=== PATIENT | male | born 1980 | race African-American/Black ===

== ENCOUNTER 2018-04-04 21:41 | Inpatient (IN) ==
[2018-04-04] MEDS ORDERED: NS 1,000 ML IV ONE (23:47)
[2018-04-05 01:19] LABS: AGAP 11; ALB/GLOB RATIO 0.5; ALBUMIN 2.3 g/dL (3.5-5.0); ALKALINE PHOSPHATASE 102 U/L (32-122); BUN 12 mg/dL (8-22); CALCIUM 8.1 mg/dL (8.8-10.2); CHLORIDE 107 mmol/L (98-107); COSMO 270; CREATININE 0.6 mg/dL (0.7-1.2); ESTIMATED GFR > 60; GLUCOSE 103 mg/dL (70-104); GOT 25 U/L (10-34); GPT 10 U/L (10-44); POTASSIUM 3.4 mmol/L (3.5-5.1); SODIUM 135 mmol/L (136-145); TCO2 17 mmol/L (25-35); TOTAL BILIRUBIN 0.22 mg/dL (0.20-1.00)
[2018-04-05 01:31] LABS: BASO# 0.03 X1000 (0.0-0.2); BASO% 0.3 % (0.0-0.8); EOS# 0.33 X1000 (0.0-0.7); EOS% 3.2 % (0.0-10.0); HEMATOCRIT 21.3 % (42.0-52.0); HEMOGLOBIN 6.7 g/dL (14.0-18.0); LYMPH# 1.33 X1000 (1.2-3.4); LYMPH% 12.9 % (20.5-51.1); MCH 28.8 PG (27-31); MCHC 31.5 g/dL (33-37); MCV 91.4 FL (81-99); MONO# 0.97 X1000 (0.11-0.59); MONO% 9.4 % (1.7-9.3); NEUT# 7.62 X1000 (1.4-6.5); NEUT% 74.2 % (42.2-75.2); PLT 590 X1000 (130-400); RBC 2.33 XMIL (4.7-6.1); RDW 17.2 % (11.5-14.5); WBC 10.28 X1000 (4.8-10.8)
[2018-04-05] MEDS: MORPHINE IV ONE ×2 (02:00→10:20)
[2018-04-05] MEDS ORDERED: NS 1,000 ML IV ONE (02:11)
[2018-04-05] MEDS ORDERED: VANCOMYCIN 1 GM/NS 1 GM/250 ML IVPB IV ONE (02:34)
[2018-04-05] MEDS ORDERED: ZOSYN 3.375 GM in NS 50 ML IV ONE (02:34)
--- NOTE | 2018-04-05 03:16 | PROVIDER DOCUMENTATION ---
This chart was entered by Nicolás Hernandez Scribe, acting as scribe for Michael Coates MD. HPI-General Adult - General Chief Complaint: General Adult Stated Complaint: abd pain Time Seen by Provider: 04/04/18 21:44 Source: patient Allergies/Adverse Reactions: Patient Allergies Allergy/AdvReac Type Severity Reaction Status Date / Time No Known Allergies Allergy Verified 09/12/14 16:15 Home Medications: Home Medication List Medication Instructions Recorded Confirmed Last Taken Type Carisoprodol [Soma] 350 mg PO BID 03/26/12 09/12/14 09/10/14 09:00 History Pregabalin [Lyrica] 200 mg PO TID 03/26/12 09/12/14 09/10/14 09:00 History Zolpidem [Ambien] 10 mg PO QHS 03/26/12 09/12/14 09/10/14 09:00 History Folic Acid 1 mg PO DAILY #0 tablet 10/26/13 09/12/14 09/10/14 09:00 Rx Insulin Glargine [Lantus] 20 units SQ BID 07/15/14 09/12/14 09/10/14 09:00 History Acetaminophen [Tylenol] 325 - 650 mg PO Q4H PRN PRN #0 09/22/14 Unknown Rx tablet Hydrocodone/Acetaminophen [Hartly 10 mg PO Q6H PRN PRN #30 tablet 09/22/14 Unknown Rx 10-325 Tablet] Nitrofurantoin Loíza/Macrocryst 100 mg PO Q12HR #6 capsule 09/22/14 Unknown Rx [Macrobid] - History of Present Illness -Gen Adult Nature of Presenting Problems: Pt is 38 y/o M brought in by EMS saying he spoke with a nurse from [facility]ious [facility]. He reports he was DC 4 days ago there treated with Sepsis. He reports a PICC line in his left arm. 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 He says he mom has been treating his wounds. He says he had a fever 3 days ago. He says he is not feeling well and unable to eat. Location of Pain/Injury: reports: generalized (not feeling well.) Pain Radiation: reports: no radiation Severity: reports: mild Onset/Duration: reports: 2 days ago Timing: reports: still present Context/Activities at Onset: reports: none Modifying Factors: improves with: nothing Associated Symptoms: reports: fever/chills. denies: cough, diarrhea, sinus congestion/drainage, shortness of breath, swelling/mass in abdomen Similar Symptoms Previously?: No Recently seen or treated by another doctor?: No Review of Systems - Adult - REVIEW OF SYSTEMS - ADULT Constitutional: reports: fever. denies: chills Cardiovascular: denies: edema, palpitations Respiratory: denies: cough, shortness of breath, wheezing Gastrointestinal: denies: abdominal pain, nausea, vomiting Genitourinary: denies: dysuria, discharge Musculoskeletal: denies: back pain, neck pain Neurological: denies: dizziness/vertigo, headache/migraines Past History - Adult - PAST MEDICAL HISTORY-ADULT Review of Records: reports: Old Records Reviewed, Nursing Assessment Review, Medications Reviewed Major Childhood Illnesses: reports: denies history Cardiovascular: reports: cardiac disease Respiratory: reports: denies history Gastrointestinal: reports: denies history Obstetrical/Gynecological: Genitourinary: reports: chronic UTI's, other (self caths) Musculoskeletal: reports: arthritis, other (paraplegic since 2005 with some contracturing of legs) Neurological: reports: other (paraplegia) Psychiatric: reports: depression Endocrine/Immune: reports: anemia, Diabetes Other Conditions: reports: denies history - PRIOR SURGERIES/PROCEDURES Surgical/Procedure History: reports: orthopedic (extremity) (knee surgery.), joint replacement (Total knee replacement. ), other (Arthroscopy. ) - IMMUNIZATION STATUS Childhood Immunizations: See Nurse Assessment Flu Vaccine: See Nurse Assessment - FAMILY HISTORY Family History: reviewed, not pertinent - SOCIAL HISTORY Substance Use: none/never Alcohol Use Frequency: never Living Situation: family Physical Exam-General - PHYSICAL EXAM-ADULT Initial Vital Signs Reviewed: Yes - CONSTITUTIONAL General Appearance: appears well, alert, no apparent distress - EYES Eyes: PERRL/EOMI, pink conjunctivae - HEAD, EARS, NOSE, MOUTH & THROAT HENMT: moist mucous membranes, pharynx normal - RESPIRATORY Respiratory: lungs clear, normal breath sounds, no pleuratic chest pain, no respiratory distress, no accessory muscle use - CARDIOVASCULAR Cardiovascular: normal peripheral pulses, tachycardia - MUSCULOSKELETAL Back Exam: normal inspection, no CVA tenderness, no vertebral tenderness Extremity: non-tender, normal gait. negative: normal inspection - SKIN Integumentary: normal color, normal turgor, warm/dry - NEUROLOGIC Neurologic: grossly normal, no motor/sensory deficits - PSYCHIATRIC Psych/Mental Status: normal mood/affect, normal thought content, normal thought process, oriented x 3 Progress - PLAN OF CARE/RESULTS Progress/Plan/Lab Results: Vital Signs - 8 hr 04/04/18 21:37 Temperature 98.1 F Pulse Rate 119 H Respiratory Rate 18 Blood Pressure 94/69 O2 Sat by Pulse Oximetry 96 Pt was recently treated at [facility], they are on diversion, pt to be covered with abx , right now hypotensive but pt reports baseline is 90/60, pt getting fluids and abx now, will admit Result Diagrams: 04/05/18 00:30 04/05/18 00:30 - CONSULTS/PCP/HOSPITALIST Notification #1 *Consult/PCP/Hospitalist*: [facility] Time Discussed: 23:41 Reason/Comments: Transfer Consult Disposition: other (PT was pt at [facility]. Do an infectious work up) Departure - Departure Date of Disposition Decision: 04/05/18 Time of Disposition Decision: 03:15 DIAGNOSIS: Infected decubitus ulcer Qualifiers: Pressure injury stage: stage 2 Qualified Code(s): L89.92 - Pressure ulcer of unspecified site, stage 2; L08.9 - Local infection of the skin and subcutaneous tissue, unspecified Disposition: ADMITTED INPATIENT 09 Certified Medical Emergency: Emergent Condition: Critical Referrals and Follow-Ups: Jennifer Balderas [Primary Care Provider] - - Critical Care Note This patient required my direct & personal management of CC.: No Attestation - Physician/ IBAN Attestation Patient care was provided by Advanced Practice Provider:: No The physician spent face to face time with patient:: Yes Advanced Practice Provider documentation review:: Supervising physician onsite and consulted in the evaluation and care of this patient. The physician did have a face to face encounter with the patient. This chart was documented by the indicated scribe, (Nicolás Hernandez Scribe) and accurately reflects the services I performed and decisions made by me, Michael Coates MD, as attested by the provider's signature.
[2018-04-05] MEDS ORDERED: MAXIPIME 1 GM in NS 50 ML IV SCH (03:30)
[2018-04-05 03:53] LABS: INR 1.22; PROTIME 16.4 Seconds (11.0-16.0)
[2018-04-05 03:54] LABS: PTT 43.8 Seconds (22.3-41.8)
--- NOTE | 2018-04-05 04:21 | HISTORY AND PHYSICAL ---
ADDENDUM Mr. Jose Stewart is a 38-year-old male with chronic hip and sacral decubiti secondary to longstanding paraplegia. He was recently discharged from [facility] about 3 days ago where he stayed for 3 weeks. When he was admitted there, they had plans to do surgical debridement or possible replacement of both of his hips, but fortunately for him he only required IV antibiotics with a drain placed in his left groin. He says he was informed that he had highly drug -resistant pathogens that required multiple antibiotics. They had planned to send him to a retirement to complete his IV antibiotic course, but he said he could manage this at home with his mother. During the course of his stay at home over the last few days, he and his mother had a hard time trying to get his medications right. He spiked a fever this morning and called [facility] and they told him to come to the ER. Plans were made to get him transferred to [facility], but they are currently on diversion. He will be admitted to our facility, resume all his home antibiotics in conjunction with IV supervision. His exam is notable for the drain in his left groin. Did not exam sacral area. He has clubbing in his fingers. He is very pale. His hemoglobin and hematocrit are [address] He is paraplegic. He has dependent 2-plus edema in his lower extremities. Also, the patient will require at least 2 L of fluid. His blood pressure is marginal at best, 70-80 systolic, but he says his baseline is 90 systolic. Other vital signs: Pulse is 123, temperature is 98.1. His respiration rate is 17 with an O2 saturation of 96. cc: Maikol Castillo MD [facility]
[2018-04-05] MEDS ORDERED: VANCOMYCIN IV PER PHARMACY MISC SCH (05:15)
[2018-04-05 05:18] LABS: HEMATOCRIT 20.8 % (42.0-52.0); HEMOGLOBIN 6.5 g/dL (14.0-18.0)
[2018-04-05] MEDS ORDERED: KLOR-CON PO ONE (06:16)
[2018-04-05] MEDS ORDERED: TYLENOL PO PRN (06:16)
[2018-04-05] MEDS ORDERED: VANCOMYCIN 2,300 MG in NS 500 ML IV ONE (06:30)
[2018-04-05] MEDS: FLAGYL 500 MG/NS 500 MG/100 ML IVPB IV SCH ×2 (06:40→12:11)
[2018-04-05 06:54] LABS: URINE SOURCE CATH
[2018-04-05 06:58] LABS: BILIRUBIN URINE NEGATIVE (NEGATIVE); BLOOD URINE MODERATE (NEGATIVE); COLOR YELLOW; GLUCOSE URINE NEGATIVE (NEGATIVE); KETONE URINE NEGATIVE (NEGATIVE); LEUKOCYTES URINE SMALL (NEGATIVE); NITRITE URINE NEGATIVE (NEGATIVE); PROTEIN URINE 70 mg/dL (NEGATIVE); SP GRAVITY URINE 1.017; TURBIDITY URINE CLEAR (CLEAR); UROBILINOGEN URINE NORMAL (NORMAL)
[2018-04-05] MEDS: HUMALOG SUBQ SCH ×4 (07:00→20:08)
[2018-04-05 07:26] LABS: UR EPITHELIAL CELLS >10 /HPF (<10); URINE BACTERIA NEGATIVE /HPF; URINE CASTS NONE SEEN; URINE CRYSTALS NONE SEEN; URINE RBC 20-40 /HPF (<10); URINE SMALL ROUND CELLS NONE SEEN; URINE WBC <10 /HPF (<10); URINE YEAST NONE SEEN
[2018-04-05] MEDS: NS 1,000 ML IV SCH ×2 (07:30→16:43)
[2018-04-05] MEDS: SODIUM CHLORIDE 0.9% INJ SCH ×2 (07:31→18:54)
[2018-04-05] MEDS: PROTONIX IV SCH ×2 (07:31→18:54)
[2018-04-05] MEDS: ZOFRAN IV PRN (07:32)
--- NOTE | 2018-04-05 07:38 | EKG Report ---
Test Performed on : 04/05/2018 07:32:06 AM Test Reason : Anemia, Hypotension Blood Pressure : / mmHG Vent. Rate : 099 BPM Atrial Rate : 099 BPM P-R Int : 140 ms QRS Dur : 086 ms QT Int : 354 ms P-R-T Axes : 059 062 066 degrees QTc Int : 454 ms Normal sinus rhythm. Normal ECG No previous ECGs available Confirmed by Thomas QUIROZ, Oscar Wright ([id number]) on 04/05/2018 4:13:26 PM
[2018-04-05] MEDS ORDERED: NS 250 ML ONE (07:46)
--- NOTE | 2018-04-05 08:05 | Diag Imaging Result Doc PS360 ---
EXAM: CHEST-1 VIEW 04/04/2018 HISTORY: fever TECHNIQUE: AP portable at 2356 COMMENT: There is a PICC line on the right with its tip in the right atrium. The inspiration is somewhat suboptimal. There are no focal opacities and the heart size and primary vascularity are within normal limits. Compared to 09/22/2014 the inspiration is less optimal but otherwise there has been no significant change. IMPRESSION: No acute disease. Electronically signed by Michel Kidd 04/05/2018 8:03 AM
[2018-04-05 12:15] LABS: HEMATOCRIT 29.5 % (42.0-52.0); HEMOGLOBIN 9.4 g/dL (14.0-18.0)
[2018-04-05] MEDS: SANTYL OINT TOP SCH (13:15)
[2018-04-05] MEDS: MORPHINE IV PRN ×4 (13:22→23:14)
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
[2018-04-05] MEDS: MAXIPIME 2 GM in NS 100 ML IV SCH (16:43)
--- NOTE | 2018-04-05 16:59 | Diag Imaging Result Doc PS360 ---
US SCROTUM - 04/05/2018 INDICATION: Scrotal Swelling TECHNIQUE: COMPARISON: CT abdomen pelvis 07/15/2014 FINDINGS: There is severe nonspecific skin edema over the scrotum diffusely. No large fluid collections. The testes themselves demonstrate microlithiasis. The right testicle measures 2.7 x 1.7 cm. The left testicle measures 2.8 x 1.9 cm. IMPRESSION: 1. Severe, nonspecific skin edema of the scrotum. No fluid collections. 2. Testicular microlithiasis. Electronically signed by Demond Bowers 04/05/2018 4:57 PM
--- NOTE | 2018-04-05 19:45 | CONSULTATION ---
DATE OF CONSULTATION: 04/05/2018 HISTORY OF PRESENT ILLNESS: Mr. Jesus Stewart is a paraplegic 38-year-old male who was just discharged from [facility] after being cared for, for multiple pressure ulcers involving the sacrum and buttocks areas. He has a drain in place per [facility]. He is continuing to receive IV antibiotics. ASSESSMENT AND PLAN: Our hospitalists have contacted [facility] and plan to transfer him back to that service. In the meantime, I would have our wound care nurse help care for these wounds. cc: Latonya Anderson MD
[2018-04-06] MEDS: VANCOMYCIN 2,300 MG in NS 500 ML IV SCH ×2 (01:58→20:56)
[2018-04-06] MEDS: MORPHINE IV PRN ×5 (03:37→23:21)
[2018-04-06] MEDS: MAXIPIME 2 GM in NS 100 ML IV SCH ×2 (04:23→15:55)
[2018-04-06 05:13] LABS: BASO# 0.04 X1000 (0.0-0.2); BASO% 0.4 % (0.0-0.8); EOS# 0.37 X1000 (0.0-0.7); EOS% 3.6 % (0.0-10.0); HEMOGLOBIN 8.7 g/dL (14.0-18.0); LYMPH# 1.47 X1000 (1.2-3.4); LYMPH% 14.3 % (20.5-51.1); MCH 28.4 PG (27-31); MCHC 32.2 g/dL (33-37); MCV 88.2 FL (81-99); MONO# 0.96 X1000 (0.11-0.59); MONO% 9.3 % (1.7-9.3); MPV 8.9 FL (7.4-10.4); NEUT# 7.36 X1000 (1.4-6.5); NEUT% 71.4 % (42.2-75.2); PLT 515 X1000 (130-400); RBC 3.06 XMIL (4.7-6.1); RDW 17.2 % (11.5-14.5)
[2018-04-06 05:43] LABS: AGAP 9; ALB/GLOB RATIO 0.5; ALBUMIN 2.1 g/dL (3.5-5.0); ALKALINE PHOSPHATASE 94 U/L (32-122); BUN 9 mg/dL (8-22); CALCIUM 7.7 mg/dL (8.8-10.2); CHLORIDE 111 mmol/L (98-107); COSMO 271; CREATININE 0.5 mg/dL (0.7-1.2); ESTIMATED GFR > 60; GLUCOSE 100 mg/dL (70-104); GOT 11 U/L (10-34); GPT 6 U/L (10-44); POTASSIUM 3.2 mmol/L (3.5-5.1); SODIUM 136 mmol/L (136-145); TCO2 16 mmol/L (25-35); TOTAL BILIRUBIN 0.18 mg/dL (0.20-1.00); TOTAL PROTEIN 6.5 g/dL (6.3-8.3)
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
[2018-04-06] MEDS: HUMALOG SUBQ SCH ×4 (06:34→20:57)
[2018-04-06] MEDS: SODIUM CHLORIDE 0.9% INJ SCH (06:39)
[2018-04-06] MEDS: PROTONIX IV SCH ×2 (06:39→17:20)
[2018-04-06] MEDS: SANTYL OINT TOP SCH (12:23)
[2018-04-06] MEDS ORDERED: POTASSIUM CHLORIDE 40 MEQ/SWI 40 MEQ/100 ML IVPB IV ONE (14:26)
--- NOTE | 2018-04-06 16:43 | PROGRESS NOTE ---
DATE: 04/06/2018 SUBJECTIVE: Patient resting in bed. Not in any obvious distress. OBJECTIVE: Vital signs: Temperature is 96.8 degrees, pulse 105, respiratory 19 , blood pressure is 111/75, O2 saturation 100%. HEENT: Atraumatic, normocephalic. Cardiovascular: S1, S2. Respiratory: Has evidence of good air entry bilaterally. Abdomen: Soft, nontender, no masses. Extremities: Has about 2 to 3+ edema in both lower extremities. 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 ASSESSMENT AND PLAN: 1. Multiple decubitus ulcers with possible left thigh infection. Patient currently has a drain in that region. The patient will require local wound care and also antibiotic management. The patient has been seen by the Infectious Disease team. 2. Diabetes mellitus. Continue blood sugar monitoring as well as sliding scale insulin. 3. Anemia. Follow up on hemoglobin, hematocrit, transfuse PRBC as needed. 4. Hypokalemia. Replete potassium level, check mag level. 5. Deep vein thrombosis prophylaxis Lovenox. cc: Javier Rebollar MD MTDD
--- NOTE | 2018-04-06 18:35 | PROGRESS NOTE ---
DATE: 04/06/2018 Mr. Jose Stewart has multiple pressure wounds involving his buttocks and sacrum. He has been down at [facility] where they have been treating him. He has a drain left groin placed by Interventional Radiology, our girls have removed 50 mL out of that drain. They have instructions to flush the drain 10 mL several times a day as the drainage decreases less than 15 mL it needs to be removed. He is on IV antibiotics, per [facility] and Buster Arango we need our wound care nurse to care for the wounds and he is supposed to have followup at [facility]. cc: Latonya Anderson MD
--- NOTE | 2018-04-06 22:03 | INFECTIOUS DISEASE PROGRESS NO ---
DATE: 04/06/2018 PRESENT ILLNESS: The patient is admitted with multiple sacral decubitus. They all have beefy red tissue except for one that has a large eschar. The patient's chest x-ray does not show any pneumonia. The patient's urine culture is negative and thus the patient does not have a urinary tract infection. MEDICATIONS: The patient currently is on a combination of vancomycin and cefepime. PHYSICAL EXAMINATION: Vital Signs: Temperature was 101 degrees now it is 97.5, pulse 115, respirations 22, blood pressure 99/60. Generally: This is an ill-appearing young male. He is in no acute distress. Head/eyes/ears/nose/throat: He can hear my spoken words and see near objects. He does not have any white coating on the tongue. Neck: The patient has a left internal jugular venous catheter in place. The site is not erythematous or draining. Extremities: The patient has a PICC in the right arm. That site also is not erythematous or draining. The patient does have a drain in the left hip. The patient does have decubitus as mentioned above involving the left hip also. Lungs: Clear to auscultation. Cardiovascular: Regular heart rate. Abdomen: Soft and nontender. LABORATORY FINDINGS AND X-RAYS: Chest x-ray shows no acute disease. Urinalysis does not have white cells or bacteria. Urine culture is negative. Culture from the patient's wounds are growing gram-negative rods. Blood cultures are pending. Chest x-ray shows no acute disease. CBC shows a white count of 10,300, hemoglobin 8.7, platelet count 515,000. Creatinine is 0.5. GFR is greater than 60. ASSESSMENT AND PLAN: At this time, the patient may have a wound infection or some infection in the left thigh from where the drain is placed. For right now I am going to continue both vancomycin and cefepime pending further culture results. COMORBIDITIES: He is diabetic and he also has paralysis of his legs. cc: Buster Arango MD
[2018-04-06] MEDS: LYRICA PO SCH (22:18)
[2018-04-06] MEDS: SOMA PO SCH (22:18)
[2018-04-07] MEDS: MAXIPIME 2 GM in NS 100 ML IV SCH ×2 (03:24→16:27)
[2018-04-07] MEDS: MORPHINE IV PRN ×5 (05:17→21:35)
[2018-04-07] MEDS: PROTONIX IV SCH ×2 (05:27→17:20)
[2018-04-07] MEDS: SODIUM CHLORIDE 0.9% INJ SCH (05:27)
[2018-04-07 06:06] LABS: BASO# 0.05 X1000 (0.0-0.2); BASO% 0.5 % (0.0-0.8); EOS# 0.28 X1000 (0.0-0.7); EOS% 2.5 % (0.0-10.0); HEMATOCRIT 25.7 % (42.0-52.0); HEMOGLOBIN 8.3 g/dL (14.0-18.0); IMM GRAN# 0.09 X1000 (0.0-0.04); IMM GRAN% 0.8 % (0.0-0.5); LYMPH# 1.38 X1000 (1.2-3.4); LYMPH% 12.5 % (20.5-51.1); MCH 28.6 PG (27-31); MCHC 32.3 g/dL (33-37); MCV 88.6 FL (81-99); MONO# 1.13 X1000 (0.11-0.59); MONO% 10.3 % (1.7-9.3); MPV 8.8 FL (7.4-10.4); NEUT# 8.07 X1000 (1.4-6.5); NEUT% 73.4 % (42.2-75.2); PLT 479 X1000 (130-400); RDW 16.9 % (11.5-14.5)
[2018-04-07] MEDS: HUMALOG SUBQ SCH ×4 (06:14→21:38)
[2018-04-07 06:29] LABS: CHLORIDE 115 mmol/L (98-107); POTASSIUM 3.5 mmol/L (3.5-5.1); SODIUM 139 mmol/L (136-145); TCO2 15 mmol/L (25-35)
[2018-04-07 06:30] LABS: AGAP 9; ALB/GLOB RATIO 0.4; ALBUMIN 1.8 g/dL (3.5-5.0); BUN 8 mg/dL (8-22); CALCIUM 7.9 mg/dL (8.8-10.2); COSMO 277; CREATININE 0.5 mg/dL (0.7-1.2); GLUCOSE 115 mg/dL (70-104); TOTAL BILIRUBIN 0.16 mg/dL (0.20-1.00); TOTAL PROTEIN 6.3 g/dL (6.3-8.3)
[2018-04-07 06:31] LABS: ALKALINE PHOSPHATASE 90 U/L (32-122); GOT 19 U/L (10-34); GPT 7 U/L (10-44)
[2018-04-07] MEDS: SOMA PO SCH ×2 (08:54→21:36)
[2018-04-07] MEDS: LYRICA PO SCH ×2 (08:54→21:36)
[2018-04-07] MEDS: FOLIC ACID PO SCH (08:54)
[2018-04-07] MEDS ORDERED: MARINOL PO SCH (09:00)
[2018-04-07] MEDS: SANTYL OINT TOP SCH (09:18)
[2018-04-07] MEDS ORDERED: STERILE WATER INJ. INJ ONE (09:57)
[2018-04-07] MEDS ORDERED: CATHFLO IV ONE (09:57)
[2018-04-07 10:20] LABS: HEMOGLOBIN A1C 4.7 % (4.8-6.0)
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
[2018-04-07] MEDS: AMBIEN PO SCH (21:36)
[2018-04-08] MEDS: MAXIPIME 2 GM in NS 100 ML IV SCH ×2 (04:06→17:29)
[2018-04-08] MEDS: MORPHINE IV PRN ×4 (04:08→21:58)
[2018-04-08] MEDS: SODIUM CHLORIDE 0.9% INJ SCH (05:19)
[2018-04-08] MEDS: PROTONIX IV SCH ×2 (05:19→19:11)
[2018-04-08] MEDS: HUMALOG SUBQ SCH ×4 (06:00→23:41)
[2018-04-08 06:46] LABS: BASO# 0.04 X1000 (0.0-0.2); BASO% 0.4 % (0.0-0.8); EOS# 0.35 X1000 (0.0-0.7); EOS% 3.3 % (0.0-10.0); HEMATOCRIT 24.9 % (42.0-52.0); HEMOGLOBIN 7.9 g/dL (14.0-18.0); IMM GRAN# 0.09 X1000 (0.0-0.04); IMM GRAN% 0.9 % (0.0-0.5); LYMPH# 1.41 X1000 (1.2-3.4); LYMPH% 13.4 % (20.5-51.1); MCH 28.2 PG (27-31); MCHC 31.7 g/dL (33-37); MCV 88.9 FL (81-99); MONO# 0.77 X1000 (0.11-0.59); MONO% 7.3 % (1.7-9.3); MPV 8.4 FL (7.4-10.4); NEUT# 7.89 X1000 (1.4-6.5); NEUT% 74.7 % (42.2-75.2); PLT 459 X1000 (130-400); RDW 16.7 % (11.5-14.5); WBC 10.55 X1000 (4.8-10.8)
[2018-04-08 07:18] LABS: AGAP 10; ALB/GLOB RATIO 0.4; ALBUMIN 1.9 g/dL (3.5-5.0); ALKALINE PHOSPHATASE 87 U/L (32-122); BUN 10 mg/dL (8-22); CALCIUM 7.5 mg/dL (8.8-10.2); CHLORIDE 113 mmol/L (98-107); COSMO 278; CREATININE 0.6 mg/dL (0.7-1.2); ESTIMATED GFR > 60; GLUCOSE 126 mg/dL (70-104); GOT 27 U/L (10-34); GPT 9 U/L (10-44); POTASSIUM 3.4 mmol/L (3.5-5.1); SODIUM 139 mmol/L (136-145); TCO2 16 mmol/L (25-35); TOTAL BILIRUBIN < 0.15 mg/dL (0.20-1.00); TOTAL PROTEIN 6.3 g/dL (6.3-8.3)
[2018-04-08 09:10] LABS: ALLEN TEST YES; BE -5.1 mmoll (-3.0-3.0); BLOOD TYPE ARTERIAL; METHB 1.2 % (0.0-1.5); O2(CT) 11.4 mL/dL (15.0-23.0); O2HB 97.2 % (95.0-99.0); PCO2(98.6) 27 mmHg (35-45); PO2(98.6) 152 mmHg (60-100); SAMPLE BLOOD; SAO2 99.9 % (95.0-100.0); THB 8.1 g/dL (11.5-17.4); pH(98.6) 7.44 (7.35-7.45)
[2018-04-08 09:19] LABS: MODALITY ROOM AIR
[2018-04-08] MEDS: VANCOMYCIN 2 GM in NS 500 ML IV SCH (09:31)
[2018-04-08] MEDS: FOLIC ACID PO SCH (09:32)
[2018-04-08] MEDS: SOMA PO SCH ×2 (09:32→21:57)
[2018-04-08] MEDS: SANTYL OINT TOP SCH (09:32)
[2018-04-08] MEDS: LYRICA PO SCH ×2 (09:32→21:58)
--- NOTE | 2018-04-08 11:35 | PROGRESS NOTE ---
DATE: 04/08/2018 SUBJECTIVE: This morning Mr. Stewart refers to be doing fairly okay. Denies any acute complaints. OBJECTIVE: Vital Signs: Blood pressure 111/78, pulses 102, respirations 19, and temperature 97.9 degrees. Patient was saturating 100% on room air. General: Mr. Stewart is a 38-year-old gentleman. He is in bed. He is not in any kind of cardiopulmonary distress. He looks remarkably emaciated and chronically ill looking. HEENT: Mucosa is pink and moist. Anicteric. Acyanotic. Neck: Supple. Respiratory: There is good air entry bilaterally. No crepitations. No rhonchi. Cardiovascular: Regular rate and rhythm. No murmurs, no rubs, no gallops. Abdomen: Soft. Distended but nontender. Bowel sounds present. Extremities: 4+ pitting pedal edema associated with scrotal swollen. There is a pigtail catheter in the left inguinal region. SUPERVISOR COVERING AND LINING: Patient is awake, alert, and oriented. He is currently paraplegic and does have chronic atrophies in the upper extremities as well. LABORATORY DATA: WBC is 10.55, hemoglobin is 7.9, and platelet count 454,000. Chemistry is all reviewed. Sodium is 113. Bicarb is 16. ASSESSMENT: 1. Septic shock on presentation. Patient responded well to adequate fluid resuscitation. No pressor was used. Currently on antibiotic. So far, blood cultures have been negative for 48 hours. Presumably, this is from the leg abscess. 2. Left leg abscess with culture positive for E. Coli. The patient is currently on IV antibiotics. ID is on board. 3. History of diabetes mellitus on insulin therapy. 4. Anemia secondary to chronic disease. Patient is status post 2 PRBC transfusion. Hemoglobin this morning is 7.9, minimally reduced from yesterday. The patient does not show any overt signs of bleeding, so we are going to continue observing. 5. Non-gap metabolic acidosis. We are going to do urine studies. So far, the ABGs shows adequate respiratory compensation. 6. History of paraplegia with multiple decubitus ulcers. Surgery and wound care is on board. 7. Chronic bilateral massive lower extremity swelling. We will continue with the Eliquis for the chronic DVT's. We will also improve his nutritional status with albumin to help pull some of the fluid in the intravascular system and with the Lasix. 8. Protein calorie malnutrition. Albumin level is 1.9. The patient is getting nutritional supplement. 9. Patient disposition is going to depend on the rest of his hospital course. Presume would eventually get him to a rehab/LTAC to continue with PT and wound care as well as IV antibiotics. cc: Vazquez Ellis MD
[2018-04-08] MEDS: ALBUMIN 25% IV SCH (17:27)
[2018-04-08] MEDS: LASIX IV SCH (21:57)
[2018-04-08] MEDS: AMBIEN PO SCH (21:58)
[2018-04-09] MEDS: MORPHINE IV PRN ×3 (01:53→09:23)
[2018-04-09] MEDS: SODIUM CHLORIDE 0.9% INJ SCH ×2 (04:27→15:36)
[2018-04-09] MEDS: PROTONIX IV SCH ×2 (04:27→15:36)
[2018-04-09] MEDS: MAXIPIME 2 GM in NS 100 ML IV SCH ×2 (04:27→15:36)
[2018-04-09] MEDS: HUMALOG SUBQ SCH ×4 (06:14→20:46)
--- NOTE | 2018-04-09 08:37 | PROGRESS NOTE ---
DATE: 04/09/2018 SUBJECTIVE: Mr. Stewart has a radiologic placed left groin drain which is draining mostly serous fluid and the volumes decreased. Plans were to have that drain removed in [place] on 04/12/2018, and I certainly can remove it while he is hospitalized. He is being treated for his extensive wounds at [facility] and evidently they discharged him to improve his protein malnutrition. His white blood cell count is normal. We have asked our nurse clerk specialist to help care for his wounds. cc: Latonya Anderson MD
[2018-04-09] MEDS: VANCOMYCIN 2 GM in NS 500 ML IV SCH (08:48)
[2018-04-09] MEDS: ALBUMIN 25% IV SCH (08:48)
[2018-04-09] MEDS: SANTYL OINT TOP SCH (08:49)
[2018-04-09] MEDS: FOLIC ACID PO SCH (08:50)
[2018-04-09] MEDS: LYRICA PO SCH ×2 (08:50→20:24)
[2018-04-09] MEDS: SOMA PO SCH ×2 (08:51→20:24)
[2018-04-09] MEDS: LASIX IV SCH (08:51)
[2018-04-09 13:15] LABS: BASO# 0.05 X1000 (0.0-0.2); BASO% 0.5 % (0.0-0.8); EOS# 0.31 X1000 (0.0-0.7); EOS% 3.1 % (0.0-10.0); HEMATOCRIT 21.7 % (42.0-52.0); HEMOGLOBIN 6.9 g/dL (14.0-18.0); IMM GRAN# 0.09 X1000 (0.0-0.04); IMM GRAN% 0.9 % (0.0-0.5); LYMPH# 1.37 X1000 (1.2-3.4); LYMPH% 13.8 % (20.5-51.1); MCH 28.4 PG (27-31); MCHC 31.8 g/dL (33-37); MCV 89.3 FL (81-99); MONO# 0.76 X1000 (0.11-0.59); MONO% 7.7 % (1.7-9.3); MPV 8.5 FL (7.4-10.4); NEUT# 7.34 X1000 (1.4-6.5); PLT 391 X1000 (130-400); RBC 2.43 XMIL (4.7-6.1); RDW 16.5 % (11.5-14.5); WBC 9.92 X1000 (4.8-10.8)
[2018-04-09 13:21] LABS: AGAP 13; ALBUMIN 2.7 g/dL (3.5-5.0); BUN 8 mg/dL (8-22); CALCIUM 7.3 mg/dL (8.8-10.2); CHLORIDE 109 mmol/L (98-107); COSMO 278; CREATININE 0.5 mg/dL (0.7-1.2); ESTIMATED GFR > 60; GLUCOSE 111 mg/dL (70-104); PHOSPHORUS 2.5 mg/dL (2.7-4.5); POTASSIUM 3.1 mmol/L (3.5-5.1); SODIUM 140 mmol/L (136-145); TCO2 18 mmol/L (25-35)
[2018-04-09] MEDS ORDERED: MAGNESIUM SULFATE 2 GM/S.W.I. 2 GM/50 ML IVPB IV ONE (14:25)
[2018-04-09] MEDS ORDERED: POTASSIUM PHOSPHATE 30 MEQ in NS 250 ML IV ONE (14:25)
[2018-04-09] MEDS: DILAUDID IV PRN ×2 (15:32→20:23)
--- NOTE | 2018-04-09 15:33 | PROGRESS NOTE ---
DATE: 04/09/2018 SUBJECTIVE: Today Mr. Stewart refers to be doing a lot better, but he still complains of generalized pains. He thinks his lower extremity swelling is getting better. OBJECTIVE: Vital signs: Blood pressure is 117/88, pulse is 98, respirations 16, temperature 97.6 degrees, patient is saturating 100% on room air. General: Mr. Stewart is a 38-year-old gentleman. He is in bed. He is not in any cardiopulmonary distress. HEENT: Mucosa is slightly pale. Anicteric. Acyanotic. Neck: Supple. He looks chronically ill and emaciated. Respiratory System: Good air entry bilaterally. No crepitations. No rhonchi. Cardiovascular: Regular rate and rhythm. No murmurs, no rubs, no gallops. Gastrointestinal: Abdomen is soft, it is distended. Bowel sounds present. Extremities: About 4+ pedal edema, including the scrotum, but it looks like it is getting better. There is a pigtail catheter in the left inguinal region. Central nervous system: Patient is awake, alert. He is paraplegic and has chronic atrophy in the upper extremities, consistent with longstanding neurological condition. LABORATORY DATA: WBC is 9.92, hemoglobin is 6.9, platelet count of 391,000. Chemistry is also reviewed. Bicarbonate is 18, slightly improving. All the other minerals and electrolytes are remarkably low. PATIENT'S INTAKES AND OUTPUTS: Urine output is 4700. ASSESSMENT: 1. Septic shock on presentation, resolved. 2. Left thigh abscess with culture positive for Escherichia coli. Patient is on IV antibiotics. ID and Surgery are on board. There is a pigtail catheter in the left thigh, which is currently draining only serous fluid. No obvious purulence. 3. Diabetes mellitus. On insulin therapy. 4. Anemia of chronic disease. The patient was transfused 2 PRBCs. However, hemoglobin has dropped down to 6.9, so we are going to give him 2 more units of PRBC. 5. Non-gap metabolic acidosis, stable. 6. Paraplegia with multiple decubitus ulcers. Surgery and Wound Care are on board. 7. Chronic bilateral lower extremity swelling. The patient is getting Lasix. 8. Lower extremity deep vein thrombosis (DVT). Patient is on Eliquis. 9. Protein-calorie malnutrition. The patient is getting supplementation. 10. Multiple mineral and vitamin deficiencies. Potassium, magnesium, phosphorus are all low. We are going to replace them accordingly. 11. Chronic pain syndrome. Patient continues to be hurting all over. We will optimize his pain medications. cc: Vazquez Ellis MD
--- NOTE | 2018-04-09 17:54 | INFECTIOUS DISEASE PROGRESS NO ---
DATE: 04/09/2018 PRESENT ILLNESS: The patient has multiple sacral decubitus which have become infected. MEDICATIONS: The patient currently is taking vancomycin and cefepime. PHYSICAL EXAMINATION: Vital Signs: Temperature is 97.9 degrees, pulse 115, respirations 16, blood pressure 102/60. General: This is an ill-appearing, young male. He is in no acute distress. Head, eyes, ears, nose, throat: He can hear my spoken words and see near objects. He does not have any white patches on his tongue. Neck: The patient's internal jugular venous catheter has been removed. Lungs: Clear to auscultation. Cardiovascular: Heart rate is regular. Extremities: The patient has a PICC in the right arm. He also has multiple decubitus areas and some of them have scarred over where he had decubitus ulcers. Both legs are edematous. There is a drain in the left thigh. Abdomen: Soft and not tender. Neurologic: The patient is awake. He can move his arms but he is paralyzed from the waist down. Integument: The patient has multiple decubitus ulcers. The ones that are actively infected have dressings on them currently. LAB AND X-RAY: He does not have a new radiographic study. His CBC shows a white count of 9,920, hemoglobin 6.9, platelet count 391,000. Creatinine is 0.5. GFR is greater 60. The patient's culture came back. It is growing Pseudomonas aeruginosa which is susceptible only to amikacin, gentamicin, and tobramycin, and E. coli which was susceptible to all of the antibiotics tested. ASSESSMENT AND PLAN: The patient has infected decubitus ulcers. I am going to discontinue vancomycin and cefepime and place the patient on meropenem. I am going to request the microbiology lab to send the Pseudomonas isolate for susceptibility testing against meropenem. COMORBIDITIES: Unfortunately he is paralyzed, as mentioned above. He also is a diabetic. cc: Buster Arango MD
--- NOTE | 2018-04-09 19:02 | INFECTIOUS DISEASE PROGRESS NO ---
DATE: 04/09/2018 ADDENDUM: This is an addendum to the progress note I dictated earlier. I came back to the patient's room and we removed the dressings on his wounds. Most all the wounds on the legs are from old wounds and they have scarred over. The legs are very edematous. The patient has on the sacral area and the posterior part of the buttock open wounds. There are large open areas and they do have beefy red tissue with bleeding. The patient's scrotum is enlarged. cc: Buster Arango MD
[2018-04-09] MEDS: AMBIEN PO SCH (20:24)
[2018-04-09] MEDS ORDERED: NS 250 ML ONE (20:25)
[2018-04-09] MEDS: MERREM 1 GM in NS 50 ML IV SCH (20:29)
[2018-04-10] MEDS ORDERED: NS 250 ML ONE (00:45)
[2018-04-10] MEDS: DILAUDID IV PRN ×8 (00:51→23:03)
[2018-04-10] MEDS: MERREM 1 GM in NS 50 ML IV SCH ×3 (04:53→20:14)
[2018-04-10] MEDS: PROTONIX IV SCH ×2 (05:10→16:26)
[2018-04-10] MEDS: SODIUM CHLORIDE 0.9% INJ SCH ×2 (05:10→16:26)
[2018-04-10] MEDS: HUMALOG SUBQ SCH ×4 (06:15→21:26)
[2018-04-10 08:06] LABS: BASO# 0.04 X1000 (0.0-0.2); BASO% 0.4 % (0.0-0.8); EOS# 0.33 X1000 (0.0-0.7); EOS% 3.2 % (0.0-10.0); HEMATOCRIT 29.4 % (42.0-52.0); HEMOGLOBIN 9.2 g/dL (14.0-18.0); IMM GRAN# 0.05 X1000 (0.0-0.04); IMM GRAN% 0.5 % (0.0-0.5); LYMPH# 1.32 X1000 (1.2-3.4); LYMPH% 12.8 % (20.5-51.1); MCH 28.1 PG (27-31); MCHC 31.3 g/dL (33-37); MCV 89.9 FL (81-99); MONO# 0.82 X1000 (0.11-0.59); MPV 8.6 FL (7.4-10.4); NEUT# 7.72 X1000 (1.4-6.5); NEUT% 75.1 % (42.2-75.2); PLT 391 X1000 (130-400); RBC 3.27 XMIL (4.7-6.1); RDW 16.2 % (11.5-14.5); WBC 10.28 X1000 (4.8-10.8)
[2018-04-10 08:21] LABS: AGAP 11; ALBUMIN 2.7 g/dL (3.5-5.0); BUN 9 mg/dL (8-22); CALCIUM 7.7 mg/dL (8.8-10.2); CHLORIDE 104 mmol/L (98-107); COSMO 276; CREATININE 0.5 mg/dL (0.7-1.2); ESTIMATED GFR > 60; GLUCOSE 135 mg/dL (70-104); PHOSPHORUS 3.3 mg/dL (2.7-4.5); POTASSIUM 3.4 mmol/L (3.5-5.1); SODIUM 138 mmol/L (136-145); TCO2 23 mmol/L (25-35)
[2018-04-10] MEDS: LYRICA PO SCH ×2 (09:12→20:14)
[2018-04-10] MEDS: FOLIC ACID PO SCH (09:12)
[2018-04-10] MEDS: SOMA PO SCH ×2 (09:13→20:14)
[2018-04-10] MEDS: LASIX IV SCH (09:13)
[2018-04-10] MEDS: ALBUMIN 25% IV SCH (09:21)
--- NOTE | 2018-04-10 11:57 | PROGRESS NOTE ---
DATE: 04/10/2018 SUBJECTIVE: Mr. Stewart is not draining much from his left groin drain. Plans were for this to be removed on 04/12/2018 at [facility]. He may need some more wound care. Using Plastic Surgery at [facility], but they wanted his protein caloric nutrition to improve prior to any further surgery for wound care. ASSESSMENT AND PLAN: I will be glad to remove this drain left groin in the next 24 to 48 hours. Further wound care while hospitalized per our Wound Care nurse and at discharge through [facility]. cc: Latonya Anderson MD
[2018-04-10] MEDS: SANTYL OINT TOP SCH (12:00)
[2018-04-10] MEDS ORDERED: SSD CREAM TOP SCH (12:30)
[2018-04-10] MEDS ORDERED: SILVER NITRATE APPLICATOR TOP ONE (12:38)
--- NOTE | 2018-04-10 14:54 | PROGRESS NOTE ---
DATE: 04/10/2018 SUBJECTIVE: This morning the patient refers to be doing fairly okay. Denies any complaints. OBJECTIVE: Vital Signs: Blood pressure 125/82, pulse 97, respirations 17, and temperature 97.7 degrees. General: Mr. Stewart is a 38-year-old gentleman. He is in bed in no distress. HEENT: Mucosa is pink and moist. Anicteric. Acyanotic. Neck: Supple. No JVD. Patient looks chronically ill and emaciated. Respiratory: There is good air entry bilaterally. No crepitations. No rhonchi. Cardiovascular: Regular rate and rhythm. No murmurs, no rubs, no gallops. Abdomen: Soft. Minimally distended, but nontender. Bowel sounds present. Extremities: 4+ pedal edema including the scrotum. There is a pigtail catheter in the left inguinal region. BRIDGE IRONWORKER: Patient is awake, alert, and oriented. He maintains quadriplegic and remarkable atrophy of the upper extremity as well as increased reflexes in the upper extremities consistent with long-standing neurological conditions. LABORATORY DATA: WBC is 10.2, hemoglobin is 9.2, and platelet count of 391,000. Chemistry is also reviewed, potassium is 3.4. Rest of chemistry is unremarkable. ASSESSMENT: 1. Septic shock on presentation resolved. 2. Left thigh abscess with culture positive for E. Coli. Patient is on antibiotics. 3. Pseudomonal wound infection of the decubitus ulcers. Antibiotics have been changed to meropenem. 4. Diabetes mellitus on insulin therapy. 5. Anemia of chronic disease. Patient is status post 4 PRBC in total. Hemoglobin and hematocrit has improved. 6. Paraplegia with multiple decubitus ulcers. 7. Chronic bilateral lower extremity swelling. The patient is on some on diuretic therapy. 8. Severe protein calorie malnutrition. We will continue with diet supplements 9. Multi mineral and vitamin deficiencies. We will replace them. 10. Chronic pain syndrome has been addressed with the patient. 11. History of lower extremity DVT's. The patient is on chronic Eliquis anticoagulation. In general, Mr. Stewart seems to be doing fairly okay. He is getting negative balance, making adequate urine. The lower extremity swelling seems to be improving. There has been a change in antibiotics to meropenem. We are going to be pending on further recommendations from Wound Care. cc: Vazquez Ellis MD
--- NOTE | 2018-04-10 15:06 | INFECTIOUS DISEASE PROGRESS NO ---
DATE: 04/10/2018 PRESENT ILLNESS: Mr. Stewart is being treated for E coli and Pseudomonas infected wounds to his sacrum, hip and buttock ulcers. MEDICATIONS: He is receiving day 1 of meropenem 1 g IV every 8 hours. PHYSICAL EXAMINATION: Vital Signs: Temperature is 97.6, pulse rate 108, respiratory rate 17, blood pressure 125/82, O2 sats 99% on room air. General: This is a chronically ill-appearing young man. He is lying in the bed, currently in no acute distress. HEENT: Atraumatic, normocephalic. Oral mucous membranes are pink and moist. Conjunctivae are pale. Neck: Supple. Trachea is midline. Respiratory: Lung sounds are clear to auscultation bilaterally. Diminished in the bases. Cardiovascular: Heart rate and rhythm are regular and tachycardic. Sinus tach on the monitor. Systolic murmur noted. Abdomen: Soft, round and nontender. Bowel sounds are active. Integumentary: There is a PICC line in place to the right upper arm. Site is without edema, erythema or drainage. The patient has multiple decubitus ulcers to his sacrum, buttocks and hips. Those dressings have been changed recently and are not removed at this time. There is also a drain in place to his left groin. That site without edema or erythema. He also has multiple scattered wounds to his lower extremities bilaterally as well as lower extremity edema. Neurologic: He is awake, alert and oriented. He is paraplegic with minimal feeling and no movement from the waist down. Upper extremities are strong. LABORATORY AND X-RAY: Today his white count is 10.28 hemoglobin 9.2, platelet count 391,000. Creatinine is 0.5. Estimated GFR is greater than 60. His previous left thigh wound grew an Escherichia coli and buttock wound grew a Pseudomonas aeruginosa that was multidrug resistant. No imaging reports today. ASSESSMENT AND PLAN: Mr. Stewart has multiple infected decubitus ulcers. He is receiving meropenem which we will continue at this time. The micro lab has been asked to check for the susceptibility of meropenem against his multidrug resistant Pseudomonas. These plans have been discussed with and recommended by Dr. Arango. COMORBIDITIES: For Mr. Stewart include diabetes mellitus, paraplegia, neurogenic bladder, anemia and history of multiple decubitus ulcers with previous debridement. Dictated by COLTEN Andrews for Buster Arango MD This chart was documented by, COLTEN Andrews and accurately reflects the services performed, treatment plan and medical decisions as attested by the providers signature Buster Arango MD. cc: Buster Arango MD [facility]
[2018-04-10] MEDS: AMBIEN PO SCH (20:14)
[2018-04-11] MEDS: PROTONIX IV SCH ×2 (05:24→17:00)
[2018-04-11] MEDS: MERREM 1 GM in NS 50 ML IV SCH ×3 (05:24→21:00)
[2018-04-11] MEDS: DILAUDID IV PRN ×5 (05:25→21:02)
[2018-04-11] MEDS: HUMALOG SUBQ SCH ×4 (06:02→22:22)
[2018-04-11] MEDS: LASIX IV SCH (09:30)
[2018-04-11] MEDS: LYRICA PO SCH ×2 (09:30→21:01)
[2018-04-11] MEDS: SOMA PO SCH ×2 (09:31→21:01)
[2018-04-11] MEDS: FOLIC ACID PO SCH (09:31)
[2018-04-11] MEDS: ALBUMIN 25% IV SCH (09:32)
--- NOTE | 2018-04-11 11:45 | PROGRESS NOTE ---
DATE: 04/11/2018 SUBJECTIVE: This morning Mr. Silvestre referred to be doing fairly okay. No new complaints. OBJECTIVELY: Vitals: Blood pressure is 197/57, pulse is 108, respirations 20, temperature is 98.2 degrees. General: Mr. Stewart is a 38-year-old gentleman. He is in bed. No distress. HEENT: Mucosa is pink and moist. Anicteric. Acyanotic. Neck: Supple. Chest: Clear to auscultation. The patient looks chronically ill and emaciated. Abdomen: Soft, nontender. Bowel sounds present. Extremities: About 4+ pedal edema. There is a pigtail catheter in the left inguinal region, which is draining some serosanguineous and some purulence as well. Central nervous system: Patient is awake, alert, oriented. Remains paraplegic and also has remarkable atrophy in the upper extremities. Cardiovascular: Regular rate and rhythm. LABORATORY DATA: None for today. INTAKE AND OUTPUT: Urine output was 2400. The draining from the pigtail catheter has not been documented. The patient is currently negative balance of 3469. ASSESSMENT: 1. Septic shock on presentation, secondary to leg abscess and decubitus ulcer infection, all controlled. 2. Escherichia coli infection of the left thigh and Pseudomonas infection of the decubitus ulcers. The patient is currently on meropenem. Infectious Disease is on board. 3. Diabetes mellitus, stable. On insulin therapy. 4. Anemia of chronic disease. Patient is status post 4 PRBC transfusions. Hemoglobin and hematocrit are stable. 5. Paraplegia with multiple decubitus ulcers. 6. Chronic bilateral lower extremity swelling. 7. Severe protein-calorie malnutrition. 8. History of deep lower extremity deep vein thromboses(DVTs). Patient is on chronic Eliquis anticoagulation. 9. Multivitamin and mineral deficiencies. We will continue to replace this. 10. Chronic pain syndrome. PLAN: In general, I think Mr. Stewart is fairly stable now. Will be pending ID for the antibiotic arrangement for long-term. Will also be pending placement. I think Mr. Stewart needs more care than can be provided to him at home. We will get the social workers to look into getting him to a rehabilitation facility. cc: Vazquez Ellis MD
--- NOTE | 2018-04-11 15:51 | INFECTIOUS DISEASE PROGRESS NO ---
DATE: 04/11/2018 PRESENT ILLNESS: The patient has an E coli and Pseudomonas infected wounds to his sacrum, hip, and buttock areas. MEDICATIONS: The patient is receiving meropenem 1 g IV every 8 hours. PHYSICAL EXAMINATION: Vital Signs: Temperature is 98, pulse 101, respirations 20, blood pressure 116/80. General: This is a chronically ill-appearing young male. He is lying in bed with his blanket over his head. That is the way he likes to sleep. Head, Eyes, Ears, Nose and Throat: He can hear my spoken words and see near objects. There is no drainage coming from the nose or ears. Neck: No stiffness. Lungs: Clear to auscultation. Cardiovascular: Heart rate is regular. Abdomen: Soft and nontender. Extremities: The patient has dried ulcers on both legs. There is no drainage or erythema. Patient has a PICC in his right arm. The site is not swollen or tender. Neurologic: The patient is awake. 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 LAB AND X-RAY: There is no new lab or x-ray for today. ASSESSMENT AND PLAN: The patient has multiple infected decubitus ulcers. I am going to continue meropenem for right now. I have requested that the nurse page me tomorrow with the next dressing change. COMORBIDITIES: Include diabetes mellitus, paraplegia from the waist down, neurogenic bladder, anemia, history of multiple decubitus ulcers with previous debridement. cc: Buster Arango MD MTDD
[2018-04-11] MEDS: SANTYL OINT TOP SCH (18:29)
[2018-04-11] MEDS: AMBIEN PO SCH (21:01)
[2018-04-12] MEDS: DILAUDID IV PRN ×6 (00:49→20:56)
[2018-04-12] MEDS: MERREM 1 GM in NS 50 ML IV SCH ×3 (04:50→20:55)
[2018-04-12] MEDS: PROTONIX IV SCH ×2 (06:19→15:11)
[2018-04-12] MEDS: HUMALOG SUBQ SCH ×4 (06:56→21:58)
[2018-04-12 08:00] LABS: BASO# 0.03 X1000 (0.0-0.2); BASO% 0.2 % (0.0-0.8); EOS# 0.36 X1000 (0.0-0.7); EOS% 2.8 % (0.0-10.0); HEMATOCRIT 27.3 % (42.0-52.0); HEMOGLOBIN 8.4 g/dL (14.0-18.0); IMM GRAN# 0.07 X1000 (0.0-0.04); IMM GRAN% 0.5 % (0.0-0.5); LYMPH% 9.2 % (20.5-51.1); MCH 27.9 PG (27-31); MCHC 30.8 g/dL (33-37); MCV 90.7 FL (81-99); MONO# 1.06 X1000 (0.11-0.59); MONO% 8.1 % (1.7-9.3); NEUT# 10.37 X1000 (1.4-6.5); NEUT% 79.2 % (42.2-75.2); PLT 311 X1000 (130-400); RBC 3.01 XMIL (4.7-6.1); WBC 13.09 X1000 (4.8-10.8)
[2018-04-12 08:11] LABS: AGAP 8; BUN 12 mg/dL (8-22); CALCIUM 7.7 mg/dL (8.8-10.2); CHLORIDE 101 mmol/L (98-107); COSMO 272; CREATININE 0.4 mg/dL (0.7-1.2); ESTIMATED GFR > 60; GLUCOSE 101 mg/dL (70-104); POTASSIUM 3.6 mmol/L (3.5-5.1); SODIUM 136 mmol/L (136-145); TCO2 27 mmol/L (25-35)
[2018-04-12] MEDS: FOLIC ACID PO SCH (09:21)
[2018-04-12] MEDS ORDERED: DILAUDID ONE (09:21)
[2018-04-12] MEDS: SOMA PO SCH ×2 (09:21→20:56)
[2018-04-12] MEDS: LYRICA PO SCH ×2 (09:21→20:56)
[2018-04-12] MEDS ORDERED: SOMA ONE (09:23)
[2018-04-12] MEDS ORDERED: LYRICA ONE (09:24)
[2018-04-12] MEDS: SANTYL OINT TOP SCH (12:00)
--- NOTE | 2018-04-12 16:57 | PROGRESS NOTE ---
DATE: 04/12/2018 SUBJECTIVE: This morning Mr. Stewart refers to be doing fairly okay. Denies any complaints. OBJECTIVE: Vitals: Blood pressure is 100/50, pulse of 104, respiration is 18 and temperature 98.5 degrees. General exam: Mr. Stewart is a 38-year-old gentleman. He was in bed in no distress. HEENT: Mucosa is pink and moist. He looks chronically ill and emaciated with temporal wasting. Chest: Good air entry bilateral. There was no crepitations, no rhonchi. Cardiovascular: Regular rate and rhythm. No murmurs, no rubs, no gallops. GI: Abdomen is soft, distended, but nontender. Bowel sounds were present. Extremities: About 4+ pedal edema. There is a pigtail catheter in the left inguinal region with some serosanguineous and some purulence in the draining. 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 He remains paraplegic and also has some atrophic changes in the upper extremities. LABORATORY DATA: 1. WBC is 13.09, hemoglobin is 8.4, platelet count of 313. 2. Chemistry is also reviewed, completely unremarkable. ASSESSMENT: 1. Septic shock on presentation secondary to leg abscess and decubitus ulcer infection, all under control. Infectious Disease and Wound Care on board. 2. Escherichia coli infection of the left thigh and pseudomonal infection of the decubitus ulcers. The patient is on meropenem. 3. Diabetes mellitus. We will continue with insulin therapy. Glucose is controlled. 4. Anemia of chronic disease. The patient is status post 4 packed red blood cell transfusion. Hemoglobin and hematocrit are stable. 5. Paraplegia with multiple decubitus ulcers. We will continue care. 6. Chronic bilateral lower extremity swelling. Patient is getting albumin with Lasix therapy. 7. Severe protein calorie malnutrition with prealbumin of 7.2. Patient is being seen by dietitian. 8. History of multiple deep vein thromboses in the lower extremities. Patient is on chronic Eliquis anticoagulation. 9. Multivitamin and mineral deficiencies. We will continue replacement. 10. Chronic pain syndrome. Patient is on pain management. Disposition: Mr. Stewart obviously needs to be at a place that he is going to get better care, especially for the decubitus wounds. I do not think he will be able to take care of these at home by himself or by his mom. We have consulted the group social worker to look into getting him any long term facility place around that will be able to take care of his wounds. cc: Vazquez Ellis MD MTDD
--- NOTE | 2018-04-12 17:31 | INFECTIOUS DISEASE PROGRESS NO ---
DATE: 04/12/2018 PRESENT ILLNESS: The patient has E. Coli and pseudomonas infected wounds to his sacrum, hip and buttock areas. MEDICATIONS: The patient is on meropenem 1 g IV every 8 hours. OBJECTIVE: Vital signs: Temperature is 98.8 degrees, pulse 104, respirations 18, blood pressure 120/70. Generally, this is a chronically ill-appearing young male. He is in no acute distress. Head, eyes, ears, nose, throat: He can hear my spoken words and see near objects. He does not have any white coating on his tongue. Neck: No stiffness. Lungs clear to auscultation. Cardiovascular: Heart rate is regular. Abdomen is soft and nontender. Pelvic exam and extremities: The patient has large wounds on the sacrum, hip and buttock areas. All the wounds have beefy red tissue. Neurologic: The patient is awake. He is paralyzed from the waist distally. LAB AND RADIOLOGY: CBC-WBC 13.09, hgb 8.4, platelets 311K. Creatinine- 0.4. GFR->60. No new radiographic study today. ASSESSMENT AND PLAN: 1. The patient has multiple infected wounds. The plan is to continue with the current antibiotics and continue with meropenem. COMORBIDITIES: The patient is a diabetic. He is paraplegic from his waist down. He has a neurogenic bladder. He has a history of multiple decubitus ulcers, with prior surgeries debriding the wounds. cc: Buster Arango MD [facility]
[2018-04-12] MEDS: AMBIEN PO SCH (20:56)
[2018-04-13] MEDS: DILAUDID IV PRN ×5 (00:42→21:25)
[2018-04-13] MEDS: SODIUM CHLORIDE 0.9% INJ SCH (05:25)
[2018-04-13] MEDS: MERREM 1 GM in NS 50 ML IV SCH ×3 (05:26→21:35)
[2018-04-13] MEDS: PROTONIX IV SCH ×2 (05:26→16:16)
[2018-04-13] MEDS: HUMALOG SUBQ SCH ×4 (07:30→21:25)
[2018-04-13] MEDS: SOMA PO SCH ×2 (08:31→21:27)
[2018-04-13] MEDS: FOLIC ACID PO SCH (08:31)
[2018-04-13] MEDS: LYRICA PO SCH ×2 (08:31→21:24)
[2018-04-13] MEDS: SANTYL OINT TOP SCH (08:32)
--- NOTE | 2018-04-13 10:44 | PROGRESS NOTE ---
DATE: 04/13/2018 SUBJECTIVE: Mr. Jose Steawrt has recently been to [facility] to care for his wounds involving his hips. Radiology, while at [facility], placed a left groin drain which I removed today. He was supposed to go yesterday so that that drain could be removed. The drain was removed in its entirety. I placed a dressing over that wound and our Wound Care nurse continues to help care for his wounds. cc: Latonya Anderson MD
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
[2018-04-13] MEDS: PERCOCET-5 PO PRN ×2 (11:16→16:15)
--- NOTE | 2018-04-13 17:07 | INFECTIOUS DISEASE PROGRESS NO ---
DATE: 04/13/2018 PRESENT ILLNESS: Mr. Stewart has an Escherichia coli and multidrug-resistant pseudomonas infection to his decubitus wounds, which are seen on the sacrum, hips and buttocks. MEDICATIONS: Today is day 4 of treatment with meropenem 1 g IV every 8 hours. OBJECTIVE: Vital signs: Temperature is 98.1 degrees, pulse rate 110, respiratory rate 22, blood pressure 87/45, O2 saturation 100% on room air. General: This is a chronically ill-appearing young man. He is lying in bed, currently in no acute distress. HEENT: Atraumatic, normocephalic. Oral mucous membranes are pink and moist. Conjunctivae are pale. Neck is supple. Trachea is midline. Respiratory: Lung sounds are clear in the upper lobes. Diminished in the bases. Cardiovascular: Heart rate is regular and tachycardic, sinus tachycardia on the monitor. Abdomen is soft, round and nontender. Bowel sounds are active. Integumentary: There is a PICC line in place to the right upper arm. Site is without edema, erythema or drainage. He has multiple wounds to sacral, hip and buttock decubitus. There is also 3+ pitting edema to his bilateral lower extremities, with multiple dry abrasions and ulcers to bilateral lower extremities. Neurologic: He is awake, alert and oriented, with strong upper extremities and paraplegia to the lower extremities. The drain that was previously in his left groin has been removed and there is a dressing which is dry and intact at the site. LABORATORY DATA: None available today. ASSESSMENT AND PLAN: Mr. Stewart is being treated for multiple infected decubitus ulcers, using meropenem, which we will continue. I have called to see if they have verified that his pseudomonas, which is multidrug-resistant, is susceptible to meropenem. We have yet to receive that report, which has been sent to [facility]. For now we will continue, and there are attempts being made to send him to a longterm facility. Unfortunately, he has Medicaid and this may be difficult. We will go ahead and order some blood work for Monday in case he is not sent out. I have also filled out orders for meropenem to be given for the next 10 days as well as lab work, in the event that he is discharged. The plan after 10 days will be for him to follow up with [facility], since there are already plans for future surgery on, I believe, the left hip. These plans have been discussed with and recommended by Dr. Arango. COMORBIDITIES: for Mr. Stewart include that he is paraplegic with diabetes mellitus and multiple previous decubitus ulcers with debridements. Dictated by COLTEN Andrews for Buster Arango MD This chart was documented by, COLTEN Andrews and accurately reflects the services performed, treatment plan and medical decisions as attested by the providers signature Buster Arango MD. cc: Buster Arango [facility] [place]
[2018-04-13] MEDS: AMBIEN PO SCH (21:25)
[2018-04-14] MEDS: PERCOCET-5 PO PRN ×5 (01:45→20:54)
[2018-04-14] MEDS: DILAUDID IV PRN ×4 (03:50→23:01)
[2018-04-14] MEDS: PROTONIX IV SCH ×2 (03:50→16:17)
[2018-04-14] MEDS: MERREM 1 GM in NS 50 ML IV SCH ×3 (04:03→20:55)
[2018-04-14] MEDS: HUMALOG SUBQ SCH ×4 (06:12→20:55)
[2018-04-14] MEDS: SOMA PO SCH ×2 (10:06→20:55)
[2018-04-14] MEDS: LYRICA PO SCH ×2 (10:06→20:54)
[2018-04-14] MEDS: FOLIC ACID PO SCH (10:07)
[2018-04-14] MEDS: SANTYL OINT TOP SCH (10:08)
[2018-04-14] MEDS: SODIUM CHLORIDE 0.9% INJ SCH (16:17)
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
[2018-04-14] MEDS: AMBIEN PO SCH (20:55)
[2018-04-15] MEDS: PERCOCET-5 PO PRN ×5 (00:59→20:24)
[2018-04-15] MEDS: PROTONIX IV SCH ×2 (04:57→15:08)
[2018-04-15] MEDS: MERREM 1 GM in NS 50 ML IV SCH ×3 (04:58→20:24)
[2018-04-15] MEDS: HUMALOG SUBQ SCH ×4 (06:46→20:23)
[2018-04-15] MEDS: DILAUDID IV PRN ×2 (07:02→14:53)
[2018-04-15] MEDS: SOMA PO SCH ×2 (09:16→20:24)
[2018-04-15] MEDS: SANTYL OINT TOP SCH (09:16)
[2018-04-15] MEDS: FOLIC ACID PO SCH (09:16)
[2018-04-15] MEDS: LYRICA PO SCH ×2 (09:16→20:24)
[2018-04-15] MEDS ORDERED: DILAUDID IV ONE (14:56)
[2018-04-15] MEDS: SODIUM CHLORIDE 0.9% INJ SCH (15:08)
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
[2018-04-15] MEDS: AMBIEN PO SCH (20:24)
[2018-04-16] MEDS: PERCOCET-5 PO PRN ×5 (00:22→21:27)
[2018-04-16] MEDS: PROTONIX IV SCH ×2 (04:38→15:17)
[2018-04-16] MEDS: MERREM 1 GM in NS 50 ML IV SCH ×5 (04:38→23:18)
[2018-04-16] MEDS: HUMALOG SUBQ SCH ×5 (06:37→23:37)
[2018-04-16 08:20] LABS: AGAP 10; BUN 15 mg/dL (8-22); CALCIUM 8.2 mg/dL (8.8-10.2); CHLORIDE 103 mmol/L (98-107); COSMO 280; CREATININE 0.5 mg/dL (0.7-1.2); ESTIMATED GFR > 60; GLUCOSE 103 mg/dL (70-104); POTASSIUM 4.5 mmol/L (3.5-5.1); SODIUM 140 mmol/L (136-145); TCO2 27 mmol/L (25-35)
[2018-04-16 08:26] LABS: BASO# 0.03 X1000 (0.0-0.2); BASO% 0.3 % (0.0-0.8); EOS# 0.47 X1000 (0.0-0.7); EOS% 3.9 % (0.0-10.0); HEMATOCRIT 26.8 % (42.0-52.0); HEMOGLOBIN 8.3 g/dL (14.0-18.0); IMM GRAN# 0.04 X1000 (0.0-0.04); IMM GRAN% 0.3 % (0.0-0.5); LYMPH# 1.38 X1000 (1.2-3.4); LYMPH% 11.5 % (20.5-51.1); MCH 28.6 PG (27-31); MCV 92.4 FL (81-99); MONO# 0.88 X1000 (0.11-0.59); MONO% 7.4 % (1.7-9.3); MPV 9.3 FL (7.4-10.4); NEUT# 9.16 X1000 (1.4-6.5); NEUT% 76.6 % (42.2-75.2); PLT 331 X1000 (130-400); RDW 15.4 % (11.5-14.5); WBC 11.96 X1000 (4.8-10.8)
[2018-04-16 08:40] LABS: BANDS 4 % (0-1); EOS 4 % (1-10); LYMPHS 8 % (21-51); MONO 8 % (1-9); SEGS 76 % (42-75)
[2018-04-16] MEDS: SOMA PO SCH ×2 (09:36→21:20)
[2018-04-16] MEDS: FOLIC ACID PO SCH (09:37)
[2018-04-16] MEDS: SANTYL OINT TOP SCH (09:37)
[2018-04-16] MEDS: LYRICA PO SCH ×2 (09:37→21:20)
[2018-04-16] MEDS: DILAUDID IV PRN (15:16)
[2018-04-16] MEDS: SODIUM CHLORIDE 0.9% INJ SCH (15:17)
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
--- NOTE | 2018-04-16 20:08 | INFECTIOUS DISEASE PROGRESS NO ---
DATE: 04/16/2018 PRESENT ILLNESS: Mr. Stewart has an E coli and Pseudomonas infection to his decubitus ulcers on his sacrum, hips and buttocks. MEDICATIONS: Today is day 7 of treatment with meropenem 1 g IV every 8 hours. PHYSICAL EXAMINATION: Vital Signs: Temperature is 97.9 degrees, pulse rate 99, respiratory rate 16, blood pressure 87/54, O2 saturations 91% on room air. General: This is a chronically ill- appearing young man. He is lying in bed currently in no acute distress. HEENT: Atraumatic, normocephalic. Conjunctivae are pale. Oral mucous membranes are pink and moist. Neck: Supple. Trachea is midline. Cardiovascular: Heart rate and rhythm are regular and tachycardic, sinus tach on the monitor. Respiratory: Lung sounds are clear in the upper lobes, diminished in the bases. Integumentary: There is a PICC in place to the right upper arm without any edema, erythema or drainage site. There are multiple wounds to his lower extremities as well as sacrum, hips and buttocks. No dressings removed at this time. He has a 3+ pitting edema to his bilateral lower extremities with multiple lower extremity wounds, mostly dry abrasions. Neurologic: He is awake, alert, and oriented. Upper extremities are contracted but he does have use of his upper extremities to a certain extent. Lower extremity paraplegia. LABORATORY AND X-RAY: Today his white count is 11.96, hemoglobin 8.3, platelet count 331,000. Creatinine is 0.5, estimated GFR greater than 60. His left thigh has grown an Escherichia coli and his buttock wound had Pseudomonas aeruginosa. Most recent urine culture showed no growth. No imaging reports today. ASSESSMENT AND PLAN: Mr. Stewart has multiple infected decubitus ulcers. We have been administering meropenem which we will continue. I have spoken to microbiology in [place] and they will be faxing over the report to our office this evening to check for the susceptibilities against his multidrug resistant Pseudomonas. I have been told that the meropenem KAREN is less than or equal to 1. Social work has been trying to get him to a rehab situation where he can have wound care as well as antibiotic administration. However, after talking to the patient, he states he wants to go home because his mom can take care of everything at home. However, he does not want IV antibiotics at home. At this point, he needs another 7 days to complete the 10 days that we have asked for him to have, after which time the plan is for him to go to follow up at [facility] as he said he was planning on doing, for a possible surgery in the near future to the left hip. Dr. Arango earlier today wrote orders allowing him to have the meropenem twice a day so that he could get a slot at rehab. Again, however I am unsure if he is willing to go to. He states he does not want to go, but he also does not want to go home with IV antibiotics. We will follow up with him and his decision tomorrow since he will be here overnight. These plans have been discussed with and recommended by Dr. Arango. COMORBIDITIES: Include that he is paraplegic with diabetes mellitus and multiple previous decubitus ulcers with debridement. Dictated by COLTEN Andrews for Buster Arango MD This chart was documented by, COLTEN Andrews and accurately reflects the services performed, treatment plan and medical decisions as attested by the providers signature Buster Arango MD. cc: Buster Arango MD [facility]
[2018-04-16] MEDS: AMBIEN PO SCH (21:20)
[2018-04-16] MEDS: ZOFRAN IV PRN (22:04)
[2018-04-17] MEDS: PROTONIX IV SCH ×2 (05:01→16:39)
[2018-04-17] MEDS: SODIUM CHLORIDE 0.9% INJ SCH ×2 (05:01→16:40)
[2018-04-17] MEDS: PERCOCET-5 PO PRN ×4 (05:01→20:52)
[2018-04-17] MEDS: HUMALOG SUBQ SCH ×3 (06:57→19:41)
[2018-04-17] MEDS: MERREM 1 GM in NS 50 ML IV SCH ×2 (10:03→16:37)
[2018-04-17] MEDS: LYRICA PO SCH ×2 (10:06→20:53)
[2018-04-17] MEDS: FOLIC ACID PO SCH (10:06)
[2018-04-17] MEDS: SOMA PO SCH ×2 (10:06→20:53)
[2018-04-17] MEDS: SANTYL OINT TOP SCH (10:06)
[2018-04-17] MEDS: DILAUDID IV PRN ×2 (10:16→15:06)
--- NOTE | 2018-04-17 15:15 | INFECTIOUS DISEASE PROGRESS NO ---
DATE: 04/17/2018 The patient is being discharged today. He will have meropenem for 1 more week at which time, after the last dose, the PICC will be removed. The patient has an appointment at the [facility]. The physician there will be managing the patient's multiple decubitus ulcers including giving the patient antibiotics and/or doing surgery if necessary. cc: Buster Arango MD
[2018-04-17 15:52] VITALS: BP 100/59
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
[2018-04-17] MEDS: AMBIEN PO SCH (20:53)
--- NOTE | 2018-04-18 06:48 | INFECTIOUS DISEASE PROGRESS NO ---
DATE: 04/17/2018 Mr. Stewart was supposed to be going to rehab today with IV antibiotics. He is refusing to go to rehab, and states he does not want to go home on IV antibiotics. I have put in an order to discontinue his PICC line and we will send him home on Levaquin 500 mg by mouth daily, based on the susceptibility list that we received from [facility] on his pseudomonas. He will get this for 7 days. I have already discussed the possible side effects which could go along with Levaquin, including rash, diarrhea, tendon ruptures, seizures and REFRIGERATION LEAD disruption. He has a followup with [facility] on discharge. These plans have been discussed with and recommended by Dr. Arango. Dictated by COLTEN Andrews for Buster Arango MD This chart was documented by, COLTEN Andrews and accurately reflects the services performed, treatment plan and medical decisions as attested by the providers signature Buster Arango MD. cc: Buster Arango MD [facility]
== END 2018-04-17 21:30 | disposition home or self-care (01) | DRG 602 ==
LOC: ED 21:41 → SUATTDRO 04-05 06:59 → EDIPHOLD 04-05 06:59 → ICU 04-05 14:59 → 3N 04-07 14:35
PROVIDERS: ATTEND Emergency Medicine
CPT/HCPCS: 36430; 51703; 71010; 71045; 76870; 80048; 80053; 80069; 80202; 81001; 82270; 82805; 82948; 83036; 83605; 83735; 84134; 85014; 85018; 85025; 85610; 85730; 86850; 86900; 86901; 86920; 87040; 87045; 87046; 87070; 87077; 87088; 87186; 87205; 87324; 89055; 93005; 93010; 94761; 94799; 96361; 96365; 96366; 96367; 96375; 96376; 97161; 99285; A9270; C9113; J0692; J1170; J1815; J1940; J2185; J2270; J2405; J2997; J3370; J3475; J3480; J7030; J7040; J7050; P9016; P9047; S0030; S0164; XXXXX

== ENCOUNTER 2018-09-07 18:16 | Inpatient (IN) ==
[2018-09-07] MEDS ORDERED: NS 1,000 ML IV ONE (18:45)
--- NOTE | 2018-09-07 18:54 | PROVIDER DOCUMENTATION ---
HPI-General Adult - General Chief Complaint: Nausea/Vomiting Stated Complaint: n/v Time Seen by Provider: 09/07/18 18:28 Source: patient Allergies/Adverse Reactions: Patient Allergies Allergy/AdvReac Type Severity Reaction Status Date / Time No Known Allergies Allergy Verified 09/07/18 18:34 Home Medications: Home Medication List Medication Instructions Recorded Confirmed Last Taken Type Pregabalin [Lyrica] 300 mg PO BID 03/26/12 04/05/18 04/04/18 History Zolpidem [Ambien] 10 mg PO QHS 03/26/12 04/05/18 09/10/14 09:00 History Folic Acid 1 mg PO DAILY #0 tablet 10/26/13 04/05/18 04/04/18 Rx Insulin Glargine [Lantus] 20 units SQ BID 07/15/14 04/05/18 04/04/18 History Acetaminophen [Tylenol] 325 - 650 mg PO Q4H PRN PRN #0 09/22/14 04/05/18 Unknown Rx tablet Hydrocodone/Acetaminophen [[place] 10 mg PO Q6H PRN PRN #30 tablet 09/22/1404/04/18 Rx 10-325 Tablet] Carisoprodol 1 tab PO BID 04/05/18 04/05/18 04/04/18 History Dronabinol [Marinol] 2 cap PO TID 04/05/18 04/05/18 04/04/18 History Magnesium Oxide 2 tab PO TID 04/05/18 04/05/18 04/04/18 History - History of Present Illness -Gen Adult Nature of Presenting Problems: Pt. is 38 yom that presents with c/o N/V for two days. Pt. is a paraplegic. He reports multiple bed sores and states he is a diabetic to. Pt. denies any other complaints. Location of Pain/Injury: reports: abdomen. denies: none, head, face, mouth, neck, chest, upper extremity, hand(s), back, pelvis, genitalia, lower extremity, feet, upper body, lower body, generalized, other Pain Radiation: reports: no radiation. denies: arm(s), back, buttocks, chest, epigastric, feet, groin, jaw, flank (L), legs (lower), LLQ, LUQ, neck, periumbilical, flank (R), RLQ, RUQ, shoulder(s), scapula, scrotal, sternal notch, suprapubic, legs (upper), urethral, vaginal, other Quality of Pain: reports: aching. denies: cramping, pressure, sharp, throbbing Severity: reports: mild. denies: moderate, severe Onset/Duration: reports: gradual, 2 days ago Timing: reports: still present. denies: improving, intermittent, getting worse Context/Activities at Onset: reports: none. denies: light activity, moderate activity, vigorous activity, recent emotional stress, recent physical stress, recent trauma history, possible bad food, cold exposure, eating, out of country travel, rest, sleep, sexual activity, other Modifying Factors: improves with: nothing Associated Symptoms: reports: nausea, vomiting, weakness. denies: denies symptoms, anxiety, arm pain, back/neck pain, chest pain, constipation, cough, di aphoresis, diarrhea, dizziness, EENT symptoms, fatigue, fever/chills, genitourinary problems, headaches, heartburn, joint pain, loss of appetite, malaise, muscle aches, sinus congestion/drainage, rash, seizure, shortness of breath, sensory/motor loss, pain with inspiration, swelling/mass in abdomen, syncope, trouble walking, other Similar Symptoms Previously?: Yes Recently seen or treated by another doctor?: No Review of Systems - Adult - REVIEW OF SYSTEMS - ADULT Constitutional: reports: no symptoms reported Eyes: reports: no symptoms reported Ears, Nose, Mouth & Throat: reports: no symptoms reported Cardiovascular: reports: no symptoms reported Respiratory: reports: no symptoms reported Gastrointestinal: reports: see HPI, abdominal pain, diarrhea, nausea, vomiting. denies: hematemesis, difficulty swallowing, frequent heartburn Genitourinary: reports: no symptoms reported Musculoskeletal: reports: no symptoms reported Integumentary: reports: see HPI, skin sores/ulcer. denies: hair loss, nail changes, skin thickening Neurological: reports: no symptoms reported Psychiatric: reports: no symptoms reported Past History - Adult - PAST MEDICAL HISTORY-ADULT Review of Records: reports: Old Records Reviewed, Nursing Assessment Review, Medications Reviewed, Social history reviewed & non-contributory. Major Childhood Illnesses: reports: denies history Cardiovascular: reports: cardiac disease Respiratory: reports: denies history Gastrointestinal: reports: denies history Obstetrical/Gynecological: Genitourinary: reports: chronic UTI's, other (self caths) Musculoskeletal: reports: arthritis, other (paraplegic since 2005 with some contracturing of legs) Neurological: reports: other (paraplegia) Psychiatric: reports: depression Endocrine/Immune: reports: anemia, Diabetes Other Conditions: reports: denies history - PRIOR SURGERIES/PROCEDURES Surgical/Procedure History: reports: orthopedic (extremity) (knee surgery.), tani nt replacement (Total knee replacement. ), other (Arthroscopy. ) - IMMUNIZATION STATUS Childhood Immunizations: See Nurse Assessment Flu Vaccine: See Nurse Assessment - FAMILY HISTORY Family History: reviewed, not pertinent - SOCIAL HISTORY Smoking: denies Physical Exam-General - PHYSICAL EXAM-ADULT Initial Vital Signs Reviewed: Yes - CONSTITUTIONAL General Appearance: alert, moderate distress, thin. negative: anxious, obtunded, combative - EYES Eyes: PERRL/EOMI, pink conjunctivae - HEAD, EARS, NOSE, MOUTH & THROAT HENMT: normocephalic/atraumatic, moist mucous membranes - NECK Neck: non-tender, full range of motion, supple, normal inspection - RESPIRATORY Respiratory: lungs clear, normal breath sounds - CARDIOVASCULAR Cardiovascular: regular rate, rhythm, no edema, tachycardia. negative: extra beats, friction rub, irregularly irregular - GASTROINTESTINAL (ABDOMEN) Abdominal Exam: soft, abnormal bowel sounds (hypoactive). negative: rigid, rebound, tenderness, hernia, mass - LYMPHATIC Lymphatic: no adenopathy. negative: axilla node tender, cervical node tenderness - MUSCULOSKELETAL Back Exam: normal inspection, no CVA tenderness, no vertebral tenderness Extremity: negative: erythema, inflammation, swelling, tenderness Peripheral Pulses: radial (R): 2+, radial (L): 2+ - SKIN Integumentary: pallor. negative: cyanosis, ecchymosis, jaundice, tenderness - NEUROLOGIC Neurologic: grossly normal, no motor/sensory deficits - PSYCHIATRIC Psych/Mental Status: normal mood/affect, normal thought content, normal thought process, oriented x 3. negative: anxious, paranoid, tearful Progress - PLAN OF CARE/RESULTS Progress/Plan/Lab Results: Vital Signs - 8 hr 09/07/18 18:26 09/07/18 18:43 Temperature 98.4 F Pulse Rate 110 H 113 H Respiratory Rate 14 20 Blood Pressure 103/58 74/44 O2 Sat by Pulse Oximetry 98 Laboratory Results - last 24 hr 09/07/18 18:30 POC Glucose 104 Orders Category Date Time Status Cardiac Monitoring DIRECTED Care 09/07/18 18:44 Active IV Insertion ORDERED Care 09/07/18 18:44 Active Notify MD of + Sepsis Screen NOW Care 09/07/18 18:44 Active Notify Physician As Ordered Care 09/07/18 18:44 Active CHEST-1 VIEW [RAD] Stat Exams 09/07/18 18:44 Ordered ABG [RESP] Routine Lab 09/07/18 18:45 Ordered BLOOD CULTURE [BLDCUL] Stat Lab 09/07/18 18:44 Uncollected CBC WITH DIFF [HEME] Stat Lab 09/07/18 18:44 Uncollected CK PROFILE [SP CHEM] Stat Lab 09/07/18 18:44 Uncollected COMPREHENSIVE METABOLIC PANEL [CHEM] Stat Lab 09/07/18 18:44 Uncollected LACTATE, PLASMA [CHEM] Q3H Lab 09/07/18 18:45 Uncollected LACTATE, PLASMA [CHEM] Q3H Lab 09/07/18 21:45 Uncollected LACTATE, PLASMA [CHEM] Q3H Lab 09/08/18 00:45 Uncollected MAGNESIUM [CHEM] Stat Lab 09/07/18 18:45 Uncollected PROTIME WITH INR [COAG] Stat Lab 09/07/18 18:44 Uncollected PTT [COAG] Stat Lab 09/07/18 18:44 Uncollected ROUTINE CULTURE [RM] Stat Lab 09/07/18 18:44 Uncollected TROPONIN T Stat Lab 09/07/18 18:44 Uncollected TYPE & SCREEN [BBK] Stat Lab 09/07/18 18:45 Uncollected URINALYSIS W/POSS RFLX CULT [URINALYSIS] Stat Lab 09/07/18 18:44 Uncollected 0.9% Sodium Chloride Inj [Ns] 1,000 ml Med 09/07/18 18:45 Active IV 999 mls/hr Oxygen Device Stat Oth 09/07/18 18:44 Active Laboratory Tests 09/07/18 09/07/18 09/07/18 18:30 18:41 18:41 WBC 14.41 H RBC 2.66 L Hgb 6.8 L Hct 21.9 L MCV 82.3 MCH 25.6 L MCHC 31.1 L RDW Std Deviation 16.3 H Plt Count 430 H MPV 9.0 Immature Gran % (Auto) 0.8 H Neut % (Auto) 82.0 H Lymph % (Auto) 9.4 L Carbon % (Auto) 7.4 Eos % (Auto) 0.3 Baso % (Auto) 0.1 Immature Gran # (Auto) 0.11 H Neut # (Auto) 11.83 H Lymph # (Auto) 1.36 Carbon # (Auto) 1.06 H Eos # (Auto) 0.04 Baso # (Auto) 0.01 PT 16.6 H INR 1.32 PTT (Actin FS) 36.1 Specimen Type Sample Site pH pCO2 pO2 HCO3 Base Excess Oxyhemoglobin ABG O2 Sat (Calculated) ABG O2 Saturation ABG Carboxyhemoglobin ABG Methemoglobin Moise Test A-a O2 Difference Total Hemoglobin Lactate Blood Gas Modality FiO2 % POC Glucose 104 Troponin T Plasma Lactate Urine Source 09/07/18 09/07/18 09/07/18 18:41 19:00 19:10 WBC RBC Hgb Hct MCV MCH MCHC RDW Std Deviation Plt Count MPV Immature Gran % (Auto) Neut % (Auto) Lymph % (Auto) Carbon % (Auto) Eos % (Auto) Baso % (Auto) Immature Gran # (Auto) Neut # (Auto) Lymph # (Auto) Carbon # (Auto) Eos # (Auto) Baso # (Auto) PT INR PTT (Actin FS) Specimen Type ARTERIAL Sample Site R RADIAL pH 7.51 H pCO2 27 L pO2 116 H HCO3 24.0 Base Excess -1.2 Oxyhemoglobin 95.9 ABG O2 Sat (Calculated) 9.6 L ABG O2 Saturation 98.3 ABG Carboxyhemoglobin 1.40 ABG Methemoglobin 0.9 Moise Test YES A-a O2 Difference 0.0 Total Hemoglobin 6.9 L Lactate 0.80 Blood Gas Modality ROOM AIR FiO2 % 21.0 POC Glucose Troponin T 0.063 Plasma Lactate 1.0 Urine Source 09/07/18 19:44 WBC RBC Hgb Hct MCV MCH MCHC RDW Std Deviation Plt Count MPV Immature Gran % (Auto) Neut % (Auto) Lymph % (Auto) Carbon % (Auto) Eos % (Auto) Baso % (Auto) Immature Gran # (Auto) Neut # (Auto) Lymph # (Auto) Carbon # (Auto) Eos # (Auto) Baso # (Auto) PT INR PTT (Actin FS) Specimen Type Sample Site pH pCO2 pO2 HCO3 Base Excess Oxyhemoglobin ABG O2 Sat (Calculated) ABG O2 Saturation ABG Carboxyhemoglobin ABG Methemoglobin Moise Test A-a O2 Difference Total Hemoglobin Lactate Blood Gas Modality FiO2 % POC Glucose Troponin T Plasma Lactate Urine Source CATH Discussed results and plan of care with patient. Patient agrees with plan and verbalizes understanding. Result Diagrams: 09/07/18 18:41 - XRAY 1 XRAY Study: Chest [facility] - [address] , [address], [place] [address] [facility] - [address] [place] [address] Department of Imaging Patient: CHICO KENNEY Date: 09/07/18#: [id number] : 1980ADM [id number] Age/Sex: 38/MRoom/Bed: Loc: ED Ordering Physician: Augustine Phipps Family Physician: Jennifer Balderas Reason for Procedure: SEPSIS Signed EXAM: CHEST-PORTABLE HISTORY: SEPSIS TECHNIQUE: Chest single view COMPARISON: 04/04/2018 FINDINGS: The lungs are well expanded. The heart is not enlarged. The vessels are not distended. There are no infiltrates. No effusion identified. No PICC line on the current exam. Prior surgery to the cervical spine. IMPRESSION: No pneumonia. Electronically signed by Garrick Steiner 09/07/2018 7:48 PM 09/07/181947 Interpreting Physician: Garrick Steiner MD Dictated Date/Time: 09/07/181947 cc: Augustine Phipps; Jennifer Balderas) XRAY Interpretation: See note 2 XRAY Study: Abdomen ([facility] - [address], [address], [place] [address] [facility] - [address] , [place] [address] Department of Imaging Patient: CHICO KENNEY Date: 09/07/18MR#: [id number] : 1980ADM Status: REG ERAcct#: [id number] Age/Sex: 38/MRoom/Bed: Loc: ED Ordering Physician: Augustine Phipps Family Physician: Jennifer Balderas Reason for Procedure: N/V Signed EXAM: KUB ABDOMEN HISTORY: N/V TECHNIQUE: Abdomen single view COMPARISON: None. FINDINGS: No bowel obstruction. No organomegaly. There is an inferior vena caval filter. Chronically dislocated hips. IMPRESSION: No acute abnormality. Electronically signed by Garrick Steiner 09/07/2018 7:49 PM 09/07/181948 Interpreting Physician: Garrick Steiner MD Dictated Date/Time: 09/07/181947 cc: Augustine Phipps; Jennifer Balderas) XRAY Interpretation: See note - CONSULTS/PCP/HOSPITALIST Notification #1 *Consult/PCP/Hospitalist*: Dr. Myaberry Time Discussed: 20:03 Reason/Comments: Admission Consult Disposition: Will see in ED, Admit Departure - Departure Date of Disposition Decision: 09/07/18 Time of Disposition Decision: 19:57 DIAGNOSIS: Decubital ulcer Qualifiers: Pressure injury location: hip Pressure injury stage: unspecified pressure injury stage Laterality: left Qualified Code(s): L89.229 - Pressure ulcer of left hip, unspecified stage Anemia Qualifiers: Anemia type: unspecified type Qualified Code(s): D64.9 - Anemia, unspecified Sepsis Qualifiers: Sepsis type: sepsis due to unspecified organism Sepsis acute organ dysfunction status: unspecified Qualified Code(s): A41.9 - Sepsis, unspecified organism UTI (urinary tract infection) Qualifiers: Urinary tract infection type: acute cystitis Hematuria presence: with hematuria Qualified Code(s): N30.01 - Acute cystitis with hematuria Disposition: ADMITTED INPATIENT 09 Certified Medical Emergency: Emergent Condition: Serious Referrals and Follow-Ups: Jennifer Balderas [Primary Care Provider] - - Critical Care Note This patient required my direct & personal management of CC.: No Attestation - Physician/ IBAN Attestation Patient care was provided by Advanced Practice Provider:: Yes Advanced Practice Provider:: Augustine Phipps Advanced Practice Provider documentation review:: The Mid-level provider documentation, treatment plan and medical decision making was reviewed by the physician who agrees with all treatment and medical decision making by the MLP. The physician spent face to face time with patient:: No Advanced Practice Provider documentation review:: Supervising physician onsite and consulted in the evaluation and care of this patient. The physician did not have a face to face encounter with the patient.
[2018-09-07 19:03] LABS: ALLEN TEST YES; BE -1.2 mmoll (-3.0-3.0); BLOOD TYPE ARTERIAL; METHB 0.9 % (0.0-1.5); O2(CT) 9.6 mL/dL (15.0-23.0); O2HB 95.9 % (95.0-99.0); PCO2(98.6) 27 mmHg (35-45); PO2(98.6) 116 mmHg (60-100); SAMPLE BLOOD; SAO2 98.3 % (95.0-100.0); THB 6.9 g/dL (11.5-17.4); pH(98.6) 7.51 (7.35-7.45)
[2018-09-07 19:04] LABS: MODALITY ROOM AIR
[2018-09-07 19:38] LABS: BASO# 0.01 X1000 (0.0-0.2); BASO% 0.1 % (0.0-0.8); EOS# 0.04 X1000 (0.0-0.7); EOS% 0.3 % (0.0-10.0); HEMATOCRIT 21.9 % (42.0-52.0); HEMOGLOBIN 6.8 g/dL (14.0-18.0); IMM GRAN# 0.11 X1000 (0.0-0.04); IMM GRAN% 0.8 % (0.0-0.5); LYMPH# 1.36 X1000 (1.2-3.4); LYMPH% 9.4 % (20.5-51.1); MCH 25.6 PG (27-31); MCHC 31.1 g/dL (33-37); MCV 82.3 FL (81-99); MONO# 1.06 X1000 (0.11-0.59); MONO% 7.4 % (1.7-9.3); NEUT# 11.83 X1000 (1.4-6.5); PLT 430 X1000 (130-400); RBC 2.66 XMIL (4.7-6.1); RDW 16.3 % (11.5-14.5); WBC 14.41 X1000 (4.8-10.8)
[2018-09-07 19:39] LABS: INR 1.32; PROTIME 16.6 Seconds (11.0-16.0); PTT 36.1 Seconds (22.3-41.8)
[2018-09-07] MEDS ORDERED: NS 500 ML IV ONE (19:43)
--- NOTE | 2018-09-07 19:51 | Diag Imaging Result Doc PS360 ---
EXAM: CHEST-PORTABLE HISTORY: SEPSIS TECHNIQUE: Chest single view COMPARISON: 04/04/2018 FINDINGS: The lungs are well expanded. The heart is not enlarged. The vessels are not distended. There are no infiltrates. No effusion identified. No PICC line on the current exam. Prior surgery to the cervical spine. IMPRESSION: No pneumonia. Electronically signed by Garrick Steiner 09/07/2018 7:48 PM
--- NOTE | 2018-09-07 19:51 | Diag Imaging Result Doc PS360 ---
EXAM: KUB ABDOMEN HISTORY: N/V TECHNIQUE: Abdomen single view COMPARISON: None. FINDINGS: No bowel obstruction. No organomegaly. There is an inferior vena caval filter. Chronically dislocated hips. IMPRESSION: No acute abnormality. Electronically signed by Garrick Steiner 09/07/2018 7:49 PM
[2018-09-07 19:53] LABS: URINE SOURCE CATH
[2018-09-07 19:59] LABS: BILIRUBIN URINE NEGATIVE (NEGATIVE); BLOOD URINE TRACE (NEGATIVE); COLOR YELLOW; GLUCOSE URINE NEGATIVE (NEGATIVE); KETONE URINE 20 mg/dL (NEGATIVE); LEUKOCYTES URINE MODERATE (NEGATIVE); NITRITE URINE POSITIVE (NEGATIVE); PROTEIN URINE 30 mg/dL (NEGATIVE); SP GRAVITY URINE 1.022; TURBIDITY URINE HAZY (CLEAR); UROBILINOGEN URINE NORMAL (NORMAL)
[2018-09-07] MEDS ORDERED: ROCEPHIN 1 GM in NS 50 ML IV ONE (20:00)
[2018-09-07 20:01] LABS: UR EPITHELIAL CELLS <10 /HPF (<10); URINE BACTERIA 4+ /HPF; URINE RBC <10 /HPF (<10); URINE WBC TNTC /HPF (<10)
[2018-09-07] MEDS ORDERED: VANCOMYCIN IV PER PHARMACY MISC SCH (20:45)
[2018-09-07 20:53] LABS: AGAP 15; ALB/GLOB RATIO 0.3; ALBUMIN 1.9 g/dL (3.5-5.0); ALKALINE PHOSPHATASE 178 U/L (32-122); BUN 10 mg/dL (8-22); CALCIUM 8.1 mg/dL (8.8-10.2); CHLORIDE 98 mmol/L (98-107); CK PROFILE 29 U/L (24-204); COSMO 265; CREATININE 0.7 mg/dL (0.7-1.2); ESTIMATED GFR > 60; GLUCOSE 88 mg/dL (70-104); GOT 8 U/L (10-34); GPT 6 U/L (10-44); MAGNESIUM 1.7 mg/dL (1.5-2.7); POTASSIUM 4.5 mmol/L (3.5-5.1); SODIUM 133 mmol/L (136-145); TCO2 20 mmol/L (25-35); TOTAL BILIRUBIN 0.25 mg/dL (0.20-1.00); TOTAL PROTEIN 7.4 g/dL (6.3-8.3)
[2018-09-07] MEDS ORDERED: ZOFRAN IV PRN ×2 (20:57→22:31)
[2018-09-07] MEDS ORDERED: VANCOMYCIN 2,300 MG in NS 500 ML IV ONE (22:00)
[2018-09-07] MEDS ORDERED: LEVOPHED 8 MG in D5 1/2 NS 250 ML IV SCH (22:31)
[2018-09-07] MEDS ORDERED: TYLENOL PO PRN (22:31)
[2018-09-07] MEDS: HUMALOG SUBQ SCH (23:28)
[2018-09-07] MEDS: NS 1,000 ML IV SCH (23:38)
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
[2018-09-08] MEDS: NORCO-10 PO PRN ×2 (02:40→07:37)
[2018-09-08] MEDS: HUMALOG SUBQ SCH ×4 (06:38→21:25)
[2018-09-08] MEDS: NS 1,000 ML IV SCH ×3 (06:38→18:33)
[2018-09-08 08:13] LABS: BASO# 0.02 X1000 (0.0-0.2); BASO% 0.2 % (0.0-0.8); EOS# 0.11 X1000 (0.0-0.7); EOS% 0.9 % (0.0-10.0); HEMATOCRIT 27.3 % (42.0-52.0); HEMOGLOBIN 8.6 g/dL (14.0-18.0); IMM GRAN# 0.14 X1000 (0.0-0.04); IMM GRAN% 1.2 % (0.0-0.5); LYMPH# 1.31 X1000 (1.2-3.4); MCH 26.8 PG (27-31); MCHC 31.5 g/dL (33-37); MONO# 0.64 X1000 (0.11-0.59); MONO% 5.4 % (1.7-9.3); MPV 8.5 FL (7.4-10.4); NEUT# 9.65 X1000 (1.4-6.5); NEUT% 81.3 % (42.2-75.2); PLT 374 X1000 (130-400); RBC 3.21 XMIL (4.7-6.1); RDW 16.3 % (11.5-14.5); WBC 11.87 X1000 (4.8-10.8)
[2018-09-08 08:21] LABS: HEMOGLOBIN A1C 5.3 % (4.8-6.0)
[2018-09-08 08:25] LABS: AGAP 13; BUN 8 mg/dL (8-22); CALCIUM 7.6 mg/dL (8.8-10.2); CHLORIDE 101 mmol/L (98-107); COSMO 268; CREATININE 0.6 mg/dL (0.7-1.2); ESTIMATED GFR > 60; GLUCOSE 85 mg/dL (70-104); POTASSIUM 4.1 mmol/L (3.5-5.1); SODIUM 135 mmol/L (136-145); TCO2 21 mmol/L (25-35)
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
[2018-09-08] MEDS: MORPHINE IV PRN ×3 (10:42→21:38)
[2018-09-08] MEDS ORDERED: LYRICA PO SCH (11:30)
[2018-09-08] MEDS: SOMA PO SCH ×2 (11:33→21:24)
[2018-09-08] MEDS: LYRICA PO SCH (21:24)
[2018-09-08] MEDS: AMBIEN PO SCH (21:24)
[2018-09-08] MEDS: ROCEPHIN 1 GM in NS 50 ML IV SCH (23:00)
[2018-09-09] MEDS: VANCOMYCIN 2,000 MG in NS 500 ML IV SCH (00:39)
[2018-09-09] MEDS: NS 1,000 ML IV SCH ×5 (00:40→22:29)
[2018-09-09] MEDS: MORPHINE IV PRN ×4 (05:32→22:27)
[2018-09-09] MEDS: HUMALOG SUBQ SCH ×4 (07:27→21:19)
--- NOTE | 2018-09-09 07:33 | PROGRESS NOTE ---
DATE: 09/09/2018 SUBJECTIVE: Mr. Stewart was sleeping comfortably, he had a pretty good night. OBJECTIVE: Vital Signs: Remains afebrile, temperature 98.8 degrees, pulse 99, respirations 16, blood pressures have been between 84 and 96/48 to 56. Lungs: Clear in all lung warren. Cardiovascular: Regular rhythm and rate without murmur or S3. Abdomen: Soft. Skin: Warm and dry. ASSESSMENT AND PLAN: 1. Urinary tract infection with leukocytosis pursuing bacteremia. Cultures pending. Current antibiotics of Rocephin 1 g q.24 hours, vancomycin 2 g q.24 hours. 2. Skin ulcers on his back. See if he would benefit from any debridement. 3. Hyponatremia, which is mild and improved. 4. Appeared to have presented with sepsis. I have given him liberal fluids. Continue present antibiotics. 5. Hypotension, improved. He is improved so continue present measures. He is on norepinephrine. Getting hydrocodone p.o. for pain and morphine for more severe pain. cc: Moise De La Fuente MD
[2018-09-09 07:42] LABS: AGAP 11; ALB/GLOB RATIO 0.4; ALBUMIN 1.8 g/dL (3.5-5.0); ALKALINE PHOSPHATASE 125 U/L (32-122); BUN 5 mg/dL (8-22); CALCIUM 7.2 mg/dL (8.8-10.2); CHLORIDE 102 mmol/L (98-107); COSMO 264; CREATININE 0.7 mg/dL (0.7-1.2); ESTIMATED GFR > 60; GLUCOSE 136 mg/dL (70-104); GOT 6 U/L (10-34); GPT < 5 U/L (10-44); MAGNESIUM 1.5 mg/dL (1.5-2.7); POTASSIUM 3.6 mmol/L (3.5-5.1); SODIUM 132 mmol/L (136-145); TCO2 19 mmol/L (25-35); TOTAL BILIRUBIN < 0.15 mg/dL (0.20-1.00); TOTAL PROTEIN 6.2 g/dL (6.3-8.3)
[2018-09-09 07:44] LABS: BASO# 0.02 X1000 (0.0-0.2); BASO% 0.2 % (0.0-0.8); EOS# 0.04 X1000 (0.0-0.7); EOS% 0.3 % (0.0-10.0); HEMATOCRIT 23.1 % (42.0-52.0); IMM GRAN# 0.08 X1000 (0.0-0.04); IMM GRAN% 0.7 % (0.0-0.5); LYMPH% 9.1 % (20.5-51.1); MCH 26.3 PG (27-31); MCHC 30.3 g/dL (33-37); MCV 86.8 FL (81-99); MONO# 0.61 X1000 (0.11-0.59); MONO% 5.1 % (1.7-9.3); MPV 7.8 FL (7.4-10.4); NEUT% 84.6 % (42.2-75.2); PLT 326 X1000 (130-400); RBC 2.66 XMIL (4.7-6.1); RDW 16.3 % (11.5-14.5); WBC 12.05 X1000 (4.8-10.8)
[2018-09-09] MEDS: SOMA PO SCH ×2 (08:52→21:18)
[2018-09-09] MEDS: LYRICA PO SCH ×2 (08:52→21:18)
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
[2018-09-09] MEDS: AMBIEN PO SCH (21:18)
[2018-09-09] MEDS: NORCO-10 PO PRN (21:23)
[2018-09-09] MEDS: ROCEPHIN 1 GM in NS 50 ML IV SCH (22:27)
[2018-09-10] MEDS: VANCOMYCIN 2,000 MG in NS 500 ML IV SCH (00:24)
[2018-09-10] MEDS: NS 1,000 ML IV SCH ×3 (05:43→21:53)
[2018-09-10] MEDS: HUMALOG SUBQ SCH ×4 (07:24→21:53)
[2018-09-10] MEDS: LYRICA PO SCH ×2 (08:01→21:52)
[2018-09-10] MEDS: SOMA PO SCH ×2 (08:01→21:51)
[2018-09-10] MEDS: MORPHINE IV PRN ×3 (08:05→19:35)
--- NOTE | 2018-09-10 11:26 | PROGRESS NOTE ---
DATE: 09/10/2018 SUBJECTIVE: Mr. Stewart says he is feeling better. He is eating well. Comfortable. OBJECTIVE: Remains afebrile, temperature 98.6 degrees, pulse 94, respirations 15, blood pressure 84/45. Pupils are equal and round. Lungs are clear in all lung warren. Cardiovascular Examination: Regular rhythm and rate without murmur or S3. Abdomen is soft. Skin is warm and dry. Urine output is 4000 mL. ASSESSMENT AND PLAN: 1. Paraplegic. Has some chronic wounds and these pressure wounds involve the sacrum, left hip, even left groin. He has been getting some wound care at [facility] and his mother at home. He was admitted with sepsis and a question whether a urinary tract infection or infection from his hip wound and medial left groin. He has good granulation tissue involving the sacrum and does not appear to have any undrained purulence so continue present intravenous antibiotics and topical care. 2. Urinary tract infection. Continue Rocephin 1 g every 24 hours and vancomycin 2 g every 24 hours. 3. Hyponatremia, which appears to have resolved or getting better. Sodium was 132 yesterday, potassium 3.6, creatinine 0.7. 4. Hypotension. Blood pressures seemed to hover in the 80s to 90s and I think that is his baseline. REVIEW OF CURRENT ORDERS: He is on Ambien 10 mg at bedtime, Soma 350 mg p.o. b.i.d., normal saline at 125 mL an hour, Lyrica 300 mg p.o. b.i.d. He is on ceftriaxone 1 g q.24 hours and vancomycin 2 g q.24 hours. cc: Moise De La Fuente MD
[2018-09-10] MEDS: AMBIEN PO SCH (21:51)
[2018-09-10] MEDS: NORCO-10 PO PRN (21:52)
[2018-09-10] MEDS: ROCEPHIN 1 GM in NS 50 ML IV SCH (21:52)
[2018-09-11] MEDS: VANCOMYCIN 2,000 MG in NS 500 ML IV SCH (01:31)
[2018-09-11] MEDS: MORPHINE IV PRN (04:25)
[2018-09-11] MEDS: NORCO-10 PO PRN ×3 (06:25→21:32)
[2018-09-11] MEDS: NS 1,000 ML IV SCH (06:26)
[2018-09-11] MEDS: HUMALOG SUBQ SCH ×4 (07:00→21:33)
[2018-09-11 07:10] LABS: AGAP 11; ALB/GLOB RATIO 0.3; ALBUMIN 1.4 g/dL (3.5-5.0); ALKALINE PHOSPHATASE 121 U/L (32-122); BUN 9 mg/dL (8-22); CALCIUM 7.1 mg/dL (8.8-10.2); CHLORIDE 109 mmol/L (98-107); COSMO 280; CREATININE 0.6 mg/dL (0.7-1.2); ESTIMATED GFR > 60; GLUCOSE 158 mg/dL (70-104); GOT 13 U/L (10-34); GPT 6 U/L (10-44); MAGNESIUM 1.5 mg/dL (1.5-2.7); POTASSIUM 3.7 mmol/L (3.5-5.1); SODIUM 139 mmol/L (136-145); TCO2 19 mmol/L (25-35); TOTAL BILIRUBIN < 0.15 mg/dL (0.20-1.00); TOTAL PROTEIN 6.1 g/dL (6.3-8.3)
[2018-09-11 07:31] LABS: HEMATOCRIT 23.4 % (42.0-52.0); HEMOGLOBIN 7.2 g/dL (14.0-18.0); MCH 26.9 PG (27-31); MCHC 30.8 g/dL (33-37); MCV 87.3 FL (81-99); MPV 8.4 FL (7.4-10.4); RBC 2.68 XMIL (4.7-6.1); RDW 16.8 % (11.5-14.5); WBC 12.49 X1000 (4.8-10.8)
[2018-09-11] MEDS ORDERED: NS 250 ML ONE (08:28)
[2018-09-11 08:29] LABS: RETIC% 0.26 % (0.8-2.1); RETIC-HE 20.3 PG (28.2-36.6)
[2018-09-11] MEDS: SOMA PO SCH ×2 (08:42→23:03)
[2018-09-11] MEDS: LYRICA PO SCH ×2 (08:42→21:31)
[2018-09-11 08:53] LABS: IRON SATURATION 31 %; TIBC 80 ug/dL; TOTAL IRON 25 ug/dL (53-167); UNBOUND IRON 55 ug/dL (112-346)
[2018-09-11] MEDS ORDERED: MAGNESIUM SULFATE 2 GM/S.W.I. 2 GM/50 ML IVPB IV ONE (09:23)
--- NOTE | 2018-09-11 09:49 | PROGRESS NOTE ---
DATE: 09/11/2018 SUBJECTIVE: The patient is resting comfortably in bed. He has no complaints at this time. No acute events noted overnight. OBJECTIVE: Vital Signs: Temperature 97 degrees, blood pressure 80/43, heart rate 88, respirations 15, and O2 saturation 97% on room air. General: This is a young male lying in bed in no acute distress. Heart: S1, S2 normal. Regular rate and rhythm. Lungs: Clear to auscultation bilaterally. Abdomen: Positive bowel sounds. Soft, nontender, and nondistended. Extremities: No edema. No cyanosis. Neurologic: The patient is alert and oriented x4. LABORATORY: White blood cell count 12, hemoglobin 7.2, hematocrit 23, and platelets 387,000. Sodium 139, potassium 3.7, chloride 109, CO2 19, BUN 9, creatinine 0.6 glucose 158, and magnesium 1.5. ASSESSMENT AND PLAN: 1. Multiple decubitus ulcerations of the sacrum and lower extremity. The culture on the left hip is growing MSSA. The patient is currently on vancomycin. Will consult with ID for further antibiotic recommendations. Continue with wound care. 2. Urinary tract infection secondary to Klebsiella. Continue on Rocephin. 3. Paraplegia. Aware. 4. Chronic hypotension. Stable. 5. Anemia. We will check iron studies and retic counts. We will also consult with the drag out worker. 6. Leukocytosis. Unchanged. Continue with antibiotic therapy. 7. Diabetes mellitus type 2. Continue with sliding scale insulin. 8. Severe protein calorie malnutrition. We will consult with the dietitian. 9. Deep vein thrombosis prophylaxis. We will start the patient on Lovenox. 10. Disposition. The patient is stable for transfer to the medical floor. cc: Karla Pagan MD
[2018-09-11 10:14] LABS: FERRITIN 1600 ng/mL (30-400)
[2018-09-11] MEDS: LOVENOX SUBQ SCH (10:17)
[2018-09-11] MEDS: DILAUDID IV PRN ×2 (11:39→16:22)
[2018-09-11 11:51] LABS: INR 1.26; PROTIME 16.1 Seconds (11.0-16.0)
[2018-09-11] MEDS ORDERED: CYANOCOBALAMIN IM ONE (11:54)
[2018-09-11] MEDS ORDERED: [UNRECOGNIZED DRUG - OTHER] PO SCH (12:00)
[2018-09-11] MEDS ORDERED: CALTRATE PO SCH (12:00)
[2018-09-11] MEDS ORDERED: VITAMIN D PO SCH (12:00)
[2018-09-11] MEDS: FOLIC ACID PO SCH (12:53)
[2018-09-11] MEDS: CALTRATE 600 + D PO SCH (12:59)
--- NOTE | 2018-09-11 14:25 | INFECTIOUS DISEASE CONSULT REP ---
DATE: 09/11/2018 CONCLUSION: The patient has a Klebsiella urinary tract infection. He also has an infected left hip ulcer with oxacillin-sensitive Staphylococcus aureus. The patient also has a sacral wound infection for which I have ordered a culture to be taken today. RECOMMENDATION: I have switched the patient from Rocephin and vancomycin to Ancef 2 g IV every 8 hours. I have ordered a culture to be taken from the patient's sacral wound. DISCUSSION: The patient was admitted to the hospital. He has a urinary tract infection with Klebsiella and he has a decubitus ulcer on the left hip and a sacral decubitus ulcer present also. Culture from the left hip grew oxacillin-sensitive Staphylococcus aureus. The urine culture grew Klebsiella. Chest x-ray is clear. X-ray of the abdomen shows no acute disease. The patient's CBC shows a white count of 12,490, hemoglobin 7.2, and platelet count 387,000. Creatinine is 0.6. GFR is greater than 60. Liver function studies are normal. ASSESSMENT AND PLAN: The patient is out of IV access so I have gone ahead and ordered a PICC to be placed. REVIEW OF SYSTEMS: Eyes and Ears: He can hear and see okay. Neck: The patient had surgery on his C-spine. He can move his neck and he has not complained of pain. Respiratory: No cough or shortness of breath. Cardiac: No chest pain or palpitations. GI: No nausea, vomiting, or diarrhea. : The patient has to self-catheterize himself at home. 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 Neurologic: As mentioned above, the patient is paralyzed from the waist down. He does have sensation in his legs, however. The patient does not have seizures. MEDICAL DISEASES: Positive for diabetes mellitus, anemia, and depression. INFECTIOUS DISEASE HISTORY: Positive for a urinary tract infection and decubitus ulcer infections. FAMILY HISTORY: Positive for diabetes mellitus, hypertension, myocardial infarction, and stroke. SOCIAL HISTORY[place] lives [place] his family. He does not have any pets. He does not smoke cigarettes, drink alcoholic beverages, or abuse drugs. ALLERGIES: The patient has no known drug allergies. HOME MEDICATIONS: Include carisoprodol, hydrocodone, insulin, Lyrica, Ambien, and Tylenol. PHYSICAL EXAMINATION: Temperature is 97.6 degrees, pulse 90, respirations 16, blood pressure 89/51. The patient weighs 166 pounds. General: This is a somewhat ill-appearing, young male. He is in no acute distress. Head, Eyes, Ears, Nose, and Throat: He can hear my spoken words and see near objects. He does not have any drainage from his nose or ears. Neck: He can move his neck without any pain. Lungs: Clear to auscultation. Cardiovascular: Regular heart rate. Abdomen: Soft and nontender. Integument: The patient has a large deep sacral wound and also a large deep wound on the left hip. I did not visualize the ulcers but pictures of them showed that there is beefy red tissue in the wounds and that there is no surrounding erythema and there is no purulence noted. Neurologic: The patient is alert. He can move his arms but he is paralyzed in his legs. He does have a sense of touch in both legs, however. Genitalia: The patient has a Herrera catheter in place. Thank you for the consult. cc: Buster Arango MD
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
--- NOTE | 2018-09-11 17:32 | PROGRESS NOTE ---
DATE: 09/11/2018 Mr. Jose Stewart is admitted with infected pressure ulcers, he is paraplegic, also urinary tract infection. He has a sacral wound, also left hip wound and also a small wound involving the left groin. These are culture positive. He does have some purulence draining from his hip wound but no undrained purulence. We are having our Wound Care nurse help with dressings of these pressure ulcers and he is receiving IV antibiotics under the direction of our hospitalists and Dr. Arango. cc: Latonya Anderson MD
[2018-09-11] MEDS: KEFZOL 2 GM/D5W 2 GM/50 ML IVPB IV SCH (17:43)
[2018-09-11] MEDS: AMBIEN PO SCH (21:31)
[2018-09-12] MEDS: DILAUDID IV PRN ×5 (00:31→22:03)
[2018-09-12] MEDS: KEFZOL 2 GM/D5W 2 GM/50 ML IVPB IV SCH ×3 (02:32→18:29)
[2018-09-12] MEDS: NORCO-10 PO PRN (06:47)
[2018-09-12] MEDS: HUMALOG SUBQ SCH ×4 (06:47→22:07)
[2018-09-12 07:10] LABS: HEMATOCRIT 24.5 % (42.0-52.0); HEMOGLOBIN 7.3 g/dL (14.0-18.0); MCH 25.9 PG (27-31); MCHC 29.8 g/dL (33-37); MCV 86.9 FL (81-99); MPV 8.2 FL (7.4-10.4); RBC 2.82 XMIL (4.7-6.1); WBC 10.85 X1000 (4.8-10.8)
[2018-09-12 07:40] LABS: AGAP 9; ALB/GLOB RATIO 0.3; ALBUMIN 1.6 g/dL (3.5-5.0); ALKALINE PHOSPHATASE 132 U/L (32-122); BUN 9 mg/dL (8-22); CALCIUM 7.6 mg/dL (8.8-10.2); CHLORIDE 106 mmol/L (98-107); COSMO 275; CREATININE 0.5 mg/dL (0.7-1.2); ESTIMATED GFR > 60; GLUCOSE 107 mg/dL (70-104); GOT 35 U/L (10-34); GPT 16 U/L (10-44); POTASSIUM 3.6 mmol/L (3.5-5.1); SODIUM 138 mmol/L (136-145); TCO2 23 mmol/L (25-35); TOTAL BILIRUBIN < 0.15 mg/dL (0.20-1.00); TOTAL PROTEIN 6.4 g/dL (6.3-8.3)
[2018-09-12] MEDS ORDERED: MAGNESIUM SULFATE 2 GM/S.W.I. 2 GM/50 ML IVPB IV ONE (08:00)
[2018-09-12] MEDS: LYRICA PO SCH ×2 (09:21→22:03)
[2018-09-12] MEDS: SOMA PO SCH (09:22)
[2018-09-12] MEDS: FOLIC ACID PO SCH (09:22)
[2018-09-12] MEDS: VITAMIN B-12 SL SCH (09:22)
[2018-09-12] MEDS: CALTRATE 600 + D PO SCH (09:22)
[2018-09-12] MEDS: LOVENOX SUBQ SCH (09:25)
--- NOTE | 2018-09-12 12:57 | HEMO/ONC PROGRESS NOTE ---
DATE: 09/12/2018 HISTORY OF PRESENT ILLNESS: The patient states he had a good night overall. He denies any complaints this morning. He states he is feeling stronger and better than yesterday. His appetite is good. He is eating his breakfast well this morning. VITAL SIGNS: Temperature 98.2 degrees, pulse rate 86, respiratory rate 18, blood pressure 94/56, O2 saturation 95% on room air. He is in 7/10 pain to the hand, back, sacrum, leg and hip. PHYSICAL EXAMINATION: General: This is an emaciated, chronically ill- appearing, young man in no acute distress. He is awake, alert, and oriented. Skin: Warm, dry, and intact per upper body. The patient has pressure ulcers to his sacrum, left hip, and left groin. Cardiovascular: Normal S1, S2. Respiratory: Lungs are clear to auscultation. No signs of respiratory distress. Abdomen: Soft, nontender, without distention. Extremities: The patient is a paraplegic. Wounds as noted above. LABORATORY: WBCs 10.85, hemoglobin 7.3, hematocrit 24.5, platelet count 445,000. Calcium 7.6. ASSESSMENT: 1. Chronic anemia. 2. Paraplegia. 3. Multiple decubitus ulcerations from sacrum and lower extremity. 4. Severe protein-calorie malnutrition. PLAN: It is most likely that the patient has a significant bone marrow suppression. We are treating his folate and B12 deficiency. However, they will probably not make much of a difference on his anemia. We will add protein shakes to his diet. Continue medical management. We will follow along with you. Dictated by COLTEN Becker for Alfa Patterson MD Patient seen and examined. As above. Evaluation reveals folate deficiency. This is being repleted. I doubt that this is causing his anemia. His anemia is most likely due to bone marrow suppression from his current conditions. Continue current management. Transfuse as needed. Alfa Patterson M.D. cc: Alfa Patterson MD [facility]
--- NOTE | 2018-09-12 13:57 | INFECTIOUS DISEASE PROGRESS NO ---
DATE: 09/12/2018 PRESENT ILLNESS: The patient has a left groin oxacillin sensitive Staph aureus infected wound. He has a Klebsiella urinary tract infection. Blood cultures are negative and culture from the buttock is not growing anything. MEDICATIONS: The patient is on Ancef 2 g IV every 8. PHYSICAL EXAM: Vital Signs: Temperature is 98.4 degrees, pulse 89, respirations 20, blood pressure 101/67. General: This is a fairly healthy-appearing, young male. He is in no acute distress. Head/eyes/ears/nose/throat: Can hear my spoken words and see near objects. He does not have any white patches in his mouth neck. Neck: No pain with movement of the neck. Lungs: Clear to auscultation. Cardiovascular: Heart rate is regular. Abdomen: Soft and nontender. In the left groin area there is a wound that has purulent drainage. Back: The patient has a sacral wound and a wound on the left hip. Both of them are not erythematous or purulent. Neurologic: The patient is alert. He can move his arms but he is paralyzed in his legs. Genitalia: The patient has a Herrera catheter in place. LAB AND X-RAY: Blood and buttock wounds are not growing any organisms. The sacral and left hip wounds look clean and have not been cultured. The left groin wound is growing an oxacillin sensitive Staph aureus and the urine is growing Klebsiella. Both of these infections are susceptible to Ancef which is what the patient is receiving. PLAN: I plan to continue with Ancef. COMORBIDITIES: Patient is paraplegic. He also has diabetes mellitus. cc: Buster Arango MD
[2018-09-12] MEDS: AMBIEN PO SCH (22:03)
[2018-09-13] MEDS: KEFZOL 2 GM/D5W 2 GM/50 ML IVPB IV SCH ×2 (02:42→09:12)
[2018-09-13] MEDS: DILAUDID IV PRN ×4 (02:47→11:59)
--- NOTE | 2018-09-13 04:00 | PROGRESS NOTE ---
DATE: 09/12/2018 SUBJECTIVE: The patient is resting comfortably in bed. He states that he feels better today. No acute events noted overnight. OBJECTIVE: Vital Signs: Temperature 97.5 degrees, blood pressure 99/68, heart rate 79, respirations 16, O2 saturation 100% on room air. General: This is a young male lying in bed in no acute distress. Heart: S1, S2, normal. Regular rate and rhythm. Lungs: Clear to auscultation bilaterally. Abdomen: Positive bowel sounds. Soft, nontender, nondistended. Extremities: No edema, no cyanosis. Neurologic: The patient is alert and oriented x4. LABS: White blood cell count 10, hemoglobin 7.3, hematocrit 24, platelets 445,000. Sodium 138, potassium 3.6, BUN 9, creatinine 0.5, glucose 107, albumin 1.6. ASSESSMENT AND PLAN: 1. Left groin oxacillin sensitive Staphylococcus aureus infection. Continue with antibiotic therapy as directed by Dr. Arango. 2. Urinary tract infection, secondary to Klebsiella. Continue with antibiotic therapy. 3. Left hip decubitus ulceration infection, secondary to oxacillin sensitive Staphylococcus aureus. Continue with antibiotic therapy. 4. Paraplegia. Aware. 5. Chronic anemia. The patient's hemoglobin and hematocrit are low, but stable. Hematology is following. 6. Severe protein-calorie malnutrition. We will consult the dietitian for further recommendations. 7. Vitamin D deficiency. Continue vitamin D replacement. 8. Vitamin B12 deficiency. Continue with vitamin B12 replacement. 9. Neuropathy. Continue on Lyrica. 10. Deep vein thrombosis prophylaxis. Continue on Lovenox. cc: Karla Pagan MD
[2018-09-13] MEDS: HUMALOG SUBQ SCH ×2 (06:26→11:45)
[2018-09-13 07:32] LABS: HEMATOCRIT 26.9 % (42.0-52.0); HEMOGLOBIN 7.9 g/dL (14.0-18.0); MCH 26.4 PG (27-31); MCHC 29.4 g/dL (33-37); MPV 8.3 FL (7.4-10.4); RBC 2.99 XMIL (4.7-6.1); RDW 17.1 % (11.5-14.5); WBC 7.63 X1000 (4.8-10.8)
[2018-09-13 07:43] LABS: MAGNESIUM 1.8 mg/dL (1.5-2.7); PHOSPHORUS 4.2 mg/dL (2.7-4.5)
[2018-09-13 07:51] LABS: AGAP 10; ALB/GLOB RATIO 0.4; ALBUMIN 1.8 g/dL (3.5-5.0); ALKALINE PHOSPHATASE 144 U/L (32-122); BUN 8 mg/dL (8-22); CALCIUM 7.8 mg/dL (8.8-10.2); CHLORIDE 102 mmol/L (98-107); COSMO 274; CREATININE 0.4 mg/dL (0.7-1.2); ESTIMATED GFR > 60; GLUCOSE 91 mg/dL (70-104); GOT 29 U/L (10-34); GPT 18 U/L (10-44); POTASSIUM 3.9 mmol/L (3.5-5.1); SODIUM 138 mmol/L (136-145); TCO2 26 mmol/L (25-35); TOTAL BILIRUBIN < 0.15 mg/dL (0.20-1.00); TOTAL PROTEIN 6.3 g/dL (6.3-8.3)
[2018-09-13] MEDS: LOVENOX SUBQ SCH (08:40)
[2018-09-13] MEDS: CALTRATE 600 + D PO SCH (08:40)
[2018-09-13] MEDS: VITAMIN B-12 SL SCH (08:40)
[2018-09-13] MEDS: LYRICA PO SCH (08:40)
[2018-09-13] MEDS: FOLIC ACID PO SCH (08:40)
[2018-09-13] MEDS: NORCO-10 PO PRN ×2 (09:09)
--- NOTE | 2018-09-13 09:53 | INFECTIOUS DISEASE PROGRESS NO ---
DATE: 09/13/2018 PRESENT ILLNESS: Mr. Stewart is being treated for an oxacillin-sensitive Staphylococcus aureus infected left groin and a Klebsiella urinary tract infection. He has multiple other decubitus ulcers. At this point, one on his buttock has shown no growth on the preliminary culture report. MEDICATIONS: He is receiving Kefzol 2 g IV every 8 hours. PHYSICAL EXAMINATION: Vital Signs: Temperature is 97.7 degrees, pulse rate 86, respiratory rate 16, blood pressure 92/58, O2 saturation is 98% on room air. General: This is a chronically ill- appearing, middle-aged gentleman. He is lying in the bed, currently in no acute distress. HEENT: Atraumatic, normocephalic. Oral mucous membranes are pink and moist. Conjunctivae are pale. Neck: Supple. Trachea is midline. Cardiovascular: Heart rate and rhythm are regular. Normal sinus rhythm on the monitor. Respiratory: Lung sounds are clear to auscultation bilaterally. No work of breathing is noted. Abdomen: Soft, round, and nontender. Bowel sounds are active. Integumentary: There is a small wound to the left groin with a white-purple wound bed and a mild amount of yellow drainage. There is also a left hip wound which has an erythematous wound bed and a mild amount of serosanguineous drainage. He also has multiple ulcers which were not visualized at this time. Neurologic: He is awake, alert, oriented. Arm strength is weak and lower extremities are paralyzed, swollen, and have multiple dry, scattered abrasions. LABORATORY AND X-RAY: Today, his white count is 7.63, hemoglobin 7.9, platelet count 384,000. Creatinine is 0.4. Estimated GFR is greater than 60. Total bilirubin is less than 0.15, AST 29, ALT 18, alkaline phosphatase 144. His left hip grew an oxacillin-sensitive Staphylococcus aureus and the urine culture grew Klebsiella pneumoniae. So far, the buttock culture has shown no growth from the preliminary report. No imaging reports today. ASSESSMENT AND PLAN: Mr. Stewart has an oxacillin-sensitive Staphylococcus aureus infected left groin and a Klebsiella urinary tract infection. He is wanting to go home today. The plan is to leave him on the Ancef as long as he is in the hospital. Once he is ready to be discharged, he will go home on Keflex 500 mg by mouth every 8 hours for a total of 2 weeks. The prescription is on the front of his chart. After talking to him about followup, he states it is difficult transportation-long for him to get to our office, so we will have him follow up with his primary care physician. I have told him to call our office if he develops any severe diarrhea or mouth pain or sores. He stated understanding and agreed with the plan. These plans have been discussed with and recommended by Dr. Arango. COMORBIDITIES: Include paraplegia and diabetes mellitus. Dictated by COLTEN Andrews for Buster Arango MD cc: Buster Arango MD MTDD
[2018-09-13 11:35] VITALS: BP 99/57
[2018-09-13] MEDS: SOMA PO SCH ×2 (11:44)
--- NOTE | 2018-09-13 12:32 | HEMO/ONC PROGRESS NOTE ---
DATE: 09/13/2018 SUBJECTIVE: The patient states he had a very good night's sleep. He feels better today than he has recently. He denies any complaints this morning. He states he is not in pain. His wounds are healing well. He questioned if he could go home. He believes he can take his antibiotics at home, and would continue to recover better there. OBJECTIVE: Vital Signs: Temperature 97.7 degrees, pulse rate 86, respiratory rate 16, blood pressure 99/57, O2 saturation 98% on room air. He has 8/10 generalized pain. General: Emaciated, chronically ill-appearing, young man in no acute distress. He is awake, alert, and oriented. Skin: Warm, dry, and intact to upper body. The patient has pressure ulcers to his sacrum, left hip, and left groin. Cardiovascular: Normal S1, S2. Respiratory: Lung sounds are clear to auscultation. Abdomen: Soft, nondistended, nontender without distention. Bowel sounds are present. Extremities: The patient is a paraplegic. Wounds as noted above. LABORATORY DATA: WBC 7.63, hemoglobin 7.9, hematocrit 26.9, platelet count 384,000. Calcium 7.8. ASSESSMENT: 1. 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 2. Paraplegia. 3. Multiple decubitus ulcerations on sacrum and lower extremities. 4. Severe protein-calorie malnutrition. PLAN: We are repleting the patient's folate and B12 deficiencies, although they will probably not make much difference in his overall anemia. The patient is receiving protein shakes and eating very well while in the hospital. He asked if he could be discharged to continue antibiotic and wound care at home. We did discuss this with Dr. Arango. Dr. Arango will make this decision with Dr. Pagan. The patient will be transfused as needed. We will continue to follow, and we will continue to follow up with him as an outpatient in the clinic. Dictated by COLTEN Becker for Alfa Patterson MD cc: Alfa Patterson MD [facility]
--- NOTE | 2018-09-24 22:11 | DISCHARGE SUMMARY ---
ADMISSION DATE: 09/07/2018 DISCHARGE DATE: 09/13/2018 FINAL DISCHARGE DIAGNOSIS: 1. Left groin oxacillin sensitive Staphylococcus aureus infection. 2. Urinary tract infection secondary to Klebsiella. 3. Left hip decubitus ulceration infection secondary to oxacillin sensitive Staphylococcus aureus. 4. Paraplegia. 5. Chronic anemia. 6. Severe protein calorie malnutrition. 7. Vitamin D deficiency. 8. Vitamin B12 deficiency. 9. Neuropathy. CONSULTATIONS: 1. Hematology consultation with Dr. Patterson. 2. ID consultation with Dr. Buster Arango. 3. General Surgery consultation with Dr. Anderson. HOSPITAL COURSE: Mr. Stewart is a 38-year-old male with a history of paraplegia and multiple decubitus ulcerations due to his paraplegia who presented to the ER with a chief complaint of nausea and vomiting. Upon arrival to the ER, the patient was noted to have several infected wounds as well as a urinary tract infection. The patient was also hypotensive. He was admitted to the ICU and started on IV fluids and Levophed drip. The patient was also noted to have a hemoglobin of 6.8 with hematocrit of 21 at which time transfusion orders were initiated. Given the patient's multiple ulcerations in the groin and hip, General Surgery was consulted for possible debridement. Blood and wound cultures were obtained and the patient was started on broad- spectrum antibiotics. ID was also consulted for assistance with antibiotic choice. The blood cultures remain negative. The left hip wound culture grew out oxacillin sensitive Staphylococcus aureus and the urine culture grew out Klebsiella pneumoniae. The patient's IV antibiotic regimen was adjusted. The patient improved and was transferred out of the ICU. Wound care was also consulted. Hematology was consulted due to the patient's persistent anemia. The patient will be following with Dr. Patterson as outpatient for further monitoring of his anemia. The patient was noted to be vitamin D and B12 deficient and was started on replacement for both of these deficiencies. It was recommended by Dr. Arango that the patient be transitioned to oral Keflex 500 mg every 8 hours for a total of 2 weeks. The patient was ultimately cleared for discharge home on 09/13/2018. DISCHARGE MEDICATIONS: 1. Folic acid 1 mg p.o. daily. 2. Vitamin B12 2500 mcg sublingual daily. 3. Vitamin D2 50,000 units oral every 7 days. 4. Keflex 500 mg oral every 8 hours for 2 weeks. 5. Percocet 10 one tab oral every 6 hours p.r.n. for pain. 6. Ambien 10 mg p.o. at bedtime. 7. Lyrica 300 mg p.o. twice a day. 8. Soma 350 mg oral twice a day. 9. Humalog insulin sliding scale. DISCHARGE DIET: Diabetic diet. ACTIVITY: As tolerated. FOLLOWUP INSTRUCTIONS: The patient will need to follow up with Dr. Jennifer Balderas in 1 to 2 weeks. The patient will also need to follow up with Dr. Patterson as scheduled by his clinic for further monitoring of his anemia. cc: Jennifer Balderas MD
== END 2018-09-13 11:30 | disposition home health service (06) | DRG 689 ==
LOC: SUPCPDRO → ED 18:16 → SUATTDRO 21:39 → ICU 21:39 → 4N 09-11 14:42
PROVIDERS: ATTEND Internal Medicine

== ENCOUNTER 2018-11-07 10:04 | Inpatient (IN) ==
[2018-11-07] MEDS ORDERED: NS 500 ML IV ONE ×3 (10:52→18:49)
[2018-11-07] MEDS ORDERED: NS 1,000 ML ONE (10:53)
[2018-11-07 12:01] LABS: AGAP 14; ALB/GLOB RATIO 0.3; ALBUMIN 1.7 g/dL (3.5-5.0); ALKALINE PHOSPHATASE 157 U/L (32-122); BUN 15 mg/dL (8-22); CALCIUM 7.4 mg/dL (8.8-10.2); CHLORIDE 98 mmol/L (98-107); COSMO 271; CREATININE 1.2 mg/dL (0.7-1.2); ESTIMATED GFR > 60; GLUCOSE 159 mg/dL (70-104); GOT 8 U/L (10-34); GPT < 5 U/L (10-44); POTASSIUM 3.4 mmol/L (3.5-5.1); SODIUM 133 mmol/L (136-145); TCO2 21 mmol/L (25-35); TOTAL BILIRUBIN 0.41 mg/dL (0.20-1.00); TOTAL PROTEIN 6.6 g/dL (6.3-8.3)
--- NOTE | 2018-11-07 12:03 | Diag Imaging Result Doc PS360 ---
CHEST-1 VIEW - 11/07/2018 INDICATION: sepsis work up COMPARISON: 09/07/2018 FINDINGS: The lungs are normally expanded and clear. Heart size and mediastinal contours are normal. No pneumothorax or pleural effusion. IMPRESSION: Negative exam. Electronically signed by Demond Bowers 11/07/2018 12:01 PM
[2018-11-07 12:04] LABS: BASO# 0.02 X1000 (0.0-0.2); BASO% 0.2 % (0.0-0.8); EOS# 0.02 X1000 (0.0-0.7); EOS% 0.2 % (0.0-10.0); HEMATOCRIT 18.5 % (42.0-52.0); HEMOGLOBIN 5.4 g/dL (14.0-18.0); IMM GRAN# 0.05 X1000 (0.0-0.04); IMM GRAN% 0.4 % (0.0-0.5); LYMPH# 1.03 X1000 (1.2-3.4); LYMPH% 8.5 % (20.5-51.1); MCH 23.8 PG (27-31); MCHC 29.2 g/dL (33-37); MCV 81.5 FL (81-99); MONO% 3.3 % (1.7-9.3); MPV 8.9 FL (7.4-10.4); NEUT# 10.58 X1000 (1.4-6.5); NEUT% 87.4 % (42.2-75.2); PLT 306 X1000 (130-400); RBC 2.27 XMIL (4.7-6.1); RDW 17.1 % (11.5-14.5)
[2018-11-07] MEDS ORDERED: NS 250 ML ONE (12:53)
[2018-11-07] MEDS ORDERED: ZOSYN 3.375 GM in NS 50 ML IV ONE (13:09)
[2018-11-07] MEDS ORDERED: VANCOMYCIN 1 GM/NS 1 GM/250 ML IVPB IV ONE (13:09)
[2018-11-07 13:11] LABS: URINE SOURCE CATH
[2018-11-07 13:14] LABS: BILIRUBIN URINE SMALL (NEGATIVE); BLOOD URINE MODERATE (NEGATIVE); COLOR ORANGE; GLUCOSE URINE NEGATIVE (NEGATIVE); KETONE URINE TRACE mg/dL (NEGATIVE); LEUKOCYTES URINE LARGE (NEGATIVE); NITRITE URINE NEGATIVE (NEGATIVE); PROTEIN URINE 200 mg/dL (NEGATIVE); TURBIDITY URINE TURBID (CLEAR); UROBILINOGEN URINE 6 mg/dL (NORMAL)
[2018-11-07 13:19] LABS: UR EPITHELIAL CELLS >10 /HPF (<10); URINE BACTERIA 4+ /HPF; URINE CASTS NONE SEEN; URINE RBC 20-40 /HPF (<10); URINE WBC TNTC /HPF (<10)
[2018-11-07] MEDS ORDERED: VANCOMYCIN IV PER PHARMACY MISC SCH (14:00)
[2018-11-07] MEDS ORDERED: VITAMIN D PO SCH (14:00)
[2018-11-07 14:45] LABS: INR 1.46
[2018-11-07 14:46] LABS: PTT 43.8 Seconds (22.3-41.8)
[2018-11-07 15:07] LABS: AGAP 12; ALB/GLOB RATIO 0.4; ALBUMIN 1.8 g/dL (3.5-5.0); ALKALINE PHOSPHATASE 157 U/L (32-122); BUN 14 mg/dL (8-22); CALCIUM 7.2 mg/dL (8.8-10.2); CHLORIDE 98 mmol/L (98-107); CK PROFILE 36 U/L (24-204); COSMO 268; ESTIMATED GFR > 60; GLUCOSE 145 mg/dL (70-104); GOT 6 U/L (10-34); GPT < 5 U/L (10-44); POTASSIUM 3.3 mmol/L (3.5-5.1); SODIUM 132 mmol/L (136-145); TCO2 22 mmol/L (25-35); TOTAL BILIRUBIN 0.57 mg/dL (0.20-1.00); TOTAL PROTEIN 6.1 g/dL (6.3-8.3)
[2018-11-07] MEDS: NS 1,000 ML IV SCH (15:46)
[2018-11-07] MEDS ORDERED: VANCOMYCIN 2 GM in NS 500 ML IV ONE (16:00)
[2018-11-07] MEDS: PERCOCET-10 PO PRN ×2 (16:09→20:42)
[2018-11-07] MEDS: ZOFRAN IV PRN (16:10)
[2018-11-07] MEDS: DAKIN'S 0.25% SOLN TOP SCH ×2 (18:00→20:49)
[2018-11-07] MEDS: HUMALOG SUBQ SCH ×2 (18:07→20:50)
[2018-11-07] MEDS ORDERED: NS 1,000 ML IV ONE (18:48)
[2018-11-07] MEDS ORDERED: VANCOMYCIN 2,000 MG in NS 500 ML IV ONE (19:00)
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
[2018-11-07] MEDS: AMBIEN PO SCH (20:43)
[2018-11-07] MEDS: SOMA PO SCH (20:43)
[2018-11-07] MEDS: ZOSYN 3.375 GM in NS 50 ML IV SCH (20:48)
[2018-11-07] MEDS: LYRICA PO SCH (21:26)
--- NOTE | 2018-11-08 01:02 | HISTORY AND PHYSICAL ---
ADDENDUM: Briefly, this is a 38-year-old male who came in with swelling and drainage from a decubitus ulcer. He has had that issue multiple times previously. He was here a couple of months ago and had an MSSA left groin infection, Klebsiella UTI. The patient is paraplegic. He is supposed to get a flap to prevent further decubitus infections, but it has never been completed because his nutritional status has been too poor, and he is very cachectic and pale. There were plans to get other treatments. In any case, his hemoglobin and hematocrit today are 5 and 18. He was given 1 unit of blood. We will probably give him another unit. His blood pressure is on the low side. He had a positive troponin, which I do not know if that is from demand ischemia or not. He has never had a positive troponin before. On exam, he has erythema and drainage in his groin. We will continue to monitor him in any case. We will continue to follow closely. We will do broad-spectrum antibiotics, wound care. I think his blood pressures to me are lower than usual. I know they have been low in the 80s, but 60s and 70s still seems pretty low, so I am going to give him fluids. We may have to institute pressors. We will give blood and monitor closely. This was a [id number] encounter with COLTEN Law. Thirty-two minute critical care time. cc: Ike Thapa MD
[2018-11-08] MEDS: NEO-SYNEPHRINE 50 MG in NS 250 ML IV SCH ×2 (01:14→17:59)
[2018-11-08] MEDS: NS 1,000 ML IV SCH ×3 (01:49→19:13)
[2018-11-08] MEDS: PERCOCET-10 PO PRN ×3 (01:49→23:38)
[2018-11-08] MEDS: ZOSYN 3.375 GM in NS 50 ML IV SCH ×4 (01:49→19:53)
[2018-11-08] MEDS ORDERED: TYLENOL PO ONE (05:41)
[2018-11-08] MEDS: HUMALOG SUBQ SCH ×4 (06:13→21:06)
[2018-11-08 06:49] LABS: BASO# 0.01 X1000 (0.0-0.2); BASO% 0.1 % (0.0-0.8); EOS# 0.04 X1000 (0.0-0.7); EOS% 0.3 % (0.0-10.0); HEMOGLOBIN 8.9 g/dL (14.0-18.0); IMM GRAN# 0.04 X1000 (0.0-0.04); IMM GRAN% 0.3 % (0.0-0.5); LYMPH# 0.79 X1000 (1.2-3.4); LYMPH% 6.4 % (20.5-51.1); MCH 25.4 PG (27-31); MCHC 30.7 g/dL (33-37); MCV 82.6 FL (81-99); MONO# 0.41 X1000 (0.11-0.59); MONO% 3.3 % (1.7-9.3); MPV 8.8 FL (7.4-10.4); NEUT# 10.96 X1000 (1.4-6.5); NEUT% 89.6 % (42.2-75.2); PLT 418 X1000 (130-400); RBC 3.51 XMIL (4.7-6.1); RDW 16.4 % (11.5-14.5); WBC 12.25 X1000 (4.8-10.8)
[2018-11-08 07:03] LABS: AGAP 14; ALB/GLOB RATIO 0.3; ALBUMIN 1.7 g/dL (3.5-5.0); ALKALINE PHOSPHATASE 298 U/L (32-122); BUN 14 mg/dL (8-22); CALCIUM 7.6 mg/dL (8.8-10.2); CHLORIDE 104 mmol/L (98-107); COSMO 281; ESTIMATED GFR > 60; GLUCOSE 151 mg/dL (70-104); GOT 9 U/L (10-34); GPT 5 U/L (10-44); POTASSIUM 3.7 mmol/L (3.5-5.1); SODIUM 139 mmol/L (136-145); TCO2 21 mmol/L (25-35); TOTAL BILIRUBIN 0.48 mg/dL (0.20-1.00); TOTAL PROTEIN 7.2 g/dL (6.3-8.3)
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
[2018-11-08] MEDS: FOLIC ACID PO SCH (08:47)
[2018-11-08] MEDS: LYRICA PO SCH ×2 (08:47→21:03)
[2018-11-08] MEDS: SOMA PO SCH ×2 (08:47→21:03)
[2018-11-08] MEDS: MORPHINE IV PRN ×3 (09:24→19:53)
--- NOTE | 2018-11-08 12:20 | PROGRESS NOTE ---
DATE: 11/08/2018 SUBJECTIVE: The patient reports feeling fine. Had an episode of fever of 100.5 this morning. The patient reports having some severe pain in both legs, and he requests an IV pain medication for breakthrough pain. OBJECTIVE: Vital Signs: Temperature 100.5 degrees, heart rate 91, respiratory rate 17, blood pressure 92/59, O2 saturation 100% on room air. General: This is a chronically ill-appearing, 38- year-old, female with history of incomplete paraplegia, lying in bed in no acute distress. Cardiovascular: S1, S2 heard. Tachycardic, but no murmurs, gallops, or rubs. Regular rate and rhythm. Respiratory: Clear bilaterally to auscultation. No work of breathing. Not using accessory muscles. Abdomen: Soft, nontender to palpation. Bowel sounds present. No organomegaly. Extremities: The patient moves his upper extremities okay. Bilateral lower extremities have no movement all. Neurological: The patient is alert and oriented x3. Paraplegic upper and lower extremities. LABORATORY DATA: White cell count 12.35, hemoglobin 8.9, hematocrit 29.0, platelets 418,000. BMP reveals glucose 151. Albumin 1.7. Blood culture, urine culture, and wound culture are pending. ASSESSMENT AND PLAN: 1. Chronic anemia. After 2 units of blood, hemoglobin has improved from 5.4 to 8.9. At this point, will continue monitoring CBC daily. Will continue with folic acid. 2. Diabetes mellitus type 2. Will continue with sliding scale insulin. Accu-Chek before meals and also at bedtime. 3. Leukocytosis. We do not know the source of this leukocytosis, and the question is if he has infection. He is spiking fever. Urine culture and blood culture are still pending. At this point, considering his history of methicillin-sensitive Staphylococcus aureus, I prefer to continue with vancomycin and Zosyn, renally dosed. At this point, will continue with vancomycin and Zosyn. 4. Chronic decubitus ulcers. The patient is being followed with Wound Care. Will continue to follow recommendations. 5. Chronic hypotension. The patient is requiring now Levophed to keep his blood pressure up to 90. I think at this point, will continue with vasopressors, and monitor this patient closely here in the intensive care unit. 6. Severe protein calorie malnutrition. Albumin is very low. Dietary has been consulted. Will follow recommendations. 7. Vitamin D deficiency. Will continue to replenish vitamin D. 8. Vitamin B12 deficiency. Will continue to supplement that. 9. Chronic pain. The patient is on Percocet. Will add morphine for breakthrough pain. 10. Disposition. Will monitor this patient closely in the intensive care unit. cc: Dick Garza MD
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
[2018-11-08] MEDS: DAKIN'S 0.25% SOLN TOP SCH ×2 (13:00→21:04)
[2018-11-08] MEDS: ZOFRAN IV PRN (19:13)
[2018-11-08] MEDS: VANCOMYCIN 2,000 MG in NS 500 ML IV SCH (20:26)
[2018-11-08] MEDS: AMBIEN PO SCH (21:03)
[2018-11-09] MEDS: ZOFRAN IV PRN ×2 (02:09→16:19)
[2018-11-09] MEDS: MORPHINE IV PRN ×5 (02:09→23:11)
[2018-11-09] MEDS: ZOSYN 3.375 GM in NS 50 ML IV SCH ×4 (02:13→20:16)
[2018-11-09 04:05] LABS: BASO# 0.02 X1000 (0.0-0.2); BASO% 0.2 % (0.0-0.8); EOS# 0.22 X1000 (0.0-0.7); EOS% 2.5 % (0.0-10.0); HEMATOCRIT 25.8 % (42.0-52.0); HEMOGLOBIN 7.9 g/dL (14.0-18.0); LYMPH# 1.01 X1000 (1.2-3.4); LYMPH% 11.6 % (20.5-51.1); MCH 25.6 PG (27-31); MCHC 30.6 g/dL (33-37); MCV 83.8 FL (81-99); MONO# 0.48 X1000 (0.11-0.59); MONO% 5.5 % (1.7-9.3); MPV 8.5 FL (7.4-10.4); NEUT# 6.94 X1000 (1.4-6.5); NEUT% 80.2 % (42.2-75.2); PLT 367 X1000 (130-400); RBC 3.08 XMIL (4.7-6.1); RDW 16.5 % (11.5-14.5); WBC 8.67 X1000 (4.8-10.8)
[2018-11-09 04:16] LABS: AGAP 11; BUN 9 mg/dL (8-22); CALCIUM 7.4 mg/dL (8.8-10.2); CHLORIDE 104 mmol/L (98-107); COSMO 272; CREATININE 0.6 mg/dL (0.7-1.2); ESTIMATED GFR > 60; GLUCOSE 117 mg/dL (70-104); POTASSIUM 3.5 mmol/L (3.5-5.1); SODIUM 136 mmol/L (136-145); TCO2 21 mmol/L (25-35)
[2018-11-09] MEDS: PERCOCET-10 PO PRN ×4 (04:43→20:17)
[2018-11-09] MEDS: LOVENOX SUBQ SCH ×2 (04:43→05:24)
[2018-11-09] MEDS: HUMALOG SUBQ SCH ×4 (06:02→20:18)
[2018-11-09] MEDS: FOLIC ACID PO SCH (08:28)
[2018-11-09] MEDS: LYRICA PO SCH ×2 (08:28→20:17)
[2018-11-09] MEDS: SOMA PO SCH ×2 (08:29→20:17)
[2018-11-09] MEDS: NS 1,000 ML IV SCH ×2 (08:29→18:32)
[2018-11-09] MEDS: DAKIN'S 0.25% SOLN TOP SCH ×2 (09:50→20:19)
--- NOTE | 2018-11-09 11:40 | GENERAL SURGERY PROGRESS NOTE ---
DATE: 11/09/2018 SUBJECTIVE: Patient seems to be doing about the same. Nursing staff reports no major issues. OBJECTIVE: Vital Signs: Patient is currently afebrile. His vital signs been stable. General exam: No acute distress. Cardiovascular: Regular rate and rhythm. Lungs: Grossly clear. Abdomen: Soft, nontender. Wounds: Decubitus wounds about the same; no real change. ASSESSMENT AND PLAN: A 38-year-old gentleman with significant decubitus wounds. 1. Decubitus wounds at this time. Continue current treatment. He would be ideal to have some kind of coverage with a flap, but apparently he has been down to [facility] already for that evaluation. Otherwise, at this point continue current treatment. We will follow along. cc: Mj Moore MD
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
[2018-11-09] MEDS: AMBIEN PO SCH (20:17)
[2018-11-09] MEDS: VANCOMYCIN 2,000 MG in NS 500 ML IV SCH (20:18)
[2018-11-10] MEDS: ZOSYN 3.375 GM in NS 50 ML IV SCH ×4 (03:04→19:58)
[2018-11-10] MEDS: NEO-SYNEPHRINE 50 MG in NS 250 ML IV SCH (05:07)
[2018-11-10] MEDS: LOVENOX SUBQ SCH (05:07)
[2018-11-10] MEDS: MORPHINE IV PRN ×3 (05:07→20:06)
[2018-11-10] MEDS: NS 1,000 ML IV SCH ×2 (05:07→16:19)
[2018-11-10 05:23] LABS: BASO# 0.01 X1000 (0.0-0.2); BASO% 0.2 % (0.0-0.8); EOS# 0.24 X1000 (0.0-0.7); EOS% 3.6 % (0.0-10.0); HEMATOCRIT 26.7 % (42.0-52.0); IMM GRAN# 0.02 X1000 (0.0-0.04); IMM GRAN% 0.3 % (0.0-0.5); LYMPH# 1.28 X1000 (1.2-3.4); LYMPH% 19.3 % (20.5-51.1); MCH 24.9 PG (27-31); MCV 83.2 FL (81-99); MONO# 0.37 X1000 (0.11-0.59); MONO% 5.6 % (1.7-9.3); MPV 8.7 FL (7.4-10.4); PLT 396 X1000 (130-400); RBC 3.21 XMIL (4.7-6.1); RDW 16.8 % (11.5-14.5); WBC 6.62 X1000 (4.8-10.8)
[2018-11-10 05:51] LABS: AGAP 10; BUN 9 mg/dL (8-22); CALCIUM 7.8 mg/dL (8.8-10.2); CHLORIDE 108 mmol/L (98-107); COSMO 282; CREATININE 0.7 mg/dL (0.7-1.2); ESTIMATED GFR > 60; GLUCOSE 131 mg/dL (70-104); POTASSIUM 3.6 mmol/L (3.5-5.1); SODIUM 141 mmol/L (136-145); TCO2 23 mmol/L (25-35)
[2018-11-10] MEDS: HUMALOG SUBQ SCH ×4 (06:14→21:04)
[2018-11-10] MEDS: FOLIC ACID PO SCH (08:31)
[2018-11-10] MEDS: DAKIN'S 0.25% SOLN TOP SCH ×2 (08:31→21:06)
[2018-11-10] MEDS: SOMA PO SCH ×2 (08:31→20:05)
[2018-11-10] MEDS: LYRICA PO SCH ×2 (08:31→20:03)
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
[2018-11-10] MEDS: PERCOCET-10 PO PRN (12:31)
--- NOTE | 2018-11-10 14:34 | GENERAL SURGERY PROGRESS NOTE ---
DATE: 11/10/2018 SUBJECTIVE: No complaints. Low-grade fever this morning 100.7, pulse 70, blood pressure 103/67. General. Is alert, no acute distress. Integument is warm, dry. Dressing changes going well. White count is now normal at 6, hematocrit 26, creatinine 0.7. ASSESSMENT AND PLAN: 38-year-old gentleman decubitus wound. Continue dressing changes. He has Proteus growing out of multiple cultures from the groin, hip, and blood. He is on antibiotics per the hospitalist. He is on Lovenox. Will continue local wound care and observation going forward. cc: Adeline Peña MD
[2018-11-10] MEDS: AMBIEN PO SCH (20:05)
[2018-11-10] MEDS: ZOFRAN IV PRN (20:14)
[2018-11-10] MEDS: VANCOMYCIN 1,250 MG in NS 250 ML IV SCH (21:01)
[2018-11-11] MEDS: ZOSYN 3.375 GM in NS 50 ML IV SCH ×4 (01:36→19:56)
[2018-11-11] MEDS: NS 1,000 ML IV SCH ×3 (01:36→21:21)
[2018-11-11] MEDS: MORPHINE IV PRN ×4 (04:21→19:48)
[2018-11-11 05:09] LABS: BASO# 0.01 X1000 (0.0-0.2); BASO% 0.2 % (0.0-0.8); EOS# 0.17 X1000 (0.0-0.7); EOS% 3.5 % (0.0-10.0); HEMATOCRIT 23.8 % (42.0-52.0); HEMOGLOBIN 7.4 g/dL (14.0-18.0); LYMPH# 1.17 X1000 (1.2-3.4); MCH 25.9 PG (27-31); MCHC 31.1 g/dL (33-37); MCV 83.2 FL (81-99); MONO# 0.31 X1000 (0.11-0.59); MONO% 6.4 % (1.7-9.3); MPV 8.5 FL (7.4-10.4); NEUT# 3.21 X1000 (1.4-6.5); NEUT% 65.9 % (42.2-75.2); PLT 362 X1000 (130-400); RBC 2.86 XMIL (4.7-6.1); WBC 4.87 X1000 (4.8-10.8)
[2018-11-11] MEDS: PERCOCET-10 PO PRN ×3 (05:23→22:06)
[2018-11-11] MEDS: LOVENOX SUBQ SCH (05:23)
[2018-11-11 05:29] LABS: ESTIMATED GFR > 60
[2018-11-11 05:33] LABS: AGAP 8; BUN 9 mg/dL (8-22); CHLORIDE 110 mmol/L (98-107); COSMO 284; CREATININE 0.6 mg/dL (0.7-1.2); GLUCOSE 133 mg/dL (70-104); POTASSIUM 3.6 mmol/L (3.5-5.1); SODIUM 142 mmol/L (136-145); TCO2 24 mmol/L (25-35)
[2018-11-11 05:54] LABS: CALCIUM 7.1 mg/dL (8.8-10.2)
[2018-11-11] MEDS: HUMALOG SUBQ SCH ×4 (06:07→20:08)
[2018-11-11] MEDS: VANCOMYCIN 1,250 MG in NS 250 ML IV SCH ×2 (09:11→20:00)
[2018-11-11] MEDS: LYRICA PO SCH ×2 (09:11→19:59)
[2018-11-11] MEDS: FOLIC ACID PO SCH (09:11)
[2018-11-11] MEDS: SOMA PO SCH ×2 (09:11→20:00)
[2018-11-11] MEDS: DAKIN'S 0.25% SOLN TOP SCH ×2 (09:12→20:01)
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
--- NOTE | 2018-11-11 16:43 | GENERAL SURGERY PROGRESS NOTE ---
DATE: 11/11/2018 SUBJECTIVE: Doing well. No fevers. No tachycardia. No abdominal pain. OBJECTIVE: He is alert. Abdomen is soft, nontender. Integument is warm and dry. DIAGNOSTIC STUDIES: White count is 4, hematocrit 23. Creatinine 0.6. ASSESSMENT AND PLAN: A 38-year-old with decubitus wound. We will continue with local wound care, medical management, and nutritional support. cc: Adeline Peña MD
[2018-11-11] MEDS: AMBIEN PO SCH (20:00)
[2018-11-12] MEDS: MORPHINE IV PRN ×6 (00:25→21:25)
[2018-11-12] MEDS: ZOSYN 3.375 GM in NS 50 ML IV SCH ×4 (02:10→20:43)
[2018-11-12] MEDS: PERCOCET-10 PO PRN ×3 (05:14→23:55)
[2018-11-12] MEDS: LOVENOX SUBQ SCH (05:16)
[2018-11-12] MEDS: HUMALOG SUBQ SCH ×4 (06:22→20:45)
[2018-11-12] MEDS: NS 1,000 ML IV SCH ×2 (06:23→18:17)
--- NOTE | 2018-11-12 06:25 | GENERAL SURGERY PROGRESS NOTE ---
DATE: 11/12/2018 Reviewed notes from the weekend. Discussed the case with nurses. He seems to be doing about the same. No hemodynamic instability. His labs seem to be stable. No other major issues reported by the nursing staff. From a wound care point of view, I would continue local wound care. He does have Proteus in his blood, and Proteus in his groin and hip. The patient is on antibiotics, and may be able to tailor them a little bit for the species. Otherwise, continue with current treatment. cc: Mj Moore MD
[2018-11-12] MEDS: FOLIC ACID PO SCH (08:54)
[2018-11-12] MEDS: VANCOMYCIN 1,250 MG in NS 250 ML IV SCH (08:54)
[2018-11-12] MEDS: SOMA PO SCH ×2 (08:54→20:43)
[2018-11-12] MEDS: LYRICA PO SCH ×2 (08:54→20:43)
[2018-11-12] MEDS: DAKIN'S 0.25% SOLN TOP SCH ×2 (09:42→20:45)
[2018-11-12] MEDS: ZOFRAN IV PRN (16:24)
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
[2018-11-12] MEDS: AMBIEN PO SCH (20:43)
[2018-11-13] MEDS: MORPHINE IV PRN ×6 (01:20→22:17)
[2018-11-13] MEDS: VANCOMYCIN 1,250 MG in NS 250 ML IV SCH ×2 (02:44→20:47)
[2018-11-13] MEDS: ZOSYN 3.375 GM in NS 50 ML IV SCH ×4 (02:48→19:11)
[2018-11-13] MEDS: NS 1,000 ML IV SCH ×4 (02:54→23:45)
[2018-11-13] MEDS: LOVENOX SUBQ SCH (05:29)
[2018-11-13] MEDS: HUMALOG SUBQ SCH ×4 (06:09→20:02)
[2018-11-13] MEDS: DAKIN'S 0.25% SOLN TOP SCH ×2 (08:49→20:01)
[2018-11-13] MEDS: SOMA PO SCH ×2 (08:49→20:01)
[2018-11-13] MEDS: FOLIC ACID PO SCH (08:49)
[2018-11-13] MEDS: LYRICA PO SCH ×2 (08:50→20:01)
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
[2018-11-13 10:47] LABS: BASO# 0.02 X1000 (0.0-0.2); BASO% 0.5 % (0.0-0.8); EOS# 0.19 X1000 (0.0-0.7); EOS% 4.5 % (0.0-10.0); HEMATOCRIT 22.5 % (42.0-52.0); HEMOGLOBIN 6.8 g/dL (14.0-18.0); IMM GRAN# 0.04 X1000 (0.0-0.04); IMM GRAN% 0.9 % (0.0-0.5); LYMPH# 1.23 X1000 (1.2-3.4); LYMPH% 28.9 % (20.5-51.1); MCH 25.4 PG (27-31); MCHC 30.2 g/dL (33-37); MONO# 0.27 X1000 (0.11-0.59); MONO% 6.3 % (1.7-9.3); MPV 8.5 FL (7.4-10.4); NEUT# 2.51 X1000 (1.4-6.5); NEUT% 58.9 % (42.2-75.2); PLT 362 X1000 (130-400); RBC 2.68 XMIL (4.7-6.1); RDW 17.5 % (11.5-14.5); WBC 4.26 X1000 (4.8-10.8)
[2018-11-13 10:55] LABS: AGAP 8; ALB/GLOB RATIO 0.4; ALBUMIN 1.6 g/dL (3.5-5.0); ALKALINE PHOSPHATASE 140 U/L (32-122); BUN 6 mg/dL (8-22); CALCIUM 7.3 mg/dL (8.8-10.2); CHLORIDE 108 mmol/L (98-107); COSMO 282; CREATININE 0.5 mg/dL (0.7-1.2); ESTIMATED GFR > 60; GLUCOSE 120 mg/dL (70-104); GOT 14 U/L (10-34); GPT 9 U/L (10-44); POTASSIUM 3.6 mmol/L (3.5-5.1); SODIUM 142 mmol/L (136-145); TCO2 26 mmol/L (25-35); TOTAL BILIRUBIN < 0.15 mg/dL (0.20-1.00); TOTAL PROTEIN 5.9 g/dL (6.3-8.3)
[2018-11-13 11:42] LABS: BANDS 4 % (0-1); EOS 2 % (1-10); HYPOCHROM 1+; LYMPHS 20 % (21-51); MONO 8 % (1-9); POIKILOCYTOSIS 1+; SEGS 66 % (42-75)
[2018-11-13] MEDS: ZOFRAN IV PRN ×2 (12:16→18:42)
[2018-11-13] MEDS: PERCOCET-10 PO PRN (14:26)
[2018-11-13 19:38] LABS: HEMATOCRIT 27.1 % (42.0-52.0); HEMOGLOBIN 8.1 g/dL (14.0-18.0)
[2018-11-13] MEDS: AMBIEN PO SCH (20:01)
[2018-11-14] MEDS: ZOSYN 3.375 GM in NS 50 ML IV SCH ×4 (01:18→19:13)
[2018-11-14] MEDS: MORPHINE IV PRN ×6 (01:21→23:01)
[2018-11-14] MEDS: LOVENOX SUBQ SCH (05:18)
[2018-11-14] MEDS: HUMALOG SUBQ SCH ×4 (06:47→20:17)
[2018-11-14] MEDS: LYRICA PO SCH ×2 (08:20→20:17)
[2018-11-14] MEDS: SOMA PO SCH ×2 (08:20→20:17)
[2018-11-14] MEDS: FOLIC ACID PO SCH (08:20)
[2018-11-14] MEDS: DAKIN'S 0.25% SOLN TOP SCH ×2 (08:21→20:17)
[2018-11-14 08:25] LABS: BASO# 0.02 X1000 (0.0-0.2); BASO% 0.3 % (0.0-0.8); EOS# 0.19 X1000 (0.0-0.7); EOS% 3.3 % (0.0-10.0); HEMATOCRIT 26.9 % (42.0-52.0); HEMOGLOBIN 8.2 g/dL (14.0-18.0); IMM GRAN# 0.06 X1000 (0.0-0.04); LYMPH# 1.71 X1000 (1.2-3.4); LYMPH% 29.5 % (20.5-51.1); MCH 25.4 PG (27-31); MCHC 30.5 g/dL (33-37); MCV 83.3 FL (81-99); MONO# 0.42 X1000 (0.11-0.59); MONO% 7.3 % (1.7-9.3); MPV 8.5 FL (7.4-10.4); NEUT# 3.39 X1000 (1.4-6.5); NEUT% 58.6 % (42.2-75.2); PLT 392 X1000 (130-400); RBC 3.23 XMIL (4.7-6.1); RDW 17.2 % (11.5-14.5); WBC 5.79 X1000 (4.8-10.8)
[2018-11-14 08:41] LABS: ESTIMATED GFR > 60
[2018-11-14 08:42] LABS: AGAP 8; ALB/GLOB RATIO 0.3; ALBUMIN 1.5 g/dL (3.5-5.0); ALKALINE PHOSPHATASE 168 U/L (32-122); BUN 6 mg/dL (8-22); CALCIUM 7.8 mg/dL (8.8-10.2); CHLORIDE 108 mmol/L (98-107); COSMO 278; CREATININE 0.6 mg/dL (0.7-1.2); GLUCOSE 89 mg/dL (70-104); GOT 27 U/L (10-34); GPT 19 U/L (10-44); MAGNESIUM 1.3 mg/dL (1.5-2.7); POTASSIUM 3.9 mmol/L (3.5-5.1); SODIUM 141 mmol/L (136-145); TCO2 25 mmol/L (25-35); TOTAL BILIRUBIN 0.15 mg/dL (0.20-1.00); TOTAL PROTEIN 6.1 g/dL (6.3-8.3)
[2018-11-14 09:07] LABS: BANDS 4 % (0-1); EOS 2 % (1-10); HYPOCHROM 2+; LYMPHS 34 % (21-51); MONO 4 % (1-9); SEGS 52 % (42-75)
--- NOTE | 2018-11-14 09:25 | GENERAL SURGERY PROGRESS NOTE ---
DATE: 11/14/2018 SUBJECTIVE: The patient seems to be doing okay. He does not have any complaints. It appears as though he is hemodynamically stable. Wounds appear to be stable if not slightly improved. They have at least decent granulation tissue developing. At this point continue local wound care. Nothing new to add. cc: Mj Moore MD
[2018-11-14] MEDS: NS 1,000 ML IV SCH (10:01)
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
[2018-11-14] MEDS: VANCOMYCIN 1,500 MG in NS 250 ML IV SCH (15:15)
[2018-11-14] MEDS: PERCOCET-10 PO PRN (16:23)
[2018-11-14] MEDS: AMBIEN PO SCH (20:17)
[2018-11-15] MEDS: MORPHINE IV PRN ×6 (02:06→20:56)
[2018-11-15] MEDS: ZOSYN 3.375 GM in NS 50 ML IV SCH ×4 (02:07→20:03)
[2018-11-15] MEDS: LOVENOX SUBQ SCH (05:47)
[2018-11-15] MEDS: HUMALOG SUBQ SCH ×4 (06:27→20:09)
[2018-11-15] MEDS: NS 1,000 ML IV SCH ×2 (06:55→09:57)
[2018-11-15] MEDS: SOMA PO SCH ×2 (08:04→20:03)
[2018-11-15] MEDS: LYRICA PO SCH ×2 (08:04→20:00)
[2018-11-15] MEDS: FOLIC ACID PO SCH (08:05)
[2018-11-15] MEDS: DAKIN'S 0.25% SOLN TOP SCH ×2 (08:05→20:10)
[2018-11-15 08:06] LABS: BASO# 0.03 X1000 (0.0-0.2); BASO% 0.5 % (0.0-0.8); EOS# 0.23 X1000 (0.0-0.7); HEMATOCRIT 30.1 % (42.0-52.0); IMM GRAN# 0.07 X1000 (0.0-0.04); IMM GRAN% 1.2 % (0.0-0.5); LYMPH% 24.5 % (20.5-51.1); MCHC 29.9 g/dL (33-37); MONO# 0.56 X1000 (0.11-0.59); MONO% 9.8 % (1.7-9.3); MPV 8.4 FL (7.4-10.4); NEUT# 3.43 X1000 (1.4-6.5); PLT 352 X1000 (130-400); RBC 3.46 XMIL (4.7-6.1); RDW 18.1 % (11.5-14.5); WBC 5.72 X1000 (4.8-10.8)
[2018-11-15 08:20] LABS: AGAP 9; ALB/GLOB RATIO 0.3; ALBUMIN 1.6 g/dL (3.5-5.0); ALKALINE PHOSPHATASE 158 U/L (32-122); BUN 7 mg/dL (8-22); CALCIUM 7.9 mg/dL (8.8-10.2); CHLORIDE 103 mmol/L (98-107); COSMO 273; CREATININE 0.6 mg/dL (0.7-1.2); ESTIMATED GFR > 60; GLUCOSE 120 mg/dL (70-104); GOT 19 U/L (10-34); GPT 20 U/L (10-44); POTASSIUM 3.8 mmol/L (3.5-5.1); SODIUM 137 mmol/L (136-145); TCO2 25 mmol/L (25-35); TOTAL BILIRUBIN < 0.15 mg/dL (0.20-1.00); TOTAL PROTEIN 6.5 g/dL (6.3-8.3)
[2018-11-15 08:55] LABS: EOS 3 % (1-10); LYMPHS 29 % (21-51); MONO 6 % (1-9); NRBC 4 % (0-0); SEGS 62 % (42-75)
[2018-11-15 08:56] LABS: ANISOCYTOSIS 1+; HOWELL-JOLLY BODIES OCCASIONAL; HYPOCHROM 2+; MICROCYTOSIS 1+
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
[2018-11-15] MEDS: VANCOMYCIN 1,500 MG in NS 250 ML IV SCH (09:54)
[2018-11-15] MEDS: AMBIEN PO SCH (20:02)
[2018-11-15] MEDS: PERCOCET-10 PO PRN (21:28)
[2018-11-16] MEDS: MORPHINE IV PRN ×4 (00:02→09:51)
[2018-11-16] MEDS: PERCOCET-10 PO PRN ×3 (00:27→13:08)
[2018-11-16] MEDS: ZOSYN 3.375 GM in NS 50 ML IV SCH ×2 (03:00→09:50)
[2018-11-16] MEDS: VANCOMYCIN 1,500 MG in NS 250 ML IV SCH (04:15)
[2018-11-16] MEDS: LOVENOX SUBQ SCH (05:50)
[2018-11-16] MEDS: HUMALOG SUBQ SCH (06:52)
[2018-11-16] MEDS: FOLIC ACID PO SCH (09:50)
[2018-11-16] MEDS: SOMA PO SCH (09:50)
[2018-11-16] MEDS: LYRICA PO SCH (09:50)
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
[2018-11-16 12:19] VITALS: BP 119/85
[2018-11-20] MEDS ORDERED: VITAMIN D PO SCH (09:00)
== END 2018-11-16 13:15 | disposition home or self-care (01) | DRG 811 ==
LOC: SUPCPDRO → ED 10:04 → EDIPHOLD 14:58 → SUATTDRO 14:58 → ICU 17:05 → 4N 11-15 22:45
PROVIDERS: ATTEND Emergency Medicine

== ENCOUNTER 2018-11-25 16:11 | Inpatient (IN) ==
[2018-11-25 17:03] LABS: BASO# 0.05 X1000 (0.0-0.2); BASO% 0.5 % (0.0-0.8); EOS# 0.16 X1000 (0.0-0.7); EOS% 1.7 % (0.0-10.0); HEMATOCRIT 29.4 % (42.0-52.0); HEMOGLOBIN 8.9 g/dL (14.0-18.0); IMM GRAN# 0.03 X1000 (0.0-0.04); IMM GRAN% 0.3 % (0.0-0.5); LYMPH# 1.76 X1000 (1.2-3.4); LYMPH% 18.8 % (20.5-51.1); MCH 25.3 PG (27-31); MCHC 30.3 g/dL (33-37); MCV 83.5 FL (81-99); MONO# 0.76 X1000 (0.11-0.59); MONO% 8.1 % (1.7-9.3); MPV 9.4 FL (7.4-10.4); NEUT% 70.6 % (42.2-75.2); PLT 490 X1000 (130-400); RBC 3.52 XMIL (4.7-6.1); WBC 9.36 X1000 (4.8-10.8)
[2018-11-25 17:41] LABS: AGAP 17; ALB/GLOB RATIO 0.5; ALBUMIN 2.5 g/dL (3.5-5.0); ALKALINE PHOSPHATASE 127 U/L (32-122); BUN 27 mg/dL (8-22); CALCIUM 8.1 mg/dL (8.8-10.2); CHLORIDE 105 mmol/L (98-107); COSMO 280; ESTIMATED GFR > 60; GLUCOSE 88 mg/dL (70-104); GOT 14 U/L (10-34); GPT 8 U/L (10-44); SODIUM 138 mmol/L (136-145); TCO2 16 mmol/L (25-35); TOTAL BILIRUBIN 0.26 mg/dL (0.20-1.00)
--- NOTE | 2018-11-25 18:09 | Diag Imaging Result Doc PS360 ---
EXAM: CHEST-PORTABLE - 11/25/2018 HISTORY: weakness TECHNIQUE: Portable chest COMPARISON: 11/07/2018 FINDINGS: Heart size is normal. Lungs appear clear. There is no pleural effusion or pneumothorax identified. IMPRESSION: No evidence of acute disease. Electronically signed by Leo Oshea 11/25/2018 6:06 PM
[2018-11-25] MEDS ORDERED: ATIVAN IM ONE ×2 (18:16→19:03)
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
[2018-11-25] MEDS ORDERED: XYLOCAINE 1% ONE (18:56)
[2018-11-25] MEDS ORDERED: DEMEROL IM ONE (19:02)
[2018-11-25] MEDS ORDERED: XYLOCAINE 1% INJ ONE (19:14)
[2018-11-25] MEDS ORDERED: NS 1,000 ML IV ONE ×3 (19:19→22:47)
--- NOTE | 2018-11-25 20:15 | Diag Imaging Result Doc PS360 ---
EXAM: CHEST-1 VIEW - 11/25/2018 HISTORY: central line placement TECHNIQUE: Portable chest COMPARISON: Prior exam of 11/25/2018 FINDINGS: There has been interval placement of a left internal jugular central venous catheter. The tip of the central venous catheter is at the expected location of the left innominate vein. There is no pneumothorax identified. Heart size is normal. The lungs appear clear. There is no pleural effusion identified. IMPRESSION: Tip of left internal jugular central venous catheter at expected location of left innominate vein. No evidence of pneumothorax. Electronically signed by Leo Oshea 11/25/2018 8:13 PM
[2018-11-25] MEDS ORDERED: ZOSYN 3.375 GM in NS 50 ML IV ONE (20:36)
[2018-11-25] MEDS ORDERED: VANCOMYCIN 1 GM/NS 1 GM/250 ML IVPB IV ONE (20:36)
--- NOTE | 2018-11-25 21:25 | Diag Imaging Result Doc PS360 ---
EXAM: CT ABD/PELVIS W/IV CONT ONLY - 11/25/2018 HISTORY: colitis TECHNIQUE: CT abdomen/pelvis with intravenous contrast. No oral contrast administered per request of the referring provider. COMPARISON: 07/15/2014 FINDINGS: The visualized lung bases are clear. There is an inferior vena cava filter present. 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 There are extensive venous collaterals associated with the occluded inferior vena cava. There are no substantial abnormalities of the liver, adrenal glands, or pancreas identified. The spleen is mildly prominent in size but demonstrates homogeneous enhancement. The gallbladder is mildly contracted. There are no calcified gallstones or pericholecystic inflammation identified. The bilateral kidneys enhance homogeneously. There is no hydronephrosis. There is no evidence of bowel obstruction. There is possibly mild wall thickening along the colon versus exaggeration by limited distention of the lumen. There is no free air identified. There are severe deformities of the bilateral proximal femurs with destruction of the bilateral femoral heads, increased from prior. There is substantial soft tissue thickening around the bilateral hips, most prominent on the left. There is subcutaneous gas anterior and anterior medial to the left hip. The possibility of chronic osteomyelitis at the left hip with subcutaneous abscess cannot be excluded. There is subcutaneous ulceration at the medial most buttock on the right. There is bilateral iliac and inguinal adenopathy. IMPRESSION: Severe deformity of the bilateral hips with destruction of the bilateral femoral heads. Substantial soft tissue thickening around the bilateral hips, most prominent on the left. Subcutaneous gas anterior and anterior medial to the left hip. Subcutaneous ulceration at medial most buttock on the right. The possibility of chronic osteomyelitis at the bilateral hips cannot be excluded. Bilateral iliac and inguinal adenopathy. Questionable mild colitis. 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 This exam was performed using automated exposure control, adjustment of mA or kV according to patient size, and/or use of iterative reconstruction technique. Electronically signed by Leo Oshea 11/25/2018 9:23 PM
[2018-11-25] MEDS ORDERED: WELCHOL POWDER PO ONE (22:42)
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
[2018-11-26] MEDS ORDERED: VANCOMYCIN IV PER PHARMACY MISC SCH (01:04)
[2018-11-26] MEDS ORDERED: TYLENOL PO PRN (01:04)
[2018-11-26] MEDS: DEMEROL IV PRN ×5 (01:37→20:07)
[2018-11-26] MEDS: MAXIPIME 1 GM in NS 50 ML IV SCH ×2 (01:57→15:37)
[2018-11-26] MEDS ORDERED: VANCOMYCIN 1,200 MG in NS 250 ML IV ONE (02:00)
[2018-11-26] MEDS: FLAGYL 500 MG/NS 500 MG/100 ML IVPB IV SCH ×4 (02:01→20:07)
[2018-11-26] MEDS: LOVENOX SUBQ SCH (02:01)
[2018-11-26] MEDS: ZOFRAN IV PRN ×2 (02:09→16:10)
[2018-11-26 02:11] LABS: URINE SOURCE CATH
[2018-11-26 02:13] LABS: BILIRUBIN URINE NEGATIVE (NEGATIVE); BLOOD URINE NEGATIVE (NEGATIVE); COLOR YELLOW; GLUCOSE URINE NEGATIVE (NEGATIVE); KETONE URINE 10 mg/dL (NEGATIVE); LEUKOCYTES URINE MODERATE (NEGATIVE); NITRITE URINE POSITIVE (NEGATIVE); PROTEIN URINE 30 mg/dL (NEGATIVE); SP GRAVITY URINE 1.043; TURBIDITY URINE CLEAR (CLEAR); UROBILINOGEN URINE NORMAL (NORMAL)
[2018-11-26 02:14] LABS: UR EPITHELIAL CELLS <10 /HPF (<10); URINE BACTERIA 3+ /HPF; URINE RBC <10 /HPF (<10); URINE WBC 20-40 /HPF (<10)
[2018-11-26] MEDS: POTASSIUM CHLORIDE 10 MEQ in NS 1,000 ML IV SCH ×5 (05:41→23:27)
[2018-11-26 07:50] LABS: AGAP 14; BUN 20 mg/dL (8-22); CHLORIDE 109 mmol/L (98-107); COSMO 279; CREATININE 0.6 mg/dL (0.7-1.2); ESTIMATED GFR > 60; GLUCOSE 109 mg/dL (70-104); MAGNESIUM 1.6 mg/dL (1.5-2.7); POTASSIUM 3.1 mmol/L (3.5-5.1); SODIUM 138 mmol/L (136-145); TCO2 15 mmol/L (25-35)
[2018-11-26 08:22] LABS: BASO# 0.02 X1000 (0.0-0.2); BASO% 0.3 % (0.0-0.8); EOS# 0.11 X1000 (0.0-0.7); EOS% 1.5 % (0.0-10.0); HEMATOCRIT 23.5 % (42.0-52.0); HEMOGLOBIN 7.1 g/dL (14.0-18.0); LYMPH# 1.31 X1000 (1.2-3.4); LYMPH% 17.8 % (20.5-51.1); MCH 25.4 PG (27-31); MCHC 30.2 g/dL (33-37); MCV 84.2 FL (81-99); MONO# 0.54 X1000 (0.11-0.59); MONO% 7.4 % (1.7-9.3); MPV 9.7 FL (7.4-10.4); NEUT# 5.36 X1000 (1.4-6.5); PLT 421 X1000 (130-400); RBC 2.79 XMIL (4.7-6.1); RDW 16.7 % (11.5-14.5); WBC 7.34 X1000 (4.8-10.8)
[2018-11-26] MEDS: WELCHOL POWDER PO SCH (08:51)
[2018-11-26] MEDS: PERCOCET-10 PO PRN (12:11)
[2018-11-26] MEDS ORDERED: NS 500 ML IV ONE (12:25)
[2018-11-26] MEDS ORDERED: DEMEROL IV PRN (12:30)
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
[2018-11-26] MEDS ORDERED: VANCOMYCIN 1,800 MG in NS 500 ML IV SCH (14:00)
[2018-11-26 14:44] LABS: INR 1.22; PROTIME 15.6 Seconds (11.0-16.0)
[2018-11-26] MEDS ORDERED: DEMEROL IM ONE (14:53)
[2018-11-26] MEDS ORDERED: NS 250 ML ONE (14:56)
[2018-11-26] MEDS: SANTYL OINT TOP SCH (17:09)
[2018-11-26] MEDS ORDERED: VANCOMYCIN 1,500 MG in NS 500 ML IV SCH (18:00)
[2018-11-26] MEDS: SOMA PO SCH (20:07)
[2018-11-26] MEDS: AMBIEN PO SCH (20:07)
[2018-11-26] MEDS: LYRICA PO SCH (20:07)
[2018-11-27] MEDS: MAXIPIME 1 GM in NS 50 ML IV SCH ×2 (02:00→13:44)
[2018-11-27] MEDS: DEMEROL IV PRN ×3 (02:48→12:04)
[2018-11-27] MEDS: FLAGYL 500 MG/NS 500 MG/100 ML IVPB IV SCH ×3 (02:53→13:44)
[2018-11-27] MEDS: PERCOCET-10 PO PRN ×3 (04:30→23:43)
[2018-11-27] MEDS: POTASSIUM CHLORIDE 10 MEQ in NS 1,000 ML IV SCH (06:40)
[2018-11-27] MEDS: LOVENOX SUBQ SCH (06:41)
[2018-11-27 07:27] LABS: BASO# 0.04 X1000 (0.0-0.2); BASO% 0.7 % (0.0-0.8); EOS# 0.13 X1000 (0.0-0.7); EOS% 2.1 % (0.0-10.0); HEMATOCRIT 27.4 % (42.0-52.0); HEMOGLOBIN 8.3 g/dL (14.0-18.0); IMM GRAN# 0.02 X1000 (0.0-0.04); IMM GRAN% 0.3 % (0.0-0.5); LYMPH# 1.36 X1000 (1.2-3.4); LYMPH% 22.3 % (20.5-51.1); MCH 25.8 PG (27-31); MCHC 30.3 g/dL (33-37); MCV 85.1 FL (81-99); MONO% 8.2 % (1.7-9.3); MPV 9.7 FL (7.4-10.4); NEUT# 4.04 X1000 (1.4-6.5); NEUT% 66.4 % (42.2-75.2); PLT 388 X1000 (130-400); RBC 3.22 XMIL (4.7-6.1); RDW 16.4 % (11.5-14.5); WBC 6.09 X1000 (4.8-10.8)
[2018-11-27 07:59] LABS: AGAP 11; ALB/GLOB RATIO 0.4; ALBUMIN 2.2 g/dL (3.5-5.0); ALKALINE PHOSPHATASE 102 U/L (32-122); BUN 10 mg/dL (8-22); CALCIUM 7.7 mg/dL (8.8-10.2); CHLORIDE 108 mmol/L (98-107); COSMO 271; CREATININE 0.6 mg/dL (0.7-1.2); ESTIMATED GFR > 60; GLUCOSE 96 mg/dL (70-104); GOT 9 U/L (10-34); GPT 6 U/L (10-44); POTASSIUM 3.5 mmol/L (3.5-5.1); SODIUM 136 mmol/L (136-145); TCO2 17 mmol/L (25-35); TOTAL BILIRUBIN 0.16 mg/dL (0.20-1.00); TOTAL PROTEIN 7.3 g/dL (6.3-8.3)
[2018-11-27] MEDS: SOMA PO SCH ×2 (08:53→21:29)
[2018-11-27] MEDS: LYRICA PO SCH ×2 (08:53→21:29)
[2018-11-27] MEDS: FOLIC ACID PO SCH (09:08)
[2018-11-27] MEDS: SANTYL OINT TOP SCH (09:08)
[2018-11-27] MEDS: VANCOMYCIN 1,500 MG in NS 500 ML IV SCH (11:45)
[2018-11-27] MEDS: ZOFRAN IV PRN (12:27)
[2018-11-27] MEDS ORDERED: POTASSIUM CHLORIDE 10 MEQ in NS 1,000 ML IV SCH (13:00)
[2018-11-27] MEDS: WELCHOL POWDER PO SCH (15:36)
--- NOTE | 2018-11-27 16:03 | PROGRESS NOTE ---
DATE: 11/27/2018 INTERVAL HISTORY: I was informed by the nurse that the patient wanted IV Dilaudid since IV meperidine was not working. The patient states his bowel movements are decreasing in frequency. He is no longer nauseous, though he has not eaten his meals yet. I discussed with him about clotted IVC filter. I also discussed with him about bilateral chronic osteomyelitis. He states he is agreeable to home health this time around. VITAL SIGNS: Temperature 97.7 degrees, pulse 89, respirations 19, blood pressure 104/75. He is saturating 100% on room air. PHYSICAL EXAMINATION: General: Not in any acute distress. HEENT: Oral cavity is moist. Lungs: Air entry bilaterally equal. No wheeze, rhonchi, crackles. Cardiovascular: S1, S2 normal. No murmur or gallop. Abdomen: Soft, scaphoid. Mild periumbilical tenderness. Active bowel sound. Extremities: His bilateral lower extremities are in a bandage. Neurologic: His alert and oriented x3. He is able to move bilateral upper extremities. He is paraplegic in the lower extremities. LABS: Suggestive of appropriate rise in hemoglobin after blood transfusion, normal platelet count, normal electrolytes. MICROBIOLOGY: Urine culture is growing gram-negative mar. ASSESSMENT AND PLAN: 1. Acute gastroenteritis. His stool study did not detect any C. difficile toxin, though the antigen was not collected and there were no pathologic bacterial growth. His diarrhea frequency is decreasing. I will continue him on intravenous antibiotics and we will give him intravenous fluids if his lactate was elevated. Noticeably, he has been a little hypotensive. 2. Bilateral chronic osteomyelitis and urinary tract infection with gram-negative rods. He had Proteus bacteremia on November 07, 2018 which was clear on November 13, 2018. It is unclear if he was discharged on oral antibiotics, though patient denies taking any oral antibiotics. I will continue him on intravenous vancomycin for previous history of MSSA growing in his wounds, intravenous cefepime for gram-negative coverage, and I will stop his intravenous metronidazole. Infectious Disease has been consulted. Surgical team recommends conservative management with wound care considering his poor nutritional status. 3. Anemia of chronic inflammation. He is status post 1 unit of PRBCs. He should have outpatient Hematology/Oncology follow up. No signs of active bleeding. 4. Chronic pain and anxiety and insomnia. I will continue his home zolpidem, Soma, Percocet, and Lyrica. DISPOSITION: The patient was upset that I discontinued his intravenous meperidine. However, I explained to him that opioids have addiction potential and there is no indication for IV opioids in his case. He also did not want us to get blood draws and he wanted us to use his left arm PICC line. I explained to him the risk associated with it and he still wants us to draw blood from the PICC line rather than getting stuck, so we will use his left PICC line. Plan of care discussed with him. His questions were answered. At the time of discharge he will need home health for his long-term wound management. I would also bring up the idea of long term facility with his family. cc: Phan Aleman MD
--- NOTE | 2018-11-27 17:22 | PROGRESS NOTE ---
DATE: 11/27/2018 SUBJECTIVE: Mr. Jose Stewart clinically looks better today. OBJECTIVE: His diarrhea has improved. He is eating breakfast. He needs local wound care with the help of our wound care nurses. He has no undrained purulence. Certainly, his nutrition and chronic anemia have to improve yo help was wounds has chronic changes involving both hips. PLAN: Supportive care continues. cc: Latonya Anderson MD
[2018-11-27] MEDS: AMBIEN PO SCH (21:29)
[2018-11-28] MEDS: MAXIPIME 1 GM in NS 50 ML IV SCH (00:08)
[2018-11-28] MEDS: VANCOMYCIN 1,500 MG in NS 500 ML IV SCH ×3 (03:43→23:35)
[2018-11-28] MEDS: LOVENOX SUBQ SCH (05:34)
[2018-11-28 07:02] LABS: BASO# 0.03 X1000 (0.0-0.2); BASO% 0.5 % (0.0-0.8); EOS% 3.3 % (0.0-10.0); HEMOGLOBIN 8.2 g/dL (14.0-18.0); IMM GRAN# 0.04 X1000 (0.0-0.04); IMM GRAN% 0.7 % (0.0-0.5); LYMPH# 1.48 X1000 (1.2-3.4); LYMPH% 24.5 % (20.5-51.1); MCH 25.7 PG (27-31); MCHC 30.4 g/dL (33-37); MCV 84.6 FL (81-99); MONO% 6.6 % (1.7-9.3); MPV 8.9 FL (7.4-10.4); NEUT# 3.88 X1000 (1.4-6.5); NEUT% 64.4 % (42.2-75.2); PLT 356 X1000 (130-400); RBC 3.19 XMIL (4.7-6.1); RDW 16.4 % (11.5-14.5); WBC 6.03 X1000 (4.8-10.8)
[2018-11-28 07:32] LABS: AGAP 8; BUN 8 mg/dL (8-22); CALCIUM 7.4 mg/dL (8.8-10.2); CHLORIDE 111 mmol/L (98-107); COSMO 272; CREATININE 0.6 mg/dL (0.7-1.2); ESTIMATED GFR > 60; GLUCOSE 100 mg/dL (70-104); MAGNESIUM 1.2 mg/dL (1.5-2.7); POTASSIUM 3.3 mmol/L (3.5-5.1); SODIUM 137 mmol/L (136-145); TCO2 18 mmol/L (25-35)
[2018-11-28] MEDS: LYRICA PO SCH ×2 (08:29→20:49)
[2018-11-28] MEDS: SOMA PO SCH ×2 (08:29→20:49)
[2018-11-28] MEDS: FOLIC ACID PO SCH (08:29)
[2018-11-28] MEDS: PERCOCET-10 PO PRN ×3 (08:32→20:49)
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
--- NOTE | 2018-11-28 09:27 | Diag Imaging Result Doc PS360 ---
EXAM: CHEST-PORTABLE INDICATION: decreased o2 stats TECHNIQUE: One view COMPARISON: 11/25/2018 FINDINGS: There has been interval removal of the left IJ line and placement of a left PICC line. The tip projects over the region of the atriocaval junction in the expected position. During the interval there has been development of a left pneumothorax. It extends from the apex to the base and occupies approximately 30-40% of the left hemithorax. No pleural fluid collections are identified. The cardiomediastinal silhouette and central vasculature are grossly unremarkable. IMPRESSION: Interval development of a significant left pneumothorax as described. The findings were discussed with the patient's nurse, Debi Nguyen, at 11/28/2018 9:24 AM and was acknowledged. Electronically signed by Andrew Barajas 11/28/2018 9:24 AM
[2018-11-28] MEDS: SANTYL OINT TOP SCH (10:20)
[2018-11-28] MEDS ORDERED: VANCOCIN PO SCH (10:30)
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
[2018-11-28] MEDS: MAGNESIUM SULFATE 2 GM/S.W.I. 2 GM/50 ML IVPB IV SCH ×2 (11:41→16:10)
[2018-11-28] MEDS: KLOR-CON PO SCH ×2 (11:41→16:10)
[2018-11-28] MEDS ORDERED: MAXIPIME 2 GM in NS 100 ML IV SCH (13:00)
[2018-11-28] MEDS ORDERED: XYLOCAINE-MPF 1% INJ ONE (16:15)
--- NOTE | 2018-11-28 16:59 | Diag Imaging Result Doc PS360 ---
CHEST-1 VIEW - 11/28/2018 INDICATION: chest tube placement COMPARISON: 9:10 AM FINDINGS: Stable left PICC line in good position. There is a left-sided chest tube in good position. There has been resolution of the left pneumothorax. No significant infiltrates. Heart size is normal. IMPRESSION: Good left chest tube placement with resolution of the left pneumothorax. No new abnormalities. Electronically signed by Demond Bowers 11/28/2018 4:57 PM
[2018-11-28] MEDS ORDERED: DILAUDID IV ONE (17:08)
[2018-11-28] MEDS: AMBIEN PO SCH (20:49)
--- NOTE | 2018-11-28 21:08 | OPERATIVE NOTE ---
PROCEDURE DATE: 11/28/2018 PREOPERATIVE DIAGNOSIS: Left pneumothorax. POSTOPERATIVE DIAGNOSIS: Left pneumothorax. PRINCIPAL PROCEDURE: Left chest tube. SURGEON: Latonya Anderson MD. ANESTHESIA: Local. ESTIMATED BLOOD LOSS: 10 mL. DRAINS: None. INDICATIONS: Jesus Stewart is a 38-year-old black male paraplegic who was hospitalized with malnutrition, chronic anemia and multiple pressure ulcers and sores. He had a left internal jugular central venous line placed in the emergency department, and a chest x-ray today documented a left pneumothorax. He has had a left PICC line placed since that central venous line. We were asked to see him for chest tube placement. PROCEDURE: Within his room, I raised the head of his bed in the sitting position, and his left chest was prepped and draped within a sterile field. I used 1% lidocaine without epinephrine, at the level of his nipple. I used a pneumothorax kit and this catheter. I made a small colt in the skin, after the skin was prepped and draped, with an 11 blade scalpel. Then I used a small pneumothorax catheter and its needle to place this catheter in the left chest above his left rib. I secured it to the skin with a 2-0 silk stitch. It was hooked to suction. Initially the pneumothorax was removed using suction, but there was no ongoing air leak. The chest tube was dressed, and then I got a chest x-ray which suggested that the left pneumothorax was resolved and that the tube was in satisfactory position. We will leave the chest tube to suction tonight and get another chest x-ray in the morning. cc: Latonya Anderson MD
[2018-11-29] MEDS: MAXIPIME 2 GM in NS 100 ML IV SCH ×3 (02:44→20:05)
--- NOTE | 2018-11-29 06:52 | Diag Imaging Result Doc PS360 ---
CHEST-PORTABLE - 11/29/2018 INDICATION: L chest tube. COMPARISON: 11/28/2018 FINDINGS: Stable left chest tube. There is trace left pneumothorax measuring about 3 mm. Stable left PICC line in good position. No infiltrates. Heart size is top normal. IMPRESSION: Trace left pneumothorax measuring about 3 mm. Electronically signed by Demond Bowers 11/29/2018 6:49 AM
[2018-11-29] MEDS: PERCOCET-10 PO PRN ×3 (08:02→20:04)
[2018-11-29] MEDS: SANTYL OINT TOP SCH (08:30)
[2018-11-29] MEDS: FOLIC ACID PO SCH (09:25)
[2018-11-29] MEDS: SOMA PO SCH ×2 (09:25→20:04)
[2018-11-29] MEDS: LYRICA PO SCH ×2 (09:25→20:04)
[2018-11-29] MEDS: LOVENOX SUBQ SCH (13:02)
[2018-11-29] MEDS: MOBIC PO SCH (17:54)
[2018-11-29] MEDS: AMBIEN PO SCH (20:04)
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
[2018-11-30] MEDS ORDERED: NS IV SCH ×2
[2018-11-30] MEDS ORDERED: VANCOMYCIN IV SCH ×2
[2018-11-30] MEDS: PERCOCET-10 PO PRN ×3 (04:20→20:24)
[2018-11-30] MEDS: MAXIPIME 2 GM in NS 100 ML IV SCH (05:06)
[2018-11-30] MEDS: LOVENOX SUBQ SCH (05:06)
[2018-11-30 08:09] LABS: BASO# 0.03 X1000 (0.0-0.2); BASO% 0.4 % (0.0-0.8); EOS# 0.46 X1000 (0.0-0.7); EOS% 5.9 % (0.0-10.0); HEMATOCRIT 27.4 % (42.0-52.0); HEMOGLOBIN 8.2 g/dL (14.0-18.0); IMM GRAN# 0.08 X1000 (0.0-0.04); LYMPH# 1.32 X1000 (1.2-3.4); LYMPH% 16.9 % (20.5-51.1); MCH 25.5 PG (27-31); MCHC 29.9 g/dL (33-37); MCV 85.4 FL (81-99); MONO# 0.61 X1000 (0.11-0.59); MONO% 7.8 % (1.7-9.3); MPV 9.5 FL (7.4-10.4); NEUT# 5.29 X1000 (1.4-6.5); PLT 352 X1000 (130-400); RBC 3.21 XMIL (4.7-6.1); WBC 7.79 X1000 (4.8-10.8)
[2018-11-30 08:23] LABS: AGAP 9; BUN 10 mg/dL (8-22); CALCIUM 7.9 mg/dL (8.8-10.2); CHLORIDE 106 mmol/L (98-107); COSMO 273; CREATININE 0.4 mg/dL (0.7-1.2); ESTIMATED GFR > 60; GLUCOSE 101 mg/dL (70-104); MAGNESIUM 1.4 mg/dL (1.5-2.7); POTASSIUM 4.7 mmol/L (3.5-5.1); SODIUM 137 mmol/L (136-145); TCO2 22 mmol/L (25-35)
[2018-11-30] MEDS: SANTYL OINT TOP SCH (08:41)
[2018-11-30] MEDS: LYRICA PO SCH ×2 (08:41→20:24)
[2018-11-30] MEDS: SOMA PO SCH ×2 (08:41→20:24)
[2018-11-30] MEDS: FOLIC ACID PO SCH (08:41)
[2018-11-30] MEDS: MOBIC PO SCH (08:41)
--- NOTE | 2018-11-30 12:00 | PROGRESS NOTE ---
DATE: 11/30/2018 Mr. Stewart suffered an iatrogenic pneumothorax from placement of a left internal jugular central venous line. I placed a pneuma cath in his left chest two days ago. This pneuma cath has become nonfunctional. He has no evidence of air leak. Chest x-ray suggests the pneumothorax may be of only 3%. We felt we should remove this pneumothorax catheter. We will check a chest x-ray in the morning. He is being evaluated per Dr. Buster Arango with MRI, and his wounds are being cared for by our nurses and Wound Care staff. cc: Latonya Anderson MD
[2018-11-30] MEDS: MERREM 2 GM in NS 50 ML IV SCH ×2 (12:54→20:23)
--- NOTE | 2018-11-30 13:05 | Diag Imaging Result Doc PS360 ---
EXAM: MRI LOW EXT JT W/WO CON-RIGHT 11/28/2018 HISTORY: hip osteomyelitis TECHNIQUE: Axial proton density fat sat, coronal T1, T1 fat sat with contrast, STIR, axial T1 fat sat postcontrast, sagittal T1 fat sat and axial T1 fat sat oblique. COMMENT: The current study is compared with the CT of the abdomen and pelvis dated 11/25/2018. There is marked generalized edema both in the deep soft tissues around the hip joint space and femur and in the subcutaneous fat. There is marked destruction of the femoral head and apparent dysplasia of the acetabulum. There is fluid in the joint space. There is no apparent marrow edema in the proximal femoral shaft. There is some enhancement in the synovium around what is left of the hip joint. IMPRESSION: Markedly destroyed proximal femur and hip joint space. There is clearly some degree of synovitis, either aseptic or septic, however no convincing evidence of osteomyelitis is present. Electronically signed by Michel Kidd 11/30/2018 1:03 PM
--- NOTE | 2018-11-30 13:13 | Diag Imaging Result Doc PS360 ---
EXAM: MRI LOW EXT JT W/WO CON-LEFT 11/28/2018 HISTORY: hip osteomyelitis TECHNIQUE: Axial proton density fat sat, T1 fat sat oblique, coronal STIR, T1, T1 fat sat with contrast, sagittal T2 fat sat, axial T1 fat sat postcontrast oblique. COMMENT: There are irregular fluid collections present anterior and medial to the remnants of the proximal femur. There is a similar fluid collection seen anterolateral to this as well. The fluid collection boundaries are irregular but enhance with gadolinium. There is an apparent connection anteriorly with the skin and apparently posteriorly the medial fluid collection is in continuity with a skin ulcer. This may represent a large abscess there is clearly some gas within the collection. This was also demonstrated the time of the previous CT of 11/25/2018. The upper portion of the femur demonstrates decreased T1 and increased T2-weighted signal intensity with apparent enhancement with contrast. This is likely a focus of osteomyelitis particularly as this is in direct contact with the fluid collection. IMPRESSION: Large possibly multilocular abscess with apparent fistulous connections with the anterior and posterior skin. Osteomyelitis of the proximal shaft of the femur. Electronically signed by Michel Kidd 11/30/2018 1:10 PM
--- NOTE | 2018-11-30 13:42 | INFECTIOUS DISEASE PROGRESS NO ---
DATE: 11/30/2018 PRESENT ILLNESS: Mr. Stewart has a Klebsiella and Pseudomonas urinary tract infection. There is also an Acinetobacter which is multidrug resistant growing to one of his pressure ulcers with another gram-negative mar that has yet to be identified. It appears that he may have a chronic bilateral hip osteomyelitis as seen on CT scan. MEDICATIONS: He has been receiving cefepime 2 g IV every 8 hours and IV vancomycin per pharmacy dosing. PHYSICAL EXAMINATION: Vital Signs: Temp is 97.2 degrees, pulse rate 104, respiratory rate 18, blood pressure 99/68, O2 saturation is 100% on room air. General: This is a chronically ill- appearing, middle-aged gentleman. He is lying in bed, currently in no acute distress. HEENT: Atraumatic, normocephalic. Oral mucous membranes are pink and moist. Conjunctivae are pale. Neck: Supple. Trachea is midline. Cardiovascular: Heart rate is regular and fast. S1, S2 noted. Respiratory: Lung sounds are clear to auscultation. There is a chest tube in place on the left with the atrium collection device to the bedside. Abdomen: Soft, flat, with bowel sounds active. Integumentary: He has multiple decubitus ulcers with dressings in place. Integumentary: Skin is warm and dry in general with the PICC line to the left upper arm. The site is without edema, erythema, or drainage. Neurologic: He is awake, alert, oriented, and has lower extremity paraplegia. LABORATORY AND X-RAY: Today his white count is 7.79, hemoglobin 8.2, platelet count 352,000, creatinine is 0.4, estimated GFR is greater than 60. His urine cultures have shown Klebsiella and Pseudomonas. His most recent pressure ulcer has shown an Acinetobacter which is multidrug resistant and a second gram-negative mar which has yet to be identified. No imaging reports today. ASSESSMENT AND PLAN: Mr. Stewart is being treated for a urinary tract infection as well as an infected decubitus ulcer. Acinetobacter that has grown to the decubitus is multi-drug resistant. We will go ahead and stop the vancomycin and cefepime and start him on meropenem 2 g IV every 8 hours which should cover the other gram-negative mar which has yet to be identified as well as a Pseudomonas and Klebsiella in his urine. For now he is awaiting MRI to be done to check for osteomyelitis of the bilateral hips. These plans have been discussed with and recommended by Dr. Arango. COMORBIDITIES: For Mr. Stewart include diabetes mellitus, lower extremity paralysis, anemia, and depression. Dictated by COLTEN Andrews for Buster Arango MD cc: Buster Arango MD
[2018-11-30] MEDS ORDERED: PERCOCET-10 PO PRN (16:47)
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
[2018-11-30] MEDS: MAGNESIUM SULFATE 2 GM/S.W.I. 2 GM/50 ML IVPB IV SCH ×2 (17:25→21:08)
[2018-11-30] MEDS: AMBIEN PO SCH (20:24)
[2018-11-30] MEDS: DILAUDID IV PRN (22:53)
[2018-12-01] MEDS: MERREM 2 GM in NS 50 ML IV SCH ×2 (05:04→14:49)
[2018-12-01] MEDS: LOVENOX SUBQ SCH (05:05)
[2018-12-01] MEDS ORDERED: NS 50 ML ONE (05:10)
[2018-12-01] MEDS: PERCOCET-10 PO PRN ×4 (05:30→23:52)
--- NOTE | 2018-12-01 07:18 | Diag Imaging Result Doc PS360 ---
EXAM: CHEST-PORTABLE HISTORY: Removal L chest tube. TECHNIQUE: Single view COMPARISON: 11/29/2018 FINDINGS: The lungs are well expanded. Interval removal of the small left sided chest tube. No definite pneumothorax. The heart is not enlarged. No change in the left-sided PICC line. The vessels are not distended. There are no infiltrates. No effusion identified. IMPRESSION: Negative exam. Electronically signed by Garrick Steiner 12/01/2018 7:16 AM
[2018-12-01] MEDS: LYRICA PO SCH ×2 (08:52→21:37)
[2018-12-01] MEDS: FOLIC ACID PO SCH (08:53)
[2018-12-01] MEDS: SOMA PO SCH ×2 (08:53→21:37)
[2018-12-01] MEDS ORDERED: NS 100 ML ONE (09:05)
[2018-12-01] MEDS: DILAUDID IV PRN ×2 (11:47→21:38)
[2018-12-01] MEDS: SANTYL OINT TOP SCH (11:55)
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
[2018-12-01] MEDS: AMBIEN PO SCH (21:37)
[2018-12-01] MEDS: MERREM 2 GM in NS 100 ML IV SCH (23:46)
[2018-12-02] MEDS: PERCOCET-10 PO PRN ×3 (06:36→21:23)
[2018-12-02] MEDS: LOVENOX SUBQ SCH (06:37)
[2018-12-02] MEDS: MERREM 2 GM in NS 100 ML IV SCH ×3 (06:56→22:14)
[2018-12-02 07:40] LABS: BASO# 0.04 X1000 (0.0-0.2); BASO% 0.5 % (0.0-0.8); EOS# 0.47 X1000 (0.0-0.7); EOS% 6.3 % (0.0-10.0); HEMOGLOBIN 7.9 g/dL (14.0-18.0); IMM GRAN# 0.23 X1000 (0.0-0.04); IMM GRAN% 3.1 % (0.0-0.5); LYMPH# 1.33 X1000 (1.2-3.4); LYMPH% 17.8 % (20.5-51.1); MCH 25.3 PG (27-31); MCHC 29.3 g/dL (33-37); MCV 86.5 FL (81-99); MONO# 0.74 X1000 (0.11-0.59); MONO% 9.9 % (1.7-9.3); MPV 9.4 FL (7.4-10.4); NEUT# 4.68 X1000 (1.4-6.5); NEUT% 62.4 % (42.2-75.2); PLT 356 X1000 (130-400); RBC 3.12 XMIL (4.7-6.1); RDW 17.8 % (11.5-14.5); WBC 7.49 X1000 (4.8-10.8)
[2018-12-02 07:46] LABS: AGAP 8; BUN 17 mg/dL (8-22); CALCIUM 8.2 mg/dL (8.8-10.2); CHLORIDE 104 mmol/L (98-107); COSMO 277; CREATININE 0.6 mg/dL (0.7-1.2); ESTIMATED GFR > 60; GLUCOSE 97 mg/dL (70-104); MAGNESIUM 1.6 mg/dL (1.5-2.7); POTASSIUM 5.3 mmol/L (3.5-5.1); SODIUM 138 mmol/L (136-145); TCO2 26 mmol/L (25-35)
[2018-12-02] MEDS: LYRICA PO SCH ×2 (08:49→21:24)
[2018-12-02] MEDS: SOMA PO SCH ×2 (08:49→21:24)
[2018-12-02] MEDS: FOLIC ACID PO SCH (08:49)
[2018-12-02] MEDS: SANTYL OINT TOP SCH (08:50)
[2018-12-02] MEDS: DILAUDID IV PRN ×2 (13:51→21:25)
--- NOTE | 2018-12-02 15:11 | INFECTIOUS DISEASE PROGRESS NO ---
DATE: 12/02/2018 PRESENT ILLNESS: The patient has a Klebsiella and Pseudomonas urinary tract infection. He also has a Pseudomonas and Acinetobacter infected decubitus ulcer and left femur osteomyelitis. MEDICATIONS: The patient is on meropenem 2 g IV every 8 hours. This is day 1 of treatment with meropenem. PHYSICAL EXAMINATION: Vital Signs: Temperature is 98.3 degrees, pulse 91, respirations 19, blood pressure 80/44. General: This is a chronically ill-appearing, middle-aged male. He is in no acute distress. Head, Eyes, Ears, Nose, and Throat: He can hear my spoken words and see near objects. He does not have any white coating on his tongue. Neck: No pain with movement. Lungs: Clear to auscultation. Cardiovascular: Regular heart rate. Abdomen: Soft and not tender. Pelvis: The patient has multiple decubitus ulcers including a deep sacral ulcer, bilateral hip decubitus ulcers. The ulcers have beefy red tissue but they also have some necrotic tissue and devitalized tissue. There is no odor and very little purulent drainage from any of the ulcers. Neurologic: The patient is awake. He can move his arms but not his legs. There is no tremor. LAB AND X-RAY: There is no new radiographic study. An earlier MRI showed that there was osteomyelitis of the left femur. The patient's CBC shows a white count of 7490, hemoglobin 7.9, platelet count 356,000. Creatinine is 0.6. GFR is greater than 60. ASSESSMENT AND PLAN: Patient has a urinary tract infection, infected decubitus ulcers, and left femur osteomyelitis. I have written an order sheet for the following: Meropenem in 2 g intravenous every 8 hours. CBC with differential and creatinine every Monday. Both the antibiotic and the lab tests should be done over a period of 6 weeks. COMORBIDITIES: The patient has paralysis from the waist down, he is a diabetic, he is anemic, and he has depression. cc: Buster Arango MD
[2018-12-02] MEDS ORDERED: NS 1,000 ML IV SCH (15:15)
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
[2018-12-02 15:34] LABS: ALB/GLOB RATIO 0.5; ALBUMIN 2.3 g/dL (3.5-5.0); ALKALINE PHOSPHATASE 96 U/L (32-122); DIRECT BILIRUBIN < 0.10 mg/dL (0.00-0.20); GOT 20 U/L (10-34); GPT 12 U/L (10-44); TOTAL BILIRUBIN < 0.15 mg/dL (0.20-1.00); TOTAL PROTEIN 6.6 g/dL (6.3-8.3)
[2018-12-02] MEDS ORDERED: CATHFLO IV ONE (15:39)
[2018-12-02] MEDS ORDERED: STERILE WATER INJ. INJ ONE (15:39)
[2018-12-02] MEDS ORDERED: ALBUMIN 25% IV ONE (15:47)
[2018-12-02] MEDS ORDERED: NS 500 ML IV SCH (16:00)
[2018-12-02] MEDS: MAGNESIUM SULFATE 2 GM/S.W.I. 2 GM/50 ML IVPB IV SCH ×2 (18:04→20:00)
[2018-12-02] MEDS: AMBIEN PO SCH (21:23)
[2018-12-03] MEDS: PERCOCET-10 PO PRN ×3 (05:22→20:46)
[2018-12-03] MEDS: LOVENOX SUBQ SCH (06:27)
[2018-12-03] MEDS: SOMA PO SCH ×2 (09:33→20:46)
[2018-12-03] MEDS: MERREM 2 GM in NS 100 ML IV SCH (09:33)
[2018-12-03] MEDS: FOLIC ACID PO SCH (09:34)
[2018-12-03] MEDS: LYRICA PO SCH ×2 (09:34→20:47)
[2018-12-03] MEDS: SANTYL OINT TOP SCH (09:36)
[2018-12-03] MEDS: DILAUDID IV PRN ×2 (11:03→21:48)
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
[2018-12-03] MEDS: LEVAQUIN PO SCH (18:48)
--- NOTE | 2018-12-03 20:00 | INFECTIOUS DISEASE PROGRESS NO ---
DATE: 12/03/2018 PRESENT ILLNESS: Mr. Stewart is being treated for a Klebsiella and Pseudomonas urinary tract infection, as well as a Pseudomonas and Acinetobacter infected decubitus ulcer and left femur osteomyelitis. MEDICATION: He is receiving meropenem 2 g IV every 8 hours. PHYSICAL EXAMINATION: Vital Signs: Temperature is 97.4 degrees, pulse rate 91, respiratory rate 14, blood pressure 98/57, O2 saturation 100% on room air. General: This is a chronically ill middle-aged male. He is lying in the bed, currently in no acute distress. HEENT: Atraumatic, normocephalic. Oral mucous membranes are pink and moist. Conjunctivae are pale. Neck: Supple. Trachea is midline. Cardiovascular: Heart rate is regular. Respiratory: Lung sounds are clear to auscultation bilaterally. No work of breathing is noted. There is a dressing in place to the left chest from the previous chest tube site. The dressing is clean and without any drainage noted. Abdomen: Soft and flat with bowel sounds active. Extremities: There is a dressing in place to the left hip which was not removed. The dressing is clean and dry, without any drainage noted. Neurologic: He is awake, alert, and oriented. He has bilateral hand contractures, but is able to move his arms independently with bilateral lower extremity paralysis. LABORATORY AND X-RAY: None available today. ASSESSMENT AND PLAN: Mr. Stewart is being treated for urinary tract infection as well as infected decubitus ulcers and left femur osteomyelitis. He is not going to be able to go to a long-term acute care facility, so we will discontinue the meropenem and start him on Levaquin 500 mg by mouth daily and minocycline 100 mg by mouth every 12 hours for a total of 6 weeks. He plans on going home. His mother does his dressing changes and helps him at home. These plans have been discussed with and recommended by Dr. Arango. COMORBIDITIES: For Mr. Stewart, include lower extremity paralysis, diabetes mellitus, anemia, and depression. Dictated by COLTEN Andrews for Buster Arango MD cc: Buster Arango MD [facility] HOSPITALHonorio
[2018-12-03] MEDS: MINOCIN PO SCH (20:45)
[2018-12-03] MEDS: AMBIEN PO SCH (20:46)
[2018-12-04] MEDS: PERCOCET-10 PO PRN ×2 (04:50→20:16)
[2018-12-04] MEDS: LOVENOX SUBQ SCH (05:42)
[2018-12-04 07:51] LABS: AGAP 9; BUN 18 mg/dL (8-22); CALCIUM 8.3 mg/dL (8.8-10.2); CHLORIDE 100 mmol/L (98-107); COSMO 272; CREATININE 0.5 mg/dL (0.7-1.2); ESTIMATED GFR > 60; GLUCOSE 107 mg/dL (70-104); POTASSIUM 4.7 mmol/L (3.5-5.1); SODIUM 135 mmol/L (136-145); TCO2 26 mmol/L (25-35)
[2018-12-04] MEDS: FOLIC ACID PO SCH (08:55)
[2018-12-04] MEDS: MINOCIN PO SCH ×2 (08:55→20:16)
[2018-12-04] MEDS: SOMA PO SCH ×2 (08:55→20:16)
[2018-12-04] MEDS: LYRICA PO SCH ×2 (08:55→20:15)
[2018-12-04] MEDS: LEVAQUIN PO SCH (08:55)
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
[2018-12-04] MEDS: DILAUDID IV PRN ×3 (10:57→22:18)
[2018-12-04] MEDS ORDERED: DILAUDID IV PRN (13:46)
[2018-12-04] MEDS: AMBIEN PO SCH (20:16)
[2018-12-05] MEDS: PERCOCET-10 PO PRN (05:03)
[2018-12-05] MEDS: LOVENOX SUBQ SCH (05:49)
[2018-12-05 07:46] LABS: AGAP 9; ALB/GLOB RATIO 0.6; ALBUMIN 2.5 g/dL (3.5-5.0); ALKALINE PHOSPHATASE 102 U/L (32-122); BUN 19 mg/dL (8-22); CHLORIDE 101 mmol/L (98-107); COSMO 281; CREATININE 0.5 mg/dL (0.7-1.2); ESTIMATED GFR > 60; GLUCOSE 113 mg/dL (70-104); GOT 37 U/L (10-34); GPT 35 U/L (10-44); SODIUM 139 mmol/L (136-145); TCO2 29 mmol/L (25-35); TOTAL BILIRUBIN < 0.15 mg/dL (0.20-1.00); TOTAL PROTEIN 6.9 g/dL (6.3-8.3)
[2018-12-05 07:52] LABS: BASO# 0.06 X1000 (0.0-0.2); BASO% 0.7 % (0.0-0.8); EOS# 0.42 X1000 (0.0-0.7); EOS% 5.1 % (0.0-10.0); HEMOGLOBIN 7.9 g/dL (14.0-18.0); IMM GRAN# 0.16 X1000 (0.0-0.04); IMM GRAN% 1.9 % (0.0-0.5); LYMPH# 1.68 X1000 (1.2-3.4); LYMPH% 20.3 % (20.5-51.1); MCH 25.8 PG (27-31); MCHC 29.3 g/dL (33-37); MCV 88.2 FL (81-99); MONO# 0.71 X1000 (0.11-0.59); MONO% 8.6 % (1.7-9.3); MPV 9.4 FL (7.4-10.4); NEUT# 5.26 X1000 (1.4-6.5); NEUT% 63.4 % (42.2-75.2); PLT 330 X1000 (130-400); RBC 3.06 XMIL (4.7-6.1); RDW 18.5 % (11.5-14.5); WBC 8.29 X1000 (4.8-10.8)
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
[2018-12-05] MEDS: FOLIC ACID PO SCH (10:17)
[2018-12-05] MEDS: LEVAQUIN PO SCH (10:17)
[2018-12-05] MEDS: SOMA PO SCH (10:18)
[2018-12-05] MEDS: MINOCIN PO SCH (10:18)
[2018-12-05] MEDS: LYRICA PO SCH (10:18)
[2018-12-05] MEDS: DILAUDID IV PRN (11:10)
[2018-12-05 16:41] VITALS: BP 103/57
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
== END 2018-12-05 18:17 | disposition home health service (06) | DRG 592 ==
LOC: SUPCPDRO → ED 16:11 → 3N 11-26 00:34 → SUATTDRO 11-26 00:34
PROVIDERS: ATTEND Internal Medicine

== ENCOUNTER 2019-01-25 13:09 | Inpatient (IN) ==
[2019-01-25] MEDS ORDERED: ZOFRAN IV ONE (14:15)
[2019-01-25] MEDS ORDERED: PROTONIX PO ONE (14:15)
[2019-01-25] MEDS ORDERED: MORPHINE IV ONE (14:19)
[2019-01-25] MEDS ORDERED: NS 1,000 ML IV ONE (14:43)
[2019-01-25 14:57] LABS: BASO# 0.03 X1000 (0.0-0.2); BASO% 0.2 % (0.0-0.8); EOS# 0.14 X1000 (0.0-0.7); EOS% 1.1 % (0.0-10.0); HEMATOCRIT 20.9 % (42.0-52.0); IMM GRAN# 0.05 X1000 (0.0-0.04); IMM GRAN% 0.4 % (0.0-0.5); LYMPH# 1.63 X1000 (1.2-3.4); LYMPH% 12.7 % (20.5-51.1); MCH 23.9 PG (27-31); MCHC 28.7 g/dL (33-37); MCV 83.3 FL (81-99); MONO% 5.5 % (1.7-9.3); MPV 9.8 FL (7.4-10.4); NEUT# 10.27 X1000 (1.4-6.5); NEUT% 80.1 % (42.2-75.2); PLT 440 X1000 (130-400); RBC 2.51 XMIL (4.7-6.1); RDW 18.4 % (11.5-14.5); WBC 12.82 X1000 (4.8-10.8)
[2019-01-25 15:08] LABS: ANISOCYTOSIS 2+; HYPOCHROM 2+; LYMPHS 14 % (21-51); MICROCYTOSIS 2+; MONO 4 % (1-9); SEGS 82 % (42-75)
[2019-01-25 15:14] LABS: AGAP 11; ALB/GLOB RATIO 0.4; ALKALINE PHOSPHATASE 119 U/L (32-122); BUN 11 mg/dL (8-22); CALCIUM 7.7 mg/dL (8.8-10.2); CHLORIDE 102 mmol/L (98-107); COSMO 267; CREATININE 0.8 mg/dL (0.7-1.2); ESTIMATED GFR > 60; GLUCOSE 79 mg/dL (70-104); GOT 10 U/L (10-34); GPT 5 U/L (10-44); POTASSIUM 3.5 mmol/L (3.5-5.1); SODIUM 134 mmol/L (136-145); TCO2 21 mmol/L (25-35); TOTAL BILIRUBIN 0.24 mg/dL (0.20-1.00); TOTAL PROTEIN 6.9 g/dL (6.3-8.3)
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
[2019-01-25 16:18] LABS: URINE SOURCE CLEAN CATCH
[2019-01-25] MEDS ORDERED: NS 1,000 ML IV SCH (16:20)
[2019-01-25] MEDS ORDERED: TYLENOL PO PRN ×2 (16:20)
[2019-01-25 16:27] LABS: BILIRUBIN URINE NEGATIVE (NEGATIVE); BLOOD URINE MODERATE (NEGATIVE); COLOR YELLOW; GLUCOSE URINE NEGATIVE (NEGATIVE); KETONE URINE NEGATIVE (NEGATIVE); LEUKOCYTES URINE LARGE (NEGATIVE); NITRITE URINE NEGATIVE (NEGATIVE); PROTEIN URINE TRACE mg/dL (NEGATIVE); SP GRAVITY URINE 1.013; TURBIDITY URINE HAZY (CLEAR); UROBILINOGEN URINE NORMAL (NORMAL)
[2019-01-25 16:29] LABS: UR EPITHELIAL CELLS <10 /HPF (<10); URINE BACTERIA 1+ /HPF; URINE RBC 20-40 /HPF (<10); URINE WBC <10 /HPF (<10)
[2019-01-25 16:30] LABS: IRON SATURATION 21 %; TIBC 98 ug/dL; TOTAL IRON 21 ug/dL (53-167); UNBOUND IRON 77 ug/dL (112-346)
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
[2019-01-25 16:52] LABS: FERRITIN 1397 ng/mL (30-400)
[2019-01-25] MEDS: ROCEPHIN 1 GM in NS 50 ML IV SCH (17:10)
[2019-01-25] MEDS: MINOCIN PO SCH (17:32)
[2019-01-25 17:55] LABS: INR 1.38; PROTIME 17.2 Seconds (11.0-16.0)
[2019-01-25 17:56] LABS: PTT 42.2 Seconds (22.3-41.8)
[2019-01-25 18:23] LABS: MAGNESIUM 1.7 mg/dL (1.5-2.7)
--- NOTE | 2019-01-25 18:41 | Diag Imaging Result Doc PS360 ---
EXAM: CHEST-1 VIEW INDICATION: Sepsis protocol TECHNIQUE: One view COMPARISON: 12/01/2018 FINDINGS: The lungs are grossly clear. There is no discrete pleural fluid collection or pneumothorax. The cardiomediastinal silhouette and central vasculature are grossly unremarkable. IMPRESSION: No evidence of acute pathology by plain radiograph. Electronically signed by Andrew Barajas 01/25/2019 6:39 PM
[2019-01-25] MEDS: LOVENOX SUBQ SCH (18:56)
[2019-01-25] MEDS ORDERED: NS 500 ML IV SCH (19:00)
[2019-01-25] MEDS ORDERED: CALMOSEPTINE OINTMENT TOP PRN (19:56)
[2019-01-25] MEDS: NEO-SYNEPHRINE 50 MG in NS 250 ML IV SCH (23:00)
[2019-01-26] MEDS: PERCOCET-10 PO PRN ×4 (00:55→20:33)
[2019-01-26] MEDS: LYRICA PO SCH ×3 (00:55→20:33)
[2019-01-26] MEDS: DAKIN'S 0.25% SOLN TOP SCH ×2 (00:56→08:21)
[2019-01-26] MEDS: ZOFRAN IV PRN (01:02)
[2019-01-26] MEDS: SOMA PO SCH ×3 (01:24→20:33)
[2019-01-26] MEDS: NS 1,000 ML IV SCH ×3 (01:24→23:47)
[2019-01-26] MEDS: AMBIEN PO SCH ×2 (01:24→20:33)
[2019-01-26] MEDS: NEO-SYNEPHRINE 50 MG in NS 250 ML IV SCH ×2 (02:41→22:25)
[2019-01-26 04:22] LABS: BASO# 0.04 X1000 (0.0-0.2); BASO% 0.1 % (0.0-0.8); EOS# 0.11 X1000 (0.0-0.7); EOS% 0.4 % (0.0-10.0); HEMATOCRIT 29.3 % (42.0-52.0); HEMOGLOBIN 9.2 g/dL (14.0-18.0); IMM GRAN# 0.16 X1000 (0.0-0.04); IMM GRAN% 0.5 % (0.0-0.5); LYMPH# 1.88 X1000 (1.2-3.4); MCHC 31.4 g/dL (33-37); MCV 82.8 FL (81-99); MONO# 1.02 X1000 (0.11-0.59); MONO% 3.3 % (1.7-9.3); MPV 8.9 FL (7.4-10.4); NEUT# 28.13 X1000 (1.4-6.5); NEUT% 89.7 % (42.2-75.2); PLT 478 X1000 (130-400); RBC 3.54 XMIL (4.7-6.1); RDW 16.8 % (11.5-14.5); WBC 31.34 X1000 (4.8-10.8)
[2019-01-26 04:42] LABS: AGAP 15; BUN 10 mg/dL (8-22); CALCIUM 7.3 mg/dL (8.8-10.2); CHLORIDE 101 mmol/L (98-107); COSMO 272; CREATININE 0.9 mg/dL (0.7-1.2); ESTIMATED GFR > 60; GLUCOSE 187 mg/dL (70-104); POTASSIUM 3.5 mmol/L (3.5-5.1); SODIUM 134 mmol/L (136-145); TCO2 18 mmol/L (25-35)
[2019-01-26] MEDS: MINOCIN PO SCH ×2 (04:43→15:19)
[2019-01-26 04:59] LABS: BANDS 1 % (0-1); LYMPHS 4 % (21-51); MONO 1 % (1-9); SEGS 94 % (42-75)
[2019-01-26] MEDS: VITAMIN B-12 PO SCH (08:17)
[2019-01-26] MEDS: FOLIC ACID PO SCH (08:17)
[2019-01-26] MEDS: DILAUDID IV PRN ×3 (11:10→21:14)
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
[2019-01-26] MEDS: ROCEPHIN 1 GM in NS 50 ML IV SCH (16:22)
[2019-01-26] MEDS: LOVENOX SUBQ SCH (16:22)
[2019-01-27] MEDS: DAKIN'S 0.25% SOLN TOP SCH ×3 (01:35→21:22)
[2019-01-27] MEDS: DILAUDID IV PRN ×5 (02:25→19:31)
[2019-01-27] MEDS: NS 1,000 ML IV SCH ×4 (03:00→23:11)
[2019-01-27] MEDS: MINOCIN PO SCH ×2 (04:07→17:15)
[2019-01-27] MEDS: PERCOCET-10 PO PRN ×3 (04:14→17:16)
[2019-01-27] MEDS: FOLIC ACID PO SCH (08:09)
[2019-01-27] MEDS: SOMA PO SCH ×2 (08:09→20:50)
[2019-01-27] MEDS: VITAMIN B-12 PO SCH (08:10)
[2019-01-27] MEDS: LYRICA PO SCH ×2 (08:10→20:50)
--- NOTE | 2019-01-27 08:10 | PROGRESS NOTE ---
DATE: 01/27/2019 SUBJECTIVE: He slept well. His breathing is comfortable. He is remains afebrile. OBJECTIVE: Vital Signs: Temperature 98 degrees, pulse 96, respirations 10, blood pressure 101/70. HEENT: Pupils are equal and round. Lungs: Clear in all lung warren. Cardiovascular: Regular rhythm and rate without murmur or S3. Abdomen: Soft. Skin: Warm and dry. ASSESSMENT AND PLAN: 1. Anemia. Received some blood, 2 units of packed red blood cells. His hematocrit is 29, hemoglobin 9.2, MCV is 82. 2. Sacral decubitus. Continue topical wound care and Vashe cleanser and wet-to-dry dressing. 3. Nutrition. He is eating well. 4. Quadriplegic. 5. Blood pressure looks good. We will continue his skin care. Hopefully he can go home soon. I do have him on ceftriaxone 1 g IV q.24 hours. His chest x-ray from the , no evidence of infiltrate. His urine grew out Enterobacter and it is sensitive to ceftriaxone. cc: Moise De La Fuente MD
[2019-01-27 09:29] LABS: BASO# 0.02 X1000 (0.0-0.2); BASO% 0.1 % (0.0-0.8); EOS# 0.29 X1000 (0.0-0.7); HEMATOCRIT 29.5 % (42.0-52.0); IMM GRAN# 0.05 X1000 (0.0-0.04); IMM GRAN% 0.3 % (0.0-0.5); LYMPH# 1.35 X1000 (1.2-3.4); LYMPH% 9.2 % (20.5-51.1); MCH 25.4 PG (27-31); MCHC 30.5 g/dL (33-37); MCV 83.3 FL (81-99); MONO% 4.1 % (1.7-9.3); MPV 8.7 FL (7.4-10.4); NEUT# 12.42 X1000 (1.4-6.5); NEUT% 84.3 % (42.2-75.2); PLT 359 X1000 (130-400); RBC 3.54 XMIL (4.7-6.1); RDW 16.9 % (11.5-14.5); WBC 14.73 X1000 (4.8-10.8)
[2019-01-27 09:46] LABS: AGAP 10; ALB/GLOB RATIO 0.4; ALBUMIN 1.7 g/dL (3.5-5.0); ALKALINE PHOSPHATASE 125 U/L (32-122); BUN 7 mg/dL (8-22); CALCIUM 7.6 mg/dL (8.8-10.2); CHLORIDE 106 mmol/L (98-107); COSMO 276; CREATININE 0.7 mg/dL (0.7-1.2); ESTIMATED GFR > 60; GLUCOSE 137 mg/dL (70-104); GOT 6 U/L (10-34); GPT < 5 U/L (10-44); MAGNESIUM 1.6 mg/dL (1.5-2.7); POTASSIUM 3.5 mmol/L (3.5-5.1); SODIUM 138 mmol/L (136-145); TCO2 22 mmol/L (25-35); TOTAL BILIRUBIN < 0.15 mg/dL (0.20-1.00); TOTAL PROTEIN 6.3 g/dL (6.3-8.3)
[2019-01-27] MEDS: NEO-SYNEPHRINE 50 MG in NS 250 ML IV SCH (17:09)
[2019-01-27] MEDS: LOVENOX SUBQ SCH (17:15)
[2019-01-27] MEDS: ROCEPHIN 1 GM in NS 50 ML IV SCH (17:15)
[2019-01-27] MEDS: AMBIEN PO SCH (20:49)
[2019-01-28] MEDS: DILAUDID IV PRN ×5 (00:13→20:18)
[2019-01-28] MEDS: PERCOCET-10 PO PRN ×2 (02:52→11:07)
[2019-01-28] MEDS: ZOFRAN IV PRN ×2 (02:53→22:01)
[2019-01-28] MEDS: MINOCIN PO SCH ×2 (04:43→16:42)
[2019-01-28 05:20] LABS: BASO# 0.02 X1000 (0.0-0.2); BASO% 0.1 % (0.0-0.8); EOS# 0.28 X1000 (0.0-0.7); EOS% 1.8 % (0.0-10.0); HEMATOCRIT 30.2 % (42.0-52.0); HEMOGLOBIN 9.1 g/dL (14.0-18.0); IMM GRAN# 0.08 X1000 (0.0-0.04); IMM GRAN% 0.5 % (0.0-0.5); LYMPH# 1.44 X1000 (1.2-3.4); MCH 25.2 PG (27-31); MCHC 30.1 g/dL (33-37); MCV 83.7 FL (81-99); MONO# 0.73 X1000 (0.11-0.59); MONO% 4.6 % (1.7-9.3); NEUT# 13.42 X1000 (1.4-6.5); PLT 354 X1000 (130-400); RBC 3.61 XMIL (4.7-6.1); RDW 16.9 % (11.5-14.5); WBC 15.97 X1000 (4.8-10.8)
[2019-01-28 06:34] LABS: BUN 8 mg/dL (8-22); CALCIUM 7.7 mg/dL (8.8-10.2); GLUCOSE 95 mg/dL (70-104); GOT 10 U/L (10-34); MAGNESIUM 1.5 mg/dL (1.5-2.7); TCO2 23 mmol/L (25-35); TOTAL BILIRUBIN < 0.15 mg/dL (0.20-1.00); TOTAL PROTEIN 6.5 g/dL (6.3-8.3)
[2019-01-28 07:27] LABS: ALBUMIN 1.7 g/dL (3.5-5.0); ALKALINE PHOSPHATASE 134 U/L (32-122); CHLORIDE 103 mmol/L (98-107); CREATININE 0.7 mg/dL (0.7-1.2); ESTIMATED GFR > 60; GPT < 5 U/L (10-44); POTASSIUM 3.6 mmol/L (3.5-5.1); SODIUM 137 mmol/L (136-145)
[2019-01-28 07:28] LABS: AGAP 1
[2019-01-28 07:30] LABS: COSMO 272
[2019-01-28 07:31] LABS: ALB/GLOB RATIO 0.3
[2019-01-28] MEDS: SOMA PO SCH ×2 (09:03→20:18)
[2019-01-28] MEDS: DAKIN'S 0.25% SOLN TOP SCH ×2 (09:04→20:23)
[2019-01-28] MEDS: VITAMIN B-12 PO SCH (09:04)
[2019-01-28] MEDS: LYRICA PO SCH ×2 (09:04→20:18)
[2019-01-28] MEDS: FOLIC ACID PO SCH (09:04)
--- NOTE | 2019-01-28 10:15 | PROGRESS NOTE ---
DATE: 01/28/2019 SUBJECTIVE: Mr. Stewart is comfortable. He is asking about going home. OBJECTIVE: Vital Signs: Temperature 97.9 degrees, pulse 90, respirations 9, blood pressure 106/78. HEENT: Pupils are equal and round. Lungs: Clear in all lung warren. Cardiovascular: Regular rhythm and rate without murmur or S3. Abdomen: Soft. Skin: Warm and dry. He remains afebrile. LABORATORY DATA: Hematocrit 30, hemoglobin 9.1. PLAN: Hopefully, he can go home today. He lives with his mom, and I will talk to Wound Care and see what they think. Continue his Dakin's solution and wet-to-dry dressings. Pain control good. cc: Moise De La Fuente MD
[2019-01-28] MEDS: NS 1,000 ML IV SCH (11:06)
[2019-01-28] MEDS: NEO-SYNEPHRINE 50 MG in NS 250 ML IV SCH (12:43)
[2019-01-28] MEDS ORDERED: NEO-SYNEPHRINE 50 MG in NS 250 ML IV SCH (13:19)
[2019-01-28] MEDS: LOVENOX SUBQ SCH (16:42)
[2019-01-28] MEDS: ROCEPHIN 1 GM in NS 50 ML IV SCH (16:43)
[2019-01-28] MEDS: AMBIEN PO SCH (20:18)
[2019-01-29] MEDS: PERCOCET-10 PO PRN ×2 (00:03→08:32)
[2019-01-29] MEDS: NS 1,000 ML IV SCH ×2 (00:04→16:30)
[2019-01-29] MEDS: DAKIN'S 0.25% SOLN TOP SCH ×3 (00:06→20:13)
[2019-01-29] MEDS: DILAUDID IV PRN ×4 (02:12→20:12)
[2019-01-29] MEDS: MINOCIN PO SCH ×2 (04:31→16:30)
[2019-01-29 07:11] LABS: AGAP 10; ALB/GLOB RATIO 0.4; ALBUMIN 1.7 g/dL (3.5-5.0); ALKALINE PHOSPHATASE 137 U/L (32-122); BUN 8 mg/dL (8-22); CALCIUM 7.8 mg/dL (8.8-10.2); CHLORIDE 103 mmol/L (98-107); COSMO 273; CREATININE 0.6 mg/dL (0.7-1.2); ESTIMATED GFR > 60; GLUCOSE 153 mg/dL (70-104); GOT 11 U/L (10-34); GPT 5 U/L (10-44); MAGNESIUM 1.5 mg/dL (1.5-2.7); POTASSIUM 3.9 mmol/L (3.5-5.1); SODIUM 136 mmol/L (136-145); TCO2 23 mmol/L (25-35); TOTAL BILIRUBIN < 0.15 mg/dL (0.20-1.00); TOTAL PROTEIN 6.4 g/dL (6.3-8.3)
[2019-01-29] MEDS: LYRICA PO SCH ×2 (08:31→20:12)
[2019-01-29] MEDS: VITAMIN B-12 PO SCH (08:31)
[2019-01-29] MEDS: SOMA PO SCH ×2 (08:32→20:12)
[2019-01-29] MEDS: FOLIC ACID PO SCH (08:32)
[2019-01-29 09:45] LABS: BASO# 0.03 X1000 (0.0-0.2); BASO% 0.3 % (0.0-0.8); EOS# 0.28 X1000 (0.0-0.7); EOS% 2.3 % (0.0-10.0); HEMATOCRIT 29.2 % (42.0-52.0); HEMOGLOBIN 8.8 g/dL (14.0-18.0); IMM GRAN# 0.06 X1000 (0.0-0.04); IMM GRAN% 0.5 % (0.0-0.5); LYMPH# 1.36 X1000 (1.2-3.4); LYMPH% 11.4 % (20.5-51.1); MCH 25.3 PG (27-31); MCHC 30.1 g/dL (33-37); MCV 83.9 FL (81-99); MONO# 0.76 X1000 (0.11-0.59); MONO% 6.3 % (1.7-9.3); NEUT# 9.49 X1000 (1.4-6.5); NEUT% 79.2 % (42.2-75.2); PLT 330 X1000 (130-400); RBC 3.48 XMIL (4.7-6.1); RDW 16.9 % (11.5-14.5); WBC 11.98 X1000 (4.8-10.8)
--- NOTE | 2019-01-29 11:24 | PROGRESS NOTE ---
DATE: 01/29/2019 SUBJECTIVE: This morning Mr. Stewart refers to be doing well. He denies any new complaints. He has been tolerating 100% of his meals and he has had multiple bowel movements during the hospital course. Per the nursing staff, he is remains extremely hypotensive off the phenylephrine, so he is still on the drip. OBJECTIVELY: Vital signs: Current vitals blood pressure is 108/77 on 25 mcg of Devante, pulse is 101, respiration is 16, temperature 97.9 degrees. General: Mr. Stewart is a 39-year-old gentleman. He is in bed, no distress. HEENT: Mucosa is slightly pale, but anicteric . Neck: Supple. Chest: Good air entry bilaterally. There was no crepitations, no rhonchi. Cardiovascular: Regular rate and rhythm. Gastrointestinal: Abdomen is soft, nontender. Bowel sounds present. Extremities: Slightly edematous and a couple decubitus ulceration. There is a lot of ulcers on the buttock as well, but the base looks clean. Central nervous system: Patient is awake, alert, oriented, remains paraplegic. LABORATORY DATA: WBC is 11.98, hemoglobin is 8.8, platelet count of 330,000. Chemistry is also reviewed, is unremarkable. The patient's pre-albumin was 3.4, albumin itself is 1.7. INPUT AND OUTPUT: Urine output is 3125. Patient has a Herrera catheter in place. He is currently 4000 positive balance during the hospital course. MICROBIOLOGY DATA: Significance blood cultures have been negative. Urine culture is positive for Enterobacter cloacae. ASSESSMENT: 1. Hypotension on admission, presumably combination of septic shock and hypovolemic shock from anemia. The patient is status post 2 PRBC transfusion. Hemoglobin has improved, however, he still remains borderline hypotensive, so I think there is possible underlying adrenal insufficiency. We will check the cortisol level and probably start Mr. Stewart on steroid. 2. Anemia of chronic disease. The patient is status post 2 PRBC transfusion. Iron studies are fairly within normal range with ferritin elevated. 3. Multiple decubitus ulcers reviewed. 4. Enterobacter cloacae species urinary tract infection. The patient is currently on ceftriaxone, today is day 4. 5. Protein calorie malnutrition. The patient is on supplement. Hairspring Cutter on board. 6. Folate deficiency. We will continue with replacement. PLAN: In general, I think Mr. Stewart is clinically stable. However, he remains hypotensive once the Devante is turned off. We are going to check his cortisol level to rule out any transient adrenal insufficiency. Continue with the current antimicrobial coverage and continue weaning him off the pressor. cc: Vazquez Ellis MD MTDD
[2019-01-29] MEDS ORDERED: SOLU-CORTEF IV ONE (13:31)
[2019-01-29] MEDS: ZOFRAN IV PRN (13:58)
[2019-01-29] MEDS: LOVENOX SUBQ SCH (16:30)
[2019-01-29] MEDS: ROCEPHIN 1 GM in NS 50 ML IV SCH (16:30)
[2019-01-29] MEDS: AMBIEN PO SCH (20:12)
[2019-01-30] MEDS: NS 1,000 ML IV SCH ×2 (03:58→15:35)
[2019-01-30] MEDS: MINOCIN PO SCH ×2 (03:58→16:17)
[2019-01-30] MEDS: DILAUDID IV PRN ×5 (04:01→20:40)
[2019-01-30] MEDS: PERCOCET-10 PO PRN ×2 (05:43→11:31)
[2019-01-30 06:52] LABS: HEMOGLOBIN 7.8 g/dL (14.0-18.0); IMM GRAN# 0.05 X1000 (0.0-0.04); IMM GRAN% 0.4 % (0.0-0.5); LYMPH# 0.97 X1000 (1.2-3.4); LYMPH% 8.3 % (20.5-51.1); MCH 24.9 PG (27-31); MCV 83.1 FL (81-99); MONO# 0.58 X1000 (0.11-0.59); MPV 9.4 FL (7.4-10.4); NEUT# 10.08 X1000 (1.4-6.5); NEUT% 86.3 % (42.2-75.2); PLT 297 X1000 (130-400); RBC 3.13 XMIL (4.7-6.1); RDW 16.7 % (11.5-14.5); WBC 11.68 X1000 (4.8-10.8)
[2019-01-30 07:41] LABS: AGAP 10; ALB/GLOB RATIO 0.4; ALBUMIN 1.6 g/dL (3.5-5.0); ALKALINE PHOSPHATASE 121 U/L (32-122); BUN 9 mg/dL (8-22); CALCIUM 7.5 mg/dL (8.8-10.2); CHLORIDE 103 mmol/L (98-107); COSMO 275; CREATININE 0.5 mg/dL (0.7-1.2); ESTIMATED GFR > 60; GLUCOSE 146 mg/dL (70-104); GOT 9 U/L (10-34); GPT 5 U/L (10-44); MAGNESIUM 1.4 mg/dL (1.5-2.7); POTASSIUM 3.5 mmol/L (3.5-5.1); SODIUM 137 mmol/L (136-145); TCO2 24 mmol/L (25-35); TOTAL BILIRUBIN 0.15 mg/dL (0.20-1.00); TOTAL PROTEIN 6.1 g/dL (6.3-8.3)
[2019-01-30 07:50] LABS: BANDS 6 % (0-1); HYPOCHROM 1+; LYMPHS 14 % (21-51); MONO 2 % (1-9); SEGS 78 % (42-75)
[2019-01-30] MEDS: LYRICA PO SCH ×2 (08:22→20:34)
[2019-01-30] MEDS: SOLU-CORTEF IV SCH ×2 (08:22→16:17)
[2019-01-30] MEDS: SOMA PO SCH ×2 (08:23→20:34)
[2019-01-30] MEDS: VITAMIN B-12 PO SCH (08:23)
[2019-01-30] MEDS: FOLIC ACID PO SCH (08:23)
[2019-01-30] MEDS: DAKIN'S 0.25% SOLN TOP SCH ×2 (09:07→20:35)
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
[2019-01-30] MEDS: LOVENOX SUBQ SCH (16:18)
[2019-01-30] MEDS: ROCEPHIN 1 GM in NS 50 ML IV SCH (16:18)
[2019-01-30] MEDS: AMBIEN PO SCH (20:33)
[2019-01-31] MEDS: SOLU-CORTEF IV SCH ×2 (00:19→09:26)
[2019-01-31] MEDS: DILAUDID IV PRN ×2 (02:46→09:25)
[2019-01-31] MEDS: NS 1,000 ML IV SCH (03:08)
[2019-01-31] MEDS: MINOCIN PO SCH (03:22)
[2019-01-31] MEDS: PERCOCET-10 PO PRN ×2 (04:35→13:10)
[2019-01-31 06:44] LABS: BASO# 0.01 X1000 (0.0-0.2); BASO% 0.1 % (0.0-0.8); EOS# 0.03 X1000 (0.0-0.7); EOS% 0.3 % (0.0-10.0); HEMOGLOBIN 7.7 g/dL (14.0-18.0); IMM GRAN# 0.09 X1000 (0.0-0.04); IMM GRAN% 0.9 % (0.0-0.5); LYMPH# 0.96 X1000 (1.2-3.4); LYMPH% 9.2 % (20.5-51.1); MCH 25.2 PG (27-31); MCHC 29.6 g/dL (33-37); MONO% 4.8 % (1.7-9.3); MPV 9.6 FL (7.4-10.4); NEUT# 8.82 X1000 (1.4-6.5); NEUT% 84.7 % (42.2-75.2); PLT 268 X1000 (130-400); RBC 3.06 XMIL (4.7-6.1); RDW 16.9 % (11.5-14.5); WBC 10.41 X1000 (4.8-10.8)
[2019-01-31 06:51] LABS: AGAP 12; ALB/GLOB RATIO 0.4; ALBUMIN 1.8 g/dL (3.5-5.0); ALKALINE PHOSPHATASE 120 U/L (32-122); BUN 14 mg/dL (8-22); CALCIUM 7.5 mg/dL (8.8-10.2); CHLORIDE 105 mmol/L (98-107); COSMO 293; CREATININE 0.6 mg/dL (0.7-1.2); ESTIMATED GFR > 60; GLUCOSE 337 mg/dL (70-104); GOT 11 U/L (10-34); GPT 6 U/L (10-44); MAGNESIUM 1.4 mg/dL (1.5-2.7); POTASSIUM 3.7 mmol/L (3.5-5.1); SODIUM 140 mmol/L (136-145); TCO2 23 mmol/L (25-35); TOTAL BILIRUBIN < 0.15 mg/dL (0.20-1.00); TOTAL PROTEIN 6.3 g/dL (6.3-8.3)
[2019-01-31] MEDS ORDERED: MAGNESIUM SULFATE 4 GM/S.W.I. 4 GM/100 ML IVPB IV ONE (08:25)
[2019-01-31] MEDS: LYRICA PO SCH (09:24)
[2019-01-31] MEDS: SOMA PO SCH (09:24)
[2019-01-31] MEDS: VITAMIN B-12 PO SCH (09:24)
[2019-01-31] MEDS: FOLIC ACID PO SCH (09:25)
[2019-01-31] MEDS: DAKIN'S 0.25% SOLN TOP SCH (09:47)
[2019-01-31 16:03] VITALS: BP 110/75
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
== END 2019-01-31 17:00 | disposition home or self-care (01) | DRG 871 ==
LOC: SUPCPDRO → ED 13:09 → EDIPHOLD 16:19 → SUATTDRO 16:19 → 4N 17:36 → ICU 22:24
PROVIDERS: ATTEND Internal Medicine

== ENCOUNTER 2019-03-24 16:52 | Inpatient (IN) ==
[2019-03-24] MEDS ORDERED: NS 1,000 ML IV ONE ×2 (17:24→17:37)
[2019-03-24] MEDS ORDERED: NS 1,000 ML ONE (17:30)
[2019-03-24] MEDS ORDERED: VANCOMYCIN 1 GM/NS 1 GM/250 ML IVPB IV ONE (17:37)
[2019-03-24] MEDS ORDERED: ZOSYN 4.5 GM in NS 100 ML IV ONE (17:37)
[2019-03-24 17:48] LABS: INR 1.34; PROTIME 16.8 Seconds (11.0-16.0); PTT 34.8 Seconds (22.3-41.8)
--- NOTE | 2019-03-24 17:50 | Diag Imaging Result Doc PS360 ---
EXAM: CHEST-1 VIEW 03/24/2019 HISTORY: possible sepsis TECHNIQUE: AP portable semiupright at 1737 COMMENT: There is no evidence of acute cardiac or pulmonary disease. Compared to 01/25/2019 there has been no significant change. IMPRESSION: No acute disease. Electronically signed by Michel Kidd 03/24/2019 5:47 PM
[2019-03-24 18:00] LABS: BASO# 0.02 X1000 (0.0-0.2); BASO% 0.2 % (0.0-0.8); EOS# 0.07 X1000 (0.0-0.7); EOS% 0.6 % (0.0-10.0); HEMATOCRIT 23.2 % (42.0-52.0); HEMOGLOBIN 7.1 g/dL (14.0-18.0); LYMPH# 1.63 X1000 (1.2-3.4); LYMPH% 14.5 % (20.5-51.1); MCH 24.9 PG (27-31); MCHC 30.6 g/dL (33-37); MCV 81.4 FL (81-99); MONO% 6.2 % (1.7-9.3); MPV 8.8 FL (7.4-10.4); NEUT# 8.81 X1000 (1.4-6.5); NEUT% 78.5 % (42.2-75.2); PLT 487 X1000 (130-400); RBC 2.85 XMIL (4.7-6.1); RDW 17.3 % (11.5-14.5); WBC 11.23 X1000 (4.8-10.8)
[2019-03-24 18:03] LABS: ESTIMATED GFR > 60
--- NOTE | 2019-03-24 18:15 | ED EKG INTERP ---
This chart was entered by Cherelle Langston Scribe, acting as scribe for David Eli MD. EKG Interpretation - EKG Time of EKG reading by physician:: 17:58 EKG Read and Signed by:: David Eli EKG Interpretation (*Must complete 3 of following elements*): Normal Rate: 91 Rhythm: nsr Gilbert: normal QRS: normal [place] Interval: normal ST Wave: normal Attestation - Physician/ IBAN Attestation Patient care was provided by Advanced Practice Provider:: No The physician spent face to face time with patient:: Yes Advanced Practice Provider documentation review:: Supervising physician onsite and consulted in the evaluation and care of this patient. The physician did have a face to face encounter with the patient. This chart was documented by the indicated scribe, (Cherelle Langston Scribe) and accurately reflects the services I performed and decisions made by Sreedhar benson Robert W., MD, as attested by the provider's signature.
[2019-03-24 18:26] LABS: AGAP 14; ALB/GLOB RATIO 0.4; ALBUMIN 1.8 g/dL (3.5-5.0); ALKALINE PHOSPHATASE 158 U/L (32-122); BUN 14 mg/dL (8-22); CALCIUM 7.6 mg/dL (8.8-10.2); CHLORIDE 102 mmol/L (98-107); CK PROFILE 21 U/L (24-204); COSMO 270; CREATININE 0.7 mg/dL (0.7-1.2); GLUCOSE 147 mg/dL (70-104); POTASSIUM 3.8 mmol/L (3.5-5.1); SODIUM 133 mmol/L (136-145); TCO2 17 mmol/L (25-35); TOTAL PROTEIN 6.3 g/dL (6.3-8.3)
--- NOTE | 2019-03-24 18:42 | PROVIDER DOCUMENTATION ---
This chart was entered by Lila Franco Scribe, acting as scribe for David Eli MD. HPI-General Adult - General Chief Complaint: Weakness Stated Complaint: anemia/bed sores Time Seen by Provider: 03/24/19 17:35 Source: patient, EMS Allergies/Adverse Reactions: Patient Allergies Allergy/AdvReac Type Severity Reaction Status Date / Time No Known Allergies Allergy Verified 01/25/19 13:37 Home Medications: Home Medication List Medication Instructions Recorded Confirmed Last Taken Type Pregabalin [Lyrica] 300 mg PO BID 03/26/12 03/24/19 01/25/19 History Carisoprodol 1 tab PO BID 04/05/18 03/24/19 01/25/19 History Insulin Lispro [Humalog] See Protocol SQ DIRECTED 09/07/18 03/24/19 01/25/19 History Oxycodone/APAP 10 mg/325 mg 1 ea PO Q6H PRN PRN #20 tab 12/05/18 03/24/19 Unknown Rx [Percocet-10] Zolpidem [Ambien] 10 mg PO QHS #20 tab 12/05/18 03/24/19 01/25/19 Rx - History of Present Illness -Gen Adult Nature of Presenting Problems: 39 y/o paraplegic with history of anemia and diabetes presents to the ED due to weakness, loss of appetite, nausea, diarrhea, and chills times three days. The patient states he normally has to have a transfusion every two months. NKDA. Location of Pain/Injury: reports: generalized Onset/Duration: reports: gradual Timing: reports: still present Associated Symptoms: reports: diarrhea, fever/chills, loss of appetite, nausea. denies: cough, vomiting Similar Symptoms Previously?: Yes Review of Systems - Adult - REVIEW OF SYSTEMS - ADULT Constitutional: reports: see HPI, chills. denies: night sweats Eyes: reports: no symptoms reported Ears, Nose, Mouth & Throat: reports: no symptoms reported Cardiovascular: reports: no symptoms reported Respiratory: reports: no symptoms reported Gastrointestinal: reports: diarrhea, nausea, poor appetite. denies: vomiting Genitourinary: reports: no symptoms reported Musculoskeletal: reports: no symptoms reported Integumentary: reports: see HPI, other (multiple decubitus). denies: hives Neurological: reports: no symptoms reported Psychiatric: reports: no symptoms reported Endocrine: reports: no symptoms reported Hematologic/Lymphatic: reports: no symptoms reported Allergic/Immunologic: reports: no symptoms reported All Other Systems: Reviewed and Negative Past History - Adult - PAST MEDICAL HISTORY-ADULT Review of Records: reports: Nursing Assessment Review, Medications Reviewed Major Childhood Illnesses: reports: denies history Cardiovascular: reports: cardiac disease Respiratory: reports: denies history Gastrointestinal: reports: denies history Obstetrical/Gynecological: Genitourinary: reports: chronic UTI's, other (self caths) Musculoskeletal: reports: arthritis, other (paraplegic since 2005 with some contracturing of legs) Neurological: reports: other (paraplegia) Psychiatric: reports: depression Endocrine/Immune: reports: anemia, Diabetes Other Conditions: reports: denies history - PRIOR SURGERIES/PROCEDURES Surgical/Procedure History: reports: orthopedic (extremity) (knee surgery.), joint replacement (Total knee replacement. ), other (Arthroscopy. ) - IMMUNIZATION STATUS Childhood Immunizations: See Nurse Assessment Flu Vaccine: See Nurse Assessment - FAMILY HISTORY Family History: reviewed, not pertinent - SOCIAL HISTORY Smoking: other (former smoker) Living Situation: family Physical Exam-General - PHYSICAL EXAM-ADULT Initial Vital Signs Reviewed: Yes - CONSTITUTIONAL General Appearance: alert, thin, other (BP 74/46). negative: appears well - EYES Eyes: PERRL/EOMI - RESPIRATORY Respiratory: lungs clear. negative: rales, rhonchi, wheezing - CARDIOVASCULAR Cardiovascular: regular rate, rhythm, no gallop, no murmur - GASTROINTESTINAL (ABDOMEN) Abdominal Exam: non tender, soft. negative: guarding, rebound - MUSCULOSKELETAL Extremity: other (paraplegic) - SKIN Integumentary: decubitus, pallor - NEUROLOGIC Neurologic: grossly normal Progress - PLAN OF CARE/RESULTS Progress/Plan/Lab Results: Vital Signs - 8 hr 03/24/19 16:38 Temperature 98.5 F Pulse Rate 106 H Respiratory Rate 15 Blood Pressure 96/67 O2 Sat by Pulse Oximetry 100 Orders Category Date Time Status Cardiac Monitoring DIRECTED Care 03/24/19 17:25 Active IV Insertion ORDERED Care 03/24/19 17:25 Completed Notify MD of + Sepsis Screen NOW Care 03/24/19 17:25 Active Notify Physician As Ordered Care 03/24/19 17:25 Active CHEST-1 VIEW [RAD] Stat Exams 03/24/19 17:25 Ordered BLOOD CULTURE [BLDCUL] Stat Lab 03/24/19 17:32 Ordered CBC WITH DIFF [HEME] Stat Lab 03/24/19 17:32 Ordered CK PROFILE [SP CHEM] Stat Lab 03/24/19 17:32 Ordered COMPREHENSIVE METABOLIC PANEL [CHEM] Stat Lab 03/24/19 17:32 Ordered LACTATE, PLASMA [CHEM] Q3H Lab 03/24/19 17:32 Ordered LACTATE, PLASMA [CHEM] Q3H Lab 03/24/19 20:30 Uncollected LACTATE, PLASMA [CHEM] Q3H Lab 03/24/19 23:30 Uncollected PROTIME WITH INR [COAG] Stat Lab 03/24/19 17:32 Ordered PTT [COAG] Stat Lab 03/24/19 17:32 Ordered TROPONIN T HIGH SENSITIVITY Stat Lab 03/24/19 17:32 Ordered URINALYSIS W/POSS RFLX CULT [URINALYSIS] Stat Lab 03/24/19 17:25 Uncollected 0.9% Sodium Chloride Inj [Ns] 1,000 ml Med 03/24/19 17:30 Discontinued .ROUTE As directed 0.9% Sodium Chloride Inj [Ns] 1,000 ml Med 03/24/19 17:24 Active IV 999 mls/hr Oxygen Device Stat Oth 03/24/19 17:25 Active Result Diagrams: 03/24/19 17:02 03/24/19 17:02 - REASSESSMENT Reassessment #1 Time Reassessed: 18:34 Status: unchanged (LEDGER PRESENTED TO ME BY CHARGE NURSE, SYST BP CONSITENTLY MID 70s HR 90s., 1ST LITER NS INFUSED: WILL AT PHENYLEPHRINE GTT. NL EKG AND MILD ELEVATION TROPONIN NOTED.) - CONSULTS/PCP/HOSPITALIST Notification #1 *Consult/PCP/Hospitalist*: DR Graciela YEBOAH Time Discussed: 18:17 Consult Disposition: Admit Departure - Departure Date of Disposition Decision: 03/24/19 Time of Disposition Decision: 19:10 DIAGNOSIS: Lactic acidosis, Decubitus ulcer Hypotension Qualifiers: Hypotension type: other hypotension type Qualified Code(s): I95.89 - Other hypotension Anemia Qualifiers: Anemia type: other cause Other causes of anemia: other cause, not classified Qualified Code(s): D64.89 - Other specified anemias Disposition: ADMITTED INPATIENT 09 Certified Medical Emergency: Emergent Condition: Fair Referrals and Follow-Ups: Doctor,Unassigned [Primary Care Provider] - - Critical Care Note This patient required my direct & personal management of CC.: Yes Total Time (mins): 45 Critical Care Statement: This patient required my direct personal management to treat or rule out processes, the absence of which, could potentiallly result in sudden, clinically significant life or limb threatening deterioration. Attestation - Physician/ IBAN Attestation Patient care was provided by Advanced Practice Provider:: No The physician spent face to face time with patient:: Yes Advanced Practice Provider documentation review:: Supervising physician onsite and consulted in the evaluation and care of this patient. The physician did have a face to face encounter with the patient. This chart was documented by the indicated scribe, (Lila Franco, Tameka) and accurately reflects the services I performed and decisions made by me, David Eli MD, as attested by the provider's signature.
[2019-03-24 18:44] LABS: GOT < 5 U/L (10-34); GPT < 5 U/L (10-44)
[2019-03-24 18:45] LABS: ALLEN TEST NO; BE -7.8 mmoll (-3.0-3.0); BLOOD TYPE ARTERIAL; HCO3-(ACT) 18.9 mmoll (20.0-26.0); METHB 1.6 % (0.0-1.5); MODALITY ROOM AIR; O2(CT) 7.9 mL/dL (15.0-23.0); O2HB 95.3 % (95.0-99.0); PCO2(98.6) 28 mmHg (35-45); PO2(98.6) 111 mmHg (60-100); SAMPLE BLOOD; SAO2 99.8 % (95.0-100.0); THB 5.7 g/dL (11.5-17.4); pH(98.6) 7.38 (7.35-7.45)
[2019-03-24] MEDS ORDERED: NEO-SYNEPHRINE 50 MG in NS 250 ML IV SCH (18:45)
[2019-03-24 19:17] LABS: URINE SOURCE CATH
[2019-03-24] MEDS ORDERED: NS 500 ML IV ONE (19:17)
[2019-03-24 19:20] LABS: BILIRUBIN URINE NEGATIVE (NEGATIVE); BLOOD URINE LARGE (NEGATIVE); COLOR ORANGE; GLUCOSE URINE NEGATIVE (NEGATIVE); KETONE URINE NEGATIVE (NEGATIVE); LEUKOCYTES URINE LARGE (NEGATIVE); NITRITE URINE NEGATIVE (NEGATIVE); PH URINE 5.5; PROTEIN URINE 100 mg/dL (NEGATIVE); SP GRAVITY URINE 1.016; TURBIDITY URINE TURBID (CLEAR); UROBILINOGEN URINE NORMAL (NORMAL)
[2019-03-24 19:21] LABS: UR EPITHELIAL CELLS <10 /HPF (<10); URINE BACTERIA 1+ /HPF; URINE RBC TNTC /HPF (<10); URINE WBC TNTC /HPF (<10)
[2019-03-24 20:04] LABS: IRON SATURATION 27 %; TIBC 86 ug/dL; TOTAL IRON 23 ug/dL (53-167); UNBOUND IRON 63 ug/dL (112-346)
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
[2019-03-24 20:19] LABS: RETIC% 2.34 % (0.8-2.1)
[2019-03-24] MEDS: NS 1,000 ML IV SCH (20:38)
[2019-03-24] MEDS: HUMULIN R SUBQ SCH (23:31)
[2019-03-25] MEDS: NS 1,000 ML IV SCH ×2 (01:55→13:30)
[2019-03-25] MEDS: ZOSYN 3.375 GM in NS 50 ML IV SCH ×5 (03:03→19:33)
[2019-03-25] MEDS: LYRICA PO SCH ×2 (03:04→09:00)
[2019-03-25] MEDS: AMBIEN PO SCH ×2 (03:04→21:50)
[2019-03-25] MEDS: HUMULIN R SUBQ SCH ×3 (07:00→16:00)
--- NOTE | 2019-03-25 07:39 | EKG Report ---
Test Performed on : 03/24/2019 5:57:41 PM Test Reason : ED. NO EKG ORDER FOR MUSE Blood Pressure : / mmHG Vent. Rate : 091 BPM Atrial Rate : 091 BPM P-R Int : 140 ms QRS Dur : 086 ms QT Int : 336 ms P-R-T Axes : 076 070 065 degrees QTc Int : 413 ms Normal sinus rhythm. Normal ECG When compared with ECG of 05-APR-2018 07:32, No significant change was found Unconfirmed Result
--- NOTE | 2019-03-25 08:12 | Diag Imaging Result Doc PS360 ---
EXAM: CT ABD/PELVIS W/PO AND IV CON INDICATION: weight loss, cachexia, dysphagia TECHNIQUE: This exam was performed using automated exposure control, adjustment of mA or kV according to patient size, and/or use of iterative reconstruction technique. COMPARISON: 11/25/2018 FINDINGS: The gallbladder is partially contracted. No pericholecystic inflammatory changes identified. There is minimal nonspecific periportal edema. The liver is unremarkable, otherwise. There is trace free fluid that is tracking around the liver. The spleen, pancreas, adrenal glands, and kidneys are unremarkable. There is a Herrera catheter in the urinary bladder. The bladder is essentially unremarkable, otherwise. The appendix is normal. There is patchy nonspecific small bowel gas without significant distention. Consider very mild ileus. There is no evidence of bowel obstruction. No focal bowel wall thickening is identified. The remainder of the GI tract is essentially unremarkable. There is a stable IVC filter. There is stable mild mesenteric edema in the pelvis but no intrapelvic abscess is identified. There is chronic osteomyelitis and septic joint involving both hips with extensive joint destruction and bony erosion associated with both hips. There are bilateral soft tissue abscesses around both hips. The abscess on the right has gotten significantly worse during the interval measuring 11.9 x 8.0 cm axially. The abscess on the left is fairly similar to the previous study measuring up to 10.1 x 3.1 cm axially. There are erosive changes involving both acetabula, more prominent on the left. There is patchy subcutaneous emphysema bilaterally. 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 There has been a significant increase in the periarticular abscess on the right during the interval. 2.Nonspecific patchy small bowel gas without significant distention likely representing mild ileus. 3.Trace ascites tracking around the liver. 4.Stable pelvic mesenteric edema but no definite intrapelvic abscess is appreciated. Electronically signed by Andrew Barajas 03/25/2019 8:10 AM
[2019-03-25 08:20] LABS: HEMOGLOBIN A1C 5.4 % (4.8-6.0)
[2019-03-25 10:27] LABS: BASO# 0.05 X1000 (0.0-0.2); BASO% 0.4 % (0.0-0.8); EOS# 0.13 X1000 (0.0-0.7); EOS% 0.9 % (0.0-10.0); HEMATOCRIT 25.6 % (42.0-52.0); HEMOGLOBIN 7.7 g/dL (14.0-18.0); IMM GRAN% 0.7 % (0.0-0.5); LYMPH# 2.31 X1000 (1.2-3.4); LYMPH% 16.4 % (20.5-51.1); MCH 24.3 PG (27-31); MCHC 30.1 g/dL (33-37); MCV 80.8 FL (81-99); MONO# 0.85 X1000 (0.11-0.59); MPV 8.2 FL (7.4-10.4); NEUT# 10.63 X1000 (1.4-6.5); NEUT% 75.6 % (42.2-75.2); PLT 683 X1000 (130-400); RBC 3.17 XMIL (4.7-6.1); RDW 16.9 % (11.5-14.5); WBC 14.07 X1000 (4.8-10.8)
[2019-03-25 10:34] LABS: AGAP 14; ALB/GLOB RATIO 0.4; ALBUMIN 1.7 g/dL (3.5-5.0); ALKALINE PHOSPHATASE 147 U/L (32-122); BUN 10 mg/dL (8-22); CALCIUM 7.3 mg/dL (8.8-10.2); CHLORIDE 108 mmol/L (98-107); COSMO 275; CREATININE 0.7 mg/dL (0.7-1.2); ESTIMATED GFR > 60; GLUCOSE 143 mg/dL (70-104); GOT < 5 U/L (10-34); GPT < 5 U/L (10-44); SODIUM 137 mmol/L (136-145); TCO2 15 mmol/L (25-35); TOTAL BILIRUBIN 0.22 mg/dL (0.20-1.00); TOTAL PROTEIN 6.1 g/dL (6.3-8.3)
[2019-03-25 10:57] LABS: ANISOCYTOSIS 1+; HYPOCHROM 2+; LYMPHS 14 % (21-51); MONO 6 % (1-9); SEGS 80 % (42-75)
[2019-03-25] MEDS ORDERED: KLOR-CON PO ONE (11:17)
[2019-03-25] MEDS ORDERED: VANCOMYCIN IV PER PHARMACY MISC SCH (11:30)
[2019-03-25] MEDS: POTASSIUM CHLORIDE 20 MEQ/SWI 20 MEQ/100 ML IVPB IV SCH ×2 (12:00→14:00)
[2019-03-25] MEDS ORDERED: SODIUM BICARBONATE 8.4% 150 MEQ in D5W 1,000 ML IV SCH (12:00)
[2019-03-25] MEDS: DOPAMINE 400 MG/D5W 400 MG/500 ML IV.SOLN IV SCH ×2 (12:17→23:26)
[2019-03-25] MEDS ORDERED: VANCOMYCIN 2,350 MG in NS 500 ML IV ONE (13:00)
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
[2019-03-25] MEDS: MORPHINE IV PRN (18:18)
[2019-03-25] MEDS: FOLIC ACID 1 MG in NS 50 ML IV SCH (21:43)
[2019-03-26] MEDS: LYRICA PO SCH ×3 (00:11→20:33)
[2019-03-26] MEDS: MORPHINE IV PRN ×6 (00:12→23:53)
[2019-03-26] MEDS: ZOSYN 3.375 GM in NS 50 ML IV SCH ×4 (01:48→20:25)
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
[2019-03-26] MEDS: VANCOMYCIN 1,800 MG in NS 250 ML IV SCH ×2 (07:29→23:50)
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
[2019-03-26] MEDS: DOPAMINE 400 MG/D5W 400 MG/500 ML IV.SOLN IV SCH (08:48)
[2019-03-26] MEDS: NS 1,000 ML IV SCH ×3 (09:09→23:49)
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
[2019-03-26 10:52] LABS: BASO# 0.01 X1000 (0.0-0.2); BASO% 0.1 % (0.0-0.8); EOS% 2.4 % (0.0-10.0); HEMATOCRIT 26.7 % (42.0-52.0); HEMOGLOBIN 8.1 g/dL (14.0-18.0); IMM GRAN# 0.02 X1000 (0.0-0.04); IMM GRAN% 0.2 % (0.0-0.5); LYMPH# 1.42 X1000 (1.2-3.4); LYMPH% 17.3 % (20.5-51.1); MCH 24.5 PG (27-31); MCHC 30.3 g/dL (33-37); MCV 80.7 FL (81-99); MONO# 0.45 X1000 (0.11-0.59); MONO% 5.5 % (1.7-9.3); NEUT# 6.12 X1000 (1.4-6.5); NEUT% 74.5 % (42.2-75.2); PLT 508 X1000 (130-400); RBC 3.31 XMIL (4.7-6.1); RDW 16.8 % (11.5-14.5); WBC 8.22 X1000 (4.8-10.8)
[2019-03-26 12:02] LABS: AGAP 14; BUN 8 mg/dL (8-22); CALCIUM 7.5 mg/dL (8.8-10.2); CHLORIDE 104 mmol/L (98-107); COSMO 274; CREATININE 0.6 mg/dL (0.7-1.2); ESTIMATED GFR > 60; GLUCOSE 173 mg/dL (70-104); POTASSIUM 3.6 mmol/L (3.5-5.1); SODIUM 136 mmol/L (136-145); TCO2 18 mmol/L (25-35)
--- NOTE | 2019-03-26 15:55 | PROGRESS NOTE ---
DATE: 03/26/2019 SUBJECTIVE: The patient has no major complaints. OBJECTIVE: Vital signs: Blood pressure is 94/65, heart rate of 90, respiratory rate of 14, temperature 97.5 degrees, 100% on room air. Cardiovascular: Regular rate and rhythm. Pulmonary: Bilateral breath sounds. Clear to auscultation. GI: Soft, nontender, nondistended. Bowel sounds are positive. Extremity: No clubbing or cyanosis. Lymphatic exam: No peripheral edema. LABORATORY DATA: White count is 8, hemoglobin and hematocrit 8 and 26, platelets 508,000. Basic was normal. PROBLEM LIST: 1. Septic shock, likely due to decubitus ulcer but also possibly hip abscesses. We are going to continue to treat with antibiotics. Ortho has weighed in and did not recommend treatment at this point or surgery. Recommended percutaneous drainage because these abscesses have been there before. Dr. Arango is recommending cultures, antibiotics as described, and we will continue to see. 2. Gram-negative urinary tract infection. We are waiting on sensitivities but he is growing out something from there. Cultures are overall negative, but he is still requiring pressors. 3. Type 2 diabetes. Follow blood sugars. Again, we are trying to keep the blood sugars below 200. 4. Quadriplegia. Continue his regular care. 5. Anemia. Hemoglobin and hematocrit have come up a bit. He has just had the 1 unit. 6. Bilateral hip possible abscesses. We will ask Radiology to possibly drain those and continue to follow. cc: Ike Thapa MD
[2019-03-26] MEDS: NEO-SYNEPHRINE 50 MG in NS 250 ML IV SCH (16:07)
[2019-03-26] MEDS: FOLIC ACID 1 MG in NS 50 ML IV SCH (17:54)
[2019-03-26] MEDS ORDERED: TYLENOL PO PRN (18:05)
--- NOTE | 2019-03-26 19:27 | CONSULTATION ---
DATE OF CONSULTATION: 03/26/2019 Mr. Jose Stewart is a 39-year-old black male who is a paraplegic and is well known to all of our surgical group. He has chronic pressure ulcers involving his sacrum and both hips. He has had chronic infections involving his hips and is malnourished. He is in our ICU this hospitalization, and we were asked to evaluate his wounds. On exam, Mr. Stewart is a slim, malnourished, young black male paraplegic with chronic pressure ulcers involving both hips and sacrum and buttock area. On his right hip area, he had an eschar, but there is no undrained purulence in any of these wounds, and actually most of them are clean with some granulation tissue. At the bedside I surgically debrided an eschar involving the right hip wound. I would recommend our wound care nurse to help the nurses perform dressing changes on these pressure sores. Debriding ointment can be used on that right hip eschar as needed. I think the other wounds are clean with some granulation tissue. cc: Latonya Anderson MD
--- NOTE | 2019-03-26 19:29 | ECHO REPORT ---
ORDER DATE: 03/25/2019 INDICATION: A 39-year-old male with elevated troponin. The study was very difficult. M-MODE MEASUREMENTS: Left ventricle end diastole: 4.8. Left ventricle end systole: 3.1. Posterior wall: 0.8. Interventricular septum: 0.8. Left atrium: 3.2. Aortic diameter: 3.0. SUMMARY OF 2-DIMENSIONAL IMAGIN. Apical views were not obtained. The patient could not turn on his side. 2. The parasternal views showed very normal left ventricular systolic function. Ejection fraction appears to be on the order of 60% or better. 3. The aortic valve looks grossly normal. 4. The mitral valve looks grossly normal. Mitral inflow cannot be really evaluated because there are no acceptable apical views. 5. I do not see evidence of any significant degree of pericardial effusion. 6. The tricuspid valve is suboptimally visualized with pulmonary pressure estimated at 23 mmHg. 7. The pulmonic valve is grossly unremarkable. 8. The aortic valve is also grossly unremarkable. Clinical correlation recommended. Please consider repeating this study when the patient is in better position to help with the performance of the study. cc: MD Ike Hardy MD
[2019-03-26] MEDS: AMBIEN PO SCH (20:33)
[2019-03-26] MEDS: ZOFRAN IV PRN (20:34)
[2019-03-26] MEDS: NORCO-7.5 PO PRN (21:41)
[2019-03-27] MEDS: NEO-SYNEPHRINE 50 MG in NS 250 ML IV SCH ×3 (01:25→21:58)
[2019-03-27] MEDS: ZOSYN 3.375 GM in NS 50 ML IV SCH ×4 (02:51→20:49)
[2019-03-27] MEDS: NS 1,000 ML IV SCH ×2 (07:26→16:41)
[2019-03-27] MEDS: LOVENOX SUBQ SCH (07:30)
[2019-03-27 07:58] LABS: BASO# 0.03 X1000 (0.0-0.2); BASO% 0.3 % (0.0-0.8); EOS# 0.21 X1000 (0.0-0.7); EOS% 1.8 % (0.0-10.0); HEMATOCRIT 26.6 % (42.0-52.0); IMM GRAN# 0.03 X1000 (0.0-0.04); IMM GRAN% 0.3 % (0.0-0.5); LYMPH% 20.1 % (20.5-51.1); MCH 24.3 PG (27-31); MCHC 30.1 g/dL (33-37); MCV 80.9 FL (81-99); MONO# 0.57 X1000 (0.11-0.59); MPV 7.9 FL (7.4-10.4); NEUT# 8.28 X1000 (1.4-6.5); NEUT% 72.5 % (42.2-75.2); PLT 527 X1000 (130-400); RBC 3.29 XMIL (4.7-6.1); WBC 11.42 X1000 (4.8-10.8)
[2019-03-27 08:03] LABS: INR 1.28; PROTIME 16.2 Seconds (11.0-16.0)
[2019-03-27] MEDS: MORPHINE IV PRN ×2 (08:24→22:47)
[2019-03-27] MEDS: LYRICA PO SCH ×2 (08:25→20:49)
[2019-03-27 08:36] LABS: AGAP 11; BUN 6 mg/dL (8-22); CALCIUM 7.4 mg/dL (8.8-10.2); CHLORIDE 106 mmol/L (98-107); COSMO 271; CREATININE 0.6 mg/dL (0.7-1.2); ESTIMATED GFR > 60; GLUCOSE 86 mg/dL (70-104); POTASSIUM 3.3 mmol/L (3.5-5.1); SODIUM 137 mmol/L (136-145); TCO2 20 mmol/L (25-35)
[2019-03-27] MEDS ORDERED: NS 250 ML ONE (09:30)
--- NOTE | 2019-03-27 10:24 | INFECTIOUS DISEASE PROGRESS NO ---
DATE: 03/27/2019 PRESENT ILLNESS: The patient has the following infections: 1. Chronic bilateral septic hip arthritis. 2. Bilateral hip osteomyelitis. 3. Sacral osteomyelitis. 4. Gram-negative mar urinary tract infection. The patient's septic arthritis and osteomyelitis are caused by the patient having decubitus ulcers. MEDICATIONS: This is day #2 of treatment with the combination of vancomycin and Zosyn. PHYSICAL EXAMINATION: Vital Signs: Temperature is 98 degrees, pulse 90, respirations 12, blood pressure is 100/60. General: This is a chronically ill-appearing, young male. He is in no acute distress. Head, Eyes, Ears, Nose, and Throat: He can hear my spoken words and see near objects. He does not have any white patches in his mouth. Neck: No pain with movement. Lungs: Clear to auscultation. Cardiovascular: Regular heart rate. Abdomen: Soft and nontender. Bones, Joints, and Muscles: The patient has 3 large decubitus, 1 over each hip and also the 1 over his sacrum. The bone is palpable through the decubitus ulcers. He has smaller decubitus ulcers on both legs. In none of the decubitus ulcers did I see purulence or necrosis. There are some eschars present, however. Neurologic: The patient is alert. He is paralyzed from the chest on down. He can move his arms but not his legs. LAB AND X-RAY: The patient's CBC today shows a white count of 8220, hemoglobin 8.1, and platelet count 508,000. Creatinine is 0.6. GFR is greater than 60. The patient's right hip is growing a gram-negative mar. The urine is growing Enterobacter and pseudomonas. Both of the antibiotics have multiple drug resistances. Finally, the left hip and sacrum cultures are pending. ASSESSMENT AND PLAN: The patient has septic hip arthritis and osteomyelitis, and osteomyelitis of the sacrum. The patient also has a urinary tract infection. I am going to discontinue vancomycin and Zosyn, and put him on meropenem. Some of the side effects of the antibiotic including rash, diarrhea, and seizures have been explained to the patient, who agrees with treatment. I discussed with the patient about putting in a peripherally inserted central catheter, and both he and I think it would be a good idea so I am going to order a peripherally inserted central catheter. That way, the patient will not have to be stuck as much to try to start an intravenous lines. Also, I am going to put the order that the patient's lab should be drawn from the peripherally inserted central catheter which, again, will save him from being stuck so much with needles. COMORBIDITIES: The patient is paralyzed from the chest down and, unfortunately, he has developed multiple decubitus ulcers. cc: Buster Arango MD
[2019-03-27] MEDS: ZOFRAN IV PRN (13:43)
[2019-03-27] MEDS ORDERED: PHENERGAN IV PRN (15:32)
[2019-03-27] MEDS ORDERED: SODIUM CHLORIDE 0.9% INJ PRN (15:32)
[2019-03-27] MEDS ORDERED: NS 500 ML IV ONE ×4 (15:33→16:00)
[2019-03-27] MEDS: SODIUM CHLORIDE 0.9% INJ PRN (15:55)
[2019-03-27] MEDS: PHENERGAN IV PRN (15:55)
--- NOTE | 2019-03-27 16:04 | PROGRESS NOTE ---
DATE: 03/27/2019 SUBJECTIVE: Patient has no major complaints. OBJECTIVE: Blood pressure is 87/53, heart rate 79, respiratory 14, and temperature 97.6 degrees.Cardiovascular: Regular rate and rhythm. Pulmonary: Bilateral breath sounds. Clear to auscultation. GI: Soft, nontender, and nondistended. Bowel sounds are positive. LABORATORY DATA: White count 11, hemoglobin and hematocrit 8 and 26, which is stable, platelets 526,000, INR 1.28, and potassium 3.3. PROBLEM LIST: 1. Septic shock due to infection of the hip and possibly ulcerations and UTI. He is still requiring vasopressors and does not feel right without them. Hopefully, we can pursue percutaneous drainage of the hip fluid collections, which may be indeed abscesses. We will start off with the right because it is the larger one. 2. UTI. He has Enterobacter cloacae and Pseudomonas. It is only sensitive to tobramycin, gentamicin, and amikacin. I think his kidney function is okay per Dr. Arango. He has been placed on meropenem I guess because of the resistance, and that he will need a PICC. I think we had ordered a PICC because he had limited IV access. Now, he is on Merrem which should cover his gram-negative infections. It has all been nothing but gram negatives. He has not had any g positives, so that should be sufficient for the time being. His mental status is askew. He is on several mind-altering medications. We will continue to monitor. 3. Type 2 diabetes. His blood sugars are overall under control. A1c is only 5.4. 4. Anemia. His hemoglobin and hematocrit is stable after transfusion. DISPOSITION: We will continue wound care and follow. Plan to do drain abscess tomorrow on the right side if feasible. cc: Ike Thapa MD
[2019-03-27] MEDS: FOLIC ACID 1 MG in NS 50 ML IV SCH (16:42)
[2019-03-27] MEDS: VANCOMYCIN 1,800 MG in NS 250 ML IV SCH (18:15)
[2019-03-27] MEDS: AMBIEN PO SCH (20:50)
[2019-03-27] MEDS: NORCO-7.5 PO PRN (21:05)
[2019-03-28] MEDS: ZOSYN 3.375 GM in NS 50 ML IV SCH (02:25)
[2019-03-28] MEDS: NEO-SYNEPHRINE 50 MG in NS 250 ML IV SCH ×2 (05:48→13:51)
[2019-03-28] MEDS: LOVENOX SUBQ SCH (05:48)
[2019-03-28 07:29] LABS: BASO# 0.05 X1000 (0.0-0.2); BASO% 0.5 % (0.0-0.8); EOS% 3.1 % (0.0-10.0); HEMATOCRIT 27.4 % (42.0-52.0); HEMOGLOBIN 8.3 g/dL (14.0-18.0); IMM GRAN# 0.02 X1000 (0.0-0.04); IMM GRAN% 0.2 % (0.0-0.5); LYMPH# 2.52 X1000 (1.2-3.4); LYMPH% 26.4 % (20.5-51.1); MCH 25.2 PG (27-31); MCHC 30.3 g/dL (33-37); MONO# 0.58 X1000 (0.11-0.59); MONO% 6.1 % (1.7-9.3); MPV 8.1 FL (7.4-10.4); NEUT# 6.08 X1000 (1.4-6.5); NEUT% 63.7 % (42.2-75.2); PLT 403 X1000 (130-400); RDW 17.6 % (11.5-14.5); WBC 9.55 X1000 (4.8-10.8)
[2019-03-28 07:47] LABS: LYMPHS 22 % (21-51); SEGS 68 % (42-75)
[2019-03-28 08:16] LABS: ESTIMATED GFR > 60
[2019-03-28 08:30] LABS: AGAP 12; BUN 6 mg/dL (8-22); CALCIUM 7.1 mg/dL (8.8-10.2); CHLORIDE 113 mmol/L (98-107); COSMO 276; CREATININE 0.6 mg/dL (0.7-1.2); GLUCOSE 81 mg/dL (70-104); POTASSIUM 3.2 mmol/L (3.5-5.1); SODIUM 140 mmol/L (136-145); TCO2 15 mmol/L (25-35)
--- NOTE | 2019-03-28 08:54 | INFECTIOUS DISEASE PROGRESS NO ---
DATE: 03/28/2019 PRESENT ILLNESS: The patient has infected decubitus ulcers and because of the infected decubitus ulcers, he has developed bilateral septic hip arthritis, bilateral hip osteomyelitis, and sacral osteomyelitis. The patient also has a urinary tract infection. Unfortunately, the organisms isolated from his infections including Providencia, Pseudomonas, Enterobacter, and Acinetobacter are very antibiotic-resistant. MEDICATIONS: Today is the third day of treatment with vancomycin and Zosyn, which I am going to discontinue, and instead I am going to put the patient on meropenem, some of the side effects of the antibiotic including rash, diarrhea and seizures have been explained to the patient, who agrees with treatment. PHYSICAL EXAMINATION: Vital Signs: Temperature is 97.2 degrees, pulse is 46, respirations 13, blood pressure is 106/74. General: This is a chronically ill-appearing young male. He is in no acute distress. Head/eyes/ears/nose/throat: Can hear my spoken words and see near objects. He does not have any white coating on his tongue. Neck: No stiffness. Lungs: Clear to auscultation. Cardiovascular: Heart rate is regular. Abdomen: Soft and nontender. Bones, joints, and muscles: The patient has 3 large decubiti one each hip and one on his sacrum. The ulcers as mentioned above do go down to bone, therefore the patient has osteomyelitis. There is not any purulence, and there is no necrotic tissue noted. 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 He can move his arms but his legs are paralyzed. LAB AND X-RAY: There is no lab and x-ray. There is no new radiographic study. The patient's CBC shows a white count of 9550, hemoglobin 8.3, and platelet count 403,000. Creatinine is 0.6 GFR is greater than 60. The patient grew from his sacral ulcer Providencia, and Pseudomonas from his right hip, Acinetobacter and from his urine Enterobacter and Pseudomonas. All of the organisms are very antibiotic-resistant. ASSESSMENT AND PLAN: I have discontinued Zosyn and vancomycin, and I have put the patient on meropenem. As mentioned above, I explained some of the side effects of the antibiotic namely rash, diarrhea, and seizures to the patient, he agrees with treatment. I also agree with draining the patient's hip abscess sometime today. COMORBIDITIES: The patient is paralyzed from the chest on down and he has developed infected decubitus ulcers, which extend to bone and cause osteomyelitis and septic arthritis. cc: Buster Arango MD
--- NOTE | 2019-03-28 08:59 | Diag Imaging Result Doc PS360 ---
EXAM: CHEST-PORTABLE HISTORY: PICC line placement TECHNIQUE: Single view COMPARISON: 03/24/2019 FINDINGS: The lungs are well expanded. The heart is not enlarged. A right-sided PICC line has been placed. The tip lies in the mid superior vena cava just above the right atrium. The vessels are not distended. There are no infiltrates. No effusion identified. IMPRESSION: No acute abnormality. Electronically signed by Garrick Steiner 03/28/2019 8:56 AM
[2019-03-28] MEDS: MORPHINE IV PRN ×2 (09:00→11:05)
--- NOTE | 2019-03-28 09:57 | Diag Imaging Result Doc PS360 ---
CT DRAIN ABDOMEN ABSCESS W/IMG - 03/28/2019 INDICATION: right hip abscess TECHNIQUE: The risks and benefits of the procedure were discussed with the patient. All questions were answered. Written and verbal informed consent was obtained. Overlying skin was prepped and draped in sterile fashion. Anesthesia was achieved with injection of 10 cc of 1% lidocaine. COMPARISON: CT from 03/25/2019 FINDINGS: The 5-Wolof paracentesis catheter was introduced into the right hip joint space without difficulty. Approximately 20 mL of abscess fluid was drained. A portion was sent for laboratory culture. The catheter was secured in place with a Tegaderm, and connected to an evacuated bottle. IMPRESSION: Successful and uncomplicated CT-guided right hip abscess drain placement. Electronically signed by Demond Bowers 03/28/2019 9:54 AM
[2019-03-28] MEDS: NS 1,000 ML IV SCH (11:04)
[2019-03-28] MEDS: LYRICA PO SCH ×2 (11:05→20:01)
[2019-03-28] MEDS: MERREM 2 GM in NS 100 ML IV SCH ×2 (11:05→18:45)
[2019-03-28] MEDS: PHENERGAN IV PRN ×2 (14:05→22:12)
[2019-03-28] MEDS: SODIUM CHLORIDE 0.9% INJ PRN (14:05)
[2019-03-28] MEDS: FOLIC ACID 1 MG in NS 50 ML IV SCH (16:03)
--- NOTE | 2019-03-28 17:57 | PROGRESS NOTE ---
DATE: 03/28/2019 SUBJECTIVE: The patient is still complaining of pain. He is requesting more pain medication. OBJECTIVE: Vital signs: Blood pressure is 114/71, heart rate 60, respiratory rate 10, temperature 99 degrees, 100% on room air. Afebrile. Ins and outs: 2428, 4950. Cardiovascular: Regular rate and rhythm. Pulmonary: Bilateral breath sounds. Clear to auscultation. GI: Soft, nontender, nondistended. Bowel sounds are positive. LABORATORY DATA: White count 9, hemoglobin and hematocrit 8 and 27, platelets 403,000. Potassium is 3.2. Bicarb is still low at 15. PROBLEM LIST: 1. Septic shock due to possible hip abscesses, urinary tract infection. He is still requiring vasopressors, although I think his baseline autonomic function is probably very poor. I do not know if he has ever been screened for adrenal insufficiency, it is possible. I am going to look at his levels. I do not see any cortisol levels, so I am going to go ahead and do a Cortrosyn stim test in the morning. So we will see how things go. 2. Anemia. He seems to be doing okay. Monitor closely. He is folate deficient. 3. Decubitus ulcer. We will continue wound care. He is culturing out something but I do not have final data yet, although it looks like he may have Acinetobacter, Pseudomonas procidentia; all of those things are very, very, very resistant. We will see how his abscess drainage goes, so we will continue to follow. We will screen for adrenal insufficiency and monitor closely. He is still critically ill, on pressors, so we have to keep a close eye on him. cc: Ike Thapa MD
[2019-03-28] MEDS: DILAUDID IV PRN ×2 (19:13→22:11)
[2019-03-28] MEDS: NORCO-7.5 PO PRN (20:01)
[2019-03-28] MEDS: AMBIEN PO SCH (20:01)
[2019-03-29] MEDS: DILAUDID IV PRN ×4 (01:43→20:03)
[2019-03-29] MEDS: NS 1,000 ML IV SCH (01:51)
[2019-03-29] MEDS: NEO-SYNEPHRINE 50 MG in NS 250 ML IV SCH ×2 (03:15→12:51)
[2019-03-29] MEDS: MERREM 2 GM in NS 100 ML IV SCH ×3 (03:15→20:03)
[2019-03-29] MEDS: LOVENOX SUBQ SCH (05:23)
[2019-03-29] MEDS: PHENERGAN IV PRN ×2 (05:31→22:32)
[2019-03-29 09:08] LABS: BASO# 0.04 X1000 (0.0-0.2); BASO% 0.4 % (0.0-0.8); EOS# 0.26 X1000 (0.0-0.7); EOS% 2.5 % (0.0-10.0); HEMATOCRIT 23.9 % (42.0-52.0); HEMOGLOBIN 7.2 g/dL (14.0-18.0); IMM GRAN# 0.04 X1000 (0.0-0.04); IMM GRAN% 0.4 % (0.0-0.5); LYMPH# 2.06 X1000 (1.2-3.4); LYMPH% 20.2 % (20.5-51.1); MCH 24.4 PG (27-31); MCHC 30.1 g/dL (33-37); MONO# 0.41 X1000 (0.11-0.59); MPV 8.1 FL (7.4-10.4); NEUT# 7.41 X1000 (1.4-6.5); NEUT% 72.5 % (42.2-75.2); PLT 363 X1000 (130-400); RBC 2.95 XMIL (4.7-6.1); RDW 17.3 % (11.5-14.5); WBC 10.22 X1000 (4.8-10.8)
[2019-03-29] MEDS ORDERED: CORTROSYN IV ONE (09:30)
[2019-03-29] MEDS: LYRICA PO SCH ×2 (09:40→20:04)
[2019-03-29 09:42] LABS: AGAP 12; BUN 7 mg/dL (8-22); CALCIUM 6.7 mg/dL (8.8-10.2); CHLORIDE 111 mmol/L (98-107); COSMO 279; CREATININE 0.8 mg/dL (0.7-1.2); ESTIMATED GFR > 60; GLUCOSE 103 mg/dL (70-104); POTASSIUM 2.8 mmol/L (3.5-5.1); SODIUM 141 mmol/L (136-145); TCO2 18 mmol/L (25-35)
[2019-03-29] MEDS ORDERED: POTASSIUM CHLORIDE 40 MEQ/SWI 40 MEQ/100 ML IVPB IV ONE (10:36)
[2019-03-29] MEDS ORDERED: CALCIUM GLUCONATE 1 GM in NS 50 ML IV ONE (10:36)
[2019-03-29] MEDS ORDERED: NS 500 ML IV ONE (12:36)
[2019-03-29] MEDS: LIPOSYN 20% 250 ML IV SCH (12:53)
[2019-03-29] MEDS: CLINIMIX E 4.25%-5% SOLUTION 1,000 ML IV SCH ×2 (12:53→23:21)
--- NOTE | 2019-03-29 13:41 | INFECTIOUS DISEASE PROGRESS NO ---
DATE: 03/29/2019 PRESENT ILLNESS: The patient has infected decubitus ulcers, which caused him to develop the following infections: 1. Bilateral septic hip arthritis. 2. Bilateral hip osteomyelitis. 3. Sacral osteomyelitis. 4. The patient also has a urinary tract infection. Unfortunately, the patient's organisms that were isolated from these infections which include Providencia, Pseudomonas, Enterobacter, and Acinetobacter are very antibiotic resistant. 5. The patient had an aspiration of his left hip and a catheter is in place to hopefully continue drainage of the hip. MEDICATIONS: Because the patient's organisms are very antibiotic resistant, I switched the patient yesterday to meropenem in a dose of 2 g IV every 8 hours. PHYSICAL EXAMINATION: Vital Signs: Temperature is 98.4 degrees, pulse 82, respirations 12, blood pressure is 75/42. General: This is a chronically ill-appearing young male. He is somewhat lethargic today. He is in no acute distress. Head, eyes, ears, nose and throat: No drainage noted from the nose or ears. Neck: No pain when the patient moved his neck. Lungs: Clear to auscultation. Cardiovascular: Heart rate is regular. Abdomen: Soft and nontender. Bones, joints, and muscles: The patient's 3 large decubiti are located 1 on each hip and one on the sacrum. The patient has dressings on these ulcers. Also the patient on his legs has some smaller decubitus ulcers that are not purulent or erythematous. Neurologic: As mentioned above patient is lethargic today. He does not have any tremor. He is paralyzed from the chest distally, which has caused it has caused him to have a bilateral leg paralysis, but he is able to move his arms. LAB AND X-RAY: There is no CBC or BMP for today and there is no new culture. There are no new cultures that have been taken. ASSESSMENT AND PLAN: The patient has in above-named infections as mentioned in the present illness. My plan is to continue with meropenem for 6 weeks because unfortunately the patient has osteomyelitis. COMORBIDITIES: The main one is the patient is paralyzed from the chest down and he is paralyzed in his legs and he has been pretty much bedridden and he has developed multiple decubitus ulcers. cc: Buster Arango MD
--- NOTE | 2019-03-29 14:31 | PROGRESS NOTE ---
DATE: 03/29/2019 SUBJECTIVE: The patient has no major complaints. He was getting wound care when I saw him today, but I was able to see the wounds, most of the wounds I guess. OBJECTIVE: Vital Signs: Blood pressure is still low at 95/55. He is still on Devante-Synephrine. Heart rate 88, respiratory rate 11, temperature 97.5 degrees. Cardiovascular: Regular rate and rhythm. Pulmonary: Bilateral breath sounds. Clear to auscultation. GI: Soft, nontender, nondistended. Bowel sounds were positive. Skin exam: He has a large decubitus. Now, I did not visualize bone on the areas I saw; it was down to fascia and muscle, and it had good granulation tissue. I could not see any active purulence. On the left hip, he has a large open wound, also looked like fascia and musculature and had good granulation tissue, but there was no purulence or drainage. There is reportedly some clear drainage. There is a concern that possibly the one on the left is communicating with his decubitus ulcers because there is air within the abscess pocket. LABORATORY DATA: White count 10, hemoglobin and hematocrit 7 and 23, platelets normal. Potassium 2.8, calcium 6.7. PROBLEM LIST: 1. Septic shock with bilateral hip abscesses, chronic osteomyelitis of both hips with bony destruction of his right hip I believe. He is still on vasopressors. We are evaluating him for adrenal insufficiency, for which is adrenal testing is negative. His cortisol levels are generally low, but he is very malnourished, and we will continue to follow. He is getting wound care and broad-spectrum antibiotics per Dr. Arango. 2. Infected decubitus. His cultures have grown out Providencia, Enterococcus faecalis, Pseudomonas and Acinetobacter, all of which are multidrug resistant, consistent numerous probably pre antibiotic exposures. Will continue wound care. It does look like he is stooling, at least on the hip ones are getting fecal contamination. He has Enterococcus; obviously that would be consistent. I do not think he is a candidate for diverting ostomy, although that would be probably preferential for his wound healing. However, he is so malnourished, I am not sure how well he will do with surgery at this point. 3. Severe protein-calorie malnutrition. I think he may even need total parenteral nutrition. I have started Clinimix. We will continue to follow. He is just not eating very much. 4. Anemia. His hemoglobin and hematocrit has dropped again. I think he is losing some blood just from the wounds, but also just severe chronic inflammation and poor nutrition. We will probably go ahead and transfuse him again. DISPOSITION: Pending clinical status. He will likely need long-term care or LTAC when he is more stable. cc: Ike Thapa MD
[2019-03-29] MEDS: FOLIC ACID 1 MG in NS 50 ML IV SCH (16:00)
[2019-03-29] MEDS: AMBIEN PO SCH (20:04)
[2019-03-29] MEDS: NORCO-7.5 PO PRN (22:31)
[2019-03-30] MEDS: MERREM 2 GM in NS 100 ML IV SCH ×3 (03:14→18:47)
[2019-03-30] MEDS: DILAUDID IV PRN ×5 (05:19→20:46)
[2019-03-30] MEDS: LOVENOX SUBQ SCH (05:20)
[2019-03-30 05:52] LABS: BASO# 0.03 X1000 (0.0-0.2); BASO% 0.3 % (0.0-0.8); EOS# 0.29 X1000 (0.0-0.7); EOS% 3.1 % (0.0-10.0); HEMATOCRIT 26.3 % (42.0-52.0); HEMOGLOBIN 8.1 g/dL (14.0-18.0); IMM GRAN# 0.05 X1000 (0.0-0.04); IMM GRAN% 0.5 % (0.0-0.5); LYMPH# 1.75 X1000 (1.2-3.4); LYMPH% 18.5 % (20.5-51.1); MCHC 30.8 g/dL (33-37); MCV 81.2 FL (81-99); MONO# 0.43 X1000 (0.11-0.59); MONO% 4.5 % (1.7-9.3); MPV 8.7 FL (7.4-10.4); NEUT# 6.91 X1000 (1.4-6.5); NEUT% 73.1 % (42.2-75.2); PLT 324 X1000 (130-400); RBC 3.24 XMIL (4.7-6.1); RDW 16.7 % (11.5-14.5); WBC 9.46 X1000 (4.8-10.8)
[2019-03-30 06:15] LABS: ESTIMATED GFR > 60
[2019-03-30 06:19] LABS: AGAP 9; BUN 8 mg/dL (8-22); CALCIUM 7.3 mg/dL (8.8-10.2); CHLORIDE 109 mmol/L (98-107); COSMO 277; CREATININE 0.5 mg/dL (0.7-1.2); GLUCOSE 117 mg/dL (70-104); SODIUM 139 mmol/L (136-145); TCO2 21 mmol/L (25-35)
[2019-03-30 06:27] LABS: POTASSIUM 2.5 mmol/L (3.5-5.1)
[2019-03-30] MEDS: ZOFRAN IV PRN (06:37)
[2019-03-30] MEDS: NEO-SYNEPHRINE 50 MG in NS 250 ML IV SCH (06:53)
[2019-03-30] MEDS ORDERED: MAGNESIUM SULFATE 1 GM/D5W 1 GM/100 ML IVPB IV ONE ×2 (07:10→09:30)
[2019-03-30] MEDS ORDERED: POTASSIUM CHLORIDE 40 MEQ/SWI 40 MEQ/100 ML IVPB IV ONE (07:10)
[2019-03-30] MEDS ORDERED: KLOR-CON PO ONE (07:10)
[2019-03-30] MEDS ORDERED: POTASSIUM CHLORIDE 60 MEQ in NS 500 ML IV ONE (07:53)
[2019-03-30] MEDS ORDERED: MAGNESIUM SULFATE 2 GM/S.W.I. 2 GM/50 ML IVPB IV ONE (07:55)
[2019-03-30] MEDS: LYRICA PO SCH ×2 (08:01→20:47)
[2019-03-30] MEDS: PHENERGAN IV PRN ×3 (09:46→22:47)
[2019-03-30] MEDS: CLINIMIX E 4.25%-5% SOLUTION 1,000 ML IV SCH ×2 (09:46→17:50)
[2019-03-30] MEDS: NORCO-7.5 PO PRN (11:28)
[2019-03-30] MEDS: LIPOSYN 20% 250 ML IV SCH (13:19)
[2019-03-30 14:07] LABS: AGAP 10; ALBUMIN 1.4 g/dL (3.5-5.0); BUN 8 mg/dL (8-22); CHLORIDE 110 mmol/L (98-107); COSMO 281; CREATININE 0.5 mg/dL (0.7-1.2); ESTIMATED GFR > 60; GLUCOSE 162 mg/dL (70-104); MAGNESIUM 1.6 mg/dL (1.5-2.7); POTASSIUM 3.4 mmol/L (3.5-5.1); SODIUM 140 mmol/L (136-145); TCO2 20 mmol/L (25-35)
[2019-03-30 14:13] LABS: CALCIUM 6.9 mg/dL (8.8-10.2)
--- NOTE | 2019-03-30 14:32 | PROGRESS NOTE ---
DATE: 03/30/2019 INTERVAL HISTORY: The patient proximally stable. Still on pressors with phenylephrine although at low dose and may be able to be weaned off later today. Pain reasonably controlled. No new complaints. No acute events overnight. REVIEW OF SYSTEMS: Twelve-point review of systems negative except as per interval history. LABS: WBC 9.4, hemoglobin 8.1, hematocrit 26.3, platelets 324,000. Sodium 139, potassium 3.5, BUN 8, creatinine 0.5, glucose 117, calcium 7.3, magnesium 1.4. Cortisol stimulation test yesterday essentially unremarkable. VITALS: T-max 99.3 degrees, pulse 81, respirations 18, blood pressure 95/60, O2 saturation 100% on room air. PHYSICAL EXAMINATION: General: In no acute distress. Chronically ill appearing. Vitals: As above. HEENT/Neck: Normocephalic, atraumatic. Moist mucous membranes. No cervical adenopathy. Cardiovascular: Regular rate and rhythm. No murmurs noted. Pulmonary: Clear to auscultation bilaterally. No wheezing, rales, or rhonchi. Abdomen: Soft, nontender. Bowel sounds positive. Extremities: Peripheral pulses decreased but intact. Numerous ulcers in various stages of healing. Large previously noted decubitus ulcers down to bone were bandaged currently with a drain in place. Bandage clean, dry, intact. Drain appears to be draining serous fluid. Neurologic: Cranial nerves II-XII grossly intact. Paraplegia, stable with no movement below the chest essentially. Strength full in the upper extremities. Psychiatric: Normal mood and affect. Awake, alert, oriented x3. ASSESSMENT AND PLAN: 1. Septic shock. Multifactorial with hepatic abscesses, osteomyelitis, infected decubitus ulcers. Remains on pressors with phenylephrine, but looking like we may be able to get him weaned off that within the next day or so. Continue antibiotics as below and monitor. 2. Bilateral hip abscesses, chronic osteomyelitis of hips and infected decubitus ulcers. Cultures growing out multiple organisms including Pseudomonas, Providencia, Enterococcus faecalis, Acinetobacter and Enterobacter. Infectious Disease following and assisting with antibiotics. Currently on antibiotics with meropenem which we plan on continuing. Blood cultures negative. Continue to monitor closely. 3. Protein calorie malnutrition. Oral intake has been pretty sparse, although he has done a little better over the last 24 hours with 75% of most of his meals. The patient endorses poor appetite without nausea or dysphagia. May try him on an appetite stimulant to see if that helps any. On Clinimix, which we will continue for now. 4. Anemia, likely anemia of chronic disease related to his acute on chronic infections. No clear signs or symptoms of active blood loss. Continue monitoring. We will transfuse as needed. 5. Hypokalemia, hypocalcemia, hypomagnesemia. We will replete potassium and magnesium aggressively. Large part of his low calcium is likely hypoalbuminemia, so we will hold off on repleting that for now. Recheck albumin in the morning. Cortisol stimulation test yesterday within normal limits.
[2019-03-30] MEDS: MARINOL PO SCH ×2 (15:54→20:47)
[2019-03-30] MEDS: FOLIC ACID 1 MG in NS 50 ML IV SCH (15:54)
[2019-03-30] MEDS: AMBIEN PO SCH (20:47)
[2019-03-30] MEDS: SODIUM CHLORIDE 0.9% INJ PRN (22:47)
[2019-03-31] MEDS: NEO-SYNEPHRINE 50 MG in NS 250 ML IV SCH ×3 (00:40→19:46)
[2019-03-31] MEDS: MERREM 2 GM in NS 100 ML IV SCH ×3 (03:26→18:49)
[2019-03-31] MEDS: LOVENOX SUBQ SCH (05:40)
[2019-03-31] MEDS: DILAUDID IV PRN ×5 (05:59→21:47)
[2019-03-31] MEDS: CLINIMIX E 4.25%-5% SOLUTION 1,000 ML IV SCH ×2 (07:01→09:48)
[2019-03-31 07:13] LABS: BASO# 0.02 X1000 (0.0-0.2); BASO% 0.3 % (0.0-0.8); EOS# 0.23 X1000 (0.0-0.7); EOS% 3.1 % (0.0-10.0); HEMATOCRIT 25.5 % (42.0-52.0); HEMOGLOBIN 7.8 g/dL (14.0-18.0); IMM GRAN# 0.04 X1000 (0.0-0.04); IMM GRAN% 0.5 % (0.0-0.5); LYMPH# 1.49 X1000 (1.2-3.4); MCHC 30.6 g/dL (33-37); MCV 81.7 FL (81-99); MONO% 6.7 % (1.7-9.3); MPV 8.3 FL (7.4-10.4); NEUT# 5.18 X1000 (1.4-6.5); NEUT% 69.4 % (42.2-75.2); PLT 272 X1000 (130-400); RBC 3.12 XMIL (4.7-6.1); RDW 16.9 % (11.5-14.5); WBC 7.46 X1000 (4.8-10.8)
[2019-03-31 07:25] LABS: AGAP 8; BUN 9 mg/dL (8-22); CALCIUM 7.5 mg/dL (8.8-10.2); CHLORIDE 111 mmol/L (98-107); COSMO 284; CREATININE 0.5 mg/dL (0.7-1.2); ESTIMATED GFR > 60; GLUCOSE 108 mg/dL (70-104); SODIUM 143 mmol/L (136-145); TCO2 24 mmol/L (25-35)
[2019-03-31] MEDS: MARINOL PO SCH ×2 (08:01→21:48)
[2019-03-31] MEDS: LYRICA PO SCH ×2 (08:01→21:48)
[2019-03-31] MEDS ORDERED: POTASSIUM CHLORIDE 60 MEQ in NS 500 ML IV ONE (08:20)
[2019-03-31] MEDS: PERCOCET-10 PO PRN (10:57)
[2019-03-31] MEDS: IMODIUM PO PRN ×2 (12:39→22:08)
[2019-03-31] MEDS: LIPOSYN 20% 250 ML IV SCH (12:43)
[2019-03-31] MEDS: PHENERGAN IV PRN ×2 (13:36→22:52)
--- NOTE | 2019-03-31 14:59 | PROGRESS NOTE ---
DATE: 03/31/2019 INTERVAL HISTORY: I have attempted to wean pressors, but not been successful so far. The patient is still on phenylephrine, although at a slightly decreased dose. He remains afebrile. Complains only of some slightly increased pain. No acute events overnight. No other new complaints. REVIEW OF SYSTEMS: A 12-point review of systems is negative, except as per interval history. LABORATORY DATA: WBC 7.4, hemoglobin 7.8, hematocrit 25.5, platelets 272,000. Sodium 143, potassium 3, BUN 9, creatinine 0.5, glucose 108, calcium 7.5, albumin 1.5. OBJECTIVE: Vital Signs: T-max 99.9, pulse 91, respirations 19, blood pressure 95/55, O2 saturation 100% on room air. General: No acute distress. Chronically ill-appearing. HEENT: Normocephalic, atraumatic. Moist mucous membranes. No cervical adenopathy. Cardiovascular: Regular rate and rhythm. No murmurs noted. Pulmonary: Clear to auscultation bilaterally. No wheezing, rales, or rhonchi. Abdomen: Soft, nontender. Bowel sounds positive. Extremities: Peripheral pulses decreased, but intact. Numerous ulcers in various stages of healing on the lower legs. Large, deep decubitus ulcer is bandaged. Drain in place with only minimal serous drainage. Neurologic: Cranial nerves are grossly intact. Paraplegia is stable. No new focal deficits. Full strength in the upper extremities. Psychiatric: Normal mood and affect. Awake, alert, oriented x3. ASSESSMENT AND PLAN: 1. Septic shock, multifactorial with bilateral hip abscesses, osteomyelitis, infected decubitus ulcers. Remains on pressors with phenylephrine. Continue antibiotics as below, and monitor. Given minimal drainage from surgical drain, suspect we can probably remove that today, but will see what Infectious Disease says. 2. Bilateral hip abscesses, chronic osteomyelitis of hips, and infected decubitus ulcers. Culture is growing out multiple organisms, including Pseudomonas, Providencia, Enterococcus faecalis, Acinetobacter, and Enterobacter. Infectious Disease is following and assisting with antibiotics. Currently on Merrem. Blood cultures remain negative. Continue to monitor closely. Prognosis guarded. 3. Protein calorie malnutrition. Oral intake has been poor traditionally, although a little better today. After discussion with the patient, I started him on Marinol yesterday. Will see what that does. On Clinimix, which will continue for now. 4. Anemia, likely anemia of chronic disease. Monitor and transfuse as needed. 5. Hypokalemia, hypocalcemia, hypomagnesemia. Calcium improved. Potassium remains low. Will further replete and monitor.
[2019-03-31] MEDS: FOLIC ACID 1 MG in NS 50 ML IV SCH (16:38)
[2019-03-31] MEDS: AMBIEN PO SCH (21:48)
[2019-03-31] MEDS: SODIUM CHLORIDE 0.9% INJ PRN (22:52)
[2019-04-01] MEDS: DILAUDID IV PRN ×7 (01:00→21:46)
[2019-04-01] MEDS: CLINIMIX E 4.25%-5% SOLUTION 1,000 ML IV SCH ×3 (01:48→21:36)
[2019-04-01] MEDS: IMODIUM PO PRN ×5 (03:45→21:36)
[2019-04-01] MEDS: MERREM 2 GM in NS 100 ML IV SCH ×3 (03:45→18:47)
[2019-04-01] MEDS: LOVENOX SUBQ SCH (06:42)
[2019-04-01 06:55] LABS: BASO# 0.02 X1000 (0.0-0.2); BASO% 0.3 % (0.0-0.8); EOS# 0.29 X1000 (0.0-0.7); EOS% 4.1 % (0.0-10.0); HEMATOCRIT 23.7 % (42.0-52.0); IMM GRAN# 0.04 X1000 (0.0-0.04); IMM GRAN% 0.6 % (0.0-0.5); LYMPH% 24.3 % (20.5-51.1); MCH 24.7 PG (27-31); MCHC 29.5 g/dL (33-37); MCV 83.7 FL (81-99); MONO# 0.41 X1000 (0.11-0.59); MONO% 5.9 % (1.7-9.3); MPV 8.8 FL (7.4-10.4); NEUT# 4.53 X1000 (1.4-6.5); NEUT% 64.8 % (42.2-75.2); PLT 245 X1000 (130-400); RBC 2.83 XMIL (4.7-6.1); WBC 6.99 X1000 (4.8-10.8)
[2019-04-01 07:23] LABS: AGAP 8; BUN 10 mg/dL (8-22); CALCIUM 7.6 mg/dL (8.8-10.2); CHLORIDE 105 mmol/L (98-107); COSMO 278; CREATININE 0.6 mg/dL (0.7-1.2); ESTIMATED GFR > 60; GLUCOSE 118 mg/dL (70-104); POTASSIUM 3.9 mmol/L (3.5-5.1); SODIUM 139 mmol/L (136-145); TCO2 26 mmol/L (25-35)
[2019-04-01] MEDS: MARINOL PO SCH ×2 (08:21→21:37)
[2019-04-01] MEDS: LYRICA PO SCH ×2 (08:21→21:36)
[2019-04-01] MEDS: PHENERGAN IV PRN ×3 (09:07→21:43)
[2019-04-01] MEDS: NEO-SYNEPHRINE 50 MG in NS 250 ML IV SCH ×2 (11:32→21:52)
--- NOTE | 2019-04-01 12:56 | PROGRESS NOTE ---
DATE: 04/01/2019 SUBJECTIVE: The patient does not really have any major complaints. He seems like he is better. He is eating a bit better. OBJECTIVE: Vital Signs: Blood pressure 108/73, heart rate 65, respiratory 18, temperature 99 degrees, and afebrile. Cardiovascular: Regular rate and rhythm. Pulmonary: Bilateral breath sounds. Clear to auscultation. GI: Soft. Nontender. Nondistended. Bowel sounds were positive. LABORATORY DATA: White count 6, hemoglobin and hematocrit 7 and 23, and platelets 245,000. Basic was normal. PROBLEM LIST: 1. Septic shock with bilateral hip abscesses, chronic osteo with bony destruction. He is still on vasopressors, he may have been off. 2. Bilateral hip abscesses with multiple organisms. Pseudomonas is the last one, and that is from the hip drain. It is still sensitive to the Zosyn fortunately, but he is on meropenem. He had a question of draining the left hip, but we will see how things look. I think we will probably push to do that tomorrow, and I think we can remove the other one. 3. Severe protein-calorie malnutrition. We will continue to monitor him. He is on Clinimix. We are advancing his diet. Marinol was started for appetite stimulation, and we will see how he does. 4. Anemia. His hemoglobin and hematocrit continues to drop. I think he has gotten 2 units of blood. His hemoglobin and hematocrit still continues to drop. 5. Decubitus ulcers. They are still healing. There is still infection associated with them. He is getting wound care. We will continue to monitor. DISPOSITION: Pending his clinical status although overall he has improved somewhat. We will continue to follow closely. cc: Ike Thapa MD
[2019-04-01] MEDS: PERCOCET-10 PO PRN ×3 (13:03→21:45)
[2019-04-01] MEDS: LIPOSYN 20% 250 ML IV SCH (14:00)
--- NOTE | 2019-04-01 16:00 | Diag Imaging Result Doc PS360 ---
EXAM: CHEST-PORTABLE HISTORY: Picc line position TECHNIQUE: Single view COMPARISON: 03/28/2019 FINDINGS: The lungs are well expanded. The heart is not enlarged. The vessels are not distended. There are no infiltrates. No effusion identified. There is a right-sided PICC line. The tip overlies the upper superior vena cava at the level of the aortic arch. IMPRESSION: Right-sided PICC line tip in the upper superior vena cava the level of the aortic arch. Electronically signed by Garrick Steiner 04/01/2019 3:58 PM
[2019-04-01] MEDS: FOLIC ACID 1 MG in NS 50 ML IV SCH (16:57)
[2019-04-01] MEDS: SODIUM CHLORIDE 0.9% INJ PRN (17:39)
[2019-04-01] MEDS: AMBIEN PO SCH (21:37)
[2019-04-02] MEDS: MERREM 2 GM in NS 100 ML IV SCH ×3 (03:00→18:27)
[2019-04-02] MEDS: PHENERGAN IV PRN ×4 (05:19→18:42)
[2019-04-02] MEDS: PERCOCET-10 PO PRN ×4 (05:20→20:33)
[2019-04-02] MEDS: IMODIUM PO PRN ×3 (05:20→18:42)
[2019-04-02] MEDS: DILAUDID IV PRN ×5 (05:22→21:56)
[2019-04-02] MEDS: LOVENOX SUBQ SCH (05:23)
[2019-04-02] MEDS: CLINIMIX E 4.25%-5% SOLUTION 1,000 ML IV SCH ×3 (08:51→23:57)
[2019-04-02] MEDS: LYRICA PO SCH ×2 (08:52→20:33)
[2019-04-02] MEDS: SODIUM CHLORIDE 0.9% INJ PRN (08:53)
[2019-04-02] MEDS: MARINOL PO SCH ×2 (08:53→20:33)
[2019-04-02 09:46] LABS: AGAP 9; BUN 11 mg/dL (8-22); CALCIUM 8.4 mg/dL (8.8-10.2); CHLORIDE 103 mmol/L (98-107); COSMO 277; CREATININE 0.4 mg/dL (0.7-1.2); ESTIMATED GFR > 60; GLUCOSE 107 mg/dL (70-104); MAGNESIUM 1.6 mg/dL (1.5-2.7); PHOSPHORUS 2.9 mg/dL (2.7-4.5); POTASSIUM 4.1 mmol/L (3.5-5.1); SODIUM 139 mmol/L (136-145); TCO2 27 mmol/L (25-35)
[2019-04-02 10:25] LABS: BASO# 0.03 X1000 (0.0-0.2); BASO% 0.4 % (0.0-0.8); EOS# 0.35 X1000 (0.0-0.7); EOS% 4.8 % (0.0-10.0); HEMATOCRIT 28.9 % (42.0-52.0); HEMOGLOBIN 8.5 g/dL (14.0-18.0); IMM GRAN# 0.06 X1000 (0.0-0.04); IMM GRAN% 0.8 % (0.0-0.5); LYMPH# 1.76 X1000 (1.2-3.4); LYMPH% 24.1 % (20.5-51.1); MCH 24.7 PG (27-31); MCHC 29.4 g/dL (33-37); MONO# 0.45 X1000 (0.11-0.59); MONO% 6.2 % (1.7-9.3); MPV 8.5 FL (7.4-10.4); NEUT# 4.65 X1000 (1.4-6.5); NEUT% 63.7 % (42.2-75.2); PLT 248 X1000 (130-400); RBC 3.44 XMIL (4.7-6.1)
[2019-04-02] MEDS: LIPOSYN 20% 250 ML IV SCH (12:14)
[2019-04-02] MEDS: NEO-SYNEPHRINE 50 MG in NS 250 ML IV SCH ×2 (12:14→20:28)
--- NOTE | 2019-04-02 14:01 | PROGRESS NOTE ---
DATE: 04/02/2019 SUBJECTIVE: Patient has no major complaints. OBJECTIVE: Blood pressure is 102/74, heart rate 109, respiratory rate 20, temperature 98.2 degrees, 100% on room air. Cardiovascular: Regular rate and rhythm. Pulmonary: Bilateral breath sounds clear to auscultation. GI: Soft, nontender, normal bowel sounds. White count 7, hemoglobin and hematocrit 8 and 28, platelets of 248,000. Basic was normal. Calcium has kind of come up. Magnesium is 1.6. PROBLEM LIST: 1. Septic shock with bilateral hip abscesses, chronic osteomyelitis. We are going to probably image and see if we can drain the left hip. He is still on vasopressors so we will continue to follow. 2. Bilateral hip abscesses with multiple multidrug resistant organisms including Pseudomonas, Acinetobacter, Providencia, Enterococcus faecalis, Enterobacter cloacae. He is currently on meropenem. 3. Severe protein-calorie malnutrition. He is on Clinimix. Advancing his diet. 4. Anemia. His hemoglobin and hematocrit are improved. 5. Decubitus ulcers. We are still doing aggressive wound care. We will continue to follow closely. cc: Ike Thapa MD
[2019-04-02] MEDS: FOLIC ACID 1 MG in NS 50 ML IV SCH (16:36)
[2019-04-02] MEDS: AMBIEN PO SCH (20:33)
[2019-04-03] MEDS: MERREM 2 GM in NS 100 ML IV SCH ×3 (02:13→18:47)
[2019-04-03] MEDS: CLINIMIX E 4.25%-5% SOLUTION 1,000 ML IV SCH ×3 (04:25→15:07)
[2019-04-03] MEDS: DILAUDID IV PRN ×6 (04:35→21:46)
[2019-04-03] MEDS: LOVENOX SUBQ SCH ×2 (04:37→05:03)
[2019-04-03] MEDS: PHENERGAN IV PRN ×3 (04:51→14:29)
[2019-04-03] MEDS: NEO-SYNEPHRINE 50 MG in NS 250 ML IV SCH ×3 (06:04→21:44)
[2019-04-03 06:17] LABS: BASO# 0.03 X1000 (0.0-0.2); BASO% 0.3 % (0.0-0.8); EOS# 0.36 X1000 (0.0-0.7); EOS% 4.1 % (0.0-10.0); HEMATOCRIT 24.7 % (42.0-52.0); HEMOGLOBIN 7.4 g/dL (14.0-18.0); IMM GRAN# 0.07 X1000 (0.0-0.04); IMM GRAN% 0.8 % (0.0-0.5); LYMPH# 1.74 X1000 (1.2-3.4); MCH 25.3 PG (27-31); MCV 84.6 FL (81-99); MONO# 0.61 X1000 (0.11-0.59); MPV 9.8 FL (7.4-10.4); NEUT# 5.91 X1000 (1.4-6.5); NEUT% 67.8 % (42.2-75.2); PLT 270 X1000 (130-400); RBC 2.92 XMIL (4.7-6.1); RDW 16.9 % (11.5-14.5); WBC 8.72 X1000 (4.8-10.8)
[2019-04-03 06:42] LABS: AGAP 6; BUN 13 mg/dL (8-22); CALCIUM 7.9 mg/dL (8.8-10.2); CHLORIDE 98 mmol/L (98-107); COSMO 276; CREATININE 0.4 mg/dL (0.7-1.2); ESTIMATED GFR > 60; GLUCOSE 128 mg/dL (70-104); POTASSIUM 3.9 mmol/L (3.5-5.1); SODIUM 137 mmol/L (136-145); TCO2 33 mmol/L (25-35)
[2019-04-03] MEDS: LYRICA PO SCH ×2 (08:39→21:44)
[2019-04-03] MEDS: MARINOL PO SCH ×2 (08:39→21:45)
[2019-04-03] MEDS: PERCOCET-10 PO PRN ×3 (10:43→21:45)
[2019-04-03] MEDS: LIPOSYN 20% 250 ML IV SCH (12:37)
--- NOTE | 2019-04-03 15:05 | PROGRESS NOTE ---
DATE: 04/03/2019 SUBJECTIVE: The patient looks about the same. No major complaints. He is still having some issues with his appetite. OBJECTIVE: Vital Signs: Blood pressure is 96/76, heart rate is 113, respiratory rate of 20, temperature 98.4 degrees. Cardiovascular: Regular rate and rhythm. Pulmonary: Bilateral breath sounds. Clear to auscultation. GI: Soft, nontender, nondistended. Bowel sounds are positive. LABORATORY DATA: White count 8, hemoglobin and hematocrit 7 and 24, platelets 270,000. Basic was normal. PROBLEM LIST: 1. Septic shock due to chronic osteomyelitis, bilateral hip abscesses. We will continue antibiotics, wound care, and set him up for drainage of the left hip if there are still fluids present. He still requiring vasopressors. We have evaluated him for adrenal insufficiency. I am reluctant to start hydrocortisone, but I am not quite sure what else we are going to do to try to get him off the vasopressors. 2. Bilateral hip abscesses and decubitus ulcers with multiple organisms, including Pseudomonas, Acinetobacter, Providencia, Enterococcus, Enterobacter. He is currently on meropenem. This will be day 6, and he seems to be doing okay. 3. Severe protein-calorie malnutrition. He is on Clinimix, Liposin, he is on dietary supplements. 4. Anemia. Hemoglobin and hematocrit are dropping again. Will continue to monitor. 5. Sacral and ischial decubitus ulcers. We will continue treatment and follow. 6. Disposition. Not going anywhere right now until we can get his blood pressure stabilized. cc: Ike Thapa MD
--- NOTE | 2019-04-03 15:19 | INFECTIOUS DISEASE PROGRESS NO ---
DATE: 04/03/2019 PRESENT ILLNESS: Mr. 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 He is status post right hip abscess drainage. There are also multiple decubitus ulcers. He also has sacral osteomyelitis. Bacteria that have grown to these areas include Pseudomonas, Providencia, Enterococcus, and Acinetobacter, all of which are multi-drug resistant. Also there is an Enterobacter and Pseudomonas urinary tract infection. MEDICATIONS: He is on day 6 of treatment with meropenem 2 grams IV every eight hours. PHYSICAL EXAMINATION: Vital Signs: Temperature is 98.4 degrees, pulse rate 113, respiratory rate 20, blood pressure 96/76. O2 saturation is 100% on room air. General: This is a chronically ill- appearing middle-aged gentleman. He is lying in the bed, currently in no acute distress. HEENT: Atraumatic, normocephalic. Oral mucous membranes are pink and moist. Conjunctivae are pale. Neck: Supple. Trachea is midline. Cardiovascular: Heart rate and rhythm are regular and fast, sinus tachycardia on the monitor. Respiratory: Lung sounds are clear to auscultation bilaterally. No work of breathing is noted. Abdomen: Soft, flat, and mildly tender to palpation. Bowel sounds are active. Integumentary: There is a PICC line in place to the right upper arm. That site is without edema, erythema or drainage. Integumentary: Skin is warm, dry, and pale with multiple dressings in place to upper and lower extremities, not removed at this time. Neurologic: He is awake, alert, oriented, and able to move his upper extremities with some limitations, and is a C7 quadriplegic. LABORATORY AND X-RAY: Today his white count is 8.72, hemoglobin 7.4, platelet count 270,000. Creatinine is 0.4. Estimated GFR is greater than 60. No imaging reports today. The chest x-ray done yesterday showed a PICC line with no infiltrates or effusions to the lungs. ASSESSMENT AND PLAN: Mr. Stewart has multiple antibiotic resistant bacteria which have grown from the area of his hips and sacrum with bilateral septic hip arthritis and osteomyelitis, as well as sacral osteomyelitis. He is receiving meropenem which should cover all of the bacteria that were isolated. He will need to continue this for a total of six weeks. Today is day 6 of a six-week treatment. After speaking with him, he does agree to go to rehab after this hospitalization. For now he is still receiving pressors and will require stabilization before he is ready to be transferred out. COMORBIDITIES: For Mr. Stewart include, C7 quadriplegia with multiple decubitus ulcers, diabetes mellitus, neuropathy, and protein calorie malnutrition. Dictated by COLTEN Andrews for Ike Thapa MD cc: Ike Thapa MD, MD YUDELKA Recinos
[2019-04-03] MEDS: ZOFRAN IV PRN (15:56)
[2019-04-03] MEDS: FOLIC ACID 1 MG in NS 50 ML IV SCH (16:42)
[2019-04-03] MEDS: AMBIEN PO SCH (21:44)
[2019-04-04] MEDS: DILAUDID IV PRN ×7 (01:02→20:05)
[2019-04-04] MEDS: IMODIUM PO PRN ×3 (01:02→20:06)
[2019-04-04] MEDS: CLINIMIX E 4.25%-5% SOLUTION 1,000 ML IV SCH ×3 (01:02→20:06)
[2019-04-04] MEDS: PERCOCET-10 PO PRN ×3 (03:33→20:06)
[2019-04-04] MEDS: MERREM 2 GM in NS 100 ML IV SCH ×3 (03:33→18:37)
[2019-04-04] MEDS: PHENERGAN IV PRN ×3 (04:15→14:52)
[2019-04-04 05:27] LABS: BASO# 0.02 X1000 (0.0-0.2); BASO% 0.3 % (0.0-0.8); EOS# 0.29 X1000 (0.0-0.7); EOS% 4.5 % (0.0-10.0); HEMATOCRIT 23.2 % (42.0-52.0); HEMOGLOBIN 6.9 g/dL (14.0-18.0); IMM GRAN# 0.03 X1000 (0.0-0.04); IMM GRAN% 0.5 % (0.0-0.5); LYMPH# 1.29 X1000 (1.2-3.4); LYMPH% 19.9 % (20.5-51.1); MCH 25.2 PG (27-31); MCHC 29.7 g/dL (33-37); MCV 84.7 FL (81-99); MONO# 0.42 X1000 (0.11-0.59); MONO% 6.5 % (1.7-9.3); MPV 9.6 FL (7.4-10.4); NEUT# 4.42 X1000 (1.4-6.5); NEUT% 68.3 % (42.2-75.2); PLT 246 X1000 (130-400); RBC 2.74 XMIL (4.7-6.1); RDW 16.4 % (11.5-14.5); WBC 6.47 X1000 (4.8-10.8)
[2019-04-04] MEDS: NEO-SYNEPHRINE 50 MG in NS 250 ML IV SCH ×3 (06:02→17:15)
[2019-04-04] MEDS: LOVENOX SUBQ SCH (06:02)
[2019-04-04 06:12] LABS: AGAP 6; BUN 14 mg/dL (8-22); CALCIUM 7.7 mg/dL (8.8-10.2); CHLORIDE 96 mmol/L (98-107); COSMO 273; CREATININE 0.4 mg/dL (0.7-1.2); ESTIMATED GFR > 60; GLUCOSE 144 mg/dL (70-104); POTASSIUM 3.4 mmol/L (3.5-5.1); SODIUM 135 mmol/L (136-145); TCO2 33 mmol/L (25-35)
[2019-04-04] MEDS: LYRICA PO SCH ×2 (08:22→20:05)
[2019-04-04] MEDS: MARINOL PO SCH ×2 (08:23→20:06)
[2019-04-04] MEDS ORDERED: NS 500 ML IV ONE (11:41)
--- NOTE | 2019-04-04 12:01 | Diag Imaging Result Doc PS360 ---
EXAM: CT DRAIN ABDOMEN ABSCESS W/IMG INDICATION: abscess, hip if able TECHNIQUE: COMPARISON: 03/28/2019 FINDINGS: Risks, benefits, and alternatives were discussed with the patient and informed consent was obtained. Patient was placed in a supine position and was prepped and draped in sterile fashion. Local anesthesia was achieved with 1% lidocaine solution. Using CT guidance, a 10.2-Slovak pigtail catheter was inserted into the patient's periarticular fluid collection on the left and gas collection at about 10 mL of slightly cloudy red-tinged fluid was aspirated. After this, the catheter was injected with Omnipaque contrast and the hip was rescanned. 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 There were no known complications. The pigtail drainage catheter was secured with a locking dressing. IMPRESSION: 1.Technically successful periarticular fluid collection drainage and pigtail catheter placement on the left. 2.Fistulous tract that communicates with the periarticular fluid collection and extends to the posterior skin surface. Please see above discussion. Electronically signed by Andrew Barajas 04/04/2019 11:59 AM
[2019-04-04] MEDS: LIPOSYN 20% 250 ML IV SCH (12:37)
[2019-04-04] MEDS: SODIUM CHLORIDE 0.9% INJ PRN (14:52)
[2019-04-04] MEDS ORDERED: TEARISOL OPH SOLUTION BOTH EYES PRN (15:43)
--- NOTE | 2019-04-04 15:47 | INFECTIOUS DISEASE PROGRESS NO ---
DATE: 04/04/2019 PRESENT ILLNESS: Mr. Stewart is being treated for chronic osteomyelitis with septic arthritis to bilateral hips. He is status post abscess drainage to both hips and currently has an accordion drain to the left hip abscess. He also has multiple decubitus ulcers and a sacral osteomyelitis. He has grown multiple bacteria which are multi drug-resistant. He also has an Enterobacter and Pseudomonas urinary tract infection. MEDICATIONS: Today is day 7 of a 6-week treatment for his osteomyelitis, using meropenem 2 g IV every 8 hours. PHYSICAL EXAMINATION: Vital Signs: Temperature is 97.4 degrees, pulse rate 89, respiratory rate 20, blood pressure 105/72, O2 saturation is 99% on room air. General: This is a chronically ill- appearing middle-aged male. He is lying in bed, currently in no acute distress. HEENT: Atraumatic, normocephalic. Oral mucous membranes are pink and dry. Conjunctivae are pale. Neck: Supple. Trachea is midline. Cardiovascular: Heart rate and rhythm are regular. Sinus rhythm noted on the monitor. Respiratory: Lung sounds are bilaterally clear to auscultation. No work of breathing is noted. Abdomen: Soft, flat, and nontender to palpation. Bowel sounds are active. Neurologic: He is awake, alert, oriented, and has limited movement to his upper extremities and paralysis to the lower extremities due to C7 quadriplegia. Integumentary: Skin is warm and dry with a PICC line in place to the right upper arm. The site is without edema, erythema, or drainage. There is an accordion drain in place to the left hip which has serosanguineous drainage in the tubing. LABORATORY AND X-RAY: Today his white count is 6.47, hemoglobin 6.9, platelet count 246,000. Creatinine is 0.4 with estimated GFR of greater than 60. On this admission, his right hip has grown a Pseudomonas and an Acinetobacter. His left hip has grown a Providencia and Enterococcal faecalis. His pressure ulcer showed Providencia and Pseudomonas. He had a left hip drain put in today which shows 3+ white blood cells on the gram stain with a wound culture which is pending. No imaging reports today. ASSESSMENT AND PLAN: Mr. Stewart is being treated for multiple antibiotic resistant organisms which have grown to his hips and sacrum with bilateral septic hip arthritis and osteomyelitis as well as a sacral osteomyelitis. Today is day 7 of a 6 week treatment using meropenem, which he will continue to need every 8 hours. At this point he does understand he will need to transfer to rehab or a long-term care hospital in order to get wound care and finish out his antibiotics. He is in agreement with that plan. COMORBIDITIES: For Mr. Stewart, include C7 quadriplegia with multiple decubitus ulcers, neuropathy, diabetes mellitus and protein calorie malnutrition. Dictated by COLTEN Andrews for Ike Thapa MD cc: Ike Thapa MD [facility]
--- NOTE | 2019-04-04 15:53 | PROGRESS NOTE ---
DATE: 04/04/2019 SUBJECTIVE: He is not complaining of anything per se, although he says his pain is not controlled on his current Dilaudid. OBJECTIVE: Vital Signs: Blood pressure is 110/81, heart rate 91, respiratory 16, temperature 98.2 degrees 100% on room air. Cardiovascular: Regular rate and rhythm. Pulmonary: Bilateral breath sounds clear to auscultation. Gastrointestinal: Abdomen soft, nontender, nondistended. Bowel sounds are positive. He has a drain in his left hip. LABORATORY DATA: Hemoglobin and hematocrit has dropped again. This is the 2nd day in a row. Now it is down to 6.9 and 23. White count 6, platelets 246,000. Sodium 135, potassium 3.4. PROBLEM LIST: 1. Septic shock due to chronic osteo, bilateral hip abscesses. He is antibiotics which is meropenem I believe now. He has been on since the , so 7 days. He has multiple sources of infection, urinary tract infection, hip wounds, right hip abscess which is growing out Pseudomonas. Infectious Disease is following. We are continuing antibiotics for the time being and I guess we are doing a 6 week treatment with I am assuming meropenem, so we will continue that. 2. Septic shock. He is still persistently hypotensive. I do not necessarily want to start steroids, but I am not really sure how we are going to be able to get his blood pressure stabilized. I may start some midodrine and see if that helps. 3. Severe protein-calorie malnutrition. I think that is related to chronic wounds that have not healed very well. He has lost weight associated with that. 4. Anemia. Continues to drop. I think he is overall again severe chronic inflammation. We will transfuse 1 unit today because his hemoglobin is below 7. 5. Sacral and ischial decubitus ulcers, bilateral ischial decubitus ulcers. We will continue wound care and follow. DISPOSITION: I anticipate LTAC or rehab at discharge. cc: Ike Thapa MD
[2019-04-04] MEDS: FOLIC ACID 1 MG in NS 50 ML IV SCH (16:33)
[2019-04-04] MEDS: AMBIEN PO SCH (20:05)
[2019-04-05] MEDS: MERREM 2 GM in NS 100 ML IV SCH ×3 (03:00→18:16)
[2019-04-05] MEDS: NEO-SYNEPHRINE 50 MG in NS 250 ML IV SCH ×3 (03:00→21:30)
[2019-04-05] MEDS: LOVENOX SUBQ SCH (05:58)
[2019-04-05] MEDS: DILAUDID IV PRN ×5 (05:58→21:38)
[2019-04-05 08:56] LABS: AGAP 9; BUN 13 mg/dL (8-22); CALCIUM 8.5 mg/dL (8.8-10.2); CHLORIDE 96 mmol/L (98-107); COSMO 279; CREATININE 0.4 mg/dL (0.7-1.2); ESTIMATED GFR > 60; GLUCOSE 118 mg/dL (70-104); POTASSIUM 3.7 mmol/L (3.5-5.1); SODIUM 139 mmol/L (136-145); TCO2 34 mmol/L (25-35)
[2019-04-05] MEDS: CLINIMIX E 4.25%-5% SOLUTION 1,000 ML IV SCH ×2 (09:00→17:21)
[2019-04-05 09:44] LABS: BASO# 0.04 X1000 (0.0-0.2); BASO% 0.4 % (0.0-0.8); EOS# 0.32 X1000 (0.0-0.7); EOS% 3.4 % (0.0-10.0); HEMATOCRIT 32.2 % (42.0-52.0); HEMOGLOBIN 9.7 g/dL (14.0-18.0); IMM GRAN# 0.04 X1000 (0.0-0.04); IMM GRAN% 0.4 % (0.0-0.5); LYMPH# 1.75 X1000 (1.2-3.4); LYMPH% 18.8 % (20.5-51.1); MCH 25.7 PG (27-31); MCHC 30.1 g/dL (33-37); MCV 85.2 FL (81-99); MONO# 0.66 X1000 (0.11-0.59); MONO% 7.1 % (1.7-9.3); MPV 10.1 FL (7.4-10.4); NEUT# 6.49 X1000 (1.4-6.5); NEUT% 69.9 % (42.2-75.2); PLT 330 X1000 (130-400); RBC 3.78 XMIL (4.7-6.1); RDW 16.7 % (11.5-14.5)
[2019-04-05] MEDS: LYRICA PO SCH ×2 (09:44→21:34)
[2019-04-05] MEDS: MARINOL PO SCH ×2 (09:44→21:35)
[2019-04-05] MEDS: PHENERGAN IV PRN ×3 (10:03→21:37)
[2019-04-05] MEDS: LIPOSYN 20% 250 ML IV SCH (12:49)
--- NOTE | 2019-04-05 14:47 | INFECTIOUS DISEASE PROGRESS NO ---
DATE: 04/05/2019 PRESENT ILLNESS: Mr. 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 He has also had abscesses drained from both hips and there is currently a drain in place on the left. He also has a sacral osteomyelitis and multiple decubitus ulcers. These have grown multiple bacteria which are antibiotic-resistant. There is also a urinary tract infection which has grown Enterobacter and Pseudomonas. MEDICATIONS: Today is day 8 of a 6 week course using meropenem 2 g IV every 8 hours. PHYSICAL EXAMINATION: Vital Signs: Temperature is 99 degrees, pulse rate 72, respiratory rate 15, blood pressure 100/70, O2 saturation 99% on room air. General: This is a chronically ill- appearing middle-aged gentleman. He is sitting up in bed currently in no acute distress. HEENT: Atraumatic, normocephalic. Oral mucous membranes are pink and moist. Conjunctivae are pale. Neck: Supple. Trachea is midline. Respiratory: Lung sounds are bilaterally clear to auscultation. No work of breathing is noted. Cardiovascular: Heart rate and rhythm are regular with normal sinus rhythm on the monitor. Abdomen: Soft, flat and nontender. Bowel sounds are active. Neurologic: He is awake alert, oriented and has limited movement to his upper extremities with paralysis to the lower extremities. Integumentary: Skin is warm and dry with a PICC line to the right upper arm. The site is without edema, erythema or drainage. There are also multiple dressings to his lower extremities not removed at this time and an accordion drain to the left hip with some serosanguineous drainage in the bag. LABORATORY AND X-RAY: Today his white count is 9.3, hemoglobin 9.7, platelet count 330,000. Creatinine is 0.4, estimated GFR is greater than 60. No imaging reports today. ASSESSMENT AND PLAN: Mr. Stewart is going to need 6 weeks of treatment for the multiple organisms that have grown to his hips, pressure ulcers and urinary tract. So far the organisms isolated include Pseudomonas, Enterobacter, Acinetobacter, Providencia and Enterococcus. Fortunately, the meropenem should cover all of these. There is one culture that is still pending from the accordion drain that was put in yesterday. The plan is to continue his meropenem for a total of 6 weeks for the osteomyelitis. He will need transfer to rehab or an LTACH and is currently in agreement with the plan for transfer once he is discharged from the hospital. COMORBIDITIES: Include multiple decubitus ulcers, C7 quadriplegia, neuropathy, diabetes mellitus and protein calorie malnutrition. Dictated by COLTEN Andrews for Ike Thapa MD cc: Ike Thapa MD [facility]
[2019-04-05] MEDS: SOLU-CORTEF IV SCH (15:05)
[2019-04-05] MEDS: MEGACE LIQUID PO SCH ×2 (15:05→21:39)
--- NOTE | 2019-04-05 15:28 | PROGRESS NOTE ---
DATE: 04/05/2019 SUBJECTIVE: Patient has no complaints. OBJECTIVE: Vital Signs: Blood pressure is 115/70, heart rate of 93, respiratory rate 13, temperature 98.9 degrees, 97% on room air. Cardiovascular: Regular rate and rhythm. Pulmonary: Bilateral breath sounds clear to auscultation. Abdomen: Soft, nontender, nondistended. Bowel sounds are positive. LABORATORY DATA: White count 9, hemoglobin and hematocrit 9 and 32, platelets 330,000. Basic was normal. PROBLEM LIST: 1. Septic shock, chronic osteo, bilateral hip abscesses. He is on meropenem. Infectious Disease is following. Planning for 6 weeks total of treatment. Lets see their note, suggests the day of treatment is day 8 today out of 42. 2. Severe protein-calorie malnutrition. He is on Clinimix. He is on dronabinol. I have added Megace. We will have to be cautious with that. 3. Bilateral hip abscesses. He is status post incision and drainage of both, still waiting on cultures. 4. Anemia has improved. Hemoglobin and hematocrit has improved with a transfusion, but his blood pressure has not. I think he probably maintains a low blood pressure. I am going to add the midodrine and we have added a little bit of hydrocortisone just to see if maybe that will help boost him. His adrenal tests, however, were not abnormal. DISPOSITION: Still waiting on most likely LTAC or rehab so we will work on that. He is still on a little bit of pressor, so he is not able to do anything. He is not ready for discharge at this point. cc: Ike Thapa MD
[2019-04-05] MEDS: FOLIC ACID 1 MG in NS 50 ML IV SCH (16:03)
[2019-04-05] MEDS: AMBIEN PO SCH (21:32)
[2019-04-05] MEDS: PERCOCET-10 PO PRN (21:34)
[2019-04-05] MEDS: IMODIUM PO PRN (21:36)
[2019-04-05] MEDS: PROAMATINE PO SCH (21:47)
[2019-04-06] MEDS: MERREM 2 GM in NS 100 ML IV SCH ×3 (03:00→19:12)
[2019-04-06] MEDS: SOLU-CORTEF IV SCH ×2 (03:00→15:00)
[2019-04-06] MEDS: CLINIMIX E 4.25%-5% SOLUTION 1,000 ML IV SCH ×2 (04:41→13:03)
[2019-04-06] MEDS: LOVENOX SUBQ SCH (06:15)
[2019-04-06] MEDS: PHENERGAN IV PRN ×2 (06:15→17:43)
[2019-04-06] MEDS: DILAUDID IV PRN ×5 (06:16→21:23)
[2019-04-06 07:46] LABS: BASO# 0.02 X1000 (0.0-0.2); BASO% 0.2 % (0.0-0.8); EOS# 0.07 X1000 (0.0-0.7); EOS% 0.8 % (0.0-10.0); HEMATOCRIT 27.7 % (42.0-52.0); HEMOGLOBIN 8.4 g/dL (14.0-18.0); IMM GRAN# 0.02 X1000 (0.0-0.04); IMM GRAN% 0.2 % (0.0-0.5); LYMPH# 0.94 X1000 (1.2-3.4); LYMPH% 11.1 % (20.5-51.1); MCH 25.8 PG (27-31); MCHC 30.3 g/dL (33-37); MONO# 0.52 X1000 (0.11-0.59); MONO% 6.1 % (1.7-9.3); MPV 10.6 FL (7.4-10.4); NEUT# 6.93 X1000 (1.4-6.5); NEUT% 81.6 % (42.2-75.2); PLT 305 X1000 (130-400); RBC 3.26 XMIL (4.7-6.1); RDW 16.7 % (11.5-14.5)
[2019-04-06 07:47] LABS: AGAP 9; BUN 20 mg/dL (8-22); CALCIUM 8.1 mg/dL (8.8-10.2); CHLORIDE 97 mmol/L (98-107); COSMO 291; CREATININE 0.5 mg/dL (0.7-1.2); ESTIMATED GFR > 60; GLUCOSE 368 mg/dL (70-104); MAGNESIUM 1.6 mg/dL (1.5-2.7); POTASSIUM 3.6 mmol/L (3.5-5.1); SODIUM 137 mmol/L (136-145); TCO2 31 mmol/L (25-35)
[2019-04-06] MEDS: PROAMATINE PO SCH ×3 (09:00→21:25)
[2019-04-06] MEDS: LYRICA PO SCH ×2 (09:36→21:26)
[2019-04-06] MEDS: MEGACE LIQUID PO SCH ×2 (09:37→21:27)
[2019-04-06] MEDS: MARINOL PO SCH ×2 (09:37→21:26)
[2019-04-06] MEDS: LIPOSYN 20% 250 ML IV SCH (13:03)
--- NOTE | 2019-04-06 17:01 | PROGRESS NOTE ---
DATE: 04/06/2019 SUBJECTIVE: He looks better today. I think we are going to be able to get him off of his pressors but depends on how he looks, but he is down to 25 mcg where he has been on 100 mcg for the last 3 days. OBJECTIVE: Blood pressure 110/73, heart rate 84, respiratory rate 18, temperature 97.2 degrees.Cardiovascular: Regular rate and rhythm. Pulmonary: Bilateral breath sounds clear to auscultation. GI: Soft, nontender, nondistended. Bowel sounds were positive. LABORATORY DATA: White count is 8, hemoglobin and hematocrit 8 and 27, platelets 305,000. Basic was normal. PROBLEM LIST: 1. Septic shock due to chronic osteo, bilateral hip abscesses. He is on meropenem, which is day because he has got osteo. The most recent cultures are growing out gram-positive cocci, which is the first time that has happened. He had Enterococcus so maybe enterococcus. Hopefully it is not a staph. 2. Severe protein-calorie malnutrition. He is on Clinimix, dronabinol, Megace. He says he is eating a little bit better. 3. Anemia. That is also starting to drift down again. His sugars, though, interestingly have spiked. We will keep an eye on that, it may be causing some of his issues. DISPOSITION: We are still going to look at rehab for LTAC. We are just waiting on getting him off the pressors and then I think we should be able to move over with that. cc: Ike Thapa MD
[2019-04-06] MEDS: NEO-SYNEPHRINE 50 MG in NS 250 ML IV SCH (17:26)
[2019-04-06] MEDS: FOLIC ACID 1 MG in NS 50 ML IV SCH (17:27)
[2019-04-06] MEDS: PERCOCET-10 PO PRN (21:21)
[2019-04-06] MEDS: AMBIEN PO SCH (21:24)
[2019-04-07] MEDS: MERREM 2 GM in NS 100 ML IV SCH ×3 (02:19→18:25)
[2019-04-07] MEDS: DILAUDID IV PRN ×6 (02:19→23:36)
[2019-04-07] MEDS: SOLU-CORTEF IV SCH ×2 (02:19→13:50)
[2019-04-07] MEDS: SODIUM CHLORIDE 0.9% INJ PRN (02:30)
[2019-04-07] MEDS: PHENERGAN IV PRN (02:30)
[2019-04-07] MEDS: CLINIMIX E 4.25%-5% SOLUTION 1,000 ML IV SCH (02:30)
[2019-04-07] MEDS: LOVENOX SUBQ SCH (05:03)
[2019-04-07 06:25] LABS: BASO# 0.01 X1000 (0.0-0.2); BASO% 0.1 % (0.0-0.8); EOS# 0.03 X1000 (0.0-0.7); EOS% 0.3 % (0.0-10.0); HEMATOCRIT 27.1 % (42.0-52.0); HEMOGLOBIN 8.4 g/dL (14.0-18.0); IMM GRAN# 0.04 X1000 (0.0-0.04); IMM GRAN% 0.4 % (0.0-0.5); LYMPH# 1.04 X1000 (1.2-3.4); LYMPH% 11.6 % (20.5-51.1); MCV 83.9 FL (81-99); MONO# 0.54 X1000 (0.11-0.59); MPV 9.9 FL (7.4-10.4); NEUT% 81.6 % (42.2-75.2); PLT 377 X1000 (130-400); RBC 3.23 XMIL (4.7-6.1); RDW 16.9 % (11.5-14.5); WBC 8.96 X1000 (4.8-10.8)
[2019-04-07 07:10] LABS: AGAP 10; BUN 21 mg/dL (8-22); CALCIUM 7.2 mg/dL (8.8-10.2); CHLORIDE 96 mmol/L (98-107); COSMO 289; CREATININE 0.5 mg/dL (0.7-1.2); ESTIMATED GFR > 60; GLUCOSE 446 mg/dL (70-104); POTASSIUM 3.5 mmol/L (3.5-5.1); SODIUM 133 mmol/L (136-145); TCO2 27 mmol/L (25-35)
[2019-04-07] MEDS ORDERED: HUMULIN R SUBQ ONE (08:02)
[2019-04-07] MEDS: HUMULIN R SUBQ SCH ×6 (08:18→23:28)
[2019-04-07] MEDS: MEGACE LIQUID PO SCH ×2 (08:19→20:16)
[2019-04-07] MEDS: MARINOL PO SCH ×2 (08:19→20:18)
[2019-04-07] MEDS: LYRICA PO SCH ×2 (08:19→20:17)
[2019-04-07] MEDS: ZYVOX 600 MG/D5W 600 MG/300 ML IVPB IV SCH ×2 (08:21→20:21)
[2019-04-07] MEDS: PROAMATINE PO SCH ×3 (09:00→20:22)
[2019-04-07] MEDS: FOLIC ACID 1 MG in NS 50 ML IV SCH (17:26)
--- NOTE | 2019-04-07 17:30 | PROGRESS NOTE ---
DATE: 04/07/2019 SUBJECTIVE: Patient has no major complaints. OBJECTIVE: Blood pressure 90/57, heart rate 97, respiratory 16, temperature 99.3 degrees, 100% on room air.Cardiovascular: Regular rate and rhythm. Pulmonary: Bilateral breath sounds. Clear to auscultation. GI: Soft, nontender, nondistended. Bowel sounds are positive. LABORATORY DATA: White count is 8, hemoglobin and hematocrit 8 and 27, platelets 377,000. Glucose has gone up to 446. PROBLEM LIST: 1. Septic shock. He is continued on Merrem. We will continue to follow closely. 2. Severe protein-calorie malnutrition. He is on Clinimix, dronabinol, Megace, now he is becoming hyperglycemic, so I have held the Clinimix. 3. Anemia. H H has been stable and no further transfusions. 4. Hyperglycemia. He does carry a diagnosis of diabetes. His A1c on admission though was 5. He is just on Humalog p.r.n. as an outpatient. I think though we started hydrocortisone yesterday to get him off pressors and that has had an effect on his sugars, so we will wean his hydrocortisone and we will continue sliding scale for the time being and put him on a diabetic diet. DISPOSITION: I think he is probably stable to go to [facility]. He is growing now a VRE out of his left hip, which is only sensitive to quinupristin and tigecycline. I guess presumably it is sensitive to carbapenems. I do not know if the carbapenems will be effective there. I have added Zyvox, presumably it will be sensitive to that until ID can re-evaluate. DISPOSITION: Again, I think he is probably okay to go to the [facility] if bed is available and then we need to work on placement for him. He will need wound care, LTAC and all things of that nature. cc: Ike Thapa MD
[2019-04-07] MEDS: ZOFRAN IV PRN (20:18)
[2019-04-07] MEDS: AMBIEN PO SCH (20:18)
[2019-04-07] MEDS: PERCOCET-10 PO PRN (20:19)
[2019-04-08] MEDS: SOLU-CORTEF IV SCH (01:24)
[2019-04-08] MEDS: MERREM 2 GM in NS 100 ML IV SCH ×3 (01:30→19:09)
[2019-04-08] MEDS: PERCOCET-10 PO PRN ×2 (03:42→20:08)
[2019-04-08] MEDS: HUMULIN R SUBQ SCH ×6 (03:56→23:19)
[2019-04-08] MEDS: LOVENOX SUBQ SCH (05:14)
[2019-04-08] MEDS: MARINOL PO SCH ×2 (08:31→20:07)
[2019-04-08] MEDS: PROAMATINE PO SCH ×3 (08:31→20:07)
[2019-04-08] MEDS: LYRICA PO SCH ×2 (08:31→20:07)
[2019-04-08] MEDS: ZYVOX 600 MG/D5W 600 MG/300 ML IVPB IV SCH (08:31)
[2019-04-08] MEDS: MEGACE LIQUID PO SCH ×2 (08:32→20:06)
[2019-04-08] MEDS: DILAUDID IV PRN ×3 (10:09→21:40)
[2019-04-08 10:34] LABS: BASO# 0.01 X1000 (0.0-0.2); BASO% 0.1 % (0.0-0.8); EOS# 0.04 X1000 (0.0-0.7); EOS% 0.4 % (0.0-10.0); HEMATOCRIT 24.1 % (42.0-52.0); HEMOGLOBIN 7.4 g/dL (14.0-18.0); IMM GRAN# 0.09 X1000 (0.0-0.04); LYMPH# 1.48 X1000 (1.2-3.4); LYMPH% 15.9 % (20.5-51.1); MCH 25.6 PG (27-31); MCHC 30.7 g/dL (33-37); MCV 83.4 FL (81-99); MONO# 0.62 X1000 (0.11-0.59); MONO% 6.6 % (1.7-9.3); MPV 9.6 FL (7.4-10.4); NEUT# 7.09 X1000 (1.4-6.5); PLT 310 X1000 (130-400); RBC 2.89 XMIL (4.7-6.1); RDW 17.1 % (11.5-14.5); WBC 9.33 X1000 (4.8-10.8)
[2019-04-08 11:18] LABS: AGAP 11; BUN 19 mg/dL (8-22); CALCIUM 7.5 mg/dL (8.8-10.2); CHLORIDE 97 mmol/L (98-107); COSMO 276; CREATININE 0.5 mg/dL (0.7-1.2); ESTIMATED GFR > 60; GLUCOSE 172 mg/dL (70-104); POTASSIUM 3.1 mmol/L (3.5-5.1); SODIUM 135 mmol/L (136-145); TCO2 27 mmol/L (25-35)
[2019-04-08] MEDS ORDERED: NS 500 ML IV ONE (13:50)
[2019-04-08] MEDS: FLORINEF PO SCH (13:58)
--- NOTE | 2019-04-08 14:01 | PROGRESS NOTE ---
DATE: 04/08/2019 SUBJECTIVE: Patient has no major complaints. OBJECTIVE: Blood pressure is 96/65, respiratory rate of 8, heart rate of 60, temperature 97.6 degrees, 99% on room air.Cardiovascular: Regular rate and rhythm. Pulmonary: Bilateral breath sounds clear to auscultation. GI: Soft, nontender, nondistended. Bowel sounds were positive. LABORATORY DATA: White count is 9, hemoglobin and hematocrit is low again 7 and 24, platelets 310,000. Potassium 3.1, glucose 172. PROBLEM LIST: 1. Septic shock. He is on Merrem. He has had bilateral drains put in for his hip abscesses. He has got chronic osteo which is going to be treated for total 6 weeks. 2. Severe protein-calorie malnutrition. Will continue his medications and follow. 3. Anemia. Hemoglobin and hematocrit is slowly trending downwards again. 4. Diabetes. His blood sugars are a little better. I am going to just stop his hydrocortisone and I may just put him on a little bit of fludrocortisone and see how he does with that. He is already on midodrine. 5. Hypokalemia. We will supplement and follow. DISPOSITION: We are looking at going to LTAC versus rehab. He has a new culture for vancomycin- resistant Enterococcus. Per ID they would prefer giving him daptomycin so we will continue to follow. cc: Ike Thapa MD
[2019-04-08] MEDS: CUBICIN 500 MG in NS 100 ML IV SCH (14:37)
--- NOTE | 2019-04-08 14:37 | INFECTIOUS DISEASE PROGRESS NO ---
DATE: 04/08/2019 PRESENT ILLNESS: Mr. Stewart is being treated for a chronic osteomyelitis with septic arthritis to his hips bilaterally. There are also bilateral hip abscesses which have been drained and there is currently an accordion drain on the left. That left hip culture has grown a vancomycin-resistant enterococcus. Previous to that, the left hip had a vancomycin-susceptible enterococcus with a Providencia. The right hip has grown a Pseudomonas and an Acinetobacter. He has pressure ulcers which have grown Providencia and Pseudomonas, and an Enterobacter and Pseudomonas urinary tract infection. There is also a sacral osteomyelitis and multiple decubitus ulcers. MEDICATIONS: Yesterday, he was started on IV Zyvox 600mg every 12 hours. Today is day 11 of meropenem 2 g IV every 8 hours. PHYSICAL EXAMINATION: Vital Signs: Temperature is 97.6 degrees, pulse rate 60, respiratory rate 14, blood pressure 96/65, O2 saturation 99% on room air. General: This is a chronically ill- appearing, middle-aged male. He is sitting up in bed, currently in no acute distress. HEENT: Atraumatic, normocephalic. Oral mucous membranes are pink and moist. Conjunctivae are pale. Neck: Supple. Trachea is midline. Cardiovascular: Heart rate and rhythm are regular with a normal sinus rhythm on the monitor. Respiratory: Bilateral lung sounds are clear to auscultation with no work of breathing noted. Abdomen: Soft, flat, and nontender. Bowel sounds are active. Integumentary: Skin is warm and dry with a PICC to the right upper arm. That site is without edema, erythema, or drainage. There is also an accordion drain in place to the left hip with serosanguineous drainage in the bag. Neurologic: He is awake, alert, oriented, and has limited movement to his upper extremities with paralysis to the lower extremities. There are contractures to his hands bilaterally. LABORATORY AND X-RAY: Today his white count is 9.33, hemoglobin 7.4, platelet count 310,000. Creatinine is 0.5. Estimated GFR is greater than 60. His most recent left hip culture has grown a vancomycin-resistant enterococcus. No imaging reports today. ASSESSMENT AND PLAN: Mr. Stewart is being treated for chronic osteomyelitis with septic arthritis to his bilateral hips. There are also multiple decubitus ulcers and a sacral osteomyelitis, as well as a urinary tract infection. He will need a 6-week course of antibiotics to cover the multiple organisms that have grown. So far he is on day 11 out of 6 weeks of meropenem. He had Zyvox started yesterday. He is anemic, so we have changed over to daptomycin 500mg IV daily. This will make day 2 of treatment for the vancomycin-resistant enterococcus, which will also need 6 weeks. At this point, he is still agreeing to transfer to rehab or LTACH for treatment of his osteomyelitis and wound care. COMORBIDITIES: Include multiple decubitus ulcers, C7 quadriplegia, neuropathy, diabetes mellitus, and protein calorie malnutrition. Dictated by COLTEN Andrews for Ike Thapa MD cc: Ike Thapa MD [facility]
[2019-04-08] MEDS: FOLIC ACID 1 MG in NS 50 ML IV SCH (17:46)
[2019-04-08] MEDS: AMBIEN PO SCH (20:07)
[2019-04-08] MEDS: ZOFRAN IV PRN (21:40)
[2019-04-09] MEDS: DILAUDID IV PRN ×4 (01:18→21:42)
[2019-04-09] MEDS: MERREM 2 GM in NS 100 ML IV SCH ×3 (02:40→18:30)
[2019-04-09] MEDS: HUMULIN R SUBQ SCH ×5 (03:21→20:25)
[2019-04-09] MEDS ORDERED: NS 500 ML IV ONE ×2 (04:53→11:08)
[2019-04-09] MEDS: LOVENOX SUBQ SCH (05:05)
[2019-04-09 08:50] LABS: BASO# 0.03 X1000 (0.0-0.2); BASO% 0.3 % (0.0-0.8); EOS# 0.11 X1000 (0.0-0.7); EOS% 1.3 % (0.0-10.0); HEMATOCRIT 23.8 % (42.0-52.0); HEMOGLOBIN 7.2 g/dL (14.0-18.0); IMM GRAN# 0.06 X1000 (0.0-0.04); IMM GRAN% 0.7 % (0.0-0.5); LYMPH# 2.09 X1000 (1.2-3.4); LYMPH% 24.2 % (20.5-51.1); MCH 25.4 PG (27-31); MCHC 30.3 g/dL (33-37); MCV 83.8 FL (81-99); MONO# 0.76 X1000 (0.11-0.59); MONO% 8.8 % (1.7-9.3); MPV 9.3 FL (7.4-10.4); NEUT# 5.57 X1000 (1.4-6.5); NEUT% 64.7 % (42.2-75.2); PLT 383 X1000 (130-400); RBC 2.84 XMIL (4.7-6.1); RDW 17.5 % (11.5-14.5); WBC 8.62 X1000 (4.8-10.8)
[2019-04-09] MEDS: PROAMATINE PO SCH ×3 (09:00→20:45)
[2019-04-09 09:03] LABS: AGAP 7; BUN 18 mg/dL (8-22); CALCIUM 7.2 mg/dL (8.8-10.2); CHLORIDE 100 mmol/L (98-107); COSMO 275; CREATININE 0.4 mg/dL (0.7-1.2); ESTIMATED GFR > 60; GLUCOSE 127 mg/dL (70-104); POTASSIUM 2.9 mmol/L (3.5-5.1); SODIUM 136 mmol/L (136-145); TCO2 29 mmol/L (25-35)
[2019-04-09] MEDS: FLORINEF PO SCH (09:09)
[2019-04-09] MEDS: MEGACE LIQUID PO SCH ×2 (09:09→20:21)
[2019-04-09] MEDS: LYRICA PO SCH ×2 (09:09→20:25)
[2019-04-09] MEDS: MARINOL PO SCH ×2 (09:09→20:22)
[2019-04-09] MEDS: PERCOCET-10 PO PRN ×2 (09:37→20:22)
[2019-04-09] MEDS ORDERED: POTASSIUM CHLORIDE 40 MEQ/SWI 40 MEQ/100 ML IVPB IV ONE (11:11)
[2019-04-09] MEDS: CUBICIN 500 MG in NS 100 ML IV SCH (13:56)
[2019-04-09] MEDS ORDERED: PROAMATINE PO SCH (14:00)
--- NOTE | 2019-04-09 14:39 | PROGRESS NOTE ---
DATE: 04/09/2019 SUBJECTIVE: The patient has no major complaints, except his blood pressure has been dropping all morning. It looks mostly in the 80s. OBJECTIVE: Vital Signs: Blood pressure 88/51, heart rate 86, respiratory rate 18, temperature 98 degrees. Cardiovascular: Regular rate and rhythm. Pulmonary: Bilateral breath sounds. Clear to auscultation. GI: Soft, nontender, nondistended. Bowel sounds are positive. LABORATORY DATA: White count is 8, hemoglobin and hematocrit 7 and 23, and platelets 383,000. Potassium 2.9. PROBLEM LIST: 1. Persistent shock. He does not clearly have adrenal insufficiency. He did respond pretty well to steroids, but then he became profoundly hyperglycemic, so we stopped those. I will go up on midodrine. We will give him another bolus. His hemoglobin and hematocrit again continue to drop, so he may need blood. 2. Severe protein-calorie malnutrition. Will continue treatments. Sugars have stabilized. Will put him back on a regular diet. 3. Anemia. It is slowly trending. I anticipate probably transfusion tomorrow. 4. Type 2 diabetes. The patient is stable. Blood sugars are stable. Will continue to follow. 5. Hypokalemia. 6. Sacral and ischial decubitus ulcers. Continue wound care. With this persistent shock, I am going to maybe get an supervisor of operations because I just cannot get him off pressors. TIME SPENT: 32 minutes of critical care time for septic shock, requiring Devante-Synephrine. cc: Ike Thapa MD
[2019-04-09] MEDS ORDERED: PROAMATINE PO ONE (15:15)
[2019-04-09] MEDS: FOLIC ACID 1 MG in NS 50 ML IV SCH (16:21)
[2019-04-09] MEDS: PHENERGAN IV PRN ×2 (16:25→20:43)
--- NOTE | 2019-04-09 19:22 | INFECTIOUS DISEASE PROGRESS NO ---
DATE: 04/09/2019 PRESENT ILLNESS: Mr. 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 There is also a sacral osteomyelitis with multiple decubitus ulcers. He also has bilateral hip abscesses, which have been drained and there is an accordion drain still present on the left with a culture that grew vancomycin-resistant enterococcus. He has had multiple bacteria that have grown to the hips and decubitus ulcers. He also has an urinary tract infection with Enterobacter and Pseudomonas. MEDICATIONS: Today is day 2 of treatment for the vancomycin-resistant Enterococcus with daptomycin 500 mg IV every 24 hours. He is on day 11 of treatment for the other bacteria responsible for his osteomyelitis, that are covered with meropenem 2 g IV every 8 hours. PHYSICAL EXAMINATION: Vital Signs: Temperature is 98.2 degrees, pulse rate 71, respiratory rate 12, blood pressure 85/55, O2 saturation 100% on room air. General: This is a chronically ill- appearing middle-aged male. He is lying in bed, currently in no acute distress. HEENT: Atraumatic, normocephalic. Oral mucous membranes are pink and moist. Conjunctivae are pale. Neck: Supple. Trachea is midline. Respiratory: Lung sounds are clear to auscultation bilaterally. No work of breathing is noted. Cardiovascular: Heart rate and rhythm are regular with a normal sinus rhythm on the monitor. Abdomen: Soft, flat, nontender. Bowel sounds are active. Integumentary: Skin is warm and dry with a PICC in place to the right upper arm. That site is without edema, erythema, or drainage. There is an accordion drain to the left hip with serosanguineous drainage in the bag. I was able to see some of his decubitus ulcers today. The sacral decubitus has a beefy red wound bed. The left hip decubitus ulcer has a white/red wound bed with serous drainage noted. There are also dressings on his right lateral side and bilateral lower extremities that were not visualized at this time. 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 LABORATORY AND X-RAY: Today his white count is 8.62, hemoglobin 7.2, platelet count 383,000, creatinine is 0.4. Estimated GFR is greater than 60. No imaging reports today. ASSESSMENT AND PLAN: Mr. 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 There are also multiple decubitus ulcers and a sacral osteomyelitis as well as a urinary tract infection. He will need 6 weeks of treatment for the osteomyelitis and is currently on day 12 of meropenem and day 2 of treatment for the left hip vancomycin-resistant Enterococcus, currently using daptomycin. The plan remains for him to go to long-term assisted care once he is stabilized. Unfortunately his blood pressure remains low and it has been difficult to get him out of the intensive care unit. COMORBIDITIES: For the patient include C7 quadriplegia, diabetes mellitus with neuropathy, multiple decubitus ulcers, and protein-calorie malnutrition. Dictated by COLTEN Andrews for Ike Thapa MD cc: Ike Thapa MD MTD
[2019-04-09] MEDS: AMBIEN PO SCH (20:22)
[2019-04-09] MEDS: NEO-SYNEPHRINE 50 MG in NS 250 ML IV SCH (21:51)
--- NOTE | 2019-04-09 22:03 | GENERAL SURGERY PROGRESS NOTE ---
DATE: 04/09/2019 We were asked to place a Morris catheter for IV antibiotics since his PICC line is not working. SUBJECTIVE: The patient has no new complaints. OBJECTIVE: Vital signs: Afebrile. Vital signs are stable. General: He is a chronically malnourished male in no acute distress. Skin: The right chest and neck was examined. There are no signs of erythema or open wounds in his upper chest or neck area. LABORATORY: White blood cell count 8.6, hemoglobin 7.2, hematocrit 23.8, platelet count 383,000. ASSESSMENT/PLAN: A 39-year-old male with chronic osteomyelitis requiring IV antibiotics with a dysfunctional PICC line. We will place a Morris catheter tomorrow. The risks, benefits, and alternatives were discussed with him including bleeding, infection, pneumothorax, deep venous thrombosis, catheter malfunction, and other imponderables. cc: Jani Perez MD
[2019-04-10] MEDS: DILAUDID IV PRN ×6 (00:28→21:13)
[2019-04-10] MEDS: HUMULIN R SUBQ SCH ×6 (00:29→20:58)
[2019-04-10] MEDS: MERREM 2 GM in NS 100 ML IV SCH ×3 (01:59→18:05)
[2019-04-10] MEDS: PHENERGAN IV PRN ×2 (02:07→19:49)
[2019-04-10] MEDS: LOVENOX SUBQ SCH (05:06)
[2019-04-10 06:39] LABS: AGAP 11; BUN 13 mg/dL (8-22); CALCIUM 7.2 mg/dL (8.8-10.2); CHLORIDE 104 mmol/L (98-107); COSMO 283; CREATININE 0.3 mg/dL (0.7-1.2); ESTIMATED GFR > 60; GLUCOSE 125 mg/dL (70-104); POTASSIUM 3.2 mmol/L (3.5-5.1); SODIUM 141 mmol/L (136-145); TCO2 26 mmol/L (25-35)
[2019-04-10] MEDS: PROAMATINE PO SCH ×3 (08:50→20:07)
[2019-04-10] MEDS: LYRICA PO SCH ×2 (08:50→20:06)
[2019-04-10] MEDS: FLORINEF PO SCH (08:50)
[2019-04-10] MEDS: MEGACE LIQUID PO SCH ×2 (08:50→20:05)
[2019-04-10] MEDS: MARINOL PO SCH ×2 (08:50→20:06)
[2019-04-10 09:41] LABS: BASO# 0.05 X1000 (0.0-0.2); BASO% 0.3 % (0.0-0.8); EOS# 0.28 X1000 (0.0-0.7); EOS% 1.9 % (0.0-10.0); HEMATOCRIT 24.3 % (42.0-52.0); HEMOGLOBIN 7.5 g/dL (14.0-18.0); IMM GRAN# 0.08 X1000 (0.0-0.04); IMM GRAN% 0.5 % (0.0-0.5); LYMPH# 2.75 X1000 (1.2-3.4); LYMPH% 18.5 % (20.5-51.1); MCH 25.7 PG (27-31); MCHC 30.9 g/dL (33-37); MCV 83.2 FL (81-99); MONO# 0.95 X1000 (0.11-0.59); MONO% 6.4 % (1.7-9.3); MPV 9.2 FL (7.4-10.4); NEUT# 10.75 X1000 (1.4-6.5); NEUT% 72.4 % (42.2-75.2); PLT 535 X1000 (130-400); RBC 2.92 XMIL (4.7-6.1); RDW 17.7 % (11.5-14.5); WBC 14.86 X1000 (4.8-10.8)
[2019-04-10] MEDS: PERCOCET-10 PO PRN ×3 (10:19→20:07)
[2019-04-10] MEDS ORDERED: XYLOCAINE 1%/EPI 1:100,000 ONE (12:09)
[2019-04-10] MEDS ORDERED: NS 250 ML ONE (12:10)
[2019-04-10] MEDS ORDERED: KLOR-CON PO ONE (12:37)
[2019-04-10] MEDS ORDERED: DIPRIVAN 1% ONE (13:33)
[2019-04-10] MEDS ORDERED: XYLOCAINE-MPF 2% ONE (13:33)
[2019-04-10] MEDS: CUBICIN 500 MG in NS 100 ML IV SCH (14:22)
--- NOTE | 2019-04-10 14:24 | Diag Imaging Result Doc PS360 ---
EXAM: CHEST-PORTABLE 04/10/2019 HISTORY: s/p ruth catheter placement TECHNIQUE: AP portable upright at 1402 COMMENT: There is a right internal jugular central venous catheter with its tip in the right atrium. There is no evidence of pneumothorax or pleural fluid collection. Compared to 04/01/2019 there has been no significant change otherwise. IMPRESSION: No acute disease. Electronically signed by Michel Kidd 04/10/2019 2:21 PM
--- NOTE | 2019-04-10 15:12 | OPERATIVE NOTE ---
PROCEDURE DATE: 04/10/2019 PREOPERATIVE DIAGNOSIS: Osteomyelitis. POSTOPERATIVE DIAGNOSIS: Osteomyelitis. PROCEDURE: Insertion of Morris catheter with fluoroscopic and ultrasound guidance. FINDINGS: The right internal jugular vein was visualized with ultrasound. It was compressible, patent without thrombus. Fluoroscopy revealed proper placement of the wire followed by the catheter tip to the superior vena cava right atrial junction. TECHNIQUE: The patient was brought to the operating room and placed supine on the table. General anesthesia was induced. He was prepped and draped in usual sterile fashion. The right internal jugular vein was found with ultrasound. It was accessed under ultrasound guidance with a needle. The wire passed through the needle into the vein easily. Fluoroscopy revealed proper placement of the wire to the right atrium. The needle was removed. A counter incision was made below the right clavicle. The catheter was then tunneled subcutaneously from the lower incision out through the neck incision. The dilator and sheath were passed over the wire. The wire and dilator were removed. The catheter was passed into the sheath. The sheath was removed. Fluoroscopy revealed proper placement of the wire. The catheter was accessed. It marcy back blood easily. It was flushed with saline. The neck incision was closed with a subcuticular 4-0 Biosyn and Steri- Strips. There were no apparent complications. The catheter was also anchored to the skin at the exit site with 3-0 nylon. cc: Jani Perez MD
[2019-04-10] MEDS: FOLIC ACID 1 MG in NS 50 ML IV SCH (16:34)
--- NOTE | 2019-04-10 19:15 | INFECTIOUS DISEASE PROGRESS NO ---
DATE: 04/10/2019 PRESENT ILLNESS: Mr. Stewart has chronic osteomyelitis with bilateral hip septic arthritis and sacral osteomyelitis with multiple decubitus ulcers. There are also bilateral hip abscesses that have been drained, and an accordion drain is still in place on the left hip, which has grown vancomycin resistant enterococcus. There is also an Enterobacter and Pseudomonas urinary tract infection as well as multiple organisms that have grown to his hips and decubitus ulcers. MEDICATIONS: He is receiving daptomycin 500 mg IV daily for the VRE, today being day 3. He is also on meropenem 2 g IV every 8 hours, and today is day 12. He is also receiving Florinef 0.1 mg by mouth daily. PHYSICAL EXAMINATION: Vital Signs: Temperature is 96.1 degrees, pulse rate 61, respiratory rate 14, blood pressure 117/81, O2 saturation 100% on room air. General: This is a middle-aged, chronically ill-appearing male. He is lying in bed, currently in no acute distress. HEENT: Atraumatic, normocephalic. Oral mucous membranes are pink and moist. Conjunctivae are pale. Neck: Supple. Trachea is midline. Cardiovascular: Heart rate and rhythm are regular. Normal sinus rhythm on the monitor. Respiratory: Lung sounds are bilaterally clear to auscultation. No work of breathing is noted. Abdomen: Soft, flat, nontender. Bowel sounds are active. Integumentary: Skin is warm and dry. There is a Morris catheter in place to the right chest with an occlusive dressing to the site and clean, dry Steri-Strips to the right lower neck. There is still a PICC line in place to the right upper arm without edema, erythema, erythema, or drainage to the site. There is an accordion drain to the left hip which has not had much drainage, but there is some serosanguineous fluid noted in the bag. He has multiple sacral, hip and lower extremity ulcers that were not visualized at this time. Extremity: Lower extremity edema is 2 to 3+ pitting. Neurologic: He is awake, alert, and oriented with contractures to his hands and limited upper extremity movement with lower extremity paralysis. LABORATORY AND X-RAY: Today his white count is 14.86, hemoglobin 7.5, platelet count 535,000. Creatinine is 0.3. Estimated GFR is greater than 60. Chest x-ray today shows no acute disease. ASSESSMENT AND PLAN: Mr. Stewart has a chronic osteomyelitis to his bilateral hips with septic arthritis. There is also a sacral osteomyelitis, multiple decubitus ulcers, and a urinary tract infection. He is receiving meropenem and daptomycin, which we will continue. He will need 6 weeks of each of these in order to complete treatment for his osteomyelitis. There is a leukocytosis today, which is most likely due to the new administration of Florinef. Hopefully, that will help his blood pressure to stabilizer so he can get out of the intensive care unit. COMORBIDITIES: For Mr. Stewart include C7 quadriplegia, diabetes mellitus, neuropathy, multiple decubitus ulcers, and protein calorie malnutrition. Dictated by COLTEN Andrews for Ike Thapa MD cc: Ike Thapa MD MTDD
[2019-04-10] MEDS: AMBIEN PO SCH (20:06)
[2019-04-11] MEDS: DILAUDID IV PRN ×5 (00:51→21:30)
[2019-04-11] MEDS: HUMULIN R SUBQ SCH ×6 (01:07→20:18)
[2019-04-11] MEDS: MERREM 2 GM in NS 100 ML IV SCH ×3 (02:33→18:34)
[2019-04-11] MEDS: PHENERGAN IV PRN ×3 (02:59→20:17)
[2019-04-11] MEDS: LOVENOX SUBQ SCH (06:26)
[2019-04-11] MEDS: NEO-SYNEPHRINE 50 MG in NS 250 ML IV SCH ×2 (06:30→12:38)
[2019-04-11] MEDS: MEGACE LIQUID PO SCH ×2 (09:44→20:17)
[2019-04-11] MEDS: LYRICA PO SCH ×2 (09:44→20:17)
[2019-04-11] MEDS: PROAMATINE PO SCH ×3 (09:45→20:16)
[2019-04-11] MEDS: FLORINEF PO SCH (09:45)
[2019-04-11] MEDS: MARINOL PO SCH ×2 (09:45→20:17)
[2019-04-11] MEDS: PERCOCET-10 PO PRN ×2 (09:45→20:17)
[2019-04-11 10:41] LABS: BASO# 0.09 X1000 (0.0-0.2); BASO% 0.6 % (0.0-0.8); EOS% 2.8 % (0.0-10.0); HEMATOCRIT 24.7 % (42.0-52.0); HEMOGLOBIN 7.5 g/dL (14.0-18.0); IMM GRAN# 0.09 X1000 (0.0-0.04); IMM GRAN% 0.6 % (0.0-0.5); LYMPH# 2.61 X1000 (1.2-3.4); MCH 25.4 PG (27-31); MCHC 30.4 g/dL (33-37); MCV 83.7 FL (81-99); MONO# 0.99 X1000 (0.11-0.59); MONO% 6.8 % (1.7-9.3); MPV 9.3 FL (7.4-10.4); NEUT# 10.33 X1000 (1.4-6.5); NEUT% 71.2 % (42.2-75.2); PLT 561 X1000 (130-400); RBC 2.95 XMIL (4.7-6.1); RDW 18.1 % (11.5-14.5); WBC 14.51 X1000 (4.8-10.8)
[2019-04-11 10:47] LABS: AGAP 9; BUN 16 mg/dL (8-22); CALCIUM 7.5 mg/dL (8.8-10.2); CHLORIDE 101 mmol/L (98-107); COSMO 280; CREATININE 0.6 mg/dL (0.7-1.2); ESTIMATED GFR > 60; GLUCOSE 161 mg/dL (70-104); POTASSIUM 3.1 mmol/L (3.5-5.1); SODIUM 138 mmol/L (136-145); TCO2 28 mmol/L (25-35)
[2019-04-11 11:12] LABS: UR AMPHETAMINES QUAL NONE DETECTED (NONE DETECT); UR BARBITUATES QUAL NONE DETECTED (NONE DETECT); UR BENZODIAZEPIN QUAL NONE DETECTED (NONE DETECT); UR CANNABINOIDS QUAL NONE DETECTED (NONE DETECT); UR COCAINE QUAL NONE DETECTED (NONE DETECT); UR METHADONE QUAL NONE DETECTED (NONE DETECT); UR OPIATES QUAL PRESUMPTIVE POSITIVE (NONE DETECT); UR OXYCODONE QUAL PRESUMPTIVE POSITIVE (NONE DETECT); UR PCP QUAL NONE DETECTED (NONE DETECT)
[2019-04-11 11:20] LABS: LYMPHS 22 % (21-51); SEGS 78 % (42-75)
[2019-04-11] MEDS: IMODIUM PO PRN (12:11)
[2019-04-11] MEDS: CUBICIN 500 MG in NS 100 ML IV SCH (13:20)
--- NOTE | 2019-04-11 15:35 | INFECTIOUS DISEASE PROGRESS NO ---
DATE: 04/11/2019 PRESENT ILLNESS: Mr. Stewart is being treated for chronic osteomyelitis with bilateral septic hip arthritis, sacral osteomyelitis, and multiple decubitus ulcers. He also has bilateral hip abscesses some of which have been drained, and is being treated for urinary tract infection. MEDICATIONS: Today is day 4 of treatment for vancomycin-resistant enterococcus which was found in his left hip. He is receiving daptomycin 500 mg IV daily. He is on day 13 of treatment with meropenem 5 g IV every 8 hours for the other bacteria that were found. He also is receiving Florinef 0.1 mg by mouth daily. PHYSICAL EXAMINATION: Vital Signs: Temperature is 97 degrees, pulse rate 103, respiratory rate 20, blood pressure 112/79, O2 saturation 100% on room air. General: This is a chronically ill middle-aged male. He is lying in bed, currently in no acute distress. HEENT: Atraumatic, normocephalic. Oral mucous membranes are pink and dry. Conjunctivae are pale. Neck: Supple. Trachea is midline. Respiratory: Lung sounds are bilaterally clear to auscultation. No work of breathing is noted. Cardiovascular: Heart rate and rhythm are regular with normal sinus rhythm to sinus tachycardia on the monitor. Abdomen: Soft, flat, and nontender. Bowel sounds are active. Neurologic: He is awake, alert, oriented, with quadriplegia which allows some movement of the upper extremities but contractures to the hands and no use of the lower extremities. Integumentary: Skin is warm and dry. There is a Morris to the right chest with an occlusive dressing in place. He also has a PICC to the right upper arm without edema, erythema, or drainage to the site. There is an accordion drain to the left hip which has a minimal amount of serosanguineous fluid in the bag. I was able to visualize some of his right hip wounds and sacral wounds today, which are large and covering most of his buttock region and hip region with erythematous wound beds and areas of yellow/white tissue with serosanguineous drainage noted. He also has dressings to the left hip and lower extremities which were not visualized at this time. LABORATORY AND X-RAY: Today his white count is 14.51, hemoglobin 7.5 platelet count 561,000. Creatinine is 0.6, estimated GFR is greater than 60. No imaging reports today. ASSESSMENT AND PLAN: Mr. Stewart is being treated for chronic osteomyelitis with bilateral hip septic arthritis and abscesses. There is also a sacral osteomyelitis and multiple decubitus ulcers, as well as a urinary tract infection. He will need 6 weeks of treatment with meropenem and daptomycin which we will continue. He has been recently started on Florinef which would explain his leukocytosis. COMORBIDITIES: For Mr. Stewart include C7 quadriplegia, diabetes mellitus, neuropathy, multiple decubitus ulcers and protein calorie malnutrition. Dictated by COLTEN Andrews for Ike Thapa MD cc: Ike Thapa MD [facility]
[2019-04-11] MEDS: FOLIC ACID 1 MG in NS 50 ML IV SCH (16:48)
[2019-04-11] MEDS: AMBIEN PO SCH (20:17)
[2019-04-12] MEDS: PERCOCET-10 PO PRN (00:03)
[2019-04-12] MEDS: PHENERGAN IV PRN ×2 (00:03→04:23)
[2019-04-12] MEDS: HUMULIN R SUBQ SCH ×6 (00:03→20:29)
[2019-04-12] MEDS: IMODIUM PO PRN ×4 (00:03→17:05)
[2019-04-12] MEDS: DILAUDID IV PRN ×6 (00:51→21:05)
[2019-04-12] MEDS: MERREM 2 GM in NS 100 ML IV SCH ×3 (02:56→18:55)
[2019-04-12 05:39] LABS: BASO# 0.04 X1000 (0.0-0.2); BASO% 0.4 % (0.0-0.8); EOS# 0.35 X1000 (0.0-0.7); EOS% 3.8 % (0.0-10.0); HEMATOCRIT 20.7 % (42.0-52.0); HEMOGLOBIN 6.2 g/dL (14.0-18.0); IMM GRAN# 0.13 X1000 (0.0-0.04); IMM GRAN% 1.4 % (0.0-0.5); LYMPH# 1.49 X1000 (1.2-3.4); LYMPH% 16.3 % (20.5-51.1); MCH 25.1 PG (27-31); MCV 83.8 FL (81-99); MONO# 0.47 X1000 (0.11-0.59); MONO% 5.2 % (1.7-9.3); MPV 9.1 FL (7.4-10.4); NEUT# 6.64 X1000 (1.4-6.5); NEUT% 72.9 % (42.2-75.2); PLT 417 X1000 (130-400); RBC 2.47 XMIL (4.7-6.1); WBC 9.12 X1000 (4.8-10.8)
[2019-04-12 06:07] LABS: AGAP 9; ALB/GLOB RATIO 0.6; ALKALINE PHOSPHATASE 84 U/L (32-122); BUN 14 mg/dL (8-22); CALCIUM 7.5 mg/dL (8.8-10.2); CHLORIDE 106 mmol/L (98-107); CK TOTAL 17 U/L (24-204); COSMO 290; CREATININE 0.5 mg/dL (0.7-1.2); ESTIMATED GFR > 60; GLUCOSE 189 mg/dL (70-104); GOT 8 U/L (10-34); GPT 18 U/L (10-44); POTASSIUM 3.3 mmol/L (3.5-5.1); SODIUM 143 mmol/L (136-145); TCO2 28 mmol/L (25-35); TOTAL PROTEIN 5.3 g/dL (6.3-8.3)
[2019-04-12] MEDS: LOVENOX SUBQ SCH (06:09)
[2019-04-12 06:24] LABS: TOTAL BILIRUBIN < 0.15 mg/dL (0.20-1.00)
[2019-04-12] MEDS: LYRICA PO SCH ×2 (08:16→20:25)
[2019-04-12] MEDS: KLOR-CON PO SCH ×2 (08:16→11:21)
[2019-04-12] MEDS: MARINOL PO SCH ×2 (08:16→20:28)
[2019-04-12] MEDS: ALBUMIN 25% IV SCH ×2 (08:17→13:02)
[2019-04-12] MEDS: PROAMATINE PO SCH ×3 (08:17→20:27)
[2019-04-12] MEDS: FLORINEF PO SCH (08:17)
[2019-04-12] MEDS: MEGACE LIQUID PO SCH ×2 (08:17→20:28)
--- NOTE | 2019-04-12 08:24 | PROGRESS NOTE ---
DATE: 04/12/2019 INTERVAL HISTORY: The patient has been off phenylephrine for almost 12 hours. He did have a drop in his hemoglobin, and night team had ordered 1 unit of packed red blood cells. He also got right- sided chest Morris catheter. No new complaints. No new events. Mr. Stewart denies any chest pain, shortness of breath, cough. He has occasional nausea, but no vomiting. He has diarrhea. His appetite is better. He continues to have lower extremity swelling. We discussed about multiple wound infection, answered all of his questions. PHYSICAL EXAMINATION: Vital Signs: Temperature of 98.1 degrees, pulse 100, respiratory rate 17, blood pressure is 80/46. He is saturating 100% on room air. General: On physical examination, he is not in any acute distress. HEENT: He has conjunctival pallor. Oral cavity is moist. Lungs: Air entry bilaterally equal. No wheeze, rhonchi, or crackles. Cardiovascular: S1 and S2 normal. No murmur or gallop. He has a right-sided chest Morris catheter and right arm PICC line. Abdomen: Soft. Active bowel sounds. Nontender. Extremities: He has bilateral lower extremity edema and urine catheter. Neurologic: He is alert and oriented x3. He is able to feel the sensation in bilateral feet and legs, though not able to move them. LABS: Suggestive of hemoglobin of 6.2, platelets of 417,000. Potassium of 3.3. His hypokalemia is currently being repleted. He continues to have slightly elevated blood glucose level. Microbiology no positive data. His Clostridium difficile analysis was negative, and his occult blood stool was positive. IMAGING STUDIES: No new imaging. ASSESSMENT AND PLAN: 1. Septic shock due to acute on chronic bilateral hip joint osteomyelitis and multiple wound infection, been off intravenous phenylephrine. I will continue antibiotics, midodrine, fludrocortisone, and give him intravenous albumin. I will follow up with his electrolytes closely. 2. Vancomycin-resistant enterococcal, Pseudomonas, Acinetobacter, Providencia infection of bilateral hip joints with multiple abscesses and osteomyelitis. He has left hip joint drain. Continue intravenous daptomycin and intravenous meropenem for 6 weeks. Continue intravenous hydromorphone for pain, and my plan is to slowly transition him to oral pain medications. 3. Nutrition. Continue patient on oral diet with megestrol to help improve appetite for severe protein-calorie malnutrition. 4. Anemia with positive fecal occult blood tests. There was no reported melena. His anemia could also be related to chronic medical condition. I will give him 1 unit of blood transfusion, and I will keep him on iron and multivitamin tablets. Continue PPI. 5. Others. Continue enoxaparin for deep venous thrombosis prophylaxis and start omeprazole for stress ulcer prophylaxis. He has h/o paraplegia, chronic anemia. DISPOSITION: Continue to monitor the patient inside the hospital. Plan of care was discussed with the patient. His questions have been answered. cc: Phan Aleman MD MTDD
[2019-04-12] MEDS ORDERED: MAGNESIUM SULFATE 2 GM/S.W.I. 2 GM/50 ML IVPB IV ONE (08:30)
[2019-04-12] MEDS: PROTONIX IV SCH ×2 (08:40→20:28)
[2019-04-12] MEDS: FERROUS SULFATE PO SCH (08:40)
[2019-04-12] MEDS: OXY IR PO PRN ×3 (09:48→20:26)
[2019-04-12] MEDS: TYLENOL PO SCH ×2 (09:48→17:05)
[2019-04-12] MEDS: THERA M PLUS PO SCH (09:48)
[2019-04-12] MEDS: ZOFRAN IV PRN ×2 (11:21→16:05)
[2019-04-12] MEDS ORDERED: NS 500 ML ONE (13:34)
[2019-04-12] MEDS: CUBICIN 500 MG in NS 100 ML IV SCH (16:04)
--- NOTE | 2019-04-12 17:05 | INFECTIOUS DISEASE PROGRESS NO ---
DATE: 04/12/2019 HISTORY OF PRESENT ILLNESS: Mr. Stewart has chronic osteomyelitis to his bilateral hips and sacrum, as well as bilateral septic hip arthritis and multiple decubitus ulcers. There are also abscesses that have been drained from the areas of his bilateral hips and he is being treated for a urinary tract infection. MEDICATIONS: Today is day 5 of treatment for the vancomycin resistant enterococcus found to his left hip. Currently, he is receiving daptomycin 500 mg IV daily. Today is day 14 of treatment with meropenem 2 gm IV every 8 hours for the other bacteria that were found in the area of his hips and decubitus ulcers. PHYSICAL EXAMINATION: Vital Signs: Temperature is 98.5 degrees, pulse rate 98, respiratory rate 8, blood pressure 102/62. O2 saturations 100% on room air. General: This is a chronically ill, middle-aged male who is lying in bed currently in no acute distress. HEENT: Atraumatic, normocephalic. Oral mucous membranes are pink and dry. Conjunctivae are pale. Neck: Supple. Trachea is midline. Cardiovascular: Heart rate and rhythm are regular. Normal sinus rhythm on the monitor. Respiratory: Lung sounds are clear to auscultation bilaterally. No work of breathing is noted. Abdomen: Soft, flat and nontender to palpation. Bowel sounds are active. Integumentary: Skin is warm, dry, and pale. He does have a new Morris to the right chest with an occlusive dressing in place. There is also a PICC line to the right upper arm without edema, erythema, or drainage to the site. He has an accordion drain to the left hip with some serosanguineous fluid in the bag. There are also multiple decubitus ulcers with dressings in place which were not removed at this time. Neurologic: He is awake, alert and oriented, with quadriplegia which allows limited movement to his upper extremities with contractures to his hands bilaterally, and no use of his lower extremities. LABORATORY AND A-RAY: Today his white count is 9.12,, hemoglobin 6.2, platelet count 417,000. Creatinine is 0.5, estimated GFR is greater than 60. Total bilirubin is less than 0.15, AST 8, ALT 18, alkaline phosphatase 84, creatine kinase 17. His Clostridium difficile antigen and toxin were both negative. No imaging reports today. ASSESSMENT AND PLAN: Mr. Stewart has chronic osteomyelitis to his hips and sacrum with bilateral hip septic arthritis and abscesses. There are also multiple decubitus ulcers and urinary tract infection. He will need 6 weeks of treatment for the osteomyelitis, and has already completed 2 weeks of meropenem. Today is day 5 of treatment for the vancomycin-resistant enterococcus. He will need 6 weeks of the daptomycin as well. His CK total today was low. He is continuing to have watery stools, however, the Clostridium difficile is negative. COMORBIDITIES: Comorbidities for Mr. Stewart include C7 quadriplegia, diabetes mellitus, neuropathy, multiple decubitus ulcers and protein-calorie malnutrition. Dictated by COLTEN Andrews for Vazquez Ellis MD cc: Vazquez Ellis MD I have seen and examined Mr Stewart today. His current anti-micromial regimen has been reviewed. I agree with the above note and the plan has been discussed with the BALLISTIC TECHNICIAN. YUDELKA
[2019-04-12] MEDS: AMBIEN PO SCH (20:26)
[2019-04-13] MEDS: HUMULIN R SUBQ SCH ×5 (00:12→22:22)
[2019-04-13] MEDS: TYLENOL PO SCH ×3 (01:07→17:04)
[2019-04-13] MEDS: OXY IR PO PRN ×5 (01:08→18:54)
[2019-04-13] MEDS: DILAUDID IV PRN ×6 (01:09→22:22)
[2019-04-13] MEDS: MERREM 2 GM in NS 100 ML IV SCH ×3 (03:50→18:17)
[2019-04-13] MEDS: LOVENOX SUBQ SCH (05:06)
[2019-04-13 06:28] LABS: BASO# 0.09 X1000 (0.0-0.2); BASO% 0.8 % (0.0-0.8); EOS# 0.43 X1000 (0.0-0.7); EOS% 3.9 % (0.0-10.0); HEMATOCRIT 23.8 % (42.0-52.0); HEMOGLOBIN 7.4 g/dL (14.0-18.0); IMM GRAN# 0.78 X1000 (0.0-0.04); LYMPH# 1.77 X1000 (1.2-3.4); LYMPH% 15.9 % (20.5-51.1); MCH 26.1 PG (27-31); MCHC 31.1 g/dL (33-37); MCV 84.1 FL (81-99); MONO# 0.72 X1000 (0.11-0.59); MONO% 6.5 % (1.7-9.3); MPV 9.5 FL (7.4-10.4); NEUT# 7.31 X1000 (1.4-6.5); NEUT% 65.9 % (42.2-75.2); PLT 491 X1000 (130-400); RBC 2.83 XMIL (4.7-6.1); RDW 17.7 % (11.5-14.5)
[2019-04-13 07:02] LABS: EOS 2 % (1-10); LYMPHS 10 % (21-51); SEGS 66 % (42-75)
[2019-04-13 07:03] LABS: AGAP 9; ALB/GLOB RATIO 0.8; ALBUMIN 2.6 g/dL (3.5-5.0); ALKALINE PHOSPHATASE 92 U/L (32-122); BUN 15 mg/dL (8-22); CALCIUM 7.6 mg/dL (8.8-10.2); CHLORIDE 109 mmol/L (98-107); COSMO 295; CREATININE 0.4 mg/dL (0.7-1.2); ESTIMATED GFR > 60; GLUCOSE 239 mg/dL (70-104); GOT 17 U/L (10-34); GPT 20 U/L (10-44); MAGNESIUM 1.6 mg/dL (1.5-2.7); POTASSIUM 3.6 mmol/L (3.5-5.1); SODIUM 144 mmol/L (136-145); TCO2 26 mmol/L (25-35); TOTAL BILIRUBIN 0.16 mg/dL (0.20-1.00)
[2019-04-13] MEDS ORDERED: ALBUMIN 25% IV ONE (07:21)
[2019-04-13] MEDS: MAGNESIUM SULFATE 2 GM/S.W.I. 2 GM/50 ML IVPB IV SCH ×2 (08:21→13:14)
[2019-04-13] MEDS: POTASSIUM CHLORIDE 20 MEQ/SWI 20 MEQ/100 ML IVPB IV SCH ×2 (08:22→10:24)
[2019-04-13] MEDS: PROTONIX IV SCH ×2 (08:24→21:35)
[2019-04-13] MEDS: MARINOL PO SCH ×2 (08:25→21:34)
[2019-04-13] MEDS: IMODIUM PO PRN (08:25)
[2019-04-13] MEDS: FLORINEF PO SCH (08:25)
[2019-04-13] MEDS: MEGACE LIQUID PO SCH (08:25)
[2019-04-13] MEDS: LYRICA PO SCH ×2 (08:25→21:34)
[2019-04-13] MEDS: PROAMATINE PO SCH ×3 (08:25→21:35)
[2019-04-13] MEDS: KLOR-CON PO SCH ×2 (08:25→10:36)
[2019-04-13] MEDS: THERA M PLUS PO SCH (08:26)
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
[2019-04-13] MEDS: CUBICIN 500 MG in NS 100 ML IV SCH (15:16)
[2019-04-13] MEDS: ZOFRAN IV PRN (17:10)
[2019-04-13] MEDS: AMBIEN PO SCH (21:34)
[2019-04-14] MEDS: TYLENOL PO SCH ×3 (00:45→17:23)
[2019-04-14] MEDS: MERREM 2 GM in NS 100 ML IV SCH ×3 (03:20→20:57)
[2019-04-14] MEDS: LOVENOX SUBQ SCH (06:03)
[2019-04-14] MEDS: HUMULIN R SUBQ SCH ×4 (06:31→21:39)
[2019-04-14 06:41] LABS: BASO# 0.12 X1000 (0.0-0.2); BASO% 0.9 % (0.0-0.8); EOS# 0.64 X1000 (0.0-0.7); EOS% 4.7 % (0.0-10.0); HEMATOCRIT 25.3 % (42.0-52.0); HEMOGLOBIN 7.7 g/dL (14.0-18.0); IMM GRAN# 0.84 X1000 (0.0-0.04); IMM GRAN% 6.2 % (0.0-0.5); LYMPH% 13.3 % (20.5-51.1); MCHC 30.4 g/dL (33-37); MCV 85.5 FL (81-99); MONO# 0.99 X1000 (0.11-0.59); MONO% 7.3 % (1.7-9.3); MPV 9.4 FL (7.4-10.4); NEUT# 9.14 X1000 (1.4-6.5); NEUT% 67.6 % (42.2-75.2); PLT 515 X1000 (130-400); RBC 2.96 XMIL (4.7-6.1); RDW 18.6 % (11.5-14.5); WBC 13.53 X1000 (4.8-10.8)
[2019-04-14] MEDS: DILAUDID IV PRN ×4 (07:10→20:52)
[2019-04-14 07:31] LABS: AGAP 9; ALBUMIN 2.7 g/dL (3.5-5.0); ALKALINE PHOSPHATASE 91 U/L (32-122); BUN 12 mg/dL (8-22); CALCIUM 8.2 mg/dL (8.8-10.2); CHLORIDE 106 mmol/L (98-107); COSMO 284; CREATININE 0.5 mg/dL (0.7-1.2); ESTIMATED GFR > 60; GLUCOSE 111 mg/dL (70-104); GOT 22 U/L (10-34); GPT 27 U/L (10-44); POTASSIUM 4.7 mmol/L (3.5-5.1); SODIUM 142 mmol/L (136-145); TCO2 27 mmol/L (25-35); TOTAL BILIRUBIN 0.25 mg/dL (0.20-1.00); TOTAL PROTEIN 5.4 g/dL (6.3-8.3)
[2019-04-14] MEDS: PROAMATINE PO SCH ×3 (08:48→20:52)
[2019-04-14] MEDS: PROTONIX IV SCH ×2 (08:48→20:51)
[2019-04-14] MEDS: MARINOL PO SCH ×2 (08:49→20:52)
[2019-04-14] MEDS: FERROUS SULFATE PO SCH (08:49)
[2019-04-14] MEDS: THERA M PLUS PO SCH (08:50)
[2019-04-14] MEDS: LYRICA PO SCH ×2 (09:01→20:52)
[2019-04-14] MEDS: FLORINEF PO SCH (09:19)
[2019-04-14] MEDS: OXY IR PO PRN (10:42)
[2019-04-14] MEDS: ZOFRAN IV PRN ×3 (11:59→21:03)
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
[2019-04-14] MEDS: CUBICIN 500 MG in NS 100 ML IV SCH (15:01)
[2019-04-14] MEDS: AMBIEN PO SCH (20:52)
[2019-04-14] MEDS: IMODIUM PO PRN (20:52)
[2019-04-15] MEDS: TYLENOL PO SCH ×3 (00:30→17:27)
[2019-04-15] MEDS: DILAUDID IV PRN ×4 (04:05→22:20)
[2019-04-15] MEDS: MERREM 2 GM in NS 100 ML IV SCH ×3 (04:06→22:08)
[2019-04-15] MEDS: IMODIUM PO PRN (05:40)
[2019-04-15] MEDS: LOVENOX SUBQ SCH (05:56)
[2019-04-15] MEDS: ZOFRAN IV PRN ×2 (05:56→12:35)
[2019-04-15] MEDS: HUMULIN R SUBQ SCH ×4 (07:09→22:09)
[2019-04-15] MEDS: LYRICA PO SCH ×2 (09:07→22:06)
[2019-04-15] MEDS: THERA M PLUS PO SCH (09:08)
[2019-04-15] MEDS: PROAMATINE PO SCH ×3 (09:08→22:08)
[2019-04-15] MEDS: SODIUM CHLORIDE 0.9% INJ SCH ×2 (09:08→22:11)
[2019-04-15] MEDS: PROTONIX IV SCH ×2 (09:08→22:10)
[2019-04-15] MEDS: FLORINEF PO SCH (09:08)
[2019-04-15] MEDS: MARINOL PO SCH ×2 (09:09→22:10)
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
--- NOTE | 2019-04-15 14:51 | INFECTIOUS DISEASE PROGRESS NO ---
DATE: 04/15/2019 PRESENT ILLNESS: Mr. Stewart is being treated for chronic osteomyelitis to his bilateral hips and sacrum. There is also bilateral septic hip arthritis and multiple abscesses to the hip areas, which have been drained, and multiple decubitus ulcers from the sacrum down to the lower extremities. There is a vancomycin resistant Enterococcus to his left hip with an accordion drain in place. He also has a Pseudomonas, Providencia, and Acinetobacter, which have been isolated in his hips and decubitus ulcers. MEDICATIONS: He is receiving day 8 of daptomycin 500 mg IV daily and day 17 of meropenem 2 g IV every 8 hours. PHYSICAL EXAMINATION: Vital Signs: Temperature is 98.5 degrees, pulse rate 120, respiratory rate 17, blood pressure 122/81, O2 saturation 100% on room air. General: This is a chronically ill- appearing, middle-aged gentleman. He is lying in the bed, currently in no acute distress. HEENT: Atraumatic, normocephalic. Oral mucous membranes are pink and moist. Conjunctivae are pale. Neck: Supple. Trachea is midline. Cardiovascular: Heart rate and rhythm are regular and fast. Sinus tachycardia on the monitor. Respiratory: Lung sounds are bilaterally clear to auscultation. No work of breathing is noted. Integumentary: Skin is warm and dry with a Morris catheter in place to the right chest. That site is without edema, erythema, or drainage. The accordion drain continues to be in place to the left hip with a larger amount of serosanguineous drainage noted in the bag today. He has multiple decubitus ulcers to his sacrum down his lower extremities, with dressings which were not removed at this time. Neurologic: He is awake, alert, oriented, and has limited movement due to quadriplegia with contractures to his hands and no movement to the lower extremities. LABORATORY AND X-RAY: Today his white count is 13.53, hemoglobin 7.7, platelet count 515,000. Creatinine is 0.5. Estimated GFR is greater than 60. Total bilirubin is 0.25, AST 22, ALT 27, alkaline phosphatase 91. No imaging reports today. ASSESSMENT AND PLAN: Mr. Stewart is being treated for chronic osteomyelitis to his hips and sacrum with septic hip arthritis bilaterally, as well as abscesses to his hip areas which have been drained. He has had multiple resistant bacteria, which are being treated with meropenem and daptomycin at this time. Both of these will need to be continued for a total of 6 weeks each. I have written out orders for the possibility of discharge for the patient. The orders are on the front of the chart and give details as to how long the patient will need the meropenem and the daptomycin, as well as labs that should be drawn and faxed to our office. Also, if it is possible, we would like to see the patient at the end of 6 weeks of treatment. I have already made a follow-up appointment scheduled. The patient states the plan is for him to go to [facility], which would be great if they will take these medications; however, in my experience they usually are not willing to provide the medications that are required for him. If he is unable to go to [facility], I think an LTACH would be appropriate. COMORBIDITIES: Comorbidities for Mr. Stewart include C7 quadriplegia, multiple decubitus ulcers, diabetes mellitus, neuropathy and protein calorie malnutrition. Dictated by COLTEN Andrews for Vazquez Ellis MD cc: Vazquez Ellis MD I have seen and examined Mr. Stewart today. His current anti-micromial regimen has been reviewed. I agree with the above note and the plan has been discussed with the [employer]. [place]
[2019-04-15] MEDS: CUBICIN 500 MG in NS 100 ML IV SCH (15:13)
[2019-04-15] MEDS: OXY IR PO PRN (17:31)
[2019-04-15] MEDS: AMBIEN PO SCH (22:06)
[2019-04-16] MEDS: TYLENOL PO SCH ×3 (01:13→16:24)
[2019-04-16] MEDS: OXY IR PO PRN ×5 (02:38→21:09)
[2019-04-16] MEDS: IMODIUM PO PRN ×2 (02:38→15:24)
[2019-04-16] MEDS: DILAUDID IV PRN ×5 (04:13→22:33)
[2019-04-16] MEDS: MERREM 2 GM in NS 100 ML IV SCH ×3 (06:45→23:32)
[2019-04-16] MEDS: LOVENOX SUBQ SCH (06:45)
[2019-04-16] MEDS: HUMULIN R SUBQ SCH ×4 (06:45→21:11)
[2019-04-16] MEDS: LYRICA PO SCH ×2 (09:45→21:10)
[2019-04-16] MEDS: SODIUM CHLORIDE 0.9% INJ SCH (09:45)
[2019-04-16] MEDS: MARINOL PO SCH ×2 (09:45→21:10)
[2019-04-16] MEDS: PROTONIX IV SCH ×2 (09:45→21:10)
[2019-04-16] MEDS: THERA M PLUS PO SCH (09:45)
[2019-04-16] MEDS: PROAMATINE PO SCH ×3 (09:46→21:10)
[2019-04-16] MEDS: FLORINEF PO SCH (09:46)
[2019-04-16] MEDS: FERROUS SULFATE PO SCH (09:47)
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
[2019-04-16] MEDS: CUBICIN 500 MG in NS 100 ML IV SCH (13:17)
[2019-04-16] MEDS ORDERED: NS 500 ML ONE (15:30)
--- NOTE | 2019-04-16 19:31 | Extremity Venous Study ---
PROCEDURE NAME: Venous U/S Bilateral Legs - 04/15/2019 REFERRING PHYSICIANS: Dr. Ellis. A 39-year-old male. CHOCOLATE PACKER: Nan Brown RVT. INDICATIONS: Bilateral lower extremity edema in a patient with paralysis, rule out deep venous thrombosis. FINDINGS: The right common femoral vein and its branches, deep and superficial femoral veins were imaged satisfactorily there appears to be chronic thrombophlebitis but no acute deep venous thrombosis seen in these veins. The right popliteal vein and the small veins below the right knee were imaged intermittently and again there was chronic changes with thickened vein puente, but no acute deep venous thrombosis was seen. Superficial veins of the right lower extremity were compressible throughout their length. The left common femoral vein its branches, deep and superficial femoral veins, again showed no evidence of acute deep venous thrombosis but maybe chronic thrombophlebitis with thickened puente. The left popliteal vein and the deep veins below the left knee were all compressible and had flow through them. The superficial veins the left lower extremity were compressible throughout their length. INTERPRETATION: This was a difficult lower extremity venous study. There appeared to be chronic thrombophlebitis involving the deep veins in both lower extremities but there was no evidence of acute deep venous thrombosis involving either lower extremity. cc: MD Vazquez Joseph MD
[2019-04-16] MEDS ORDERED: TYLENOL PO PRN (20:30)
[2019-04-16] MEDS: AMBIEN PO SCH (21:10)
[2019-04-17] MEDS: OXY IR PO PRN ×2 (01:56→06:18)
[2019-04-17] MEDS: ZOFRAN IV PRN ×2 (01:56→23:38)
[2019-04-17] MEDS: IMODIUM PO PRN ×3 (01:56→23:38)
[2019-04-17] MEDS: DILAUDID IV PRN ×5 (02:32→22:14)
[2019-04-17] MEDS: HUMULIN R SUBQ SCH ×5 (06:11→21:57)
[2019-04-17] MEDS: LOVENOX SUBQ SCH (06:18)
[2019-04-17] MEDS: MERREM 2 GM in NS 100 ML IV SCH ×3 (07:17→22:41)
[2019-04-17] MEDS: LYRICA PO SCH ×2 (08:52→21:54)
[2019-04-17] MEDS: PROAMATINE PO SCH ×3 (08:52→23:40)
[2019-04-17] MEDS: FLORINEF PO SCH (08:52)
[2019-04-17] MEDS: THERA M PLUS PO SCH (08:52)
[2019-04-17] MEDS: MARINOL PO SCH ×2 (08:52→21:56)
[2019-04-17] MEDS: SODIUM CHLORIDE 0.9% INJ SCH (11:24)
[2019-04-17] MEDS: PROTONIX IV SCH ×2 (11:24→21:56)
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
--- NOTE | 2019-04-17 14:18 | PROGRESS NOTE ---
DATE: 04/17/2019 Mr. Stewart states he feels about the same. We found that he is not eligible for LTAC and rehab will not take him for the cost of his medications, so he still has his drain in left hip. He remains afebrile, temperature 98.4 degrees, pulse 106, respirations 20, blood pressure 109/69. Pupils are equal and round. Lungs are clear in all lung warren. Cardiovascular regular rhythm and rate without murmur or S3. Urine output is 5900 mL. ASSESSMENT AND PLAN: 1. Treated for osteomyelitis bilateral hips and sacrum, bilateral septic hip arthritis, multiple abscesses in the hip area, which have been drained. Multiple decubitus ulcers as well in the sacrum. So, continue present antibiotics of meropenem and daptomycin. 2. Chronic pain syndrome. I did go up on his Dilaudid to q. 4 hours. He would like more, but I encouraged him to stay where we are. I do not want him to become resistant to his pain medicines as he will not be able to get this dose when he leaves. 3. Anemia of chronic disease. 4. Poor nutritional status. He is eating better. 5. Lower extremity swelling and venous insufficiency. 6. Chronic hypotension. 7. Review of his orders. He is on Ambien 10 mg at bedtime, daptomycin 500 mg IV q. 24 hours, Marinol 2.5 mg p.o. b.i.d., ferrous sulfate 325 mg p.o. every 48 hours, fludrocortisone 0.1 mg daily and takes Imodium 2 mg p.o. q. 4 hours p.r.n., meropenem 2 g IV q. 8, multivitamin daily, midodrine 10 mg p.o. t.i.d., Protonix 40 mg IV q. 12, Lyrica 300 mg p.o. b.i.d. cc: Moise De La Fuente MD
[2019-04-17] MEDS: CUBICIN 500 MG in NS 100 ML IV SCH (14:24)
[2019-04-17] MEDS: AMBIEN PO SCH (21:56)
[2019-04-18] MEDS: DILAUDID IV PRN ×4 (02:47→22:23)
[2019-04-18] MEDS: MERREM 2 GM in NS 100 ML IV SCH ×3 (07:03→22:21)
[2019-04-18] MEDS: HUMULIN R SUBQ SCH ×4 (07:03→22:34)
[2019-04-18] MEDS: LOVENOX SUBQ SCH (07:03)
[2019-04-18] MEDS: SODIUM CHLORIDE 0.9% INJ SCH (08:44)
[2019-04-18] MEDS: PROTONIX IV SCH ×2 (08:44→22:26)
[2019-04-18] MEDS: PROAMATINE PO SCH ×3 (08:44→22:29)
[2019-04-18] MEDS: FERROUS SULFATE PO SCH (08:44)
[2019-04-18] MEDS: LYRICA PO SCH ×2 (08:45→22:29)
[2019-04-18] MEDS: FLORINEF PO SCH (08:45)
[2019-04-18] MEDS: THERA M PLUS PO SCH (08:45)
[2019-04-18] MEDS: MARINOL PO SCH ×2 (08:45→22:29)
[2019-04-18] MEDS: IMODIUM PO PRN ×2 (08:58→16:29)
--- NOTE | 2019-04-18 15:58 | PROGRESS NOTE ---
DATE: 04/18/2019 SUBJECTIVE: Mr. Stewart is feeling better. Talk to wound care, Irlanda Merino. She said the wounds are looking better. OBJECTIVE: Vital signs: He remains afebrile. Temperature 98.1 degrees, pulse 104, respirations 20, blood pressure 105/70. HEENT: Pupils are equal and round. Lungs: Clear in all lung warren. Cardiovascular: Regular rhythm and rate without murmur or S3. Abdomen: Soft. Skin: Warm and dry. Urine output is 485 mL. Blood sugars 185, 140, 145. ASSESSMENT AND PLAN: 1. Treated for osteomyelitis bilateral hips and sacrum, bilateral septic hip arthritis. Multiple abscesses in the hip area have been drained. Multiple decubitus ulcer ulcers as well around the sacrum. Continue present antibiotics, meropenem and daptomycin. We will need to stay at the hospital. Medicaid, he is not eligible for LTAC and cannot go to rehab. 2. Chronic pain syndrome. Getting Dilaudid now q.4 hours p.r.n. 3. Anemia of chronic disease. 4. Poor nutritional status. So he is eating better and getting better p.o. intake. His bowels are moving. He said they are a little loose, so I will try some Questran and see if it will firm up the stool some. 5. Lower extremity swelling and venous insufficiency. 6. Chronic hypotension. 7. Chronic pain and he has a chronic indwelling Herrera catheter. 8. Review of his orders. I do not see any change. We will try a little bit of Questran every day. We have not checked labs in a while, but I think that is okay. His last several blood sugars 185, 212, 140, 145. cc: Moise De La Fuente MD
[2019-04-18] MEDS: CUBICIN 500 MG in NS 100 ML IV SCH (16:28)
[2019-04-18] MEDS: QUESTRAN LIGHT PO SCH ×2 (16:28→20:05)
[2019-04-18] MEDS: AMBIEN PO SCH (22:29)
[2019-04-19] MEDS: OXY IR PO PRN ×2 (00:34→16:20)
[2019-04-19] MEDS: ZOFRAN IV PRN ×3 (00:35→22:36)
[2019-04-19] MEDS: DILAUDID IV PRN ×5 (05:29→22:19)
[2019-04-19] MEDS: MERREM 2 GM in NS 100 ML IV SCH ×3 (06:48→23:00)
[2019-04-19] MEDS: LOVENOX SUBQ SCH (06:48)
[2019-04-19] MEDS: HUMULIN R SUBQ SCH ×4 (06:49→22:24)
[2019-04-19] MEDS: PROAMATINE PO SCH ×3 (08:17→22:20)
[2019-04-19] MEDS: QUESTRAN LIGHT PO SCH (08:17)
[2019-04-19] MEDS: SODIUM CHLORIDE 0.9% INJ SCH (08:17)
[2019-04-19] MEDS: PROTONIX IV SCH ×2 (08:17→22:20)
[2019-04-19] MEDS: THERA M PLUS PO SCH (08:17)
[2019-04-19] MEDS: FLORINEF PO SCH (08:17)
[2019-04-19 08:29] LABS: BASO# 0.06 X1000 (0.0-0.2); BASO% 0.6 % (0.0-0.8); EOS# 0.54 X1000 (0.0-0.7); EOS% 5.2 % (0.0-10.0); HEMATOCRIT 25.3 % (42.0-52.0); HEMOGLOBIN 7.6 g/dL (14.0-18.0); IMM GRAN# 0.16 X1000 (0.0-0.04); IMM GRAN% 1.6 % (0.0-0.5); LYMPH% 14.6 % (20.5-51.1); MCH 26.4 PG (27-31); MCV 87.8 FL (81-99); MONO# 1.23 X1000 (0.11-0.59); MPV 9.7 FL (7.4-10.4); PLT 394 X1000 (130-400); RBC 2.88 XMIL (4.7-6.1); RDW 21.5 % (11.5-14.5); WBC 10.29 X1000 (4.8-10.8)
[2019-04-19 08:43] LABS: AGAP 8; ALB/GLOB RATIO 0.6; ALBUMIN 2.5 g/dL (3.5-5.0); ALKALINE PHOSPHATASE 295 U/L (32-122); BUN 21 mg/dL (8-22); CALCIUM 8.2 mg/dL (8.8-10.2); CHLORIDE 107 mmol/L (98-107); CK TOTAL 23 U/L (24-204); COSMO 285; CREATININE 0.5 mg/dL (0.7-1.2); ESTIMATED GFR > 60; GLUCOSE 121 mg/dL (70-104); GOT 122 U/L (10-34); GPT 224 U/L (10-44); POTASSIUM 4.3 mmol/L (3.5-5.1); SODIUM 141 mmol/L (136-145); TCO2 26 mmol/L (25-35); TOTAL BILIRUBIN 0.28 mg/dL (0.20-1.00); TOTAL PROTEIN 6.4 g/dL (6.3-8.3)
[2019-04-19] MEDS: LYRICA PO SCH ×2 (09:59→22:20)
[2019-04-19] MEDS: MARINOL PO SCH ×2 (10:00→22:22)
[2019-04-19] MEDS: IMODIUM PO PRN ×2 (10:00→22:36)
--- NOTE | 2019-04-19 13:39 | PROGRESS NOTE ---
DATE: 04/19/2019 SUBJECTIVE: Mr. Stewart is doing well. He is feeling better. He is eating well. His bowels are moving. Appears comfortable. OBJECTIVE: Vital signs: Remains afebrile, temperature 97.4 degrees, pulse 93, respirations 16, blood pressure 100/69. HEENT: Pupils are equal and round. Lungs: Clear in all lung warren. Cardiovascular: Regular rhythm and rate without murmur or S3. URINE OUTPUT: 4900 mL. ASSESSMENT AND PLAN: 1. Treated for osteomyelitis bilateral hips and sacrum, bilateral septic hip arthritis, multiple abscesses in the sacral area and hip area, multiple decubitus ulcers. He is doing better. Topical care. He is not eligible because of Medicaid going to LTAC or to rehab. Continue present antibiotics. 2. Chronic pain syndrome, under good control. 3. Anemia of chronic disease. 4. Poor nutritional status. He is improved. P.o. intake has improved dramatically. 5. Lower extremity swelling and venous insufficiency from his paralysis status. 6. Chronic hypotension. 7. Chronic pain syndrome. 8. He has a chronic indwelling going Herrera catheter. REVIEW OF ORDERS AND LABS: No change at this point. Note he does have a normocytic anemia, hematocrit 25, hemoglobin 7.6. Make sure he is getting some iron, and he is getting ferrous sulfate 325 mg every 48 hours. cc: Moise De La Fuente MD
[2019-04-19] MEDS: CUBICIN 500 MG in NS 100 ML IV SCH (14:09)
[2019-04-19] MEDS: AMBIEN PO SCH (22:18)
[2019-04-20] MEDS: OXY IR PO PRN ×2 (00:57→09:56)
[2019-04-20] MEDS: DILAUDID IV PRN ×5 (02:10→19:30)
[2019-04-20] MEDS: LOVENOX SUBQ SCH (05:04)
[2019-04-20] MEDS: MERREM 2 GM in NS 100 ML IV SCH ×2 (06:05→15:20)
[2019-04-20] MEDS: HUMULIN R SUBQ SCH ×4 (07:06→20:50)
[2019-04-20] MEDS: PROAMATINE PO SCH ×3 (07:07→20:46)
[2019-04-20] MEDS: LYRICA PO SCH ×2 (09:56→20:46)
[2019-04-20] MEDS: FLORINEF PO SCH (10:38)
[2019-04-20] MEDS: QUESTRAN LIGHT PO SCH (10:38)
[2019-04-20] MEDS: SODIUM CHLORIDE 0.9% INJ SCH (10:39)
[2019-04-20] MEDS: PROTONIX IV SCH ×2 (10:39→20:46)
[2019-04-20] MEDS: THERA M PLUS PO SCH (10:39)
[2019-04-20] MEDS: FERROUS SULFATE PO SCH (10:39)
--- NOTE | 2019-04-20 11:40 | PROGRESS NOTE ---
DATE: 04/20/2019 SUBJECTIVE: Mr. Stewart is doing better, overall doing good. He is he is eating well. His bowels are moving. OBJECTIVE: Vital signs: He remains afebrile with temperature 97.6 degrees, pulse 105, respirations 16, blood pressure 191/59. HEENT: Pupils are equal and round. Lungs: Lungs are clear in all lung warren. Cardiovascular: Regular rate without murmur or S3. Abdomen: Abdomen is soft. Skin: Skin is warm and dry. Urine output 4800 mL. DIAGNOSTIC DATA: Blood sugars 139, 152, 137. ASSESSMENT AND PLAN: 1. Treating for osteomyelitis bilateral hips and sacrum, bilateral septic hip arthritis, multiple abscess in the sacral area and hip area. Multiple decubitus ulcers, doing much better. Continue present topical treatment and IV antibiotics. 2. Chronic pain syndrome. Pain under good control. 3. Anemia of chronic disease. Aware. 4. Poor nutritional status, but this is improved. His p.o. intake is improved dramatically. 5. Lower extremity swelling and venous insufficiency from his paralysis status. 1. Chronic hypotension. 2. Chronic pain syndrome. 3. He has a chronic indwelling Herrera catheter, quadriplegic. cc: Moise De La Fuente MD
[2019-04-20] MEDS: MARINOL PO SCH ×2 (14:44→20:47)
[2019-04-20] MEDS: ZOFRAN IV PRN ×2 (14:59→20:57)
[2019-04-20] MEDS: CUBICIN 500 MG in NS 100 ML IV SCH (15:20)
[2019-04-20] MEDS: AMBIEN PO SCH (20:57)
[2019-04-20] MEDS: IMODIUM PO PRN (20:57)
[2019-04-21] MEDS: MERREM 2 GM in NS 100 ML IV SCH ×4 (00:05→22:55)
[2019-04-21] MEDS: DILAUDID IV PRN ×6 (00:05→21:50)
[2019-04-21] MEDS: LOVENOX SUBQ SCH (05:33)
[2019-04-21] MEDS: ZOFRAN IV PRN ×2 (05:33→15:04)
[2019-04-21] MEDS: OXY IR PO PRN ×2 (06:30→23:19)
[2019-04-21] MEDS: HUMULIN R SUBQ SCH ×4 (06:31→21:52)
[2019-04-21] MEDS: IMODIUM PO PRN ×2 (06:31→15:04)
[2019-04-21] MEDS: LYRICA PO SCH ×2 (08:27→21:49)
[2019-04-21] MEDS: MARINOL PO SCH ×2 (08:28→21:51)
[2019-04-21] MEDS: THERA M PLUS PO SCH (09:58)
[2019-04-21] MEDS: FLORINEF PO SCH (09:58)
[2019-04-21] MEDS: PROTONIX IV SCH ×2 (09:58→21:50)
[2019-04-21] MEDS: QUESTRAN LIGHT PO SCH (09:58)
[2019-04-21] MEDS: PROAMATINE PO SCH ×3 (09:58→21:50)
--- NOTE | 2019-04-21 13:12 | PROGRESS NOTE ---
DATE: 04/21/2019 SUBJECTIVE: Mr. Stewart is doing well, had a good night sleep, eating well, good appetite. His bowels are moving. OBJECTIVE: Vital Signs: He remains afebrile, temperature 97.4 degrees, pulse 92, respirations 12, blood pressure 108/68. HEENT: Pupils are equal and round. Lungs: Clear in all lung warren. Cardiovascular: Regular rate without murmur or S3. Abdomen: Soft. Skin: Warm and dry. DATA: Urine output is 3300 mL. Blood sugars have remained well controlled. ASSESSMENT AND PLAN: 1. Treated for osteomyelitis, bilateral hips and sacrum, bilateral septic hip arthritis, multiple abscesses in the sacral area and hip area. Multiple decubitus ulcers. Doing better. Continue topical treatment with IV antibiotics and his IV antibiotics. 2. Chronic pain syndrome. Pain under control. 3. Anemia of chronic disease. Aware. 4. Poor nutritional status when he arrived, but he is eating well, good nutrition at this time. 5. Lower extremity swelling, venous insufficiency. 6. Diabetes mellitus type 2. Sugars under good control. On review his current orders I do not see any change. LABORATORY: On review of his labs, he does have a normocytic anemia which is chronic. Hematocrit is 25, hemoglobin was 7.6 and remained stable. Last several blood sugars; 116, 127, 157, 122. cc: Moise De La Fuente MD
[2019-04-21] MEDS: CUBICIN 500 MG in NS 100 ML IV SCH (14:56)
[2019-04-21] MEDS: AMBIEN PO SCH (21:50)
[2019-04-22] MEDS: DILAUDID IV PRN ×6 (01:58→22:12)
[2019-04-22] MEDS: IMODIUM PO PRN ×3 (02:38→15:54)
[2019-04-22] MEDS: LOVENOX SUBQ SCH (06:09)
[2019-04-22] MEDS: MERREM 2 GM in NS 100 ML IV SCH ×3 (06:57→22:24)
[2019-04-22] MEDS: HUMULIN R SUBQ SCH ×4 (07:23→22:11)
[2019-04-22] MEDS: LYRICA PO SCH ×2 (10:31→22:10)
[2019-04-22] MEDS: THERA M PLUS PO SCH (10:31)
[2019-04-22] MEDS: MARINOL PO SCH ×2 (10:31→22:11)
[2019-04-22] MEDS: FLORINEF PO SCH (10:31)
[2019-04-22] MEDS: FERROUS SULFATE PO SCH (10:32)
[2019-04-22] MEDS: PROTONIX IV SCH ×2 (10:32→22:10)
[2019-04-22] MEDS: PROAMATINE PO SCH ×3 (10:38→22:12)
[2019-04-22] MEDS: ZOFRAN IV PRN ×2 (10:42→15:51)
--- NOTE | 2019-04-22 14:05 | INFECTIOUS DISEASE PROGRESS NO ---
DATE: 04/22/2019 PRESENT ILLNESS: Mr. Stewart is being treated for multiple chronic conditions including osteomyelitis to his bilateral hips and sacrum, bilateral septic hip arthritis, multiple abscesses to the hip areas, and multiple decubitus ulcers. MEDICATIONS: Today is day 15 of treatment with daptomycin 500 mg IV daily for the vancomycin resistant enterococcus. Today is day 24 of treatment with meropenem 2 g IV every 8 hours for the other organisms that have grown. PHYSICAL EXAMINATION: Vital Signs: Temperature is 98.1 degrees, pulse rate 109, respiratory rate 16, blood pressure 102/69. O2 saturation is 100% on room air. General: This is a chronically ill-appearing, middle-aged male who is sitting up in bed, currently in no acute distress. HEENT: Atraumatic, normocephalic. Oral mucous membranes are pink and moist. Conjunctivae are pale. Respiratory: Lung sounds are bilaterally clear to auscultation. No work of breathing is noted. Cardiovascular: Heart rate and rhythm are regular and fast, sinus tachycardia on the monitor. Integumentary: Skin is warm and dry with a Morris to the right chest. That site is without edema, erythema, or drainage. He still has an accordion drain in place to the left hip, with serosanguineous drainage noted in the bag. He has multiple decubitus ulcers from the sacrum down his lower extremities with dressings in various sites which were not removed at this time. Neurologic: He is awake, alert, oriented. He has limited movement to his upper extremities with hand contractures bilaterally and no use of his lower extremities due to quadriplegia. LABORATORY AND X-RAY: None available today, but on the his white count was 10.29. Hemoglobin 7.6. Platelet count 394,000. Creatinine 0.5. Estimated GFR greater than 60. Total bilirubin 0.28. AST 122, ALT 224. Alkaline phosphatase 295. Creatine kinase 23. No imaging reports today. ASSESSMENT AND PLAN: Mr. Stewart has chronic septic hip arthritis and bilateral hip and sacral osteomyelitis. There are also multiple abscesses to the hip areas bilaterally with decubitus ulcers scattered down the lower extremities from the sacrum. He has grown a vancomycin-resistant enterococcus for which we will continue the daptomycin. He is also receiving meropenem for the other organisms which include Enterococcal faecalis, Pseudomonas aeruginosa, Providencia stuartii and Acinetobacter baumannii. At this point, he is a little over 3 weeks into his treatment with meropenem and will need to complete 3 more weeks to finish the treatment. Also, he has had just over 2 weeks of daptomycin and will need 4 more weeks to complete that treatment. There is a mild transaminitis noted. We will recheck labs tomorrow. I have discussed with the patient, the probability of going home with IV antibiotics. He has done this before, but has not had good assistance with this, or his wound care in the past. Unfortunately at this point, there are no other options. I am hoping he can stay in the hospital as long as they can possibly keep him. COMORBIDITIES: For Mr. Stewart, include C7 quadriplegia, multiple decubitus ulcers, diabetes mellitus, neuropathy, and protein calorie malnutrition. Dictated by COLTEN Andrews for Ike Thapa MD cc: Ike Thapa MD MTDD
[2019-04-22] MEDS: CUBICIN 500 MG in NS 100 ML IV SCH (14:06)
[2019-04-22] MEDS: QUESTRAN LIGHT PO SCH (15:51)
--- NOTE | 2019-04-22 15:53 | PROGRESS NOTE ---
DATE: 04/22/2019 SUBJECTIVE: Mr. Stewart is feeling good. He is eating well breathing comfortably. OBJECTIVE: Vital Signs: Remains afebrile, temperature 98.1 degrees, pulse 109, respirations 18, blood pressure 102/69. HEENT: Pupils are equal and round. Lungs: Clear in all lung warren. Cardiovascular: Regular rhythm and rate without murmur or S3. Urine output is 3700 mL. His blood sugars look well controlled. ASSESSMENT AND PLAN: Treated for multiple chronic conditions including osteomyelitis bilateral hips and sacrum, bilateral septic hip arthritis, multiple abscesses to the hip area, multiple decubitus ulcers. This is day 15 of daptomycin 500 mg IV for vancomycin-resistant Enterococcus and day 24 treatment of meropenem q.8 hours IV for other organisms. Plan is to get extended IV antibiotics. He has chronic septic hip arthritis and bilateral hip and sacral osteomyelitis, multiple abscesses in the sacrum and bilateral hips with decubitus ulcers scattered throughout the lower extremities and sacrum. They are healing. We are going to continue topical care. He was growing vancomycin-resistant Enterococcus for which we have given him daptomycin and receiving meropenem with organisms including Enterococcus faecalis, Pseudomonas aeruginosa, Providencia stuartii and Acinetobacter. He is a little over 3 weeks in his treatment and will need 3 more weeks. He is not eligible to go to LTAC or rehab, so we will maybe see if there is some way to give him these antibiotics at home. It is doubtful that they will be able to supply the daptomycin, but he will need 4 more weeks of treatment. He has very mild transaminitis which is which is stable, so continue present therapy. LABS: Last several blood sugars; 243, 294, 194, 141. He does have a normocytic anemia which is stable. Hematocrit 25, hemoglobin 7.6, and he is, I believe, on iron. cc: Moise De La Fuente MD
[2019-04-22] MEDS: AMBIEN PO SCH (22:10)
[2019-04-22] MEDS: SODIUM CHLORIDE 0.9% INJ SCH (22:10)
[2019-04-23] MEDS: OXY IR PO PRN ×2 (00:38→23:58)
[2019-04-23] MEDS: DILAUDID IV PRN ×5 (02:35→21:54)
[2019-04-23] MEDS: ZOFRAN IV PRN ×3 (03:49→23:58)
[2019-04-23] MEDS: HUMULIN R SUBQ SCH ×2 (06:02→11:24)
[2019-04-23] MEDS: MERREM 2 GM in NS 100 ML IV SCH ×2 (06:25→13:48)
[2019-04-23] MEDS: LOVENOX SUBQ SCH (06:26)
[2019-04-23] MEDS: IMODIUM PO PRN ×3 (06:26→23:58)
[2019-04-23 06:59] LABS: BASO# 0.04 X1000 (0.0-0.2); BASO% 0.4 % (0.0-0.8); EOS# 0.48 X1000 (0.0-0.7); HEMATOCRIT 26.9 % (42.0-52.0); IMM GRAN# 0.09 X1000 (0.0-0.04); IMM GRAN% 0.9 % (0.0-0.5); LYMPH# 1.68 X1000 (1.2-3.4); LYMPH% 17.5 % (20.5-51.1); MCH 26.3 PG (27-31); MCHC 29.7 g/dL (33-37); MCV 88.5 FL (81-99); MONO# 0.74 X1000 (0.11-0.59); MONO% 7.7 % (1.7-9.3); NEUT# 6.58 X1000 (1.4-6.5); NEUT% 68.5 % (42.2-75.2); PLT 314 X1000 (130-400); RBC 3.04 XMIL (4.7-6.1); RDW 20.1 % (11.5-14.5); WBC 9.61 X1000 (4.8-10.8)
[2019-04-23 07:31] LABS: AGAP 10; ALB/GLOB RATIO 0.8; ALBUMIN 2.9 g/dL (3.5-5.0); ALKALINE PHOSPHATASE 514 U/L (32-122); BUN 27 mg/dL (8-22); CHLORIDE 100 mmol/L (98-107); COSMO 277; CREATININE 0.6 mg/dL (0.7-1.2); ESTIMATED GFR > 60; GLUCOSE 105 mg/dL (70-104); GOT 164 U/L (10-34); GPT 329 U/L (10-44); SODIUM 136 mmol/L (136-145); TCO2 26 mmol/L (25-35); TOTAL BILIRUBIN 0.43 mg/dL (0.20-1.00); TOTAL PROTEIN 6.7 g/dL (6.3-8.3)
[2019-04-23] MEDS: PROTONIX IV SCH ×2 (08:26→21:54)
[2019-04-23] MEDS: QUESTRAN LIGHT PO SCH (08:26)
[2019-04-23] MEDS: FLORINEF PO SCH (08:27)
[2019-04-23] MEDS: THERA M PLUS PO SCH (08:27)
[2019-04-23] MEDS: PROAMATINE PO SCH ×3 (08:27→21:54)
[2019-04-23] MEDS: SODIUM CHLORIDE 0.9% INJ SCH ×2 (08:27→21:54)
[2019-04-23] MEDS: LYRICA PO SCH ×2 (09:43→21:54)
[2019-04-23] MEDS: MARINOL PO SCH ×2 (09:43→21:54)
[2019-04-23] MEDS: CUBICIN 500 MG in NS 100 ML IV SCH (13:48)
--- NOTE | 2019-04-23 18:27 | Diag Imaging Result Doc PS360 ---
CT ABD/PELVIS W/IV CONT ONLY - 04/23/2019 INDICATION: hip osteomyelitis and abscess COMPARISON: 04/04/2019 FINDINGS: The lung bases are clear and the heart size is normal. There is an IVC filter in good position. There is a Herrera catheter in the urinary bladder. There are large areas of solid tissue inflammation surrounding both hips. There are small amounts of fluid in both hip joint spaces. There is an abscess drainage catheter in the anterior left hip joint. There is some soft tissue gas in the hip joint collections bilaterally. There is significant skin ulceration posteriorly involving both hips, sacral wings, and ischial tuberosities. No intra-abdominal abscess. There is a Herrera catheter in the urinary bladder in good position. Urinary bladder demonstrates wall thickening. There is an IVC filter. Abdominal organs are all normal. No bowel obstruction or inflammation. IMPRESSION: 1. Significant soft tissue inflammation surrounding both hips. Severe erosion of both hips. Small amounts of fluid bilaterally. Left hip drainage catheter in good position. 2. Severe decubitus ulceration at both hips, sacral wings and initial tuberosities. This exam was performed using automated exposure control, adjustment of mA or kV according to patient size, and/or use of iterative reconstruction technique Electronically signed by Demond Bowers 04/23/2019 6:25 PM
--- NOTE | 2019-04-23 21:14 | PROGRESS NOTE ---
DATE: 04/23/2019 SUBJECTIVE: The patient is resting comfortably in bed. He complains of generalized aches and pains and is requesting an increase in his pain medication. The drain in his left hip has minimal output. OBJECTIVE: Vital Signs: Temperature 98.4, blood pressure 99/57, heart rate 108, respirations 20, O2 saturation 100% on room air. General: This is a chronically ill-appearing young male lying in bed in no acute distress. Heart: S1, S2 normal. Regular rate and rhythm. Lungs: Clear to auscultation bilaterally. Abdomen: Positive bowel sounds. Soft, nontender, nondistended. Extremities: The patient has a drain in the left hip with minimal output. Sacrum: The patient has multiple decubitus ulcers involving the sacrum and extremities. Neurologic: The patient is alert and oriented x3. The patient is a quadriplegic. LABS: White blood cell count 9.6, hemoglobin 8, hematocrit 26, platelets 314. Sodium 136, potassium 5, chloride 100. CO2 is 26, BUN 27, creatinine 0.6, glucose 105. AST 164, ALT 329, alkaline phosphatase 514. IMAGING PROCEDURE: CT of the abdomen and pelvis reveals soft tissue inflammation involving both hips. Small amounts of fluid bilaterally. Severe decubitus ulceration of both hips, sacral wings and ischial tuberosities. ASSESSMENT AND PLAN: 1. Bilateral chronic septic hip arthritis with osteomyelitis secondary to a polymicrobial infection. The patient had multiple organisms growing in his hip cultures. Continue with the meropenem. The patient has vancomycin-resistant Enterococcus which requires him to be on daptomycin; however, the patient's liver function tests have started to rise since being on the daptomycin. May need to consider switching to tigecycline if the liver function tests continue to rise. This was discussed with Alexia Fam, the nurse practitioner for Infectious Disease. 2. Sacral osteomyelitis. Aware. Continue with wound care and antibiotic therapy. 3. Diarrhea. Stool for Clostridium difficile is negative. We will start the patient on lactobacillus. He is receiving p.r.n. Imodium and Questran. 4. Adrenal insufficiency. Continue on Florinef. 5. Chronic pain. Continue with the current pain management regimen. 6. Transaminitis. We will order a hepatitis profile. I suspect this is secondary to daptomycin. The patient will likely require an alternative antibiotic to treat his polymicrobial infection. We will continue to monitor the liver function studies closely. 7. Anemia of chronic disease. Stable. 8. Quadriplegia. Aware. Continue with frequent turns. The patient is on an air mattress. 9. Deep vein thrombosis prophylaxis. Continue on Lovenox. cc: Karla Pagan MD
[2019-04-23] MEDS: CULTURELLE PO SCH (21:54)
[2019-04-23] MEDS: AMBIEN PO SCH (21:54)
[2019-04-24] MEDS: MERREM 2 GM in NS 100 ML IV SCH ×3 (00:01→15:11)
[2019-04-24] MEDS ORDERED: BENADRYL PO ONE (00:44)
[2019-04-24] MEDS: DILAUDID IV PRN ×5 (01:03→20:48)
[2019-04-24 07:40] LABS: HEMOGLOBIN 8.2 g/dL (14.0-18.0); MONO% 8.6 % (1.7-9.3)
[2019-04-24] MEDS: LOVENOX SUBQ SCH (07:44)
[2019-04-24 07:49] LABS: BASO# 0.04 X1000 (0.0-0.2); BASO% 0.5 % (0.0-0.8); EOS# 0.39 X1000 (0.0-0.7); EOS% 4.9 % (0.0-10.0); HEMATOCRIT 27.3 % (42.0-52.0); IMM GRAN# 0.07 X1000 (0.0-0.04); IMM GRAN% 0.9 % (0.0-0.5); LYMPH# 1.51 X1000 (1.2-3.4); LYMPH% 19.2 % (20.5-51.1); MCH 26.5 PG (27-31); MCV 88.3 FL (81-99); MONO# 0.68 X1000 (0.11-0.59); MPV 10.2 FL (7.4-10.4); NEUT# 5.19 X1000 (1.4-6.5); NEUT% 65.9 % (42.2-75.2); PLT 310 X1000 (130-400); RBC 3.09 XMIL (4.7-6.1); RDW 19.7 % (11.5-14.5); WBC 7.88 X1000 (4.8-10.8)
[2019-04-24 08:06] LABS: AGAP 9; ALB/GLOB RATIO 0.8; ALKALINE PHOSPHATASE 513 U/L (32-122); BUN 24 mg/dL (8-22); CALCIUM 9.2 mg/dL (8.8-10.2); CHLORIDE 99 mmol/L (98-107); COSMO 275; CREATININE 0.6 mg/dL (0.7-1.2); ESTIMATED GFR > 60; GLUCOSE 112 mg/dL (70-104); GOT 101 U/L (10-34); GPT 247 U/L (10-44); POTASSIUM 4.5 mmol/L (3.5-5.1); SODIUM 135 mmol/L (136-145); TCO2 27 mmol/L (25-35); TOTAL BILIRUBIN 0.49 mg/dL (0.20-1.00); TOTAL PROTEIN 6.7 g/dL (6.3-8.3)
[2019-04-24] MEDS: LYRICA PO SCH ×2 (09:05→20:55)
[2019-04-24] MEDS: MARINOL PO SCH ×2 (09:08→20:53)
[2019-04-24] MEDS: FERROUS SULFATE PO SCH (09:09)
[2019-04-24] MEDS: PROAMATINE PO SCH ×3 (09:09→20:52)
[2019-04-24] MEDS: THERA M PLUS PO SCH (09:09)
[2019-04-24] MEDS: CULTURELLE PO SCH ×2 (09:09→20:53)
[2019-04-24] MEDS: FLORINEF PO SCH (09:09)
[2019-04-24] MEDS: QUESTRAN LIGHT PO SCH (09:10)
[2019-04-24] MEDS: PROTONIX IV SCH ×2 (09:10→20:40)
[2019-04-24] MEDS: OXY IR PO PRN ×2 (09:19→20:56)
[2019-04-24] MEDS: IMODIUM PO PRN (09:20)
[2019-04-24] MEDS: BENADRYL IV PRN ×2 (10:38→23:21)
[2019-04-24 11:46] LABS: HEPATITIS PROFILE ACUTE SEE COMMENTS
[2019-04-24] MEDS: ZOFRAN IV PRN (12:35)
--- NOTE | 2019-04-24 12:53 | INFECTIOUS DISEASE PROGRESS NO ---
DATE: 04/24/2019 PRESENT ILLNESS: Mr. Stewart is being treated for bilateral hip and sacral osteomyelitis with hip abscesses and decubitus ulcers. He has grown vancomycin-resistant Enterococcus to a left hip abscess, where there is an accordion drain. He has also had Pseudomonas, Providencia, Enterococcus, and Acinetobacter growth to his bilateral hips and decubitus ulcers. MEDICATIONS: Today is day 17 of treatment with daptomycin 500 mg IV daily, and day 26 of treatment for the meropenem 2 g IV every 8 hours. He will need both of these for a total of 6 weeks. PHYSICAL EXAMINATION: Vital Signs: Temperature 97.7 degrees, pulse rate 103, respiratory rate 18, blood pressure 100/70, and O2 saturation 100% on room air. General: This is a chronically ill-appearing middle-aged gentleman. He is lying in bed currently in no acute distress. HEENT: Atraumatic, normocephalic. Oral mucous membranes are pink and moist. Conjunctivae are pale. Neck: Supple. Trachea is midline. Respiratory: Lung sounds are clear to auscultation bilaterally. No work of breathing is noted. Cardiovascular: Heart rate and rhythm are regular and fast. Sinus tachycardia on the monitor. Neurologic: He is awake, alert, oriented, and able to move his upper extremities with some limitations. He has bilateral hand contractures, and no use of his lower extremities due to quadriplegia. Integumentary: Skin is warm and dry. There is a Morris catheter to the right chest without edema, erythema or drainage. He has multiple decubitus ulcers to the sacrum, hips, and lower extremities bilaterally, which have dressings in place, not removed at this time. LABORATORY AND X-RAY: Today, his white count is 7.88, hemoglobin 8.2, and platelet count 310,000, creatinine is 0.6. Estimated GFR is greater than 60. Total bilirubin is 0.49. AST 101, ALT 247, and alkaline phosphatase is 513. The C-reactive protein ordered yesterday showed 61.64. Hepatitis panel was nonreactive. Recheck for C diff was negative. An abdominal and pelvis CT done yesterday showed hip erosions with bilateral fluid and tissue inflammation surrounding both hips. It also showed severe decubitus ulcers to both hips sacrum and ischial tuberosities. ASSESSMENT AND PLAN: Mr. Stewart has chronic bilateral hip and sacral osteomyelitis with septic hip arthritis, and multiple decubitus ulcers. He has grown multiple bacteria which require daptomycin and meropenem. Unfortunately, he is unable to be transferred to rehab or an LTACH. In the last couple of days, he has developed a mild transaminitis which seems to have improved slightly today. His hepatitis panel was nonreactive. Because of the multiple organisms, there is no good option to the treatment of his bacteria so we will continue daptomycin and meropenem as ordered. COMORBIDITIES: For Mr. Stewart, include C7 quadriplegia, diabetes mellitus, neuropathy, and multiple decubitus ulcers. Dictated by COLTEN Andrews for Ike Thapa MD cc: Ike Thapa MD [facility]
[2019-04-24] MEDS: CUBICIN 500 MG in NS 100 ML IV SCH (15:12)
--- NOTE | 2019-04-24 20:20 | PROGRESS NOTE ---
DATE: 04/24/2019 SUBJECTIVE: The patient states that his stool is starting to form a little bit more. No acute events noted overnight. OBJECTIVE: Vital Signs: Temperature 98.1 degrees, blood pressure 94/60, heart rate 100, respirations 17, O2 saturations 100% on room air. General: This is a young male lying in bed in no acute distress. Heart: S1, S2 normal. Regular rate and rhythm. Lungs: Equal air entry bilaterally. No wheezing. No rales. Abdomen: Positive bowel sounds. Soft, nontender, nondistended. Extremities: The patient has multiple decubitus ulcerations on the legs as well as the bilateral hips. He also has an accordion drain coming out of the left hip with serosanguineous drainage. Neurologic: The patient is alert and oriented x3. The patient is a quadriplegic. LABORATORY DATA: White blood cell count 7.8, hemoglobin 8.2, hematocrit 27, platelets 310,000. Sodium 135, potassium 4.5, chloride 99, CO2 27, BUN 24, creatinine 0.9. ASSESSMENT AND PLAN: 1. Bilateral chronic septic hip arthritis with osteomyelitis secondary to a polymicrobial infection. The patient had multiple organisms growing in his hip wound cultures. We will continue with meropenem and daptomycin. 2. Sacral osteomyelitis. Aware. Continue with wound care and antibiotic therapy. 3. Multiple decubitus ulcerations of hips. Continue with wound care. 4. Diarrhea. Continue with p.r.n. Imodium and Questran. Stool appears to be soft, more formed now. Stool for Clostridium difficile is negative. 5. Chronic pain. Continue on the current pain management regimen. 6. Transaminitis. Improved today. Continue to monitor closely while on daptomycin. 7. Quadriplegia. Aware. Continue with frequent turns. The patient is on an air mattress. 8. Anemia of chronic disease. Stable. 9. Deep vein thrombosis prophylaxis. Continue on Lovenox. cc: MD YUDELKA Cooper
[2019-04-24] MEDS: AMBIEN PO SCH (20:56)
[2019-04-25] MEDS: MERREM 2 GM in NS 100 ML IV SCH ×4 (00:23→21:05)
[2019-04-25] MEDS: DILAUDID IV PRN ×7 (00:36→21:04)
[2019-04-25] MEDS: OXY IR PO PRN (04:05)
[2019-04-25] MEDS: BENADRYL IV PRN ×3 (05:50→21:04)
[2019-04-25] MEDS: LOVENOX SUBQ SCH (06:10)
[2019-04-25] MEDS: PROTONIX IV SCH ×2 (09:14→21:05)
[2019-04-25] MEDS: SODIUM CHLORIDE 0.9% INJ SCH (09:14)
[2019-04-25] MEDS: FLORINEF PO SCH (09:14)
[2019-04-25] MEDS: LYRICA PO SCH ×2 (09:14→21:03)
[2019-04-25] MEDS: THERA M PLUS PO SCH (09:14)
[2019-04-25] MEDS: CULTURELLE PO SCH ×2 (09:14→21:03)
[2019-04-25] MEDS: PROAMATINE PO SCH ×3 (09:14→21:03)
[2019-04-25] MEDS: IMODIUM PO PRN (09:15)
[2019-04-25] MEDS: MARINOL PO SCH ×2 (09:15→21:04)
[2019-04-25 09:43] LABS: BASO# 0.02 X1000 (0.0-0.2); BASO% 0.3 % (0.0-0.8); EOS# 0.25 X1000 (0.0-0.7); EOS% 3.6 % (0.0-10.0); HEMATOCRIT 26.7 % (42.0-52.0); IMM GRAN# 0.06 X1000 (0.0-0.04); IMM GRAN% 0.9 % (0.0-0.5); LYMPH# 1.74 X1000 (1.2-3.4); LYMPH% 24.9 % (20.5-51.1); MCH 26.8 PG (27-31); MCV 89.6 FL (81-99); MONO# 0.63 X1000 (0.11-0.59); NEUT# 4.28 X1000 (1.4-6.5); NEUT% 61.3 % (42.2-75.2); PLT 283 X1000 (130-400); RBC 2.98 XMIL (4.7-6.1); RDW 19.4 % (11.5-14.5); WBC 6.98 X1000 (4.8-10.8)
[2019-04-25 10:15] LABS: AGAP 8; ALB/GLOB RATIO 0.8; ALKALINE PHOSPHATASE 529 U/L (32-122); BUN 29 mg/dL (8-22); CALCIUM 8.5 mg/dL (8.8-10.2); CHLORIDE 99 mmol/L (98-107); COSMO 276; CREATININE 0.7 mg/dL (0.7-1.2); ESTIMATED GFR > 60; GLUCOSE 167 mg/dL (70-104); GOT 151 U/L (10-34); GPT 235 U/L (10-44); POTASSIUM 4.4 mmol/L (3.5-5.1); SODIUM 133 mmol/L (136-145); TCO2 26 mmol/L (25-35); TOTAL BILIRUBIN 0.41 mg/dL (0.20-1.00); TOTAL PROTEIN 6.6 g/dL (6.3-8.3)
[2019-04-25] MEDS: QUESTRAN LIGHT PO SCH (12:31)
[2019-04-25] MEDS: CUBICIN 500 MG in NS 100 ML IV SCH (13:55)
--- NOTE | 2019-04-25 15:51 | PROGRESS NOTE ---
DATE: 04/25/2019 SUBJECTIVE: The patient is resting comfortably in bed. He complains of itching in his arms and around the IV acces site. OBJECTIVE: Vital Signs: Temperature 98 degrees, blood pressure 105/59, heart rate 104, respirations 20, O2 saturations 100% on room air. General: This is a young male lying in bed in no acute distress. Heart: S1, S2 normal. Regular rate and rhythm. Lungs: Clear to auscultation bilaterally. No wheezing. No rales. No rhonchi. Abdomen: Positive bowel sounds. Soft, nontender, nondistended. Extremities: The patient has multiple decubitus ulcerations on the legs, mainly on both hips. He also has a drain in place in the left hip with minimal output. Neurologic: The patient is alert and oriented x3. The patient is a quadriplegic. LABS: Hemoglobin 8, hematocrit 26, platelets 283,000. Sodium 133, potassium 4.4, chloride 99, CO2 26, BUN 29, creatinine 0.7, glucose 167. AST 151, ALT 235, alkaline phosphatase 529, albumin 3. ASSESSMENT AND PLAN: 1. Bilateral chronic septic hip arthritis with osteomyelitis and abscess secondary to a polymicrobial infection s/p CT guided drain placement. We will continue with meropenem and daptomycin. Continue to monitor drainage amount from the drain. 2. Sacral osteomyelitis. Aware. 3. Transaminitis. Likely secondary to daptomycin. Will continue to monitor closely. May need to switch to tigecycline if the trend worsens. 4. Multiple decubitus ulcerations. Continue with wound care. 5. Chronic pain. Continue on the current pain management regimen. 6. Diarrhea. Improved. Continue on p.r.n. Imodium and Questran. 7. Quadriplegia. Aware. 8. Anemia of chronic disease. Stable. 9. Deep vein thrombosis prophylaxis. Continue on Lovenox. cc: Karla Pagan MD [facility]
[2019-04-25] MEDS: SODIUM CHLORIDE 0.9% INJ PRN (17:36)
[2019-04-25] MEDS: PHENERGAN IV PRN ×2 (17:36→21:03)
[2019-04-25] MEDS: AMBIEN PO SCH (21:04)
[2019-04-26] MEDS: PHENERGAN IV PRN ×4 (03:34→21:30)
[2019-04-26] MEDS: IMODIUM PO PRN ×2 (03:34→14:44)
[2019-04-26] MEDS: DILAUDID IV PRN ×5 (03:34→22:47)
[2019-04-26] MEDS: LOVENOX SUBQ SCH (05:32)
[2019-04-26] MEDS: MERREM 2 GM in NS 100 ML IV SCH ×3 (05:32→22:51)
[2019-04-26 07:06] LABS: HEMATOCRIT 27.9 % (42.0-52.0); HEMOGLOBIN 8.5 g/dL (14.0-18.0); MCH 27.5 PG (27-31); MCHC 30.5 g/dL (33-37); MCV 90.3 FL (81-99); MPV 10.9 FL (7.4-10.4); RBC 3.09 XMIL (4.7-6.1); RDW 19.6 % (11.5-14.5); WBC 7.12 X1000 (4.8-10.8)
[2019-04-26 07:31] LABS: AGAP 10; ALB/GLOB RATIO 0.7; ALKALINE PHOSPHATASE 574 U/L (32-122); BUN 26 mg/dL (8-22); CALCIUM 9.5 mg/dL (8.8-10.2); CHLORIDE 100 mmol/L (98-107); COSMO 281; CREATININE 0.6 mg/dL (0.7-1.2); ESTIMATED GFR > 60; GLUCOSE 135 mg/dL (70-104); GOT 224 U/L (10-34); GPT 302 U/L (10-44); POTASSIUM 4.8 mmol/L (3.5-5.1); SODIUM 137 mmol/L (136-145); TCO2 27 mmol/L (25-35); TOTAL BILIRUBIN 0.39 mg/dL (0.20-1.00); TOTAL PROTEIN 7.1 g/dL (6.3-8.3)
[2019-04-26] MEDS: MARINOL PO SCH ×2 (08:51→21:45)
[2019-04-26] MEDS: CULTURELLE PO SCH ×2 (08:51→21:30)
[2019-04-26] MEDS: PROAMATINE PO SCH ×3 (08:51→21:37)
[2019-04-26] MEDS: PROTONIX IV SCH ×2 (08:52→21:31)
[2019-04-26] MEDS: SODIUM CHLORIDE 0.9% INJ SCH (08:52)
[2019-04-26] MEDS: LYRICA PO SCH ×2 (08:52→21:45)
[2019-04-26] MEDS: FERROUS SULFATE PO SCH (08:52)
[2019-04-26] MEDS: FLORINEF PO SCH (08:52)
[2019-04-26] MEDS: THERA M PLUS PO SCH (08:52)
[2019-04-26] MEDS: QUESTRAN LIGHT PO SCH ×2 (08:53→21:33)
[2019-04-26] MEDS: TYGACIL 50 MG in NS 50 ML IV SCH ×2 (12:00→23:34)
[2019-04-26] MEDS: SODIUM CHLORIDE 0.9% INJ PRN ×2 (12:09→16:35)
--- NOTE | 2019-04-26 12:54 | INFECTIOUS DISEASE PROGRESS NO ---
DATE: 04/26/2019 PRESENT ILLNESS: Mr. Stewart has bilateral hip and sacral osteomyelitis with hip abscesses and decubitus ulcers. Wound and drainage cultures are polymicrobial with vancomycin-resistant Enterococcus, Pseudomonas, Providencia, Enterococcus and Acinetobacter. MEDICATIONS: Today is day 19 of treatment with daptomycin 500 mg IV daily and day 28 of treatment with meropenem 2 g IV every 8 hours. Treatment will need to be continued for a total of 6 weeks. PHYSICAL EXAMINATION: Vital Signs: Temperature is 99.1 degrees, pulse rate 108, respiratory rate 19, blood pressure 103/65, O2 saturation 100% on room air. General: This is a chronically ill- appearing, middle-aged male. He is laying in the bed currently in no acute distress. HEENT: Atraumatic, normocephalic. Oral mucous membranes are pink and moist. Conjunctivae are pale. Neck: Supple. Trachea is midline. Cardiovascular: Heart rate and rhythm are regular and fast with sinus tachycardia on the monitor. Respiratory: Lung sounds are bilaterally clear to auscultation. There is no work of breathing. Integumentary: Skin is warm and dry with a Morris catheter to the right chest. That site is without edema, erythema, or drainage. He also has an accordion drain to the left hip, and multiple decubitus ulcers which are covered by dressings, which were not removed at this time. Neurologic: He is awake, alert and oriented. Able to move his upper extremities with limitations due to his quadriplegia. He has bilateral hand contractures and no use of his lower extremities. LABORATORY AND X-RAY: Today his white count is 7.12, hemoglobin 8.5, platelet count 287,000. Creatinine is 0.26. Estimated GFR is greater than 60. Total bilirubin is 0.39 AST 224, ALT 302, alkaline phosphatase 574. No imaging reports today. ASSESSMENT AND PLAN: Mr. Stewart has chronic hip and sacral osteomyelitis with septic hip arthritis and multiple decubitus ulcers. He will need 6 weeks of treatment with meropenem due to the multiple bacteria that have grown, which are being covered by that drug. He is continuing to have elevated liver enzymes. I've spoken with Dr. Pagan, and I agree with her idea to change the daptomycin to tigecycline 50mg IV every 12 hours. Hopefully, this change will help his transaminitis. COMORBIDITIES: Comorbidities for Mr. Stewart include C7 quadriplegia, diabetes mellitus, neuropathy and multiple decubitus ulcers. Dictated by COLTEN Andrews for Vazquez Ellis MD cc: Vazquez Ellis MD [facility]
[2019-04-26] MEDS: OXY IR PO PRN ×2 (14:33→21:30)
[2019-04-26] MEDS: BENADRYL IV PRN (16:55)
--- NOTE | 2019-04-26 20:18 | PROGRESS NOTE ---
DATE: 04/26/2019 SUBJECTIVE: The patient is resting comfortably in bed. He complains of some itching on his arms. He also reports that he still having diarrhea. OBJECTIVE: Vital Signs: Temperature 98 degrees, blood pressure 97/56, heart rate 65, respirations 19, O2 saturation 99% on room air. Intake 1.3 L, output 2.8 L. General: This is a young male lying in bed in no acute distress. Heart: S1, S2 normal. Regular rate and rhythm. Lungs: Equal air entry bilaterally. Abdomen: Positive bowel sounds. Soft, nontender, nondistended. Extremities: The patient has multiple decubitus ulcerations on his legs including both hips. There is an accordion drain in the left hip with minimal output. Neurologic: The patient is alert and oriented x3. The patient is a quadriplegic. LABORATORY DATA: White blood cell count 7.1, hemoglobin 8.5, hematocrit 27, platelets 287,000. Sodium 137, potassium 4.8, chloride 100, CO2 27, BUN 26, creatinine 0.6, AST 224, ALT 302, alkaline phosphatase 574. CK 23. ASSESSMENT AND PLAN: 1. Bilateral chronic septic hip arthritis with osteomyelitis and abscess secondary to a polymicrobial infection status post CT-guided drain placement. The patient continues to have drainage from the left hip. We will continue with the drain at this time. Due to the patient's elevated liver function tests, we will discontinue the daptomycin and start tigecycline. Continue on meropenem. 2. Sacral osteomyelitis. Aware. Continue with antibiotic therapy and wound care. 3. Multiple decubitus ulcerations. Continue with wound care. 4. Transaminitis. This is likely secondary to daptomycin. This was discontinued today, and the patient was started on tigecycline. We will monitor the patient closely since this drug can also cause LFT elevation. 5. Diarrhea. Unchanged. We will increase the Questran doses to twice a day. Continue on p.r.n. Imodium. Stool for Clostridium difficile was negative. 6. Anemia of chronic disease, stable. 7. Quadriplegia. Aware. Continue with frequent turns. 8. Deep vein thrombosis prophylaxis. Continue on Lovenox. cc: Karla Pagan MD [facility]
[2019-04-26] MEDS: AMBIEN PO SCH (21:47)
[2019-04-27] MEDS: DILAUDID IV PRN ×5 (01:50→21:38)
[2019-04-27] MEDS: PHENERGAN IV PRN ×4 (01:51→22:59)
[2019-04-27] MEDS: MERREM 2 GM in NS 100 ML IV SCH ×3 (06:14→22:18)
[2019-04-27] MEDS: LOVENOX SUBQ SCH (08:52)
[2019-04-27] MEDS: LYRICA PO SCH ×2 (08:53→21:32)
[2019-04-27] MEDS: PROAMATINE PO SCH ×3 (08:53→21:33)
[2019-04-27] MEDS: MARINOL PO SCH ×2 (08:53→21:35)
[2019-04-27] MEDS: PROTONIX IV SCH ×2 (08:53→21:36)
[2019-04-27] MEDS: QUESTRAN LIGHT PO SCH ×2 (08:53→21:41)
[2019-04-27] MEDS: CULTURELLE PO SCH ×2 (08:53→21:35)
[2019-04-27] MEDS: THERA M PLUS PO SCH (08:53)
[2019-04-27] MEDS: FLORINEF PO SCH (08:53)
[2019-04-27] MEDS: SODIUM CHLORIDE 0.9% INJ PRN (09:11)
[2019-04-27 09:14] LABS: BASO# 0.03 X1000 (0.0-0.2); BASO% 0.4 % (0.0-0.8); EOS# 0.39 X1000 (0.0-0.7); EOS% 4.8 % (0.0-10.0); HEMATOCRIT 29.7 % (42.0-52.0); HEMOGLOBIN 8.9 g/dL (14.0-18.0); IMM GRAN# 0.06 X1000 (0.0-0.04); IMM GRAN% 0.7 % (0.0-0.5); LYMPH# 1.77 X1000 (1.2-3.4); LYMPH% 21.6 % (20.5-51.1); MCH 27.1 PG (27-31); MCV 90.3 FL (81-99); MONO# 0.67 X1000 (0.11-0.59); MONO% 8.2 % (1.7-9.3); MPV 10.3 FL (7.4-10.4); NEUT# 5.29 X1000 (1.4-6.5); NEUT% 64.3 % (42.2-75.2); PLT 285 X1000 (130-400); RBC 3.29 XMIL (4.7-6.1); RDW 19.4 % (11.5-14.5); WBC 8.21 X1000 (4.8-10.8)
[2019-04-27 09:40] LABS: AGAP 13; ALB/GLOB RATIO 0.7; ALBUMIN 2.8 g/dL (3.5-5.0); ALKALINE PHOSPHATASE 609 U/L (32-122); BUN 35 mg/dL (8-22); CALCIUM 9.5 mg/dL (8.8-10.2); CHLORIDE 100 mmol/L (98-107); COSMO 283; CREATININE 0.6 mg/dL (0.7-1.2); ESTIMATED GFR > 60; GLUCOSE 128 mg/dL (70-104); GOT 168 U/L (10-34); GPT 344 U/L (10-44); POTASSIUM 4.6 mmol/L (3.5-5.1); SODIUM 137 mmol/L (136-145); TCO2 24 mmol/L (25-35); TOTAL BILIRUBIN 0.43 mg/dL (0.20-1.00); TOTAL PROTEIN 7.1 g/dL (6.3-8.3)
[2019-04-27] MEDS: TYGACIL 50 MG in NS 50 ML IV SCH ×2 (11:55→22:18)
--- NOTE | 2019-04-27 12:14 | Diag Imaging Result Doc PS360 ---
EXAM: US ABDOMEN-COMPLETE HISTORY: elevated liver function TECHNIQUE: Abdominal ultrasound COMPARISON: CT from 04/23/2019 FINDINGS: Normal pancreatic body. Portions of the head and tail are obscured. No focal hepatic abnormality although the liver is mildly prominent measuring 20 cm. There may be fatty infiltration. Normal right kidney. No hydronephrosis. The gallbladder is contracted with thickening of the wall. There are several stones within the gallbladder. The common bile duct measures 4 mm. Normal left kidney. No hydronephrosis. The spleen measures 14.2 cm. IMPRESSION: 1.Cholelithiasis 2.Prominent liver with fatty infiltration 3.Mild splenomegaly Electronically signed by Garrick Steiner 04/27/2019 12:12 PM
[2019-04-27] MEDS: IMODIUM PO PRN (12:32)
[2019-04-27] MEDS: OXY IR PO PRN ×2 (15:02→23:20)
[2019-04-27] MEDS ORDERED: SODIUM CHLORIDE 0.9% INJ PRN (15:39)
--- NOTE | 2019-04-27 19:16 | PROGRESS NOTE ---
DATE: 04/27/2019 SUBJECTIVE: The patient is resting comfortably in bed. He has no complaints at this time. No acute events noted overnight. OBJECTIVE: Vital signs: Temperature 97.5 degrees, blood pressure 84/49, heart rate 103, respirations 20, O2 saturation 100% on room air. Intake 500, output 1.9 L.General: This is a chronically ill-appearing young male, lying in bed in no acute distress. Heart: S1, S2, normal. Tachycardic. Lungs clear to auscultation bilaterally. Abdomen: Positive bowel sounds. Soft, nontender, nondistended. Extremities: The patient has multiple decubitus ulcerations that are covered by dressings. There is a drain in the left hip with minimal output. Neurologic: The patient is alert and oriented x3. The patient is a quadriplegic, with contractures of his hands. LABORATORY DATA: White blood cell count 8.2, hemoglobin 8.9, hematocrit 29, platelets 285,000. Sodium 137, potassium 4.6, chloride 100, CO2 is 24, BUN 35, creatinine 0.6, glucose 128. AST 168, ALT 344, alkaline phosphatase 609. ASSESSMENT AND PLAN: 1. Bilateral chronic septic hip arthritis with osteomyelitis and abscess secondary to a polymicrobial infection, status post CT-guided drain placement. The drain in the left hip has minimal output. We will remove the drain. Will also send the fluid for culture from the left hip. Continue with the current antibiotic regimen. 2. Multiple decubitus ulcerations. Continue with wound care and antibiotic therapy. 3. Sacral osteomyelitis. Aware. Continue with wound care. 4. Transaminitis. The patient was taken off of daptomycin yesterday and started on tigecycline yesterday. The liver function tests are still rising. We will continue to monitor closely, since this medication can also cause elevation in the liver function studies. The abdominal ultrasound reveals cholelithiasis with gallbladder wall thickening. We will order a HIDA scan to be done on Monday. 5. Quadriplegia. Aware. 6. Chronic pain. Continue on the current pain management regimen. 7. Anemia of chronic disease. Monitor the H/H closely. 8. DVT prophylaxis. Continue on lovenox. cc: Karla Pagan MD [facility]
[2019-04-27] MEDS: AMBIEN PO SCH (21:34)
[2019-04-27] MEDS: BENADRYL IV PRN (23:19)
[2019-04-28] MEDS: DILAUDID IV PRN ×5 (03:50→20:35)
[2019-04-28] MEDS: PHENERGAN IV PRN ×4 (05:07→20:35)
[2019-04-28] MEDS: LOVENOX SUBQ SCH (05:07)
[2019-04-28] MEDS: BENADRYL IV PRN ×4 (05:07→20:35)
[2019-04-28] MEDS: IMODIUM PO PRN ×3 (05:54→20:34)
[2019-04-28 07:40] LABS: BASO# 0.03 X1000 (0.0-0.2); BASO% 0.3 % (0.0-0.8); EOS# 0.42 X1000 (0.0-0.7); EOS% 4.7 % (0.0-10.0); HEMATOCRIT 27.1 % (42.0-52.0); HEMOGLOBIN 8.1 g/dL (14.0-18.0); IMM GRAN# 0.06 X1000 (0.0-0.04); IMM GRAN% 0.7 % (0.0-0.5); LYMPH# 2.11 X1000 (1.2-3.4); LYMPH% 23.7 % (20.5-51.1); MCHC 29.9 g/dL (33-37); MCV 90.3 FL (81-99); MONO# 0.72 X1000 (0.11-0.59); MONO% 8.1 % (1.7-9.3); MPV 9.9 FL (7.4-10.4); NEUT# 5.55 X1000 (1.4-6.5); NEUT% 62.5 % (42.2-75.2); PLT 261 X1000 (130-400); RDW 19.1 % (11.5-14.5); WBC 8.89 X1000 (4.8-10.8)
[2019-04-28 07:59] LABS: AGAP 13; ALB/GLOB RATIO 0.7; ALBUMIN 2.7 g/dL (3.5-5.0); ALKALINE PHOSPHATASE 549 U/L (32-122); BUN 45 mg/dL (8-22); CHLORIDE 102 mmol/L (98-107); COSMO 293; CREATININE 0.8 mg/dL (0.7-1.2); ESTIMATED GFR > 60; GLUCOSE 169 mg/dL (70-104); GOT 68 U/L (10-34); GPT 209 U/L (10-44); POTASSIUM 4.4 mmol/L (3.5-5.1); SODIUM 139 mmol/L (136-145); TCO2 24 mmol/L (25-35); TOTAL BILIRUBIN 0.27 mg/dL (0.20-1.00); TOTAL PROTEIN 6.5 g/dL (6.3-8.3)
[2019-04-28] MEDS: CULTURELLE PO SCH ×2 (08:10→20:34)
[2019-04-28] MEDS: PROTONIX IV SCH ×2 (08:10→20:34)
[2019-04-28] MEDS: THERA M PLUS PO SCH (08:10)
[2019-04-28] MEDS: FLORINEF PO SCH (08:11)
[2019-04-28] MEDS: MARINOL PO SCH ×2 (08:11→20:34)
[2019-04-28] MEDS: PROAMATINE PO SCH ×3 (08:11→20:34)
[2019-04-28] MEDS: FERROUS SULFATE PO SCH (08:11)
[2019-04-28] MEDS: LYRICA PO SCH ×2 (08:11→20:34)
[2019-04-28] MEDS: QUESTRAN LIGHT PO SCH ×2 (09:14→20:34)
[2019-04-28] MEDS: MERREM 2 GM in NS 100 ML IV SCH ×3 (10:25→23:04)
[2019-04-28] MEDS: OXY IR PO PRN (10:25)
[2019-04-28] MEDS: TYGACIL 50 MG in NS 50 ML IV SCH ×3 (11:04→23:03)
--- NOTE | 2019-04-28 20:22 | PROGRESS NOTE ---
DATE: 04/28/2019 SUBJECTIVE: The patient continues to complain of abdominal discomfort. He states that he has to take Phenergan every 4 hours to keep his abdominal pain and nausea under control. OBJECTIVE: Vital Signs: Temperature 98.8 degrees, blood pressure 108/71, heart rate 111, respirations 20, O2 saturations 100% on room air. General: This is a young male lying in bed in no acute distress. Heart: S1, S2 normal. Regular rate and rhythm. Lungs: Clear to auscultation bilaterally. Abdomen: Positive bowel sounds. Soft, nontender, nondistended. Extremities: The patient has decubitus ulcerations involving both hips as well as the sacrum. 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 Neuro: The patient is alert and oriented x3. He is a quadriplegic. LABS: White blood cell count 8.8, hemoglobin 8.1, hematocrit 27, platelets 261,000. Sodium 139, potassium 4.4, chloride 102, CO2 24, BUN 45, creatinine 0.8, glucose 169, AST 68, ALT 209, alkaline phosphatase 549, IgG 1641. Left hip wound culture gram-negative rods. ASSESSMENT AND PLAN: 1. 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 The drain in the left hip was removed this weekend. The wound culture from the left hip is growing gram negative rods. Will continue on the current antibiotic regimen pending the wound culture result from the left hip. 2. Multiple decubitus ulcerations. Continue with wound care and antibiotic therapy. 3. Sacral osteomyelitis. Aware. 4. Transaminitis. Improved. The patient has gallstones with a thickened gallbladder wall. Will order a HIDA scan to be done tomorrow. Also daptomycin was discontinued on Monday as a potential cause of the patient's transaminitis. 5. Abdominal pain. The patient has been having diarrhea which has been attributed to the antibiotics that he has been receiving for the last several weeks. The stool studies are unremarkable. Will consult with GI for further recommendations. 6. Quadriplegia. Aware. 7. Chronic pain. Continue on the current pain management regimen. 8. Anemia of chronic disease. Continue to monitor the hemoglobin and hematocrit closely. 9. Gastrointestinal prophylaxis. Continue on Protonix. 10. Deep vein thrombosis prophylaxis. Continue on Lovenox. cc: Karla Pagan MD [facility]
[2019-04-28] MEDS: AMBIEN PO SCH (20:34)
[2019-04-29] MEDS: LOVENOX SUBQ SCH (05:19)
[2019-04-29 08:26] LABS: HEMATOCRIT 28.4 % (42.0-52.0); MCH 28.1 PG (27-31); MCHC 31.7 g/dL (33-37); MCV 88.8 FL (81-99); MPV 9.3 FL (7.4-10.4); RBC 3.2 XMIL (4.7-6.1); RDW 18.8 % (11.5-14.5); WBC 9.3 X1000 (4.8-10.8)
[2019-04-29 08:42] LABS: AGAP 12; ALB/GLOB RATIO 0.6; ALBUMIN 2.6 g/dL (3.5-5.0); ALKALINE PHOSPHATASE 543 U/L (32-122); BUN 43 mg/dL (8-22); CALCIUM 9.4 mg/dL (8.8-10.2); CHLORIDE 102 mmol/L (98-107); COSMO 291; CREATININE 0.6 mg/dL (0.7-1.2); ESTIMATED GFR > 60; GLUCOSE 147 mg/dL (70-104); GOT 56 U/L (10-34); GPT 159 U/L (10-44); POTASSIUM 4.6 mmol/L (3.5-5.1); SODIUM 139 mmol/L (136-145); TCO2 25 mmol/L (25-35); TOTAL BILIRUBIN 0.41 mg/dL (0.20-1.00); TOTAL PROTEIN 7.2 g/dL (6.3-8.3)
--- NOTE | 2019-04-29 08:43 | Diag Imaging Result Doc PS360 ---
HIDA SCAN W/ EJECTION FRACTION - 04/29/2019 INDICATION: cholelithiasis/elevated LFTs COMPARISON: 04/27/2019 FINDINGS: 5.9 millicuries of Choletec was administered. There is normal uptake and clearance by the liver. There is normal excretion into the gallbladder and small bowel. A fatty meal was given. The gallbladder ejection fraction is 20%. IMPRESSION: Slightly subnormal gallbladder ejection fraction. This likely indicates chronic cholecystitis. An abnormally low ejection fraction (less than 35%) can be present in patients without gallbladder dyskinesis or chronic cholelithiasis to have other medical conditions. These include but are not limited to, patients with diabetic mellitus, irritable bowel syndrome, , gastroenteritis. peptic ulcer disease, and patients receiving morphine or nifedipine. Electronically signed by Demond Bowers 04/29/2019 8:41 AM
[2019-04-29] MEDS: PROTONIX IV SCH ×2 (08:58→21:18)
[2019-04-29] MEDS: BENADRYL IV PRN ×4 (08:58→21:18)
[2019-04-29] MEDS: PHENERGAN IV PRN ×4 (08:59→21:19)
[2019-04-29] MEDS: DILAUDID IV PRN ×4 (08:59→21:19)
[2019-04-29] MEDS: MERREM 2 GM in NS 100 ML IV SCH ×2 (09:11→17:18)
[2019-04-29] MEDS: PROAMATINE PO SCH ×3 (09:11→21:18)
[2019-04-29] MEDS: LYRICA PO SCH ×2 (09:12→21:17)
[2019-04-29] MEDS: CULTURELLE PO SCH ×2 (09:12→21:18)
[2019-04-29] MEDS: THERA M PLUS PO SCH (09:12)
[2019-04-29] MEDS: QUESTRAN LIGHT PO SCH ×2 (09:12→21:19)
[2019-04-29] MEDS: IMODIUM PO PRN ×4 (09:12→21:18)
[2019-04-29] MEDS: FLORINEF PO SCH (09:12)
[2019-04-29] MEDS: MARINOL PO SCH ×2 (09:12→21:17)
[2019-04-29] MEDS: TYGACIL 50 MG in NS 50 ML IV SCH ×2 (11:21→21:20)
--- NOTE | 2019-04-29 13:27 | CONSULTATION ---
DATE OF CONSULTATION: 04/29/2019 HISTORY: Mr. Stewart has been hospitalized for a month because of chronic pressure ulcers and infection. He is paraplegic. Most recently, he has had some nausea and some abdominal pain with diarrhea. An abdominal ultrasound was performed on 04/27/2019 which suggested that he had gallstones. It was mentioned that the gallbladder was contracted with thickening of the wall. HIDA scan today showed 0an ejection fraction of 20%. There was filling of the gallbladder during this procedure. The patient's white blood cell count is normal. He is afebrile on multiple IV antibiotics. OBJECTIVE: On exam, his abdomen is soft. There is no right upper quadrant tenderness or palpation of the gallbladder. His total bilirubin is normal as are his liver function tests including his AST and ALT are slightly elevated. His alkaline phosphatase is 543. IMPRESSION: Chronic cholecystitis with cholelithiasis. PLAN: We can consider cholecystectomy because of his gallstones electively. I could not classify this as urgent or emergent procedure at this time. He states that he feels that his abdominal discomfort comes before having diarrhea. cc: Latonya Anderson MD
--- NOTE | 2019-04-29 16:29 | INFECTIOUS DISEASE PROGRESS NO ---
DATE: 04/29/2019 PRESENT ILLNESS: Mr. Stewart has chronic bilateral hip and sacral osteomyelitis with multiple decubitus ulcers and hip abscesses bilaterally. MEDICATIONS: Today is day 22 of treatment for the vancomycin-resistant enterococcus for which he is currently receiving tigecycline 50 mg IV every 12 hours. Today is day 31 of treatment using meropenem 2 g IV every 8 hours. PHYSICAL EXAMINATION: Vital Signs: Temperature is 98.7 degrees, pulse rate 108, respiratory rate 22, blood pressure 191/57, O2 saturation is 99% on room air. General: This is a chronically ill, middle-aged gentleman who is lying in the bed, currently in no acute distress. HEENT: Atraumatic, normocephalic. Oral mucous membranes are pink and moist. Conjunctivae are pale. Neck: Supple. Trachea is midline. Respiratory: Lung sounds are bilaterally clear to auscultation with no work of breathing noted. Cardiovascular: Heart rate and rhythm are regular and fast with sinus tachycardia noted on the monitor. Neurologic: He is awake, alert, and oriented. He has limited movement to his upper extremities with hand contractures bilaterally and no use of his lower extremities due to quadriplegia. Integumentary: Skin is warm and dry with a Morris in place to the right chest. That site is without edema, erythema, or drainage. The accordion drain to his left hip has been removed, and he has multiple decubitus ulcers, which are covered with dressings, not removed at this time. LABORATORY AND X-RAY: Today his white count is 9.3, hemoglobin 9, platelet count 252,000. Creatinine is 0.6, estimated GFR is greater than 60. Total bilirubin is 0.41, AST 56, ALT 159, alkaline phosphatase 543. Previously he has had Acinetobacter and Pseudomonas to his right hip and Enterococcus, Providencia and vancomycin-resistant enterococcus to his left hip. Most recently, his left hip grew Pseudomonas. Over the weekend he did have a HIDA scan, which showed a gallbladder ejection fraction of 20% which likely indicates chronic cholecystitis. He also had an abdominal ultrasound showing cholelithiasis, fatty liver and mild splenomegaly. ASSESSMENT AND PLAN: Mr. Stewart is being treated for a chronic hip and sacral osteomyelitis as well as septic hip arthritis and polymicrobial growth to his multiple decubitus ulcers and abscesses. He will need to complete a total of 6 weeks of treatment for the various bacteria that have grown. The new left hip Pseudomonas should be covered by the already present meropenem. The daptomycin was discontinued and he was started on tigecycline due to transaminitis. That has improved. For now, we will continue to provide tigecycline and meropenem as ordered. COMORBIDITIES: For Mr. Stewart, include that he is diabetic with neuropathy, multiple decubitus ulcers and C7 quadriplegia. Dictated by COLTEN Andrews for Vazquez Ellis MD cc: Vazquez Ellis MD [facility]
--- NOTE | 2019-04-29 17:58 | PROGRESS NOTE ---
DATE: 04/29/2019 SUBJECTIVE: The patient states that he is still having abdominal discomfort as well as diarrhea. OBJECTIVE: Vital Signs: Temperature 98.1 degrees, blood pressure 97/63, heart rate 107, respiratory rate 22, O2 saturation is 100% on room air. General: This is a chronically ill- appearing male lying in bed in no acute distress. Heart: S1, S2 normal. Tachycardic. Lungs: Clear to auscultation bilaterally. Abdomen: Positive bowel sounds. Soft, nontender, nondistended. Extremities: The patient has multiple decubitus ulcerations on his hip and a sacral wound. The patient also has contractures of his hands. Neurologic: The patient is alert and oriented x3. He is a quadriplegic. LABS: White blood cell count 9.3, hemoglobin 9, hematocrit 28, platelets 252,000. Sodium 139, potassium 4.6, chloride 102, CO2 25, BUN 43, creatinine 0.6, glucose 147, total bilirubin 0.4, AST 56, ALT 159, alkaline phosphatase 543, albumin 2.6. IMAGING: HIDA scan reveals abnormal gallbladder ejection fraction indicative of chronic cholecystitis. ASSESSMENT AND PLAN: 1. 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 The drain in the left hip was removed this weekend. The new wound culture is growing Pseudomonas. Continue with daptomycin and meropenem as ordered. 2. Multiple decubitus ulcerations. Continue with wound care and antibiotic therapy. 3. Sacral osteomyelitis. Aware. 4. Chronic cholecystitis with cholelithiasis. The patient was assessed by the general surgeon who recommended consideration of cholecystectomy when the patient's other infections have resolved. The patient's liver function tests are improving since the daptomycin was discontinued on Monday. Continue to monitor closely. 5. Quadriplegia. Aware. 6. Anemia of chronic disease. Stable. 7. Chronic pain. Continue on the current pain management regimen. 8. Gastrointestinal prophylaxis. Continue on Protonix. 9. Deep vein thrombosis prophylaxis. Continue on Lovenox. cc: Karla Pagan MD
[2019-04-29] MEDS: AMBIEN PO SCH (21:17)
[2019-04-29] MEDS: SODIUM CHLORIDE 0.9% INJ SCH (21:19)
[2019-04-30] MEDS: TYGACIL 50 MG in NS 50 ML IV SCH ×3 (00:12→23:33)
[2019-04-30] MEDS: MERREM 2 GM in NS 100 ML IV SCH ×3 (00:12→19:00)
[2019-04-30] MEDS: BENADRYL IV PRN ×5 (02:24→19:01)
[2019-04-30] MEDS: PHENERGAN IV PRN ×5 (02:25→19:01)
[2019-04-30] MEDS: DILAUDID IV PRN ×5 (02:25→19:00)
[2019-04-30 06:52] LABS: BASO# 0.02 X1000 (0.0-0.2); BASO% 0.3 % (0.0-0.8); EOS# 0.39 X1000 (0.0-0.7); HEMATOCRIT 26.1 % (42.0-52.0); HEMOGLOBIN 7.9 g/dL (14.0-18.0); IMM GRAN% 1.3 % (0.0-0.5); LYMPH# 1.94 X1000 (1.2-3.4); LYMPH% 24.7 % (20.5-51.1); MCH 27.1 PG (27-31); MCHC 30.3 g/dL (33-37); MCV 89.4 FL (81-99); MONO# 0.66 X1000 (0.11-0.59); MONO% 8.4 % (1.7-9.3); MPV 10.4 FL (7.4-10.4); NEUT# 4.75 X1000 (1.4-6.5); NEUT% 60.3 % (42.2-75.2); PLT 252 X1000 (130-400); RBC 2.92 XMIL (4.7-6.1); RDW 18.5 % (11.5-14.5); WBC 7.86 X1000 (4.8-10.8)
[2019-04-30 07:14] LABS: AGAP 10; ALB/GLOB RATIO 0.8; ALBUMIN 2.4 g/dL (3.5-5.0); ALKALINE PHOSPHATASE 417 U/L (32-122); BUN 34 mg/dL (8-22); CALCIUM 7.6 mg/dL (8.8-10.2); CHLORIDE 100 mmol/L (98-107); COSMO 275; CREATININE 0.5 mg/dL (0.7-1.2); ESTIMATED GFR > 60; GLUCOSE 118 mg/dL (70-104); GOT 27 U/L (10-34); GPT 102 U/L (10-44); SODIUM 133 mmol/L (136-145); TCO2 23 mmol/L (25-35); TOTAL BILIRUBIN 0.24 mg/dL (0.20-1.00); TOTAL PROTEIN 5.4 g/dL (6.3-8.3)
[2019-04-30] MEDS: THERA M PLUS PO SCH (09:07)
[2019-04-30] MEDS: CULTURELLE PO SCH ×2 (09:07→20:17)
[2019-04-30] MEDS: PROTONIX IV SCH (09:07)
[2019-04-30] MEDS: QUESTRAN LIGHT PO SCH ×2 (09:07→20:17)
[2019-04-30] MEDS: FERROUS SULFATE PO SCH (09:07)
[2019-04-30] MEDS: PROAMATINE PO SCH ×3 (09:07→20:17)
[2019-04-30] MEDS: FLORINEF PO SCH (09:07)
[2019-04-30] MEDS: MARINOL PO SCH ×2 (09:40→20:17)
[2019-04-30] MEDS: LYRICA PO SCH ×2 (09:40→20:17)
[2019-04-30] MEDS: LOVENOX SUBQ SCH (10:27)
--- NOTE | 2019-04-30 18:50 | PROGRESS NOTE ---
DATE: 04/30/2019 INTERVAL HISTORY: No acute events overnight. SUBJECTIVE: Mr. Stewart denies new complaints. He says he is trying his best to eat his meals. He has been eating fruits. He denies chest pain, shortness of breath, or cough. He denies nausea, vomiting. He has occasional abdominal discomfort on the right side. VITALS: Temperature of 98.2 degrees, pulse 102, respiratory rate 17, blood pressure 94/50. He is saturating 100% on room air. PHYSICAL EXAMINATION: He is not in acute distress. Oral cavity is moist.Lungs: Air entry bilaterally equal. No wheeze, rhonchi, or crackles. Cardiovascular: S1, S2 normal. Tachycardic. No murmur or gallop. Abdomen: Soft, distended. He has mild discomfort in epigastric right upper quadrant region without any guarding, rigidity. Frod sign is negative. Active bowel sounds. He has bilateral lower extremity edema, which is significantly better than on my previous examination about 10 days ago. He has a urine catheter. He is able to move bilateral upper extremities, though he does have some weakness at the interphalangeal joints. He is hardly able to wiggle toes in the lower extremities. He has bilateral buttock wounds. LABS: Suggestive of hemoglobin of 7.9, platelet of 252,000, BUN of 34, creatinine 0.5. Microbiology left hip is growing Pseudomonas aeruginosa which is resistant to levofloxacin. Yesterday HIDA scan had subnormal gallbladder ejection fraction suggestive of chronic cholecystitis. ASSESSMENT AND PLAN: 1. Bilateral chronic septic arthritis of hip joints, osteomyelitis of pelvic and femur with multiple abscesses with polymicrobial infection involving Pseudomonas, Enterococcus faecium, Enterococcus faecalis, Providencia and Acinetobacter. Continue intravenous meropenem and intravenous tigecycline for a total of 6 weeks of treatment. He is status post removal of left-sided hip joint drainage. 2. Chronic cholecystitis with cholelithiasis. The patient liver function tests have been trending down after discontinuing daptomycin. He has occasional mild tenderness. He would need outpatient surgery evaluation for elective cholecystectomy. For now he is tolerating regular diet. 3. Chronic hypotension. Continue fludrocortisone and midodrine. 4. Chronic pain. Continue home pregabalin, intravenous hydromorphone. 5. Severe protein energy malnutrition. He has had extremely low serum albumin level. I encouraged him to have oral intake. 6. Chronic anemia. I will continue iron, multivitamin and change his Protonix to oral b.i.d. 7. Others. Continue enoxaparin for deep venous thrombosis prophylaxis, cholestyramine for diarrhea, zolpidem for insomnia. After detailed discussion with the patient, my plan is to go down on his Dilaudid as tolerated. We will continue to monitor patient inside the hospital. Plan of care discussed with him. His questions have been answered. cc: Phan Aleman MD
[2019-04-30] MEDS: AMBIEN PO SCH (20:17)
[2019-04-30] MEDS: PRILOSEC PO SCH (20:17)
[2019-05-01] MEDS: MERREM 2 GM in NS 100 ML IV SCH ×3 (00:44→17:27)
[2019-05-01] MEDS: BENADRYL IV PRN ×2 (03:23→09:55)
[2019-05-01] MEDS: DILAUDID IV PRN ×3 (03:23→18:20)
[2019-05-01] MEDS: PHENERGAN IV PRN ×3 (03:24→18:21)
[2019-05-01] MEDS: IMODIUM PO PRN ×2 (03:24→10:34)
[2019-05-01] MEDS: LOVENOX SUBQ SCH (05:56)
[2019-05-01] MEDS: PRILOSEC PO SCH ×3 (05:57→23:39)
[2019-05-01] MEDS: PROAMATINE PO SCH ×3 (08:39→23:39)
[2019-05-01] MEDS: FLORINEF PO SCH (08:39)
[2019-05-01] MEDS: THERA M PLUS PO SCH (08:39)
[2019-05-01] MEDS: MARINOL PO SCH ×2 (08:39→23:59)
[2019-05-01] MEDS: CULTURELLE PO SCH ×2 (08:39→23:39)
[2019-05-01] MEDS: LYRICA PO SCH ×2 (08:39→23:38)
[2019-05-01] MEDS: QUESTRAN LIGHT PO SCH ×2 (08:40→23:42)
[2019-05-01] MEDS: TYGACIL 50 MG in NS 50 ML IV SCH (09:47)
[2019-05-01] MEDS ORDERED: BENADRYL IV PRN (13:42)
--- NOTE | 2019-05-01 14:15 | PROGRESS NOTE ---
DATE: 05/01/2019 INTERVAL HISTORY: No acute events overnight. SUBJECTIVE: Mr. Stewart denies chest pain, shortness of breath, cough. He has been occasionally nauseous. He denies any vomiting. He continues to have loose bowel movements. Review of systems: Positive for nausea. Positive for abdominal discomfort. Positive for diarrhea. Negative for burning around catheter. VITALS: Temperature of 98.4 degrees, pulse 109, respiratory rate 14, blood pressure 94/57, saturating 99% on room air. PHYSICAL EXAMINATION: General: He was drowsy on my encounter, was easily arousable. Oral cavity: Moist. Lungs: Air entry bilaterally equal. No wheeze, rhonchi, crackles. Cardiovascular: S1, S2 normal. Tachycardic. No murmur or gallop. Abdomen: Soft. Mild left lower quadrant tenderness without any guarding or rigidity. Active bowel sounds. Extremities: He has bilateral lower extremity edema. Neurologic: He is alert and oriented x3. He has right- sided Morris catheter. Neurological examination: He is able to move both upper extremities with some weakness of intrinsic muscles of hand joints. He is hardly able to wiggle his lower extremity toes. He has bilateral buttocks and thigh wounds. LABS: No CBC or BMP today. ASSESSMENT AND PLAN: 1. Bilateral chronic septic arthritis of hip joints, chronic Osteomyelitis of the pelvis and femurs, decubitus ulcers, Multiple abscesses with polymicrobial infections involving Pseudomonas, VRE, Enterococcus faecalis, Procidentia and Acinetobacter. Continue intravenous meropenem and tigecycline for a total of 6 weeks. He is status post removal of left-sided hip joint drainage. He has been evaluated by the surgery on previous admission and deemed not a good candidate for surgery because of the extent of the wounds and poor nutritional status. 4. Chronic pain. I will continue his home pregabalin. I will space out frequency of intravenous hydromorphone to every 8 hours, and start him on oral oxycodone. In the future, I will consider starting him on acetaminophen once his liver function tests normalize. 5. Chronic cholecystitis with cholecystsolithiasis. The patient has been tolerating diet without any vomiting. His potential culprit, intravenous daptomycin, has been stopped. I will follow up with liver function tests. He would have outpatient evaluation for cholecystectomy. 6. Severe protein energy malnutrition. Continue oral intake with protein supplements. 7. Chronic anemia. Continue iron, multivitamin and continue proton pump inhibitors orally twice daily for positive fecal occult blood test. 8. Others. Continue enoxaparin for deep vein thrombosis prophylaxis; Imodium and cholestyramine for antibiotic- associated diarrhea; zolpidem for insomnia. He has paraplegia after cervical spinal injury. 9. Disposition: [employer] is working on finding a place where he could receive intravenous antibiotic, as well as frequent wound dressing, which he is currently getting twice daily. I had a prolonged discussion with Mr. Stewart about benefit versus risk associated with intravenous hydromorphone, as well as intravenous Phenergan. We discussed about respiratory depression, aspiration pneumonia, which could potentially be life- threatening. Mr. Stewart was not happy about spacing out the frequency of intravenous Dilaudid. However, after persistent explanation, he was eventually agreeable, and I would space out his intravenous Dilaudid to every 8 hours, and start him on oral oxycodone as well. My plan will be to eventually take him off intravenous pain medications over the next 48 to 72 hours. 35 minutes have been spent in counselling him and taking care of him. I updated the nurse with the plan. cc: Phan Aleman MD [facility]
--- NOTE | 2019-05-01 16:12 | INFECTIOUS DISEASE PROGRESS NO ---
DATE: 05/01/2019 PRESENT ILLNESS: Mr. Stewart is being treated for chronic bilateral hip and sacral osteomyelitis as well as multiple decubitus ulcers and hip abscesses bilaterally. His cultures have been polymicrobial with Acinetobacter, Pseudomonas, Providencia and vancomycin-resistant enterococcus. MEDICATIONS: Today is day 24 of treatment for his vancomycin-resistant Enterococcus, for which he is currently receiving Tigecycline 50 mg IV every 12 hours. Today is day 33 of treatment with meropenem 2 g IV every 8 hours for the other bacteria that have grown. PHYSICAL EXAMINATION: Vital Signs: Temperature is 98.4 degrees, pulse rate 109, respiratory rate 19 blood pressure 94/57, O2 saturation is 99% on room air. General: This is a chronically ill- appearing, middle-aged gentleman. He is lying in bed, currently in no acute distress. HEENT: Atraumatic, normocephalic. Oral mucous membranes are pink and moist. Conjunctivae are pale. Neck: Supple. Trachea is midline. Cardiovascular: Heart rate and rhythm are regular and fast. Sinus tachycardia on the monitor. Respiratory: Lung sounds are bilaterally clear to auscultation. No work of breathing is noted. Abdomen: Soft, round, nontender. Bowel sounds are active. Integumentary: Skin is warm and dry with a Morris in place to the right chest. That site is without edema, erythema, or drainage. He has multiple decubitus ulcers which are covered with dressings, and not removed at this time. Neurologic: He is awake, alert, oriented, able to move his upper extremities with limitations and hand contractures bilaterally, with no use of his lower extremities due to quadriplegia. LABORATORY AND X-RAY: Today his white count is 7.86, hemoglobin 7.9, platelet count 252,000. Creatinine 0.5, estimated GFR is greater than 60. Total bilirubin is 0.24. AST 27, ALT 102. Alkaline phosphatase 417. No imaging reports today. ASSESSMENT AND PLAN: Mr. Stewart is being treated for chronic osteomyelitis to his bilateral hips and sacrum as well as septic hip arthritis bilaterally and multiple decubitus ulcers and abscesses bilaterally. He is receiving tigecycline for the vancomycin-resistant enterococcus, and his previously elevated liver enzymes are continuing to come back down to normal. For now, he will need to continue the meropenem and tigecycline until the 6 week luma for each of these medications. COMORBIDITIES: For Mr. Stewart include C7 quadriplegia, diabetes mellitus, neuropathy, and multiple decubitus ulcers. Dictated by COLTEN Andrews for Ike Thapa MD cc: Ike Thapa MD [facility]
[2019-05-01] MEDS: AMBIEN PO SCH (23:39)
[2019-05-01] MEDS: OXY IR PO PRN (23:54)
[2019-05-02] MEDS: MERREM 2 GM in NS 100 ML IV SCH ×3 (00:42→18:20)
[2019-05-02] MEDS: DILAUDID IV PRN ×3 (02:37→18:26)
[2019-05-02] MEDS: SODIUM CHLORIDE 0.9% INJ SCH ×3 (02:40→18:26)
[2019-05-02] MEDS: PHENERGAN IV PRN ×3 (02:40→18:26)
[2019-05-02] MEDS: IMODIUM PO PRN ×2 (06:05→10:54)
[2019-05-02] MEDS: PRILOSEC PO SCH ×2 (06:05→21:11)
[2019-05-02] MEDS: LOVENOX SUBQ SCH (06:06)
[2019-05-02] MEDS: OXY IR PO PRN ×3 (06:42→23:06)
[2019-05-02 07:12] LABS: BASO# 0.04 X1000 (0.0-0.2); BASO% 0.5 % (0.0-0.8); EOS# 0.34 X1000 (0.0-0.7); EOS% 4.3 % (0.0-10.0); HEMATOCRIT 28.8 % (42.0-52.0); HEMOGLOBIN 8.8 g/dL (14.0-18.0); IMM GRAN% 1.3 % (0.0-0.5); LYMPH# 1.58 X1000 (1.2-3.4); LYMPH% 20.1 % (20.5-51.1); MCH 27.2 PG (27-31); MCHC 30.6 g/dL (33-37); MCV 88.9 FL (81-99); MONO# 1.02 X1000 (0.11-0.59); NEUT# 4.77 X1000 (1.4-6.5); NEUT% 60.8 % (42.2-75.2); PLT 314 X1000 (130-400); RBC 3.24 XMIL (4.7-6.1); RDW 18.2 % (11.5-14.5); WBC 7.85 X1000 (4.8-10.8)
[2019-05-02 07:38] LABS: AGAP 10; ALB/GLOB RATIO 0.6; ALBUMIN 2.5 g/dL (3.5-5.0); ALKALINE PHOSPHATASE 380 U/L (32-122); BUN 43 mg/dL (8-22); CALCIUM 8.9 mg/dL (8.8-10.2); CHLORIDE 97 mmol/L (98-107); COSMO 283; CREATININE 0.5 mg/dL (0.7-1.2); ESTIMATED GFR > 60; GLUCOSE 127 mg/dL (70-104); GOT 21 U/L (10-34); GPT 61 U/L (10-44); POTASSIUM 4.6 mmol/L (3.5-5.1); SODIUM 135 mmol/L (136-145); TCO2 28 mmol/L (25-35); TOTAL BILIRUBIN 0.37 mg/dL (0.20-1.00); TOTAL PROTEIN 6.7 g/dL (6.3-8.3)
[2019-05-02] MEDS: FERROUS SULFATE PO SCH (10:20)
[2019-05-02] MEDS: PROAMATINE PO SCH ×3 (10:20→21:11)
[2019-05-02] MEDS: CULTURELLE PO SCH ×2 (10:20→21:11)
[2019-05-02] MEDS: LYRICA PO SCH ×2 (10:20→21:10)
[2019-05-02] MEDS: MARINOL PO SCH ×2 (10:20→21:11)
[2019-05-02] MEDS: THERA M PLUS PO SCH (10:20)
[2019-05-02] MEDS: FLORINEF PO SCH (10:20)
[2019-05-02] MEDS: QUESTRAN LIGHT PO SCH ×2 (10:21→21:11)
[2019-05-02] MEDS: TYGACIL 50 MG in NS 50 ML IV SCH ×4 (10:54→23:10)
--- NOTE | 2019-05-02 13:22 | PROGRESS NOTE ---
DATE: 05/02/2019 INTERVAL HISTORY: No acute events overnight. SUBJECTIVE: Mr. Stewart denies any new complaints. He denies chest pain, shortness of breath, or cough. I saw him earlier when his wounds were getting dressed, and later on I saw him for clinical encounter. OBJECTIVE: Vital Signs: Temperature 97.6 degrees, pulse 103, respiratory rate 19, blood pressure at 87/54, he is saturating 97% on room air. General: Mr. Stewart does not appear in any acute distress. He appears much more awake and alert today. HEENT: I did not examine the oral cavity today. Lungs: Air entry bilaterally equal. No wheeze, rhonchi, crackles. He has a right-sided chest Morris catheter. Heart: S1, S2 normal. No murmur or gallop. Abdomen: Soft, nontender. Active bowel sounds. Extremities: He has bilateral lower extremity edema, which is decreasing. : He has a urine catheter, which was changed within the last week. Wound: He has multiple wounds on his sacrum, left and right buttock, which appear to be healing well. I could not see any obvious pus. He also has wounds on his legs. He is -2.8 L today. LABORATORY DATA: Hemoglobin of 8.8, platelets of 314,000. His BUN is 43, creatinine 0.5, his albumin is 2.5. MICROBIOLOGY/IMAGING: No new microbiological or imaging data. ASSESSMENT AND PLAN: 1. Bilateral chronic septic arthritis of hip joints, chronic osteomyelitis of pelvis and femurs, decubitus ulcers on sacrum and bilateral buttocks, multiple abscesses with polymicrobial infections involving Pseudomonas, vancomycin-resistant enterococci, Providencia, and Acinetobacter. Continue intravenous meropenem and tigecycline for 6 weeks. He is status post left-sided hip joint drainage. 2. Chronic pain. Continue home pregabalin. Continue intravenous hydromorphone with decreased frequency timed around wound dressing changes, and oral oxycodone. 3. Chronic cholecystitis with cholecystolithiasis. He would need outpatient followup. He does not have any vomiting. Did not have tenderness on my examination. 4. Severe protein energy malnutrition. Continue oral intake with protein supplements. 5. Chronic anemia. Continue iron, multivitamin, and proton pump inhibitors. 6. Others. Continue enoxaparin for deep venous thrombosis prophylaxis; Imodium and cholestyramine for antibiotic-associated diarrhea; zolpidem for insomnia; dronabinol for appetite stimulation; fludrocortisone and midodrine for chronic hypotension; Phenergan for vomiting as needed; Benadryl for itching as needed. 7. Disposition. Monitor the patient on medical floor. Plan of care discussed with Mr. Stewart. All of his questions were answered. I reached out to his mother yesterday. However, she did not receive my call, and I have left her a voice message. cc: Phan Aleman MD
[2019-05-02] MEDS: AMBIEN PO SCH (21:11)
[2019-05-03] MEDS: MERREM 2 GM in NS 100 ML IV SCH ×3 (00:40→16:38)
[2019-05-03] MEDS: DILAUDID IV PRN ×2 (03:45→11:39)
[2019-05-03] MEDS: PHENERGAN IV PRN ×2 (03:45→11:38)
[2019-05-03] MEDS: PRILOSEC PO SCH (06:08)
[2019-05-03] MEDS: LOVENOX SUBQ SCH (06:08)
[2019-05-03] MEDS: MARINOL PO SCH (08:17)
[2019-05-03] MEDS: IMODIUM PO PRN ×3 (08:17→15:59)
[2019-05-03] MEDS: THERA M PLUS PO SCH (08:17)
[2019-05-03] MEDS: CULTURELLE PO SCH (08:17)
[2019-05-03] MEDS: QUESTRAN LIGHT PO SCH (08:18)
[2019-05-03] MEDS: OXY IR PO PRN ×2 (08:18→16:00)
[2019-05-03] MEDS: PROAMATINE PO SCH ×2 (08:18→16:00)
[2019-05-03] MEDS: LYRICA PO SCH (08:18)
[2019-05-03] MEDS: FLORINEF PO SCH (08:18)
[2019-05-03] MEDS: TYGACIL 50 MG in NS 50 ML IV SCH (11:37)
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
--- NOTE | 2019-05-03 13:24 | INFECTIOUS DISEASE PROGRESS NO ---
DATE: 05/03/2019 PRESENT ILLNESS: Mr. Stewart has chronic bilateral hip and sacral osteomyelitis as well as bilateral hip abscesses and multiple decubitus ulcers. His wounds and abscesses have grown Pseudomonas, vancomycin-resistant enterococcus, Providencia, Enterococcal faecalis, and Acinetobacter. MEDICATIONS: Today is day 26 of treatment for the vancomycin-resistant enterococcus. He is currently receiving tigecycline 50 mg IV every 12 hours for that. Also today is day 35 of treatment with meropenem 2 g IV every 8 hours for the other bacteria that have grown. PHYSICAL EXAMINATION: Vital Signs: Temperature is 97.7 degrees, pulse rate 92, respiratory rate 19, blood pressure 101/63, O2 saturations 100% on room air. General: This is a chronically ill- appearing, middle-aged gentleman. He is lying in bed, currently in no acute distress. HEENT: Atraumatic, normocephalic. Oral mucous membranes are pink and moist. Conjunctivae are pale. Neck: Supple. Trachea is midline. Respiratory: Lung sounds are clear to auscultation bilaterally with no work of breathing noted. Cardiovascular: Heart rate and rhythm are regular. Normal sinus rhythm on the monitor. Abdomen: Soft, round, nontender with active bowel sounds. Neurologic: He is awake, alert, oriented, able to move his upper extremities with hand contractures and limitations as well as no use of his lower extremities due to quadriplegia. Integumentary: Skin is warm and dry with a Morris to the right chest. That site is without edema, erythema, or drainage. There are multiple decubitus ulcers which are covered with dressings, not removed at this time. LABORATORY AND X-RAY: None available today. However yesterday, his white blood cell count was 7.85, hemoglobin 8.8, platelet count 314,000. Creatinine 0.5, estimated GFR greater than 60. Total bilirubin 0.37, AST 21, ALT 61, alkaline phosphatase 380. No imaging reports recently. ASSESSMENT AND PLAN: Mr. Stewart has been treated for several weeks for chronic osteomyelitis to his bilateral hips and sacrum as well as septic hip arthritis and multiple decubitus ulcers and hip abscesses. Today, the plan is for him to be transferred to a rehab facility in [place]. Orders have been written out for him to receive tigecycline and meropenem to the 6 week luma for each of these medications. Also lab work is to be done every Monday and sent to our office. We do have a follow-up appointment with him the day after his last antibiotic regimen is complete. COMORBIDITIES: For Mr. Stewart, include C7 quadriplegia, diabetes mellitus, neuropathy, and multiple decubitus ulcers. Dictated by COLTEN Andrews for Ike Thapa MD cc: Ike Thapa MD [facility]
[2019-05-03 16:20] VITALS: BP 87/53
== END 2019-05-03 19:00 | DRG 871 ==
LOC: ED 16:52 → EDIPHOLD 23:13 → SUATTDRO 23:13 → ICU 03-26 02:31 → 2N 04-13 11:21 → 4N 04-16 05:44 → 3N 04-16 16:49
PROVIDERS: ATTEND Internal Medicine